=== PATIENT | female | born 1960 | race Caucasian/White ===

== ENCOUNTER 2017-07-04 06:48 | Day surgery (SDC) | payer MEDICARE ==
[2017-07-03 13:02] VITALS: BMI 24.7
[2017-07-04] MEDS ORDERED: Oxymetazoline HCl 0.05% ( 15 ML ) ONE ×2 (08:20→09:04)
[2017-07-04 08:42] LABS: Hematocrit 43.3 % (36.0-47.0)
[2017-07-04] MEDS ORDERED: Fentanyl 250 MCG/5 ML VIAL ONE (09:03)
[2017-07-04] MEDS ORDERED: Midazolam HCl 2 mg/2 ml Vial ONE (09:10)
[2017-07-04] MEDS ORDERED: Ketorolac Tromethamine 30 MG/ML VIAL ONE (09:25)
[2017-07-04] MEDS ORDERED: Lidocaine 2% PF 10 ML AMP (For Epidural Use) ONE (09:25)
[2017-07-04] MEDS ORDERED: Dexamethasone 20 MG/5 ML VIAL ONE (09:25)
[2017-07-04] MEDS ORDERED: Ondansetron HCl/PF 4 MG/2 ML Vial ONE (09:25)
[2017-07-04] MEDS ORDERED: Glycopyrrolate 0.2 MG/ML 5 ML SYRINGE ONE (09:25)
[2017-07-04] MEDS ORDERED: Propofol 200 MG/20 ML VIAL ONE (09:25)
--- NOTE | 2017-07-05 09:31 | OP ---
DATE OF SERVICE: 07/04/2017 PREOPERATIVE DIAGNOSES: 1. Chronic rhinosinusitis of the frontal air cells. 2. Chronic rhinosinusitis of the sphenoidal air cells. 3. Allergic fungal sinusitis. POSTOPERATIVE DIAGNOSES: 1. Chronic rhinosinusitis of the frontal air cells. 2. Chronic rhinosinusitis of the sphenoidal air cells. 3. Allergic fungal sinusitis. PROCEDURES: 1. Bilateral endoscopic sinus surgery, frontal sinusotomy with removal of tissue. 2. Bilateral endoscopic sinus surgery, sphenoidotomy. 3. Intraoperative image guided cranial base landmark surgery. SURGEON: Alexis Meyers M.D. ESTIMATED BLOOD LOSS: 20 mL COMPLICATIONS: None. ANESTHESIA: GETA. DESCRIPTION OF PROCEDURE: The patient was taken to the operating room and placed supine on the tabl e. General endotracheal anesthesia was obtained by the Anesthesia staff. Tube was secured in the l eft lower lip. The patient was placed in the beach chair position and was prepped and draped for st andard nasal surgery. Following this, the image guided landmark system was calibrated and was noted to be within 1 mm of accuracy. Following this, the guided instruments were then used to examine e nasal cavity along the 0 degree scope. The previous maxillary antrostomy and ethmoidectomies appe ared to be tight and healthy. There was redness and swelling in the right frontal recess area using the curved 40 degree microdebrider with the image guided system, the frontal recess and ostia on th is right side was identified and palpated. There was a bone remnant that was obstructing the right frontal sinus. This area was removed using the microdebrider and upbiting Blakesley forceps. Follo wing this, fungal debris and polypoid tissue was then suctioned and removed from right frontal sinus . Similar procedure was performed on the left frontal sinus where a scar band was encountered, but no obvious bone remnants. The scar mucosa was removed using the microdebrider. Following this, the 0 degree scope along with the straight microdebrider was then advanced medial to the middle turbina te where a scarred sphenoid ostia was encountered. The sphenoid ostia was then widened medially and inferiorly on both sides using the microdebrider. Thick mucus was suctioned from the left sphenoid sinus. Following this, the nasal cavity was irrigated. The patient was taken to recovery room in stable condition.
--- NOTE | 2017-07-06 15:57 | EKG ---
Test Reason : PREOP Blood Pressure : / mmHG Vent. Rate : 054 BPM Atrial Rate : 054 BPM P-R Int : 172 ms QRS Dur : 086 ms QT Int : 460 ms P-R-T Axes : 071 016 048 degrees QTc Int : 436 ms Sinus bradycardia Otherwise normal ECG When compared with ECG of 19-NOV-2016 22:11, Nonspecific T wave abnormality no longer evident in Anterior leads Confirmed by DR. Josselyn MITCHELL ([id number]) on 07/06/2017 3:57:08 PM Referred By: AMILCAR Confirmed By:DR. Josselyn MITCHELL
== END 2017-07-04 11:10 | disposition home or self-care (01) ==
LOC: SDC 06:48
PROVIDERS: ATTEND Otolaryngology Plastic Surgery within the Head & Neck
PROC: 09DT4ZZ Extraction of Left Frontal Sinus, Percutaneous Endoscopic Approach (ICD-10-PCS; principal; 2017-07-04)
PROC: 09DW4ZZ Extraction of Right Sphenoid Sinus, Percutaneous Endoscopic Approach (ICD-10-PCS; 2017-07-04)
PROC: 09DX4ZZ Extraction of Left Sphenoid Sinus, Percutaneous Endoscopic Approach (ICD-10-PCS; 2017-07-04)
PROC: 09D Ear, Nose, Sinus, Extraction (ICD-10-PCS; 2017-07-04)
DX: J32.1 Chronic frontal sinusitis (principal); J32.3 Chronic sphenoidal sinusitis; J30.89 Other allergic rhinitis; F41.9 Anxiety disorder, unspecified; I10 Essential (primary) hypertension; F32.9 Major depressive disorder, single episode, unspecified; E78.5 Hyperlipidemia, unspecified; F17.200 Nicotine dependence, unspecified, uncomplicated; Z79.3 Long term (current) use of hormonal contraceptives; Z79.899 Other long term (current) drug therapy; Z88.1 Allergy status to other antibiotic agents; Z88.8 Allergy status to other drugs, medicaments and biological substances; Z90.710 Acquired absence of both cervix and uterus; Z90.49 Acquired absence of other specified parts of digestive tract; Z98.890 Other specified postprocedural states
CPT/HCPCS: 36415; 85014; 93005; 93010; 96374; J0131; J1100; J1885; J2001; J2250; J2270; J2405; J2704; J3010

== ENCOUNTER 2017-09-12 12:30 | Outpatient (CLI) | payer MEDICARE | END 2017-09-12 12:31 | disposition home or self-care (01) | LOC: BICRAD 12:30 | PROVIDERS: ATTEND Internal Medicine | DX: J18.9 Pneumonia, unspecified organism (principal) | CPT/HCPCS: 70220; 71046 ==

== ENCOUNTER 2017-12-01 20:55 | Inpatient (IN) | payer MEDICARE ==
[~2017-12-01 20:55] MED LIST: ISOVUE-370 76%-LOCM 1 ML ONE
[2017-12-01] MEDS ORDERED: Piperacillin/Tazobactam 4.5 GM in Sodium Chloride 0.9% 100 ML IVPB SCH (21:45)
[2017-12-01] MEDS ORDERED: Albuterol Sulfate 2.5 mg/3 ml Neb ONE ×2 (22:27→22:28)
[2017-12-01] MEDS ORDERED: Ketorolac Tromethamine 30 MG/ML VIAL ONE (22:37)
--- NOTE | 2017-12-01 22:55 | RAD ---
AP VIEW OF THE CHEST 12/01/17 INDICATION: Difficulty breathing. COMPARISON: CT of the thorax dated 11/22/04. FINDINGS: The lungs are clear. Heart size is normal. Pulmonary vasculature is normal. There is mild to moderate emphysematous change. There is a stable calcified granuloma within the right mid lung. No acute osse ous abnormality is evident. IMPRESSION: 1. No acute cardiopulmonary abnormality. 2. COPD. 3. Stable calcified granuloma in the right lower lobe. POS: [facility]
[2017-12-01 23:48] LABS: #Basophils 0.1 thou/uL (0.0-0.2); #Eosinphils 0.2 thou/uL (0.0-0.7); #Lymphocytes 3.1 thou/uL (1.20-3.40); #Monocytes 1.3 thou/uL (0.11-0.59); %Basophils 0.6 % (0.0-1.0); %Eosinophils 1.6 % (0.0-10.0); %Lymphocytes 21.2 % (21.0-51.0); %Monocytes 8.6 % (0.0-10.0); %Neutrophils 68.1 % (42.0-75.0); Hemoglobin 11.4 g/dL (12.0-16.0); Mean Corpuscular Hemoglobin 33.6 pg (27.0-31.0); Platelet Count 323 thou/uL (130-400); RBC Distribution Width 12.7 % (11.5-14.5); Red Blood Cell (RBC) Count 3.38 mill/uL (4.20-5.40); White Blood Cell (WBC) Count 14.6 thou/uL (4.8-10.8)
[2017-12-02 00:04] LABS: ALT (SGPT) 17 U/L (8-55); AST (SGOT) 12 U/L (5-34); Albumin 3.6 g/dL (3.5-5.0); Alkaline Phosphatase 63 U/L (40-150); Anion Gap 14 mmol/L (10-20); BUN (Urea Nitrogen) 20 mg/dL (9.8-20.1); Bilirubin, Total 0.3 mg/dL (0.2-1.2); CK (CPK) 25 U/L (29-168); Calc. Creatinine Clearance 0 mL/min (70-130); Calcium 8.5 mg/dL (7.8-10.44); Carbon Dioxide 23 mmol/L (22-29); Chloride 103 mmol/L (98-107); Estimated GFR-MDRD 41; Globulin 3.3 g/dL (2.4-3.5); Glucose 91 mg/dL (70-105); Potassium 3.9 mmol/L (3.5-5.1); Protein, Total 6.9 g/dL (6.0-8.3); Sodium 136 mmol/L (136-145)
[2017-12-02] MEDS ORDERED: Hydrocortisone Sod Succ/PF 100 mg/2 ml Vial ONE (00:04)
[2017-12-02 00:08] LABS: CKMB 0.6 ng/mL (0-6.6); Troponin I Less than 0.010 ng/mL (< 0.028)
[2017-12-02] MEDS ORDERED: Albuterol Sulfate 2.5 mg/0.5 ml Neb ONE ×2 (01:15)
[2017-12-02] MEDS ORDERED: Albuterol Sulfate 2.5 mg/3 ml Neb ONE ×2 (01:15)
[2017-12-02] MEDS ORDERED: Mometasone/Formoterol 120 PUFF INHALER INH SCH (01:45)
[2017-12-02 02:59] LABS: Troponin I Less than 0.010 ng/mL (< 0.028)
[2017-12-02] MEDS ORDERED: Norepinephrine 8 MG/250 ML BAG IVPB PRN (03:15)
[2017-12-02] MEDS ORDERED: Furosemide 20 MG/2 ML VIAL SLOW IVP SCH (03:15)
[2017-12-02] MEDS ORDERED: Nitroglycerin 0.4 MG TAB (25 Tab Bottle) SL PRN (03:40)
[2017-12-02] MEDS ORDERED: Benzonatate 100 MG CAP PO PRN (03:40)
[2017-12-02] MEDS ORDERED: Milk Of Magnesia 30 ML UDCUP PO PRN (03:40)
[2017-12-02] MEDS ORDERED: cloNIDine 0.1 MG TAB PO PRN (03:40)
[2017-12-02] MEDS ORDERED: Ondansetron HCl/PF 4 MG/2 ML Vial IVP PRN (03:40)
[2017-12-02] MEDS ORDERED: hydrALAZINE 20 MG/ML VIAL SLOW IVP PRN (03:40)
[2017-12-02] MEDS ORDERED: Diabetic Tussin 200 MG/10 ML UDCUP PO PRN (03:40)
[2017-12-02] MEDS ORDERED: Acetaminophen 325 MG Suppository PR PRN (03:40)
[2017-12-02] MEDS ORDERED: Norepinephrine 8 MG/0.9% NS 250 ML IVPB PRN (03:40)
[2017-12-02] MEDS ORDERED: Loratadine 10 MG TAB PO PRN (03:40)
[2017-12-02] MEDS ORDERED: Acetaminophen 325 MG/10.15 ML UDCUP PO PRN (03:40)
[2017-12-02] MEDS ORDERED: Bisacodyl 5 MG TAB PO PRN (03:40)
[2017-12-02] MEDS ORDERED: CCU Electrolyte Replacement 1 EACH IVPB SCH (03:40)
[2017-12-02] MEDS ORDERED: Mag-Al 1200 mg/1200 mg/30 ML UDCUP PO PRN (03:40)
[2017-12-02] MEDS ORDERED: Potassium Phosphate 12 MMOL in Sodium Chloride 0.9% 250 ML 250 ML IV PRN (03:45)
[2017-12-02] MEDS ORDERED: Magnesium 2 GM/NS 0.9% 100 ML 2 GM in Premix Bag 1 BAG IVPB PRN (03:45)
[2017-12-02] MEDS ORDERED: Potassium Phosphate 9 MMOL in Sodium Chloride 0.9% 100 ML IVPB PRN (03:45)
[2017-12-02] MEDS ORDERED: Magnesium Oxide 400 MG TAB PO PRN ×2 (03:45)
[2017-12-02] MEDS ORDERED: Potassium Chloride 40 MEQ in Sodium Chloride 0.9% 250 ML 250 ML IVPB PRN (03:45)
[2017-12-02] MEDS ORDERED: CCU ELECTROLYTE REPLACEMENT PROTOCOL FS PRN (03:45)
[2017-12-02] MEDS ORDERED: Potassium Chloride 40 MEQ in Premix Bag 1 BAG IVPB PRN (03:45)
[2017-12-02] MEDS ORDERED: Potassium Phosphate 15 MMOL in Sodium Chloride 0.9% 250 ML 250 ML IV PRN (03:45)
[2017-12-02] MEDS ORDERED: Potassium Chloride 20 MEQ TAB PO PRN (03:45)
[2017-12-02] MEDS ORDERED: VANCOMYCIN IVPB PRN (04:07)
--- NOTE | 2017-12-02 04:07 | HP ---
DATE OF ADMISSION: 12/02/2017 PRIMARY CARE PHYSICIAN: Alexus Guerrero M.D. CHIEF COMPLAINT: Worsening shortness of breath. HISTORY OF PRESENTING ILLNESS: Ms. Malloy is a pleasant 57-year-old female with past medical history of tobacco abuse, hypertension, hypothyroidism, and dyslipidemia, and history of pancreatiti s, who presented to the emergency room with above-mentioned complaint. History is mainly obtained by the patient herself who is having a hard time giving the history because of the nebulizer mask on an d also because of shortness of breath with conversation. History is supplemented by discussing with the emergency room physician and review of the electronic medical records. The patient reports that she has been having worsening shortness of breath for almost 5 days now. Emmanuelle webber does have sick contacts in the house and has been having some subjective fever and cough. She laura es any chest pain or any swelling of the legs. She continues to smoke. She was seen by her primary care physician and was given steroids without any benefit along with antibiotics. Inhalers were also provided, but she did not have any relief and came to the emergency room today with worsening of the symptoms. Upon presentation, she was significantly hypotensive and hypoxic. Her blood pressure upon presentati on was 78/51. Presentation oxygen saturation is not available, but she was immediately put on nasal cannula oxygen and was 100%. Her chest x-ray was unremarkable. Since presentation, she has received total of 3 liters of IV fluids and boluses for the low blood pre ssure and despite all of this, she has remained hypotensive. Her most recent blood pressure is 94/64 after 3 liters of IV fluids. She decompensated in the emergency room with increased wheezing: Like ly secondary to fluid overload now. She has received nebulizers and was reevaluated by emergency aarti m physician, Dr. Carter, per my request. She has been started on continuous nebulizers and is in th e process of getting a central line for the need for pressors for hypotension and due to poor IV acce ss. She will be admitted to the Critical Care Unit with acute hypoxic respiratory failure likely sec ondary to chronic obstructive pulmonary disease as well as hypotension with possible sepsis. She has received IV antibiotics in the form of vancomycin and Zosyn in the emergency room along with IV ster oids in the form of Solu-Cortef. PAST MEDICAL HISTORY: 1. Hypertension. 2. Dyslipidemia. 3. Hypothyroidism. 4. Acute pancreatitis in 2017. 5. Tobacco abuse. 6. Gastroesophageal reflux disease. PAST PSYCHIATRIC HISTORY: Anxiety and depression. PAST SURGICAL HISTORY: Cholecystectomy, hysterectomy, right knee surgery, sinus surgery. ALLERGIES: DEPAKOTE and LEVOFLOXACIN. SOCIAL HISTORY: Quit drinking alcohol in 2010. The patient smokes 1 pack per day per the ER records . FAMILY HISTORY: No significant family history of premature coronary artery disease, CVA, or cancer. Positive for COPD. HOME MEDICATIONS: As per the ER record as follows, estradiol transdermal patch once a week, lisinopr il 20 mg daily, alprazolam 0.5 mg t.i.d., atenolol 100 mg daily, levothyroxine 50 mcg daily, mirtazap ine 60 mg at bedtime, Protonix 40 mg daily, simvastatin 20 mg daily, buspirone 15 mg daily, venlafaxi ne 75 mg 3 capsules once a day, [place] 5/325 one tablet p.o. b.i.d. REVIEW OF SYSTEMS: The patient is having a hard time breathing, otherwise, endorses subjective fever , chills, and cough. Otherwise, negative 10-point review of systems. The following complete review of systems was negative, unless otherwise mentioned in the HPI or below: Constitutional: Weight los s or gain, ability to conduct usual activities. Skin: Rash, itching. Eyes: Double vision, pain. ENT/Mouth: Nose bleeding, neck stiffness, pain, tenderness. Cardiovascular: Palpitations, dyspnea on exertion, orthopnea. Respiratory: Shortness of breath, wheezing, cough, hemoptysis, fever, or ni ght sweats. Gastrointestinal: Poor appetite, abdominal pain, heartburn, nausea, vomiting, constipat ion, or diarrhea. Genitourinary: Urgency, frequency, dysuria, nocturia. Musculoskeletal: Pain, sw elling. Neurologic/Psychiatric: Anxiety, depression. Allergy/Immunologic: Skin rash, bleeding ten dency. LABORATORY DATA: CBC shows WBCs at 14.6 with normal neutrophil percentage. Hemoglobin 11.4, platele t count of 323. Serum chemistries unremarkable except for creatinine at 1.34 with her baseline being normal. Cardiac enzymes are within normal. BNP is 53, lactic acid is 1.8. Chest x-ray done in the emergency room by my review is negative for any effusion, edema. It does show chronic lung diseases and calcified granuloma in the right lower lobe. CT angio has been done in the emergency room. For mal report is pending at this time. A 12-lead EKG by my review shows normal sinus rhythm at 75 beats per minute without any ectopies and normal ST segment and normal T waves. PHYSICAL EXAMINATION: VITAL SIGNS: Upon presentation, blood pressure 78/51, pulse of 74, saturating 100% on 4 liters oxyge n, respirations 24, temperature 98.5, most recent blood pressure 94/64. GENERAL: The patient appears uncomfortable and easily winded with minimal conversation. She is sitt ing upright. There is no tripoding. No peripheral cyanosis. She is awake, alert, oriented x3. HEENT: Mucous membrane is moist and pink. No oropharyngeal exudate or erythema. NECK: Supple without any lymphadenopathy, JVD, or bruit. CHEST: Evaluation showed diffuse rhonchi as well as wheezes throughout bilaterally. Coarse breath s ounds heard throughout as well. HEART: Rate and rhythm is regular without any murmur, rubs, or gallops. ABDOMEN: Soft, nontender, nondistended with positive bowel sounds. EXTREMITIES: Free of any cyanosis, clubbing, or edema. NEUROLOGIC: Nonfocal. SKIN: Warm and free of any rashes. NEUROLOGIC: Nonfocal. PSYCHIATRIC: Anxiety, noticed. IMPRESSION AND PLAN: 1. Acute hypoxic respiratory failure. The patient's most likely diagnosis is acute chronic obstruct rebecca pulmonary disease at this time. She will be treated with scheduled and as needed nebulizers taras g with IV steroids and oxygen. Empiric antibiotics will be added. We will consult Pulmonary Medicin e for further recommendations. At long-acting inhaled steroids as well in the form of Dulera for now . Tobacco abuse counseling when stable. We will follow the results of the CT angio to rule out pulm onary embolism and continue to trend serial cardiac enzymes to rule out cardiac pathology. At this t polly, the initial cardiac enzymes and EKG are unremarkable. 2. Hypotension. Likely sepsis secondary to recent illness. Empiric antibiotics have been started a nd we will continue those for now. The patient will be admitted to Critical Care Unit. She is getti ng a central line by the emergency room physician and we will start her on Levophed p.r.n. to maintai n a map of 65. Avoid further IV fluids, as she is becoming fluid overloaded. We will also give her a dose of Lasix once her blood pressure allows, as she most likely has sustained flash pulmonary royer a from IV fluid hydration. Check a chest x-ray in the morning. 3. Sepsis with septic shock. Unclear source at this time. We will follow the results of her blood cultures and obtain urinalysis and cultures as well. Empiric IV antibiotic and IV fluids as above. 4. Acute renal insufficiency. This is likely secondary to dehydration. Monitor urine output closel y and avoid any nephrotoxic medications. She has received 3 liters of IV fluids in the emergency aarti m and because of the risk of pulmonary edema: We will avoid any further IV fluids. Monitor her lou l function on a daily basis. 5. Chronic obstructive pulmonary disease, most likely this patient has undiagnosed chronic obstructi ve pulmonary disease with years of tobacco abuse. Treatment as outlined in #1. The patient will alyssa efit from starting on chronic inhalers as well as inhaled steroids and outpatient followup with [facility]. Tobacco cessation abuse once stable as above. 6. History of hypertension. We will hold antihypertensives because of the low blood pressure at thi s time. Restart as tolerated. 7. History of hypothyroidism. We will restart her Synthroid for now. 8. Code status: FULL CODE discussed with the patient. 9. Deep venous thrombosis and gastrointestinal prophylaxis. 10. Gastroesophageal reflux disease. Continue proton-pump inhibitor. 11. History of dyslipidemia. Restart Zocor when the patient is more stable. 12. History of anxiety, depression, bipolar disorder. We will hold her buspirone as well as alprazo randle, for now given the low blood pressure. Restart as tolerated based on the blood pressure. DISPOSITION: Ms. Malloy is currently being admitted to Critical Care Unit for acute hypoxic respirator y failure and likely sepsis with septic shock. Estimated length of stay is at least 2-3 midnights. Total time spent in the care of this patient is 40 minutes including [id number] interaction and dis cussion with emergency room physician about the lifesaving measures including central line nebulizers and the code status.
[2017-12-02 04:25] VITALS: BMI 29.0
[2017-12-02] MEDS: Piperacillin/Tazobactam 3.375 GM in Sodium Chloride 0.9% 100 ML IVPB SCH ×4 (05:00→23:39)
[2017-12-02] MEDS ORDERED: Levothyroxine Sodium 50 MCG TAB PO SCH (06:00)
[2017-12-02 06:25] LABS: Troponin I Less than 0.010 ng/mL (< 0.028)
[2017-12-02] MEDS: Mometasone/Formoterol 120 PUFF INHALER INH SCH ×2 (06:55→18:56)
--- NOTE | 2017-12-02 08:53 | RAD ---
CHEST 1 VIEW: HISTORY: Central line placement. COMPARISON: Chest radiograph 12/01/17. FINDINGS: Replacement of a central venous catheter with the tip in the inferior SVC. No complication. The rem ainder of the findings are unchanged. IMPRESSION: Uncomplicated placement of central venous catheter. POS: [facility]
[2017-12-02] MEDS ORDERED: Famotidine 20 MG TAB PO SCH (09:00)
[2017-12-02] MEDS ORDERED: Famotidine/PF 20 mg/2ml Vial SLOW IVP SCH (09:00)
[2017-12-02] MEDS: ALPRAZolam 0.5 MG TAB PO SCH ×2 (09:37→19:39)
[2017-12-02] MEDS: guaiFENesin ER 600 MG TAB PO SCH ×2 (09:37→19:39)
[2017-12-02] MEDS ORDERED: Estradiol 0.05mg/24 Hour Patch (Weekly) TD SCH (10:00)
[2017-12-02 12:42] LABS: Bilirubin Negative (Negative); Blood, Urine Trace (Negative); Clarity CLOUDY (Clear); Glucose, Urine (Dipstick) Negative (Negative); Leukocyte Large (Negative); Nitrite Negative (Negative); Protein, Urine (Dipstick) Negative (Neg-Trace); Specific Gravity, Urine 1.014 (1.002-1.036); Urobilinogen 0.2 mg/dL (0.2-1.0)
[2017-12-02 12:45] LABS: Bacteria/HPF None Seen HPF (None Seen); Hyaline Casts/LPF 0-3 HYALINE CAST LPF (0-3 Hyaline); Pathc Cast-AUWi Flag 0.29 (0-2.49)
[2017-12-02] MEDS: HYDROcodone/Acetaminophen 5/325 mg Tablet PO PRN ×2 (13:43→19:39)
--- NOTE | 2017-12-02 13:49 | CON ---
DATE OF CONSULTATION: 12/02/2017 SERVICE: Pulmonary Medicine. REASON FOR CONSULTATION: ICU patient. HISTORY OF PRESENT ILLNESS: The patient is a 57-year-old white female, who has been battling upper respiratory congestion for a period of time. She was in her usual state of health until July. At that point, she started having recurrent episodes of respiratory infections. She currently denies any fevers, chills, nausea, vomiting or shortness of breath. She has been on multiple inhalers, couple rounds of steroids and antibiotics, and nebulized medication. Roughly a week ago, she started having a recrudescence in her symptoms once again. She went to her primary care physician who gave her some steroids and a new inhaler. No antibiotics were prescribed. She went back again because she had increasing symptoms. Her inhaler was changed to a different medication. She used that medication, but ultimately decompensated and presented to the emergency department where she was discovered to be hypotensive. Other than this, she has had some sinusitis type symptoms. She denies any nausea, vomiting , or constipation. Diarrhea is at baseline, but perhaps this has also been a little worse over the last week. She does not have any other infectious symptoms. Denies dysuria, arthralgia, myalgia or rashes. PAST MEDICAL HISTORY: 1. Hypertension. 2. Dyslipidemia. 3. Hypothyroidism. 4. History of pancreatitis. 5. Tobacco abuse. 6. Gastroesophageal reflux disease. PAST SURGICAL HISTORY: 1. Cholecystectomy. 2. Hysterectomy. 3. Right knee surgery. 4. Sinus surgery. ALLERGIES: DEPAKOTE and LEVOFLOXACIN. MEDICATIONS: List of inpatient medications were reviewed. Multiple updates were made at this time. SOCIAL HISTORY: She smokes a pack per day. She has greater than [id number] history of smoking. She discontinued all alcohol use in 2010. She has a history of heavy drinking prior to that. She denies any illicit drugs. She has no exposure to chemicals, dust asbestos or tuberculosis. FAMILY HISTORY: Noncontributory. REVIEW OF SYSTEMS: General, head, ears, eyes, nose, throat, cardiovascular, respiratory, GI, , musculoskeletal, neurologic and skin is negative except as mentioned in the HPI. PHYSICAL EXAMINATION: VITAL SIGNS: Afebrile, pulse 82, blood pressure 124/65, respirations 23, saturation 92% on 2 liters nasal cannula. GENERAL: The patient is awake and alert, in no apparent distress. LUNGS: A fairly good air entry, but a prolonged expiratory phase and polyphonic wheezing is evident. I do not appreciate any crackles. HEART: Normal rate, regular. ABDOMEN: Soft, nontender, nondistended. Bowel sounds are positive. MUSCULOSKELETAL: No cyanosis or clubbing. There is no pitting in the bilateral lower extremities. NEUROLOGIC: Grossly nonfocal. LABORATORY DATA: WBC 14.6, hemoglobin 11.4, platelets 323,000. Creatinine is 1.34. Basic metabolic profile and liver function studies are otherwise unremarkable. BNP is 53, troponin negative x2. Lactate is unremarkable and lipase is normal. Influenza A and B is negative. Blood cultures x2 are unremarkable. IMAGING: CT of the chest demonstrates an odd lesion. This is heavily calcified and is actually more dense than bone. It is in the right mid lung zone. There is minimal atelectasis in the dependent region of the bilateral lungs. There is evidence of bronchiolitis with thickened airways. ASSESSMENT: 1. Septic shock, resolved. 2. Acute hypoxic respiratory failure. 3. Chronic obstructive pulmonary disease with acute exacerbation, suspected. 4. Pulmonary nodule, heavily ossified. 5. Bronchiolitis, possible. PLAN: We will continue our antibiotics, nebulized medications and steroids. I will give her [place] for chronic back discomfort. Pulmonary Critical Care will continue to follow along. There is pulmonary nodule that is heavily ossified is of absolutely no concern. It has been stable since 2004. It is unlikely to be a malignant lesion. It is most likely to represent a hamartoma, or some other type of growth that has some bone fragments growing there. Pulmonary Critical Care will continue to follow along, but she can be transitioned to the medical unit. 70 minutes have been devoted to this patient in various activities. I personally reviewed all imaging studies and laboratory data noted within this document. For fifty percent of this time, I was interacting with the patient at the bedside or coordinating care with the care team. For the remainder of the time I was immediately available to the patient in the hospital unit. HAIDER
--- NOTE | 2017-12-02 14:52 | CT ---
PRELIMINARY REPORT/[facility]/EMERGENTY AFTER-HOURS PROCEDURE EXAM: CT Angiography Chest With Intravenous Contrast CLINICAL HISTORY: 57 years old, female; Signs and symptoms; Shortness of breath; Patient HX: Er 15; 57 y/o f with prese ntation of SOB. Pt reports that she saw pmd and was given inhaler and other meds, but had no relief. HX of copd, no HX of chf TECHNIQUE: Axial computed tomographic angiography images of the chest with intravenous contrast using pulmonary embolism protocol. MIP reconstructed images were created and reviewed. CONTRAST: 60 mL of ISOVUE 370 administered intravenously. COMPARISON: No relevant prior studies available. FINDINGS: Pulmonary arteries: No pulmonary embolism. Aorta: No acute findings. No thoracic aortic aneurysm. 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 Mild bibasilar subsegmental atelectasis versus scarring is noted. No mass. No consoli dation. Pleural space: Trace right effusion. No pneumothorax. Heart: No cardiomegaly. Coronary calcifications noted No significant pericardial effusion. No evidenc e of RV dysfunction. Bones/joints: No acute fracture. No dislocation. Soft tissues: Unremarkable. Lymph nodes: Right hilar and mediastinal adenopathy noted Prior cholecystectomy IMPRESSION: No definite pulmonary embolism detected 4 mm right upper lobe nodule Hilar and mediastinal adenopathy of unclear etiology. 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 Dictated and Authenticated by: Vaughn Giraldo MD 12/02/2017 1:16 AM Central Time ([place] & [place]) FINAL REPORT CT ANGIO OF CHEST WITH CONTRAST: HISTORY: Dyspnea. Shortness of breath. COMPARISON: Chest radiograph prior day. FINDINGS: CT angiogram chest performed after the intravenous administration of contrast. Three-D rendering was provided. Findings and impression are concordant with the preliminary report. POS: [facility]
[2017-12-02] MEDS: Fish Oil 1,000 MG CAP PO SCH (19:38)
[2017-12-02] MEDS: Atorvastatin Calcium 10 MG TAB PO SCH (19:38)
[2017-12-02] MEDS: Mirtazapine 30 MG TAB PO SCH (19:38)
[2017-12-02] MEDS ORDERED: Vancomycin HCl 1 GM in Premix Bag 1 BAG IVPB SCH (21:00)
[2017-12-02] MEDS ORDERED: Non-Formulary Item 1 EACH (Omega-3 Fatty Acids/Fish Oil [Fish Oil 1,000 Mg Capsule] 2 CAP PO SCH (21:00)
--- NOTE | 2017-12-02 23:59 | PDOC.PN ---
- Subjective Encounter Start Date: 12/02/17 Encounter Start Time: 15:00 Subjective: nsg notes rev, jerod ovn, pt is highly anxious, at bedside -: pt states she takes norco to help her with sleep but is currently also -: c/o lower back pain which she also takes norco for - Objective Vital Signs & Weight: Vital Signs (12 hours) Temp Pulse Resp BP Pulse Ox 12/02/17 23:43 97.6 F 78 18 134/77 93 L 12/02/17 19:40 97.7 F 90 20 127/70 92 L 12/02/17 18:55 86 18 88 L 12/02/17 16:27 98 F 80 20 12/02/17 16:00 98 F 12/02/17 13:09 85 15 96 12/02/17 12:00 97.7 F Weight Weight 148 lb 12.992 oz Most Recent Monitor Data Heart Rate from ECG 87 NIBP 119/61 NIBP BP-Mean 73 Respiration from ECG 23 SpO2 93 I&O: 12/01/17 12/02/17 12/03/17 06:59 06:59 06:59 Intake Total 3400 1100 Output Total 300 2750 Balance 3100 -1650 Result Diagrams: 12/03/17 05:04 12/03/17 05:04 Phys Exam - Physical Examination Constitutional: NAD HEENT: PERRLA, sclera anicteric slightly dry mm diminished throughout with some wheezing of RML RLL Cardiovascular: RRR, no significant murmur, no rub Gastrointestinal: soft, positive bowel sounds Musculoskeletal: no edema, pulses present Neurological: moves all 4 limbs Psychiatric: normal affect, A&O x 3 Dx/Plan - Plan * 57F who p/w SOB * * COPD exac * improving, currently on 2L NC, symptomatic support and down titrate O2 as possible * steroids with SSI for anticipated medication induced hyperglycemia * apprec pulm c/s * nebs, empiric abx * lasix as well over concern for occult concurrent cardiac contribution to presentation hypotension * improved, off levophed pressors * continue ivf, monitor BP * d/w pt and at bedside caution in resuming any home medications which could potentially lower the blood pressure dangerously anxiety * resume home xanax and monitor lower back pain * lidocaine patch * OOB as tolerated * cautious pain regimen diet: as jossie, cardiac activity: as jossie, PT, ambulatory pulse ox dvt ppx Review of Systems - Medications/Allergies Allergies/Adverse Reactions: Allergies Allergy/AdvReac Type Severity Reaction Status Date / Time divalproex sodium Allergy Verified 07/03/17 13:03 [From Depakote] Medications: Current Medications Acetaminophen (Tylenol Elixir) 650 mg PO Q6H PRN PRN Reason: Fever > 101 or Mild Pain Acetaminophen (Tylenol) 650 mg NM Q6H PRN PRN Reason: Fever > 101 or Mild Pain Hydrocodone Bitart/Acetaminophen (Jewett 5/325) 1 tab PO Q6H PRN PRN Reason: Pain Last Admin: 12/03/17 03:38 Dose: 1 tab Al Hydroxide/Mg Hydroxide (Maalox) 30 ml PO Q8H PRN PRN Reason: Indigestion Albuterol/Ipratropium (Duoneb) 3 ml NEB Q6H PRN PRN Reason: SOB &/or Wheezing Last Admin: 12/02/17 02:31 Dose: 3 ml Albuterol/Ipratropium (Duoneb) 3 ml NEB [id number] [facility] Last Admin: 12/03/17 06:00 Dose: 3 ml Alprazolam (Xanax) 0.5 mg PO TID [facility] Last Admin: 12/02/17 19:39 Dose: 0.5 mg Atorvastatin Calcium (Lipitor) 10 mg PO HS [facility] Last Admin: 12/02/17 19:38 Dose: 10 mg Bisacodyl (Dulcolax) 10 mg PO DAILYPRN PRN PRN Reason: Constipation Clonidine (Catapres) 0.1 mg PO Q4H PRN PRN Reason: Systolic BP > 160 Estradiol (Climara (Weekly)) 0.05 mg TD Q7D [facility] Last Admin: 12/02/17 09:37 Dose: Not Given Fish Oil (Fish Oil) 2,000 mg PO BID [facility] Last Admin: 12/02/17 19:38 Dose: 2,000 mg Guaifenesin (Robitussin Sf) 200 mg PO Q4H PRN PRN Reason: Cough Guaifenesin (Mucinex) 1,200 mg PO Q12HR [facility] Last Admin: 12/02/17 19:39 Dose: 1,200 mg Hydralazine HCl (Apresoline) 10 mg SLOW IVP Q4H PRN PRN Reason: Systolic BP > 170 Piperacillin Sod/Tazobactam (Sod 3.375 gm/ Sodium Chloride) 100 mls @ 200 mls/ hr IVPB Q6HR [facility] Last Admin: 12/03/17 05:29 Dose: 100 mls Vancomycin HCl 1 gm/ Device 200 mls @ 200 mls/hr IVPB 2100 [facility] Last Admin: 12/02/17 19:44 Dose: 200 mls Levothyroxine Sodium (Synthroid) 50 mcg PO QAM [facility] Loratadine (Claritin) 10 mg PO DAILYPRN PRN PRN Reason: Sinus Symptoms Mirtazapine (Remeron) 60 mg PO HS [facility] Last Admin: 12/02/17 19:38 Dose: 60 mg Miscellaneous Medication (Pharmacy To Dose) 1 each IVPB PRN PRN PRN Reason: SEPSIS Mometasone Furoate/Formoterol Fumar (Dulera 200 Mcg/5 Mcg Inhaler) 2 puff INH BID-RT [facility] Last Admin: 12/03/17 06:02 Dose: 2 puff Multivitamins (Theragran) 1 tab PO DAILY [facility] Nitroglycerin (Nitrostat) 0.4 mg SL Q5MIN PRN PRN Reason: Chest Pain Ccu Electrolyte (Replacement Protocol) 0 each FS PRN PRN PRN Reason: FOR ELECTROLYTE REPLACEMENT Ondansetron HCl (Zofran) 4 mg IVP Q6H PRN PRN Reason: Nausea/Vomiting Prednisone (Prednisone) 40 mg PO QAM-WM [facility] Stop: 12/07/17 08:01 Sodium Chloride (Flush - Normal Saline) 10 ml IVF Q12HR [facility] Last Admin: 12/02/17 19:39 Dose: 10 ml
[2017-12-03] MEDS: HYDROcodone/Acetaminophen 5/325 mg Tablet PO PRN ×4 (03:38→21:57)
[2017-12-03] MEDS: Piperacillin/Tazobactam 3.375 GM in Sodium Chloride 0.9% 100 ML IVPB SCH ×4 (05:29→23:07)
[2017-12-03 05:37] LABS: Band 5 % (5-11); Hemoglobin 10.2 g/dL (12.0-16.0); Lymphocytes 8 % (21-51); MDiff Complete? YES; Mean Corpuscular HGB CONC 33.4 g/dL (32.0-36.0); Mean Corpuscular Hemoglobin 33.2 pg (27.0-31.0); Mean Corpuscular Volume 99.4 fl (81.0-99.0); Mean Platelet Volume 6.9 fL (7.4-10.4); Monocytes 5 % (0-10); Neutrophil 82 % (42-75); Platelet Count 303 thou/uL (130-400); RBC Distribution Width 12.7 % (11.5-14.5); Red Blood Cell (RBC) Count 3.07 mill/uL (4.20-5.40); White Blood Cell (WBC) Count 15.6 thou/uL (4.8-10.8)
[2017-12-03 05:59] LABS: ALT (SGPT) 21 U/L (8-55); AST (SGOT) 16 U/L (5-34); Albumin 3.5 g/dL (3.5-5.0); Alkaline Phosphatase 49 U/L (40-150); Anion Gap 9 mmol/L (10-20); Bilirubin, Total 0.3 mg/dL (0.2-1.2); Calc. Creatinine Clearance 88 mL/min (70-130); Carbon Dioxide 26 mmol/L (22-29); Chloride 110 mmol/L (98-107); Estimated GFR-MDRD 73; Globulin 3.1 g/dL (2.4-3.5); Glucose 131 mg/dL (70-105); Potassium 4.2 mmol/L (3.5-5.1); Protein, Total 6.6 g/dL (6.0-8.3); Sodium 141 mmol/L (136-145)
[2017-12-03] MEDS: Mometasone/Formoterol 120 PUFF INHALER INH SCH ×2 (06:02→20:10)
[2017-12-03 06:10] LABS: BUN (Urea Nitrogen) 13 mg/dL (9.8-20.1)
[2017-12-03] MEDS: Multivit, Therapeutic 1 TAB PO SCH (08:33)
[2017-12-03] MEDS: Levothyroxine Sodium 50 MCG TAB PO SCH (08:33)
[2017-12-03] MEDS: ALPRAZolam 0.5 MG TAB PO SCH ×3 (08:33→20:39)
[2017-12-03] MEDS: predniSONE 20 MG TAB PO SCH (08:33)
[2017-12-03] MEDS: guaiFENesin ER 600 MG TAB PO SCH ×2 (08:33→20:37)
[2017-12-03] MEDS: Fish Oil 1,000 MG CAP PO SCH ×2 (08:33→20:37)
[2017-12-03] MEDS ORDERED: Non-Formulary Item 1 EACH (Simvastatin [Simvastatin] 20 MG) PO SCH (09:00)
[2017-12-03] MEDS ORDERED: Ascorbic Acid 500 mg Chewable Tablet PO SCH (09:00)
[2017-12-03] MEDS ORDERED: Non-Formulary Item 1 EACH (Multivitamin [Multi-Vitamin Daily] 1 TABLET) PO SCH (09:00)
[2017-12-03] MEDS ORDERED: Non-Formulary Item 1 EACH (Ascorbic Acid [Vitamin C] 1,000 MG) PO SCH (09:00)
--- NOTE | 2017-12-03 11:20 | PRG ---
DATE OF SERVICE: 12/03/2017 SERVICE: Pulmonary Medicine. INTERVAL HISTORY: The patient is doing absolutely fantastic from a respiratory standpoint. She is c oughing up a whole bunch of green phlegm. Each time she gets some stuff up, she feels a little bit b raquel. Otherwise, there has been no interval change to her condition. She has been up and around he r room. She is currently on room air. She took herself off the oxygen, temporarily. She does not f eel short of breath when she does this. OBJECTIVE: VITAL SIGNS: Afebrile, pulse 90, blood pressure 134/83, respirations 18, saturation 94% on 1 liter n cielo cannula previously recorded. HEART: Normal rate, regular. ABDOMEN: Soft, nontender, nondistended. Bowel sounds positive. MUSCULOSKELETAL: No cyanosis or clubbing. There is no pitting in the bilateral lower extremities. NEUROLOGIC: Grossly nonfocal. LABORATORY DATA: WBC 15.6 and stable, hemoglobin 10.2, platelets 303,000. Neutrophil count is 82%. Basic metabolic profile, liver function studies are unremarkable. Lipase was previously negative. Wbc in the urine is greater than 50. Blood cultures growing coag negative Staph in 1 out of 2. Infl uenza A and B is unremarkable. Urine culture is negative to date. IMAGING: Echocardiogram demonstrates normal ejection fraction and a normal left ventricle. There ar e no significant valvular abnormalities present. ASSESSMENT: 1. Septic shock, resolved. 2. Acute hypoxic respiratory failure, resolved. 3. Chronic obstructive pulmonary disease with acute exacerbation. 4. Pulmonary nodule, heavily ossified. 5. Bronchiolitis, possible. DISCUSSION AND PLAN: We will continue nebulized medications and steroids. Pulmonary Critical Care w ill continue to follow along for the time being. Pulmonary will continue to follow. If she remains stable for another 24 hours and feels comfortable, she can be considered for discharge home. I would like to see her in clinic after she leaves the hospital to determine whether or not she has underlyi ng chronic obstructive pulmonary disease.
[2017-12-03] MEDS: busPIRone HCl 5 MG TAB PO SCH ×2 (11:32→20:37)
[2017-12-03] MEDS: Atorvastatin Calcium 10 MG TAB PO SCH (20:37)
[2017-12-03] MEDS: Pantoprazole 40 MG GRANULES PACKET PO SCH (20:37)
[2017-12-03] MEDS: Mirtazapine 30 MG TAB PO SCH (20:37)
--- NOTE | 2017-12-03 23:29 | PDOC.PN ---
- Subjective Encounter Start Date: 12/03/17 Encounter Start Time: 16:00 Subjective: nsg notes rev, jerod ovn, overall feels that her breathing is much improved -: currently able to sit without O2. no nausea vomiting, MCNAMARA - Objective Vital Signs & Weight: Vital Signs (12 hours) Temp Pulse Resp BP BP Pulse Ox 12/03/17 20:00 97.5 F L 80 20 150/80 H 94 L 12/03/17 19:51 16 12/03/17 16:21 98.6 F 74 16 138/74 95 12/03/17 11:32 68 16 93 L 12/03/17 11:30 97.6 F 68 16 145/81 H 93 L Weight Weight 159 lb 8 oz Most Recent Monitor Data Heart Rate from ECG 87 NIBP 119/61 NIBP BP-Mean 73 Respiration from ECG 23 SpO2 93 I&O: 12/02/17 12/03/17 12/04/17 06:59 06:59 06:59 Intake Total 3400 2130 1400 Output Total 300 2750 Balance 3100 -620 1400 Result Diagrams: 12/03/17 05:04 12/03/17 05:04 Phys Exam - Physical Examination Constitutional: NAD lying in hospital bed HEENT: PERRLA, moist MMs, sclera anicteric Neck: no nodes Respiratory: no wheezing, no rales, no rhonchi, clear to auscultation bilateral diminished throughout, reasoanble air mvmt, no dyspnea with conversation Cardiovascular: RRR, no significant murmur, no rub Gastrointestinal: soft, positive bowel sounds Musculoskeletal: no edema, pulses present Neurological: moves all 4 limbs Dx/Plan - Plan * 57F who p/w SOB * * COPD exac * improving, currently on 2L NC, symptomatic support and down titrate O2 as possible * steroids with SSI for anticipated medication induced hyperglycemia * apprec pulm c/s * nebs, empiric abx * lasix as well over concern for occult concurrent cardiac contribution to presentation hypotension * resolved, off levophed pressors * continue ivf, monitor BP * step chawla resumption of home regimen of medications anxiety, improved lower back pain, improved * lidocaine patch * OOB as tolerated * cautious pain regimen diet: as jossie, cardiac activity: as jossie, PT, ambulatory pulse ox dvt ppx potential d/c planning if continued improvement in AM Review of Systems - Medications/Allergies Allergies/Adverse Reactions: Allergies Allergy/AdvReac Type Severity Reaction Status Date / Time divalproex sodium Allergy Verified 07/03/17 13:03 [From Depakote] Medications: Current Medications Acetaminophen (Tylenol Elixir) 650 mg PO Q6H PRN PRN Reason: Fever > 101 or Mild Pain Acetaminophen (Tylenol) 650 mg ND Q6H PRN PRN Reason: Fever > 101 or Mild Pain Hydrocodone Bitart/Acetaminophen (Orinda 5/325) 1 tab PO Q6H PRN PRN Reason: Pain Last Admin: 12/04/17 03:37 Dose: 1 tab Al Hydroxide/Mg Hydroxide (Maalox) 30 ml PO Q8H PRN PRN Reason: Indigestion Albuterol/Ipratropium (Duoneb) 3 ml NEB Q6H PRN PRN Reason: SOB &/or Wheezing Last Admin: 12/04/17 03:49 Dose: 3 ml Albuterol/Ipratropium (Duoneb) 3 ml NEB [id number] [facility] Last Admin: 12/04/17 01:17 Dose: 3 ml Alprazolam (Xanax) 0.5 mg PO TID [facility] Last Admin: 12/03/17 20:39 Dose: 0.5 mg Atorvastatin Calcium (Lipitor) 10 mg PO HS [facility] Last Admin: 12/03/17 20:37 Dose: 10 mg Bisacodyl (Dulcolax) 10 mg PO DAILYPRN PRN PRN Reason: Constipation Buspirone HCl (Buspar) 15 mg PO TID [facility] Last Admin: 12/03/17 20:37 Dose: 15 mg Cholecalciferol (Vitamin D3) 2,000 units PO Q7D@0900 [facility] Clonidine (Catapres) 0.1 mg PO Q4H PRN PRN Reason: Systolic BP > 160 Cyanocobalamin (Vitamin B-12) 1,000 mcg PO DAILY [facility] Estradiol (Climara (Weekly)) 0.05 mg TD Q7D [facility] Last Admin: 12/02/17 09:37 Dose: Not Given Fish Oil (Fish Oil) 2,000 mg PO BID [facility] Last Admin: 12/03/17 20:37 Dose: 2,000 mg Guaifenesin (Robitussin Sf) 200 mg PO Q4H PRN PRN Reason: Cough Guaifenesin (Mucinex) 1,200 mg PO Q12HR [facility] Last Admin: 12/03/17 20:37 Dose: 1,200 mg Guaifenesin/Dextromethorphan (Robitussin Dm) 10 ml PO Q4H PRN PRN Reason: Cough Last Admin: 12/04/17 03:47 Dose: 10 ml Hydralazine HCl (Apresoline) 10 mg SLOW IVP Q4H PRN PRN Reason: Systolic BP > 170 Piperacillin Sod/Tazobactam (Sod 3.375 gm/ Sodium Chloride) 100 mls @ 200 mls/ hr IVPB Q6HR [facility] Last Admin: 12/03/17 23:07 Dose: 100 mls Levothyroxine Sodium (Synthroid) 50 mcg PO QAM [facility] Last Admin: 12/03/17 08:33 Dose: 50 mcg Loratadine (Claritin) 10 mg PO DAILYPRN PRN PRN Reason: Sinus Symptoms Mirtazapine (Remeron) 60 mg PO HS [facility] Last Admin: 12/03/17 20:37 Dose: 60 mg Miscellaneous Medication (Pharmacy To Dose) 1 each IVPB PRN PRN PRN Reason: SEPSIS Mometasone Furoate/Formoterol Fumar (Dulera 200 Mcg/5 Mcg Inhaler) 2 puff INH BID-RT [facility] Last Admin: 12/03/17 20:10 Dose: 2 puff Multivitamins (Theragran) 1 tab PO DAILY [facility] Last Admin: 12/03/17 08:33 Dose: 1 tab Nitroglycerin (Nitrostat) 0.4 mg SL Q5MIN PRN PRN Reason: Chest Pain Ccu Electrolyte (Replacement Protocol) 0 each FS PRN PRN PRN Reason: FOR ELECTROLYTE REPLACEMENT Ondansetron HCl (Zofran) 4 mg IVP Q6H PRN PRN Reason: Nausea/Vomiting Pantoprazole Sodium (Protonix) 40 mg PO BID [facility] Last Admin: 12/03/17 20:37 Dose: 40 mg Prednisone (Prednisone) 40 mg PO QAM-[facility] Stop: 12/07/17 08:01 Last Admin: 12/03/17 08:33 Dose: 40 mg Sodium Chloride (Flush - Normal Saline) 10 ml IVF Q12HR [facility] Last Admin: 12/03/17 20:38 Dose: 10 ml
[2017-12-04] MEDS: HYDROcodone/Acetaminophen 5/325 mg Tablet PO PRN ×3 (03:37→15:44)
[2017-12-04] MEDS: Guaifenesin DM 100-10/5 ML UDCUP PO PRN ×3 (03:47→15:43)
[2017-12-04] MEDS: Piperacillin/Tazobactam 3.375 GM in Sodium Chloride 0.9% 100 ML IVPB SCH ×2 (05:36→12:07)
[2017-12-04 06:09] LABS: Anion Gap 11 mmol/L (10-20); BUN (Urea Nitrogen) 16 mg/dL (9.8-20.1); Calc. Creatinine Clearance 86 mL/min (70-130); Calcium 9.5 mg/dL (7.8-10.44); Carbon Dioxide 27 mmol/L (22-29); Chloride 111 mmol/L (98-107); Estimated GFR-MDRD 69; Glucose 86 mg/dL (70-105); Potassium 3.6 mmol/L (3.5-5.1); Sodium 145 mmol/L (136-145)
[2017-12-04] MEDS: Mometasone/Formoterol 120 PUFF INHALER INH SCH (06:22)
[2017-12-04] MEDS: Pantoprazole 40 MG GRANULES PACKET PO SCH (08:32)
[2017-12-04] MEDS: guaiFENesin ER 600 MG TAB PO SCH (08:32)
[2017-12-04] MEDS: predniSONE 20 MG TAB PO SCH (08:32)
[2017-12-04] MEDS: Fish Oil 1,000 MG CAP PO SCH (08:32)
[2017-12-04] MEDS: Multivit, Therapeutic 1 TAB PO SCH (08:32)
[2017-12-04] MEDS: busPIRone HCl 5 MG TAB PO SCH ×2 (08:32→14:39)
[2017-12-04] MEDS: ALPRAZolam 0.5 MG TAB PO SCH ×2 (08:33→14:39)
[2017-12-04] MEDS: Levothyroxine Sodium 50 MCG TAB PO SCH (08:33)
[2017-12-04] MEDS ORDERED: Cyanocobalamin (Vitamin B-12) 1,000 MCG TAB PO SCH (09:00)
[2017-12-04] MEDS ORDERED: Furosemide 20 MG/2 ML VIAL SLOW IVP SCH (10:00)
[2017-12-04] MEDS ORDERED: Potassium Chloride 20 MEQ TAB PO SCH (10:00)
--- NOTE | 2017-12-04 10:19 | PRG ---
DATE OF SERVICE: 12/04/2017 SERVICE: Pulmonary Medicine. INTERVAL HISTORY: The patient indicates she is feeling much improved. She feels like she could get by home if she had the right tools. She denies any current chest pain, fevers, chills, nausea, vomit ing or diarrhea. Otherwise, she is in her usual state of health and has no specific complaints. PHYSICAL EXAMINATION: VITAL SIGNS: Afebrile, pulse 85, blood pressure 151/80, respirations 20, saturation 93% on room air. GENERAL: The patient is awake, alert, no apparent distress. LUNGS: Decent air entry. Rhonchi and I expect a prolonged expiratory phase with wheezing are presen t, but I also hear some crackles with both inspiration and expiration. HEART: Normal rate, regular. ABDOMEN: Soft, nontender, nondistended. Bowel sounds are positive. MUSCULOSKELETAL: No cyanosis or clubbing. No pitting in the bilateral lower extremities. NEUROLOGIC: Grossly nonfocal. LABORATORY DATA: Basic metabolic profile is completely unremarkable. Magnesium is normal at 2.0. ASSESSMENT: 1. Acute hypoxic respiratory failure, resolved. 2. Chronic obstructive pulmonary disease with acute exacerbation. 3. Septic shock, resolved. 4. Pulmonary nodule, heavily ossified. 5. Bronchiolitis, possible. DISCUSSION AND PLAN: The patient is doing actually wonderful from a respiratory perspective. She ca n be transition out of the hospital. She need 7 days of antibiotics, 5 days of steroids, and will re quire DuoNeb. She already has a nebulizer at home that she is able to use. I will have her return t o clinic to follow up with me in the outpatient setting and we will clarify whether or not she truly has COPD. If she does, we will consider her for long-acting therapy at that time.
--- NOTE | 2017-12-04 13:31 | PQF ---
DATE: 12-04-17 ATTN: DR. MARYLOU LEBLANC Please exercise your independent, professional judgment in responding to the clarification form. Clinical indicators are provided on the bottom of this form for your review Please check appropriate box(s): [ x ] Acute Renal Failure (ARF) / Acute Kidney Injury (SULEIMAN) [ ] Insignificant Lab Values [ ] Other diagnosis [ ] Unable to determine In addition, please specify: Present on Admission (POA): [ x ] Yes [ ] No [ ] Unable to determine National Kidney Foundation Guidelines for CKD Staging Stage I Kidney damage with normal or increased GFR GFR > 90 Stage II Kidney damage with mildly decreased GFR GFR 60 -89 Stage III Kidney damage with moderately decreased GFR GFR 30-59 Stage IV Kidney damage with severely decreased GFR GFR 16-29 Stage V Kidney failure GFR<15 ESRD End Stage Renal Disease On dialysis Acute Renal Failure/Acute Kidney Failure defined as: Increases in SCr by (>) 0.3 mg/dl within 48 hours OR- Increases in SCr by (>) 1.5 times baseline, known or presumed to have occurred within the prior 7 days OR- Urine volume < 0.5 ml/kg/hour for 6 hours (KDIGO supplement 2012 for RIFLE/ELVIN criteria) For continuity of documentation, please document condition throughout progress notes and discharge summary. Thank You. CLINICAL INDICATORS - SIGNS / SYMPTOMS / LABS H&P: ACUTE RENAL INSUFFICIENCY. THIS IS LIKELY SECONDARY TO DEHYDRATION. MONITOR URINE OUTPUT CLOSELY AND AVOID ANY NEPHROTIC MEDICATION. SHE HAS RECEIVED 3 LITERS OF IVF IN THE EMERGENCY ROOM AND BECAUSE OF THE RISK OF PULMONARY EDEMA. WE WILL AVOID ANY FURTHER IV FLUIDS. MONITOR HER RENAL FUNCTION ON A DAILY BASIS. GFR: 12-01-17: 41 12-03-17: 73 12-04-17: 69 CREATININE: 12-01-17: 1.34 12-03-17: 0.81 12-04-17: 0.85 RISK FACTORS: H&P: ACUTE RENAL INSUFFICIENCY. THIS IS LIKELY SECONDARY TO DEHYDRATION. (ER) HOME LISINOPRIL H&P: SEPSIS WITH SEPTIC SHOCK TREATMENTS: H&P: ACUTE RENAL INSUFFICIENCY. THIS IS LIKELY SECONDARY TO DEHYDRATION. MONITOR URINE OUTPUT CLOSELY AND AVOID ANY NEPHROTIC MEDICATION. SHE HAS RECEIVED 3 LITERS OF IVF IN THE EMERGENCY ROOM AND BECAUSE OF THE RISK OF PULMONARY EDEMA. WE WILL AVOID ANY FURTHER IV FLUIDS. MONITOR HER RENAL FUNCTION ON A DAILY BASIS. (This form is maintained as a part of the permanent medical record) 2014 [employer] All Rights Reserved [email or web address] Office: [phone] HAIDER
[2017-12-04 17:07] VITALS: BP 147/82; TEMP 97.7
--- NOTE | 2017-12-05 14:49 | DIS ---
DISCHARGE DIAGNOSES: 1. Chronic obstructive pulmonary disease exacerbation, improving. 2. Acute hypoxic respiratory failure secondary to chronic obstructive pulmonary disease, resolving. 3. Hypotension, resolving. 4. Lower back pain, improved. 5. Septic shock secondary to bronchiolitis, resolved. BRIEF SUMMARY OF HOSPITAL COURSE: This is a 57-year-old female who initially presented with a chief complaint of shortness of breath and was found to be in COPD exacerbation. Please see the original history and physical for full details surrounding admission. The patient was started on empiric regimen for COPD exacerbation including nebulizer treatments, IV steroids, empiric antibiotics, sliding scale insulin, supplemental oxygenation. The patient's shortness of breath did significantly improve with the help of pulmonary consultation during this hospitalization. Patient initially presented with hypotension for which she was initially placed on Levophed and IV fluids. Once levophed was successfully titrated off, she required a few doses of lasix to help with fluid overload clearance. The patient has been slowly reinitiated on her baseline home medications. The patient also had some complaints of lower back pain, which has improved with ambulation, physical therapy, and lidocaine patches. The remainder of the patient's chronic medical issues were stable during this hospitalization. CONSULTATION: Pulmonary Critical Care. HOME MEDICATIONS RECONCILIATION: Please see the EMR for full details. The patient was discharged home with a course of prednisone along with given an inhaler including Dulera and DuoNeb. Guaifenesin was also prescribed for symptomatic management of her cough. PATIENT'S CONDITION AT DISCHARGE: At the time of discharge, patient is hemodynamically stable, tolerating her baseline activity and diet. The patient was seen and examined at the time of discharge. DISCHARGE INSTRUCTIONS: The patient is asked to follow up closely with her outpatient team including her primary care provider and water resource engineering specialist. The patient has been counseled regarding her tobacco use and at the time of discharge, is contemplated about cessation. Medications have been reviewed with the patient as well. Thank you for asking me to care for your patient. Greater than 30 minutes spent coordinating discharge for the patient. HAIDER
--- NOTE | 2017-12-06 15:02 | EKG ---
Test Reason : Blood Pressure : / mmHG Vent. Rate : 075 BPM Atrial Rate : 075 BPM P-R Int : 150 ms QRS Dur : 076 ms QT Int : 412 ms P-R-T Axes : 057 005 034 degrees QTc Int : 460 ms Normal sinus rhythm Normal ECG Confirmed by RAJIV BARNES ([id number]), field map editor BECKY KUMAR ([id number]) on 12/06/2017 3:00:30 PM Referred By: Confirmed By:RAJIV BARNES
== END 2017-12-04 17:09 | disposition home or self-care (01) | DRG 871 ==
LOC: ERS 20:55 → ERHOLD 12-02 00:12 → CCU 12-02 04:08 → T4-A 12-02 16:27
PROVIDERS: ADMIT Internal Medicine; ATTEND Internal Medicine
PROC: 02HV33Z Insertion of Infusion Device into Superior Vena Cava, Percutaneous Approach (ICD-10-PCS; principal; 2017-12-02)
DX: A41.9 Sepsis, unspecified organism; F17.210 Nicotine dependence, cigarettes, uncomplicated; N17.9 Acute kidney failure, unspecified; J96.01 Acute respiratory failure with hypoxia; J21.9 Acute bronchiolitis, unspecified; Z88.1 Allergy status to other antibiotic agents; F41.9 Anxiety disorder, unspecified; E78.5 Hyperlipidemia, unspecified; K21.9 Gastro-esophageal reflux disease without esophagitis; I10 Essential (primary) hypertension; R91.1 Solitary pulmonary nodule; R65.21 Severe sepsis with septic shock; J44.0 Chronic obstructive pulmonary disease with (acute) lower respiratory infection; E03.9 Hypothyroidism, unspecified; J44.1 Chronic obstructive pulmonary disease with (acute) exacerbation; Z88.8 Allergy status to other drugs, medicaments and biological substances; Z79.899 Other long term (current) drug therapy; M54.5 Low back pain; E86.0 Dehydration
CPT/HCPCS: 36415; 36556; 71045; 71275; 80048; 80053; 81003; 81015; 82553; 83605; 83690; 83735; 83880; 84484; 85007; 85025; 85027; 87040; 87086; 87149; 87324; 87449; 87493; 87804; 93005; 93306; 94640; 94664; 94760; 96361; 96365; 96367; 96375; 99406; A4216; J1720; J1885; J1940; J2543; J2920; J3370; J7050; J7506; J7611; J7620

== ENCOUNTER 2018-02-27 07:45 | Outpatient (CLI) | payer MEDICARE ==
[2018-02-27] MEDS ORDERED: Iopamidol 370 76% 100 ML VIAL ONE (09:58)
== END 2018-02-27 07:46 | disposition home or self-care (01) ==
LOC: BICCT 07:45
PROVIDERS: ATTEND Urology
DX: N39.0 Urinary tract infection, site not specified (principal); R31.0 Gross hematuria
CPT/HCPCS: 74178

== ENCOUNTER 2018-03-23 09:10 | Emergency (ER) | payer MEDICARE ==
[2018-03-23] MEDS ORDERED: HYDROcodone/Acetaminophen 10/325 mg Tablet ONE (09:22)
--- NOTE | 2018-03-23 10:38 | RAD ---
FOUR VIEWS OF THE RIGHT KNEE: INDICATION: Fall with right knee pain. COMPARISON: Comparisons from 09/26/15 are available. FINDINGS: There is stable instrumentation involving the patella consistent with open reduction internal fixatio n of prior patella fracture. The fracture appears healed. No acute fracture or subluxation is evide nt. No joint capsular distention is evident. IMPRESSION: 1. Postoperative right knee. 2. No acute osseous abnormality. POS: [facility]
== END 2018-03-23 10:00 | disposition home or self-care (01) ==
LOC: ERS 09:10
DX: S80.01XA Contusion of right knee, initial encounter (principal); K21.9 Gastro-esophageal reflux disease without esophagitis; E78.5 Hyperlipidemia, unspecified; F41.9 Anxiety disorder, unspecified; E03.9 Hypothyroidism, unspecified; F17.210 Nicotine dependence, cigarettes, uncomplicated; Z79.899 Other long term (current) drug therapy; W22.8XXA Striking against or struck by other objects, initial encounter

== ENCOUNTER 2018-12-07 23:03 | Inpatient (IN) | payer MEDICARE ==
[2018-12-07] MEDS ORDERED: Ondansetron PF 4 MG/2 ML Vial ONE (23:24)
--- NOTE | 2018-12-07 23:36 | RAD ---
FExam: Chest one view HISTORY:Dyspnea Comparison: 12/01/2017 FINDINGS: Lungs: Calcified mass of the lateral right midlung zone is stable. There is interstitial prominence o f the mid to lower lung zones bilaterally. Cardiac silhouette:Accentuated by technique. Grossly stable Pulmonary vessels: Normal Pleural Spaces: Clear Pneumothorax: None Osseous abnormalities: None of acuity. IMPRESSION: Stable chest. Persistent calcified mass at the lateral right mid lung zone.
[2018-12-08 00:05] LABS: ALT (SGPT) 23 U/L (8-55); AST (SGOT) 25 U/L (5-34); Albumin 4.4 g/dL (3.5-5.0); Alkaline Phosphatase 72 U/L (40-150); Anion Gap 15 mmol/L (10-20); BUN (Urea Nitrogen) 15 mg/dL (9.8-20.1); Bilirubin, Total 0.2 mg/dL (0.2-1.2); Calc. Creatinine Clearance 0 mL/min (70-130); Calcium 9.6 mg/dL (7.8-10.44); Carbon Dioxide 28 mmol/L (22-29); Chloride 96 mmol/L (98-107); Estimated GFR-MDRD 69; Globulin 3.7 g/dL (2.4-3.5); Glucose 115 mg/dL (70-105); Potassium 4.8 mmol/L (3.5-5.1); Protein, Total 8.1 g/dL (6.0-8.3); Sodium 134 mmol/L (136-145)
[2018-12-08 00:07] LABS: Actual Bicarbonate (HCO3a) 32.2 mEq/L (22-28); Analyzer IN Cardio ER; Base Excess (BEa) 1.6 mEq/L (-2.0 to +3.0); Calcium, Ionized 1.24 mmol/L (1.12-1.30); Carboxyhemoglobin (COHb) 3.9 gm% (0.0-3.0); Hemoglobin (Hb) 15.3 g/dL (12.0-16.0); O2 Tension (PaO2) 89.1 mmHg (80.0-100.0); Potassium - ABG Lab 4.69 mmol/L (3.70-5.30)
[2018-12-08 00:08] LABS: #Basophils 0.1 thou/uL (0.0-0.2); #Lymphocytes 1.6 thou/uL (1.20-3.40); #Monocytes 0.7 thou/uL (0.11-0.59); #Neutrophils 11.6 thou/uL (1.40-6.50); %Basophils 0.4 % (0.0-1.0); %Eosinophils 0.1 % (0.0-10.0); %Lymphocytes 11.2 % (21.0-51.0); %Monocytes 4.9 % (0.0-10.0); %Neutrophils 83.4 % (42.0-75.0); Hemoglobin 14.5 g/dL (12.0-16.0); Mean Corpuscular HGB CONC 32.6 g/dL (32.0-36.0); Mean Corpuscular Hemoglobin 32.7 pg (27.0-31.0); Mean Platelet Volume 7.3 fL (7.4-10.4); Platelet Count 253 thou/uL (130-400); RBC Distribution Width 13.3 % (11.5-14.5); Red Blood Cell (RBC) Count 4.44 mill/uL (4.20-5.40); White Blood Cell (WBC) Count 13.9 thou/uL (4.8-10.8)
[2018-12-08 00:23] LABS: ALV-art Gradient 95.225 (0-20); CO2 Tension 80.7 mmHg (35.0-45.0); Puncture Site RBA; pH, Arterial 7.22 (7.35-7.45)
[2018-12-08] MEDS ORDERED: Acetaminophen 500 MG TAB ONE (01:02)
[2018-12-08 03:00] LABS: Troponin I Less than 0.010 ng/mL (< 0.028)
[2018-12-08 06:29] LABS: Troponin I Less than 0.010 ng/mL (< 0.028)
[2018-12-08] MEDS ORDERED: methylPREDNISolone Sod Succ 40 MG VIAL ONE ×2 (06:42→13:28)
[2018-12-08] MEDS ORDERED: Lisinopril 20 MG TAB PO SCH (10:45)
[2018-12-08] MEDS ORDERED: HYDROcodone/Acetaminophen 5/325 mg Tablet PO PRN (11:09)
[2018-12-08] MEDS ORDERED: Enoxaparin Sodium 40 MG/0.4 ML SYRINGE SC SCH (11:15)
[2018-12-08] MEDS ORDERED: Rocuronium Bromide 10 MG/ML (10ML VIAL) ONE (12:00)
[2018-12-08] MEDS ORDERED: Nicotine 21 MG PATCH TD SCH (12:00)
--- NOTE | 2018-12-08 12:35 | HP ---
CHIEF COMPLAINT: Worsening cough and shortness of breath. HISTORY OF PRESENT ILLNESS: A 58-year-old female with past medical history significant for hypertension and hyperlipidemia, who presents to the ED due to worsening cough and shortness of breath since about 3 weeks. The patient reportedly developed upper respiratory tract infection about 3 weeks ago for which she initially treated with Mucinex DM and other [id number] medications with no significant improvement. Hence, she saw a PCP about a week ago and was prescribed steroid and Z-Sanchez as well as bronchodilators. The patient has been taking these treatments without any sustained improvement such that in the last 3 days, she developed progressive worsening shortness of breath and cough as well as wheezing and difficulty breathing, hence presentation to the emergency room. The patient admitted to sputum production, sputum is said to be greenish yellow. She also admitted to bilateral ankle swelling a few days ago when she saw the primary care physician. She reported generalized weakness, but denied fever, chest pain, dysuria, hematuria, abdominal pain, change in bowel habits, nausea, or vomiting. She also denied dysuria, hematuria, hematemesis, or hematochezia. On presentation to the ED, the patient was noted to be dyspneic and in respiratory distress with SpO2 of 72 on room air. Hence, she was started on bronchodilators after steroid and was subsequently started on BiPAP. Of note, the patient reported having a similar illness about one year ago. She smokes about half a pack daily in the last 3 years, but prior to that, she was smoking 2 packs a day for about 25 years. She had flu shot. PAST MEDICAL HISTORY: 1. Hypertension. 2. Hyperlipidemia. 3. Gastroesophageal reflux disease. 4. Hypothyroidism. 5. Anxiety disorder. PAST SURGICAL HISTORY: 1. Cholecystectomy. 2. Hysterectomy. 3. Right knee surgery. 4. Bilateral carpal tunnel releases. 5. Sinus surgery. FAMILY HISTORY: Significant for hypertension in mother. SOCIAL HISTORY: The patient lives with spouse. Smokes currently about half a pack a day in the last 3 to 5 years, but prior to that, was smoking 2 packs a day for about 25 years. Drinks occasionally, but denied recreational drug use. ALLERGIES: 1. DEPAKOTE. 2. LEVAQUIN. CURRENT HOME MEDICATIONS: 1. Extradural transdermal patch 0.05 mg per 24 hours once a week. 2. Lisinopril 20 mg p.o. daily. 3. Alprazolam 0.5 mg 3 times a day. 4. Atenolol 100 mg p.o. daily. 5. Levothyroxine 50 mcg p.o. daily. 6. Mirtazapine 30 mg once daily at bedtime. 7. Protonix 40 mg b.i.d. 8. Simvastatin 20 mg p.o. daily at bedtime. 9. Buspirone 15 mg 3 times a day. 10. Venlafaxine 75 mg p.o. daily. 11. Trazodone 100 mg once a day at bedtime. 12. Tramadol 50 mg every 6 hours p.r.n. for pain. REVIEW OF SYSTEMS: A 12-point review of systems performed was negative other than the pertinent positives and negatives included in the History of Present Illness. PHYSICAL EXAMINATION: VITAL SIGNS: On presentation to the ED, blood pressure 164/84, pulse 99, respiratory rate 26, and SpO2 of 97% on non-rebreather mask. Current vitals; December 08, 2018 at 11 a.m., BP 123/73, pulse 90, respiratory rate 30, and SpO2 of 92% on 3 L nasal cannula. GENERAL: Female in moderate respiratory distress. Afebrile, anicteric, and acyanotic. HEENT: Normocephalic, atraumatic. Pupils are equal and reacting to light. Oral mucosa is dry. NECK: Supple, nontender with full range of motion. CARDIOVASCULAR: Regular rhythm and rate with normal heart sounds 1 and 2. RESPIRATORY: Fair air entry bilaterally with fine scattered crackles. Prolonged expiration and scattered wheezes noted. Work of breathing is increased, and the patient is in moderate respiratory distress. GI: Abdomen is full, soft, nontender, nondistended with normal bowel sounds. EXTREMITIES: Grossly normal, looking atraumatic with no edema, erythema, or cyanosis. NEUROLOGIC: Conscious and alert and oriented x3 with appropriate mental status. Cranial nerves 2 through 12 are intact. The patient moves all extremities. PSYCHIATRIC: The patient seems appropriate with normal mood and affect. LABORATORY DATA: CBC performed on December 07, 2018, at 2359 hours, showed WBC count of 13.9, hemoglobin of 14.5, MCV of 100, and platelets of 253. CMP performed on December 07, 2018, at 2336 hours, showed sodium 136, potassium 4.8, chloride 96, CO2 of 28, creatinine 0.85, BUN 15, glucose 115, calcium 9.6, total bilirubin 0.2, AST 25, ALT 23, alkaline phosphatase 72, total protein 8.1, albumin 4.4, and globulin 3.7. Serial troponin performed 3 hours apart x3, they are less than 0.010. BNP is 111.5. Arterial blood gas performed on December 08, 2018 at 0004 hours, showed pH of 7.22, pCO2 of 80.7, PO2 of 89.1, base excess of 1.6. Chest x-ray performed on December 07, showed interstitial prominence of the mid to low lung zones bilaterally. Stable calcified mass of the lateral right mid lung zone also was noted. There was no pneumothorax or pleural effusion. EKG showed normal sinus rhythm with rate of 89, no obvious ischemic changes were noted. ASSESSMENT: 1. Acute respiratory failure with hypoxia and hypercarbia: Due to chronic obstructive pulmonary disease exacerbation and possible pneumonia. 2. Chronic obstructive pulmonary disease exacerbation. 3. Presumed pneumonia. 4. Mild dehydration with mild hyponatremia. 5. History of hypertension: BP is currently within acceptable range. 6. Tobacco abuse disorder. 7. Lateral right lung calcified mass: Stable with no acute change. 8. Anxiety and depression. 9. Hypothyroidism, on replacement therapy. PLAN OF TREATMENT: 1. We will admit the patient to IMCU. We will continue BiPAP as needed. 2. We will also start the patient on bronchodilators, steroid, mucolytic, and antibiotic. 3. We will also start the patient on IV fluid. 4. We will hold antihypertensives for now. 5. We will restart levothyroxine as well as proton pump inhibitor. 6. DVT prophylaxis with Lovenox will be provided. 7. Diet as tolerated will be provided as when possible. 8. Code status, full. The patient's spouse is a surrogate decision maker. Job ID: [id number]
[2018-12-08] MEDS: Sodium Chloride 0.9% 1,000 ML IV SCH ×2 (13:41→19:51)
[2018-12-08] MEDS: methylPREDNISolone Sod Succ 40 MG VIAL IVP SCH ×2 (13:42→20:01)
[2018-12-08] MEDS ORDERED: busPIRone HCl 5 MG TAB PO SCH (15:00)
[2018-12-08] MEDS ORDERED: HYDROcodone/Acetaminophen 5/325 mg Tablet ONE (15:23)
[2018-12-08 18:11] LABS: Base Excess (BEa) 5.4 mEq/L (-2.0 to +3.0); Calcium, Ionized 1.23 mmol/L (1.12-1.30); Carboxyhemoglobin (COHb) 1.4 gm% (0.0-3.0); Hemoglobin (Hb) 15.6 g/dL (12.0-16.0); O2 Tension (PaO2) 94.5 mmHg (80.0-100.0); Potassium - ABG Lab 4.92 mmol/L (3.70-5.30)
[2018-12-08] MEDS ORDERED: ALPRAZolam 0.25 MG TAB PO SCH (18:30)
[2018-12-08] MEDS ORDERED: Lorazepam 2 MG/ML VIAL SLOW IVP SCH (18:45)
[2018-12-08] MEDS ORDERED: Propofol 1,000 MG/100 ML VIAL IV ONE (18:51)
[2018-12-08 19:06] LABS: CO2 Tension 90.9 mmHg (35.0-45.0); pH, Arterial 7.23 (7.35-7.45)
[2018-12-08 19:07] LABS: ALV-art Gradient 77.075 (0-20); Puncture Site RBRACH
[2018-12-08] MEDS ORDERED: Ventilator Sedation Protocol 1 EACH FS ONE (19:18)
[2018-12-08] MEDS ORDERED: Fentanyl BOLUS 250 ML IVPB PRN (19:26)
[2018-12-08] MEDS ORDERED: Morphine 2 MG/ML SYRINGE SLOW IVP PRN (19:26)
[2018-12-08] MEDS ORDERED: DISCONTINUE PREVIOUS NARCOTIC PAIN MEDICATIONS AND BENZODIAZEPINES FS SCH (19:26)
[2018-12-08] MEDS ORDERED: Propofol BOLUS 1,000 MG/100 ML VIAL IV PRN (19:26)
[2018-12-08] MEDS: cefTRIAXone\\ROCEPHIN 1 GM in Sodium Chloride 0.9% 100 ML IVPB SCH (20:00)
[2018-12-08] MEDS ORDERED: Magnesium Sulfate 3 GM in Sodium Chloride 0.9% 100 ML IVPB SCH (20:00)
[2018-12-08 20:09] LABS: Actual Bicarbonate (HCO3a) 30.5 mEq/L (22-28); Base Excess (BEa) 3.5 mEq/L (-2.0 to +3.0); Calcium, Ionized 1.13 mmol/L (1.12-1.30); Carboxyhemoglobin (COHb) 1.2 gm% (0.0-3.0); Hemoglobin (Hb) 14.5 g/dL (12.0-16.0); O2 Tension (PaO2) 65.1 mmHg (80.0-100.0); Potassium - ABG Lab 4.08 mmol/L (3.70-5.30); pH, Arterial 7.36 (7.35-7.45)
[2018-12-08 20:12] LABS: CO2 Tension 55.9 mmHg (35.0-45.0); Puncture Site L BRACHIAL
[2018-12-08 20:13] LABS: ALV-art Gradient 78.925 (0-20)
[2018-12-08] MEDS: Atorvastatin Calcium 10 MG TAB PO SCH (20:49)
[2018-12-08] MEDS: guaiFENesin ER 600 MG TAB PO SCH (20:49)
[2018-12-08] MEDS ORDERED: Famotidine 20 MG TAB PO SCH (21:00)
[2018-12-08] MEDS: Lorazepam 2 MG/ML VIAL SLOW IVP PRN ×2 (21:25→22:44)
[2018-12-08] MEDS: Propofol 1,000 MG/100 ML VIAL IV PRN (22:44)
[2018-12-08] MEDS ORDERED: Rocuronium Bromide 10 MG/ML (10ML VIAL) IVP SCH (23:30)
[2018-12-09] MEDS: Sodium Chloride 0.9% 1,000 ML IV SCH ×3 (00:15→15:28)
[2018-12-09] MEDS: methylPREDNISolone Sod Succ 40 MG VIAL IVP SCH ×5 (00:45→23:06)
[2018-12-09] MEDS: fentaNYL Citrate/PF 2,000 MCG in Sodium Chloride 0.9% 60 ML IV SCH ×2 (00:50→15:27)
--- NOTE | 2018-12-09 02:07 | CON ---
DATE OF CONSULTATION: 12/08/2018 HISTORY OF PRESENT ILLNESS: Ms. Malloy is a 58-year-old female with COPD. She has been seen by Dr. Adkins in the past. Apparently, she presented to the emergency department before midnight with shortness of breath. She was placed on BiPAP. Blood gas showed pH of 7.22. She has been on BiPAP until my consultation about 30 minutes ago. I arrived and I have intubated her. This will be dictated in a separate note. Apparently, she was hospitalized with a similar illness a year ago and saw Dr. Adkins, but did not require intubation. I do not believe she has seen him as an outpatient. PAST MEDICAL HISTORY: 1. Remarkable for a long history of tobacco use with COPD. 2. Hypertension. 3. Lipid disorder. 4. History of pancreatitis. 5. History of a calcified lung mass seen on CT last year. 6. History of reflux disease. 7. History of cholecystectomy and hysterectomy. 8. History of knee surgery, sinus surgery. ALLERGIES: SHE REPORTS ALLERGIES TO LEVAQUIN AND DEPAKOTE. SOCIAL HISTORY: From what I can tell, she is still smoking. She is not a daily drinker, was a drinker in the past according to old records. FAMILY HISTORY: Negative for lung disease in early age. Social history she is . Her is here. REVIEW OF SYSTEMS: 10 point review of systems completed, otherwise negative. PHYSICAL EXAMINATION: VITAL SIGNS: Oximetry is 94% on BiPAP, blood pressure is 160/95, heart rate is 122 prior to intubation. She remembered me from seeing at some point in the past. She said when I walked in the room she called me by name. HEENT: Her pupils are equal. Sclerae are anicteric. NECK: Supple. LUNGS: Remarkable for tight wheezes diffusely. HEART: Regular rhythm. ABDOMEN: Soft. EXTREMITIES: Without clubbing, cyanosis. She has 1+ pretibial edema. NEUROLOGIC: Grossly nonfocal. LABORATORY DATA: White count is 13.9, hemoglobin is 14.5, platelets 253,000. Sodium 134, potassium 4.8, chloride 96, bicarb 28, BUN 15, and creatinine 0.85. IMAGING: Chest radiograph shows no infiltrates. She had no functioning IV access on admission to the IMU. Fortunately, the critical care nurse placed a midline quickly. She subsequently had been intubated. IMPRESSION: 1. Chronic obstructive pulmonary disease exacerbation with respiratory failure. 2. Eqfgq-jc-oryhatw respiratory failure with hypoxemia and hypercarbia. 3. Deconditioning. 4. Obesity. 5. Ongoing tobacco use. 6. Densely calcified right mid lung mass that is overwhelmingly likely to be benign. 7. History of hypertension. 8. History of reflux disease. 9. History of anxiety, on alprazolam. Apparently, she has not received any Xanax today. 10. Depakote and Levaquin allergy. 11. History of alcohol use, but none since 2010. Apparently, she was a heavy drinker prior to that per Dr. Adkins's note. 12. I suspect she will turn the corner within a day or two. 13. She will receive steroids, frequent nebulized treatments, IV magnesium, aggressive IV hydration, propofol sedation. She will receive initially a paralytic to facilitate ventilation. TIME SPENT: Critical care time 35 minutes independent of procedures performed. Job ID: [id number] MTDD
[2018-12-09] MEDS: Lorazepam 2 MG/ML VIAL SLOW IVP PRN ×3 (02:14→17:00)
[2018-12-09] MEDS: Propofol 1,000 MG/100 ML VIAL IV PRN ×3 (02:38→20:05)
[2018-12-09 04:24] LABS: #Lymphocytes 1.1 thou/uL (1.20-3.40); #Monocytes 0.4 thou/uL (0.11-0.59); #Neutrophils 11.2 thou/uL (1.40-6.50); %Basophils 0.3 % (0.0-1.0); %Eosinophils 0.1 % (0.0-10.0); %Lymphocytes 8.9 % (21.0-51.0); %Neutrophils 87.7 % (42.0-75.0); Hemoglobin 12.9 g/dL (12.0-16.0); Mean Corpuscular HGB CONC 32.7 g/dL (32.0-36.0); Mean Corpuscular Hemoglobin 32.7 pg (27.0-31.0); Mean Platelet Volume 7.7 fL (7.4-10.4); Platelet Count 230 thou/uL (130-400); RBC Distribution Width 13.1 % (11.5-14.5); Red Blood Cell (RBC) Count 3.93 mill/uL (4.20-5.40); White Blood Cell (WBC) Count 12.7 thou/uL (4.8-10.8)
[2018-12-09 04:44] LABS: Anion Gap 12 mmol/L (10-20); BUN (Urea Nitrogen) 22 mg/dL (9.8-20.1); Calc. Creatinine Clearance 0 mL/min (70-130); Calcium 8.8 mg/dL (7.8-10.44); Carbon Dioxide 30 mmol/L (22-29); Chloride 96 mmol/L (98-107); Estimated GFR-MDRD 70; Glucose 148 mg/dL (70-105); Potassium 4.4 mmol/L (3.5-5.1); Sodium 134 mmol/L (136-145)
[2018-12-09] MEDS: Vecuronium 10 MG VIAL IVP PRN ×4 (05:58→13:10)
[2018-12-09] MEDS ORDERED: Levothyroxine Sodium 50 MCG TAB PO SCH (06:00)
[2018-12-09 07:13] LABS: Actual Bicarbonate (HCO3a) 29.5 mEq/L (22-28); Base Excess (BEa) 1.5 mEq/L (-2.0 to +3.0); Hemoglobin (Hb) 13.5 g/dL (12.0-16.0); O2 Tension (PaO2) 63.1 mmHg (80.0-100.0); Potassium - ABG Lab 4.46 mmol/L (3.70-5.30); pH, Arterial 7.29 (7.35-7.45)
[2018-12-09 07:15] LABS: CO2 Tension 62.4 mmHg (35.0-45.0); Puncture Site LRA
[2018-12-09] MEDS: Bacteriostatic Water 30 ML VIAL FS PRN ×4 (07:30→23:06)
[2018-12-09] MEDS: guaiFENesin ER 600 MG TAB PO SCH ×2 (07:33→19:59)
[2018-12-09] MEDS: Enoxaparin Sodium 40 MG/0.4 ML SYRINGE SC SCH (07:34)
--- NOTE | 2018-12-09 07:48 | RAD ---
FXR Chest 1 View Portable History: [Dyspnea. Ventilated patient] Comparison: Radiograph 2 days prior Findings: Patient intubated with endotracheal tube tip is level of the clavicles. Enteric tube is in place with tip in the gastric fundus. Calcified mass right midlung is similar. No pneumothorax or effusion. No new airspace consolidation. Impression: Interval intubation and placement of enteric tubes in good position.
[2018-12-09] MEDS: Levothyroxine 100 MCG SDV IVP SCH (08:21)
--- NOTE | 2018-12-09 11:21 | PDOC.PN ---
- Subjective Encounter Start Date: 12/09/18 Encounter Start Time: 11:18 Subjective: Admitted with acute respiratory failure with hyupoxia and hypercarbia -: failed BIPAP and was intubated. - Objective Resuscitation Status - Order Detail: 12/08/18 11:09 Resuscitation Status Routine Resuscitation Status: FULL: Full Resuscitation Vital Signs & Weight: Vital Signs (12 hours) Temp Pulse Resp BP Pulse Ox 12/09/18 11:03 94 84/42 L 12/09/18 10:21 81 12/09/18 08:00 98.6 F 24 H 12/09/18 07:01 96 12/09/18 04:00 22 H 12/09/18 03:31 88 94/54 L 12/09/18 03:30 92 L 12/09/18 03:00 98.8 F 12/09/18 02:00 24 H 12/09/18 01:50 90 12/09/18 00:00 18 Weight Admit Weight 167 lb 8.821 oz Weight 167 lb 1.766 oz Most Recent Monitor Data Heart Rate from ECG 93 NIBP 77/41 NIBP BP-Mean 53 Respiration from ECG 16 SpO2 90 I&O: 12/08/18 12/09/18 12/10/18 06:59 06:59 06:59 Intake Total 2576.5 Output Total 2325 315 Balance 251.5 -315 Result Diagrams: 12/09/18 03:55 12/09/18 03:55 Phys Exam - Physical Examination sedated HEENT: moist MMs ET tube in place Neck: supple Ventilartor transmitted sound noted Cardiovascular: RRR Gastrointestinal: soft, no distention, positive bowel sounds Musculoskeletal: no edema, pulses present sedated Dx/Plan (1) Acute respiratory failure with hypoxia and hypercapnia Code(s): J96.01 - ACUTE RESPIRATORY FAILURE WITH HYPOXIA; J96.02 - ACUTE RESPIRATORY FAILURE WITH HYPERCAPNIA Status: Acute (2) COPD exacerbation Code(s): J44.1 - CHRONIC OBSTRUCTIVE PULMONARY DISEASE W (ACUTE) EXACERBATION Status: Acute (3) Pneumonia Code(s): J18.9 - PNEUMONIA, UNSPECIFIED ORGANISM Status: Acute (4) Tobacco abuse disorder Code(s): Z72.0 - TOBACCO USE Status: Acute (5) Anxiety and depression Code(s): F41.9 - ANXIETY DISORDER, UNSPECIFIED; F32.9 - MAJOR DEPRESSIVE DISORDER, SINGLE EPISODE, UNSPECIFIED Status: Chronic (6) GERD (gastroesophageal reflux disease) Code(s): K21.9 - GASTRO-ESOPHAGEAL REFLUX DISEASE WITHOUT ESOPHAGITIS Status: Chronic Qualifiers: (7) HTN (hypertension) Code(s): I10 - ESSENTIAL (PRIMARY) HYPERTENSION Status: Chronic (8) Hypothyroidism Code(s): E03.9 - HYPOTHYROIDISM, UNSPECIFIED Status: Chronic (9) Obesity (BMI 30.0-34.9) Code(s): E66.9 - OBESITY, UNSPECIFIED Status: Chronic (10) Hyponatremia Code(s): E87.1 - HYPO-OSMOLALITY AND HYPONATREMIA Status: Acute - Plan Continue steroid, antibiotics, brobchodilators and mucolytics -: IVF to continue -: Sedation and vent mgt as per critical care -: Get CBC and BMp in the am. * .
--- NOTE | 2018-12-09 11:32 | OP ---
DATE OF PROCEDURE: 12/08/2018 PROCEDURE PERFORMED: Fiberoptic intubation followed by therapeutic fiberoptic bronchoscopy for retained secretions. DESCRIPTION OF THE PROCEDURE: Ms. Malloy is in sitting position. Her throat was sprayed with HurriCaine spray. Bronchoscope was introduced into her mouth quickly past through her cords. Copious tracheal secretions were immediately encountered almost occluding her trachea. These were suctioned clear. Endotracheal tube was advanced and secured above the main stefanie. Bronchoscope was then reintroduced after she was sedated and connected to mechanical ventilation. She had almost complete obstruction of her right mainstem bronchus with clear mucus. This was suctioned until clear. No endobronchial lesions were seen in the right lower lobe, right middle lobe, right upper lobe, left lower lobe, and left upper lobe. Suctioned secretions were sent for Gram-stain and culture. She tolerated the procedure well. Job ID: [id number]
[2018-12-09] MEDS: cefTRIAXone\\ROCEPHIN 1 GM in Sodium Chloride 0.9% 100 ML IVPB SCH (19:59)
[2018-12-09] MEDS: Atorvastatin Calcium 10 MG TAB PO SCH (19:59)
[2018-12-10] MEDS: Lorazepam 2 MG/ML VIAL SLOW IVP PRN ×5 (00:11→21:45)
[2018-12-10] MEDS: Vecuronium 10 MG VIAL IVP PRN (00:36)
[2018-12-10] MEDS: Bacteriostatic Water 30 ML VIAL FS PRN ×2 (00:39→21:11)
[2018-12-10] MEDS: fentaNYL Citrate/PF 2,000 MCG in Sodium Chloride 0.9% 60 ML IV SCH ×3 (01:34→23:28)
[2018-12-10] MEDS: Propofol 1,000 MG/100 ML VIAL IV PRN ×4 (02:51→22:46)
[2018-12-10] MEDS: Levothyroxine 100 MCG SDV IVP SCH (05:05)
[2018-12-10] MEDS: methylPREDNISolone Sod Succ 40 MG VIAL IVP SCH ×3 (05:05→21:11)
[2018-12-10 05:43] LABS: #Lymphocytes 0.9 thou/uL (1.20-3.40); #Monocytes 0.5 thou/uL (0.11-0.59); #Neutrophils 8.9 thou/uL (1.40-6.50); %Eosinophils 0.2 % (0.0-10.0); %Lymphocytes 8.5 % (21.0-51.0); %Monocytes 4.8 % (0.0-10.0); %Neutrophils 86.5 % (42.0-75.0); Hemoglobin 11.5 g/dL (12.0-16.0); Mean Corpuscular Hemoglobin 32.1 pg (27.0-31.0); Mean Platelet Volume 7.4 fL (7.4-10.4); Platelet Count 238 thou/uL (130-400); RBC Distribution Width 13.3 % (11.5-14.5); Red Blood Cell (RBC) Count 3.59 mill/uL (4.20-5.40); White Blood Cell (WBC) Count 10.3 thou/uL (4.8-10.8)
[2018-12-10 05:55] LABS: Anion Gap 10 mmol/L (10-20); BUN (Urea Nitrogen) 22 mg/dL (9.8-20.1); Calc. Creatinine Clearance 97 mL/min (70-130); Calcium 8.7 mg/dL (7.8-10.44); Carbon Dioxide 27 mmol/L (22-29); Chloride 106 mmol/L (98-107); Estimated GFR-MDRD 78; Glucose 148 mg/dL (70-105); Potassium 4.2 mmol/L (3.5-5.1); Sodium 139 mmol/L (136-145)
--- NOTE | 2018-12-10 07:40 | RAD ---
XR Chest 1 View Portable History: [Ventilated patient] Comparison: Radiograph prior today Findings: Endotracheal tube tip and enteric tube are similar. Enteric tube tip is not well seen on th ose below the level of the diaphragm. Calcified mass right midlung is similar. No pneumothorax. No ef fusion. Minimal pulmonary venous congestion. Impression: Minimal pulmonary venous congestion.
--- NOTE | 2018-12-10 09:11 | PRG ---
DATE OF SERVICE: 12/09/2018 SERVICE: Pulmonary Medicine. INTERVAL HISTORY: Overnight, the patient's lungs have not opened up very much. She is requiring intermittent paralytics. That being said, in between these, with sedation holiday, she will awaken up. She will have coughing paroxysms that caused her to desaturate. She is moving all 4 extremities. Otherwise, there has been no interval change to her condition. PHYSICAL EXAMINATION: VITAL SIGNS: Afebrile, pulse 93, blood pressure 109/55, respirations 17 and saturation 96% on 45% FiO2 and a PEEP of 6. GENERAL: The patient is intubated and sedated. HEENT: Normocephalic and atraumatic. Sclerae white. Conjunctivae pink. Oral mucosa is moist without lesions. LUNGS: Very poor air entry with a prolonged expiratory phase and polyphonic wheezing. I do not hear any crackles or rhonchi. HEART: Normal rate and regular. ABDOMEN: Soft, nontender and nondistended. Bowel sounds are positive. MUSCULOSKELETAL: No cyanosis or clubbing. No pitting in the bilateral lower extremities. NEUROLOGIC: Grossly nonfocal. LABORATORY DATA: WBC 12.7, hemoglobin 12.9, and platelets 230,000. PH 7.29, pCO2 62, PO2 63. Basic metabolic profile is essentially unremarkable. Troponins are negative x3, BNP 111. Respiratory culture is negative to date. There are many white blood cells and rare gram-positive cocci were identified. IMAGING DATA: Chest x-ray demonstrates endotracheal tube roughly 4 cm above the level of the stefanie. Enteric catheter courses well below the level of the diaphragm in the midline. Right-sided mid lung zone calcified lesion is present. Some minimal pulmonary vascular congestion is appreciated. ASSESSMENT: 1. Acute on chronic hypoxic and hypercapnic respiratory failure. 2. Chronic obstructive pulmonary disease with acute exacerbation. 3. Tobacco abuse, resolved. 4. Right mid lung zone calcified lesion, very chronic. 5. Gastroesophageal reflux disease. DISCUSSION AND PLAN: I will continue her antibiotics, nebulized medications, and steroids. Hopefully, we can decrease our use on the paralytics throughout the next 24 hours. She will certainly remain on mechanical ventilation. Because of the severity of her airflow limitation, I am going to employ permissive hypercapnia. As such, we will drop the rate back down. This may be uncomfortable, so it is perfectly reasonable to keep her comfortable through this with slightly heavier sedation. CRITICAL CARE TIME: 30 minutes. Job ID: [id number]
[2018-12-10] MEDS: guaiFENesin ER 600 MG TAB PO SCH ×2 (09:22→19:31)
[2018-12-10] MEDS: Enoxaparin Sodium 40 MG/0.4 ML SYRINGE SC SCH (09:22)
[2018-12-10] MEDS: Pantoprazole 40 MG GRANULES PACKET PER TUBE SCH (09:22)
--- NOTE | 2018-12-10 09:56 | PRG ---
DATE OF SERVICE: 12/10/2018 SERVICE: Pulmonary Medicine. INTERVAL HISTORY: The patient is doing fine from respiratory standpoint. Her lung function is improved, although she continues to have a dramatically long expiratory phase. She is much more awake and alert this morning. She is requiring quite a bit less sedation. She ended up getting paralyze one time last night because of a little bit of anxiety. She got a dose of Ativan. Otherwise, there were no events overnight. PHYSICAL EXAMINATION: VITAL SIGNS: Afebrile, pulse 87, respirations 14, saturation 96% on 53% FiO2 and a PEEP of 5. HEENT: Normocephalic and atraumatic. Sclerae are white. Conjunctivae are pink. Oral mucosa is moist without lesions. LUNGS: Much improved air entry. There is still quite a prolonged expiratory phase. The wheezing is still present. I now hear some rhonchi. No crackles are appreciated. HEART: Normal rate, regular. ABDOMEN: Soft, nontender, and nondistended. Bowel sounds are positive. MUSCULOSKELETAL: No cyanosis or clubbing. There is no pitting in bilateral lower extremities. NEUROLOGIC: Grossly nonfocal. LABORATORY DATA: WBC 10.3, hemoglobin 11.5, and platelets 238,000. Basic metabolic profile is otherwise unremarkable with a creatinine of 0.76. IMAGING DATA: Chest x-ray shows a densely calcified right mid lung zone lesion. Otherwise, no acute cardiopulmonary abnormality is appreciated. ASSESSMENT: 1. Acute on chronic hypoxic and hypercapnic respiratory failure. 2. Chronic obstructive pulmonary disease with acute exacerbation. 3. Tobacco abuse. 4. Right mid lung zone calcified lesion, chronic. 5. Gastroesophageal reflux disease. DISCUSSION AND PLAN: We will initiate a Precedex drip and see if we can further wean her fentanyl and propofol, which are still going in at fairly high levels. IV fluids will be interrupted. Paralytic will be discontinued. We put her on pressure control ventilation as she seemed to tolerate these settings the best. She will need an additional 24 hours before she can fully tolerate a spontaneous breathing trial. Her controlled and supportive breaths are still assisted quite heavily. CRITICAL CARE TIME: 30 minutes. Job ID: [id number]
[2018-12-10] MEDS: Sodium Chloride 0.9% 1,000 ML IV SCH ×2 (10:26)
--- NOTE | 2018-12-10 17:56 | PDOC.PN ---
- Subjective Encounter Start Date: 12/10/18 Encounter Start Time: 17:54 Subjective: Still intubated, seadted and mechanically ventilated - Objective Resuscitation Status - Order Detail: 12/08/18 11:09 Resuscitation Status Routine Resuscitation Status: FULL: Full Resuscitation Vital Signs & Weight: Vital Signs (12 hours) Temp Pulse Resp BP Pulse Ox 12/10/18 16:00 9 L 12/10/18 15:45 91 147/78 H 12/10/18 14:06 81 10 L 96 12/10/18 14:00 5 L 12/10/18 13:14 87 12/10/18 13:00 98.5 F 12/10/18 12:00 5 L 12/10/18 10:44 75 107/64 12/10/18 10:00 5 L 12/10/18 08:00 98.6 F 9 L 97 12/10/18 06:54 79 12/10/18 06:00 18 Weight Admit Weight 167 lb 8.821 oz Weight 168 lb 6.931 oz Most Recent Monitor Data Heart Rate from ECG 82 NIBP 170/85 NIBP BP-Mean 113 Respiration from ECG 14 SpO2 97 I&O: 12/09/18 12/10/18 12/11/18 06:59 06:59 06:59 Intake Total 2576.5 3631.8 Output Total 2325 2405 660 Balance 251.5 1226.8 -660 Result Diagrams: 12/10/18 05:19 12/10/18 05:19 Phys Exam - Physical Examination sedated HEENT: PERRLA, moist MMs Neck: supple ventilators transmitted sound noted. Cardiovascular: RRR Gastrointestinal: soft, no distention, positive bowel sounds Musculoskeletal: no edema, pulses present sedated Dx/Plan (1) Acute respiratory failure with hypoxia and hypercapnia Code(s): J96.01 - ACUTE RESPIRATORY FAILURE WITH HYPOXIA; J96.02 - ACUTE RESPIRATORY FAILURE WITH HYPERCAPNIA Status: Acute (2) COPD exacerbation Code(s): J44.1 - CHRONIC OBSTRUCTIVE PULMONARY DISEASE W (ACUTE) EXACERBATION Status: Acute (3) Pneumonia Code(s): J18.9 - PNEUMONIA, UNSPECIFIED ORGANISM Status: Acute (4) Tobacco abuse disorder Code(s): Z72.0 - TOBACCO USE Status: Acute (5) Anxiety and depression Code(s): F41.9 - ANXIETY DISORDER, UNSPECIFIED; F32.9 - MAJOR DEPRESSIVE DISORDER, SINGLE EPISODE, UNSPECIFIED Status: Chronic (6) GERD (gastroesophageal reflux disease) Code(s): K21.9 - GASTRO-ESOPHAGEAL REFLUX DISEASE WITHOUT ESOPHAGITIS Status: Chronic Qualifiers: (7) HTN (hypertension) Code(s): I10 - ESSENTIAL (PRIMARY) HYPERTENSION Status: Chronic (8) Hypothyroidism Code(s): E03.9 - HYPOTHYROIDISM, UNSPECIFIED Status: Chronic (9) Obesity (BMI 30.0-34.9) Code(s): E66.9 - OBESITY, UNSPECIFIED Status: Chronic (10) Hyponatremia Code(s): E87.1 - HYPO-OSMOLALITY AND HYPONATREMIA Status: Acute Comment: Resolved. - Plan Continue steroid, antibiotics and bronchodilators -: sedation and ventilator management as per critical care. -: Possible extubation tomorrow. -: NPO to continue. * .
[2018-12-10] MEDS ORDERED: cloNIDine 0.1 MG TAB PO PRN (19:19)
[2018-12-10] MEDS ORDERED: Lisinopril 20 MG TAB PO SCH (19:30)
[2018-12-10] MEDS: cefTRIAXone\\ROCEPHIN 1 GM in Sodium Chloride 0.9% 100 ML IVPB SCH (19:30)
[2018-12-10] MEDS: Atorvastatin Calcium 10 MG TAB PO SCH (19:31)
[2018-12-10] MEDS: Atenolol 25 MG TAB PO SCH (19:31)
[2018-12-10] MEDS: hydrALAZINE 20 MG/ML VIAL SLOW IVP PRN (21:11)
[2018-12-11] MEDS: Sodium Chloride 0.9% 1,000 ML IV SCH (05:24)
[2018-12-11] MEDS: Levothyroxine Sodium 50 MCG TAB PO SCH (05:24)
[2018-12-11] MEDS: Propofol 1,000 MG/100 ML VIAL IV PRN (05:36)
[2018-12-11] MEDS: guaiFENesin ER 600 MG TAB PO SCH ×2 (08:28→19:50)
[2018-12-11] MEDS: Pantoprazole 40 MG GRANULES PACKET PER TUBE SCH (08:28)
[2018-12-11] MEDS: Enoxaparin Sodium 40 MG/0.4 ML SYRINGE SC SCH (08:29)
[2018-12-11] MEDS: Atenolol 50 MG TAB PO SCH (08:29)
[2018-12-11] MEDS: Lisinopril 20 MG TAB PO SCH (08:29)
[2018-12-11] MEDS: methylPREDNISolone Sod Succ 40 MG VIAL IVP SCH ×2 (11:25→21:02)
[2018-12-11] MEDS: hydrALAZINE 20 MG/ML VIAL SLOW IVP PRN ×2 (12:23→22:17)
[2018-12-11] MEDS: Lorazepam 2 MG/ML VIAL SLOW IVP PRN ×5 (13:26→21:08)
[2018-12-11] MEDS ORDERED: Furosemide 20 MG/2 ML VIAL SLOW IVP SCH (15:45)
--- NOTE | 2018-12-11 16:00 | PRG ---
DATE OF SERVICE: SERVICE: Pulmonary Medicine. INTERVAL HISTORY: The patient is doing okay from Respiratory standpoint. She liked modifications we made to the ventilator yesterday. She did not have any more respiratory events. She did not require any other paralytics. She is on much less sedation today. She still remains maxed out on her Precedex drip. She cannot provide any additional elements of the history presently. Otherwise, there has been no interval change to her condition. PHYSICAL EXAMINATION: VITAL SIGNS: Afebrile, pulse 68, blood pressure 107/71, respirations 17, and saturation is 97% on pressure support ventilation at 5/5. She has a FiO2 of 31% . HEENT: Normocephalic and atraumatic. Sclerae are white. Conjunctivae are pink. Oral mucosa is moist without lesions. LUNGS: Better air entry. There is a prolonged expiratory phase. It is much improved than it was previously. She is also moving better air. There is rhonchi and wheezing present. No crackles. HEART: Normal rate regular. MUSCULOSKELETAL: No cyanosis or clubbing. There is trace 1+ pitting in the bilateral upper extremities and trace pitting in the bilateral lower extremities. NEUROLOGIC: Grossly nonfocal. LABORATORY DATA: WBC 10.3, hemoglobin 11.5, and platelets 238,000. Creatinine 0.76. Basic metabolic profile is otherwise unremarkable. Troponin is negative x1. BNP 111. Respiratory culture is negative to date. ASSESSMENT: 1. Acute on chronic hypoxic and hypercapnic respiratory failure. 2. Chronic obstructive pulmonary disease with acute exacerbation. 3. Tobacco abuse. 4. Right mid lung zone calcified lesion, chronic. 5. Gastroesophageal reflux disease. DISCUSSION AND PLAN: We will complete her spontaneous breathing trial. If she meets criteria, extubation will be considered. It would not surprise me if she needs BiPAP on and off after we perform extubation. All sedating medications except for Precedex will be interrupted. Ativan will be provided on q.2 hourly basis if needed. The steroids, nebulized medications, and antibiotics will be continued. The patient will need to remain in the ICU certainly for the next 24 hours, if not longer. Critical care time: 30 minutes. Job ID: [id number] MTDD
--- NOTE | 2018-12-11 19:28 | PDOC.PN ---
- Subjective Encounter Start Date: 12/11/18 Encounter Start Time: 16:26 Subjective: Extubated earlier today. Feeling better. conversational - Objective Resuscitation Status - Order Detail: 12/08/18 11:09 Resuscitation Status Routine Resuscitation Status: FULL: Full Resuscitation Vital Signs & Weight: Vital Signs (12 hours) Temp Pulse Resp BP Pulse Ox 12/11/18 18:19 62 12/11/18 16:00 97.8 F 12/11/18 14:44 71 12/11/18 14:43 78 35 H 94 L 12/11/18 12:23 66 173/103 H 12/11/18 12:00 98.9 F 12/11/18 10:11 66 14 99 12/11/18 10:10 65 14 99 12/11/18 08:29 73 143/80 H 12/11/18 08:00 98.8 F 34 H 98 Weight Admit Weight 167 lb 8.821 oz Weight 175 lb 7.807 oz Most Recent Monitor Data Heart Rate from ECG 68 NIBP 139/93 NIBP BP-Mean 108 Respiration from ECG 19 SpO2 96 I&O: 12/10/18 12/11/18 12/12/18 06:59 06:59 06:59 Intake Total 3631.8 2885.4 776 Output Total 2405 1665 1175 Balance 1226.8 1220.4 -399 Result Diagrams: 12/10/18 05:19 12/10/18 05:19 Phys Exam - Physical Examination Constitutional: NAD HEENT: PERRLA, moist MMs Neck: supple Respiratory: no rales, clear to auscultation bilateral fair air entry bilaterally with some trransmitted sound Cardiovascular: RRR Gastrointestinal: soft, positive bowel sounds Musculoskeletal: pulses present Neurological: moves all 4 limbs awake. mild confusion and memory lapses noted Dx/Plan (1) Acute respiratory failure with hypoxia and hypercapnia Code(s): J96.01 - ACUTE RESPIRATORY FAILURE WITH HYPOXIA; J96.02 - ACUTE RESPIRATORY FAILURE WITH HYPERCAPNIA Status: Acute Comment: Extubated 2018 (2) COPD exacerbation Code(s): J44.1 - CHRONIC OBSTRUCTIVE PULMONARY DISEASE W (ACUTE) EXACERBATION Status: Acute (3) Pneumonia Code(s): J18.9 - PNEUMONIA, UNSPECIFIED ORGANISM Status: Acute (4) Tobacco abuse disorder Code(s): Z72.0 - TOBACCO USE Status: Acute (5) Anxiety and depression Code(s): F41.9 - ANXIETY DISORDER, UNSPECIFIED; F32.9 - MAJOR DEPRESSIVE DISORDER, SINGLE EPISODE, UNSPECIFIED Status: Chronic (6) GERD (gastroesophageal reflux disease) Code(s): K21.9 - GASTRO-ESOPHAGEAL REFLUX DISEASE WITHOUT ESOPHAGITIS Status: Chronic Qualifiers: (7) HTN (hypertension) Code(s): I10 - ESSENTIAL (PRIMARY) HYPERTENSION Status: Chronic (8) Hypothyroidism Code(s): E03.9 - HYPOTHYROIDISM, UNSPECIFIED Status: Chronic (9) Obesity (BMI 30.0-34.9) Code(s): E66.9 - OBESITY, UNSPECIFIED Status: Chronic (10) Hyponatremia Code(s): E87.1 - HYPO-OSMOLALITY AND HYPONATREMIA Status: Acute Comment: Resolved. - Plan Continue bronchodilators, steroid and antibiotics. -: Restart anxiolytics. -: get BMP and CDC in the am. -: Monitor closely * .
[2018-12-11] MEDS: Atenolol 25 MG TAB PO SCH (19:44)
[2018-12-11] MEDS: busPIRone HCl 5 MG TAB PO SCH (19:50)
[2018-12-11] MEDS: Atorvastatin Calcium 10 MG TAB PO SCH (19:50)
[2018-12-11] MEDS: cefTRIAXone\\ROCEPHIN 1 GM in Sodium Chloride 0.9% 100 ML IVPB SCH (19:51)
[2018-12-11] MEDS: Bacteriostatic Water 30 ML VIAL FS PRN (21:02)
[2018-12-12 03:42] LABS: #Lymphocytes 1.5 thou/uL (1.20-3.40); #Monocytes 0.6 thou/uL (0.11-0.59); #Neutrophils 8.2 thou/uL (1.40-6.50); %Basophils 0.2 % (0.0-1.0); %Eosinophils 0.1 % (0.0-10.0); %Lymphocytes 14.4 % (21.0-51.0); %Monocytes 5.6 % (0.0-10.0); %Neutrophils 79.8 % (42.0-75.0); Hemoglobin 13.8 g/dL (12.0-16.0); Mean Corpuscular HGB CONC 33.8 g/dL (32.0-36.0); Mean Corpuscular Hemoglobin 32.6 pg (27.0-31.0); Mean Corpuscular Volume 96.4 fL (78.0-98.0); Mean Platelet Volume 7.2 fL (7.4-10.4); Platelet Count 225 thou/uL (130-400); RBC Distribution Width 12.9 % (11.5-14.5); Red Blood Cell (RBC) Count 4.25 mill/uL (4.20-5.40); White Blood Cell (WBC) Count 10.3 thou/uL (4.8-10.8)
[2018-12-12 04:01] LABS: Anion Gap 14 mmol/L (10-20); BUN (Urea Nitrogen) 30 mg/dL (9.8-20.1); Calc. Creatinine Clearance 112 mL/min (70-130); Calcium 9.6 mg/dL (7.8-10.44); Carbon Dioxide 28 mmol/L (22-29); Chloride 99 mmol/L (98-107); Estimated GFR-MDRD 87; Glucose 124 mg/dL (70-105); Magnesium 1.6 mg/dL (1.6-2.6); Potassium 3.7 mmol/L (3.5-5.1); Sodium 137 mmol/L (136-145)
[2018-12-12] MEDS: Levothyroxine Sodium 50 MCG TAB PO SCH (05:04)
[2018-12-12] MEDS: busPIRone HCl 5 MG TAB PO SCH ×3 (07:46→20:44)
[2018-12-12] MEDS: Lisinopril 20 MG TAB PO SCH (07:47)
[2018-12-12] MEDS: guaiFENesin ER 600 MG TAB PO SCH ×2 (07:47→20:45)
[2018-12-12] MEDS: Atenolol 50 MG TAB PO SCH (07:47)
[2018-12-12] MEDS: Enoxaparin Sodium 40 MG/0.4 ML SYRINGE SC SCH (07:48)
[2018-12-12] MEDS: Lorazepam 2 MG/ML VIAL SLOW IVP PRN ×4 (08:17→22:38)
[2018-12-12] MEDS: Pantoprazole 40 MG GRANULES PACKET PER TUBE SCH (09:44)
[2018-12-12] MEDS: methylPREDNISolone Sod Succ 40 MG VIAL IVP SCH (09:46)
--- NOTE | 2018-12-12 11:49 | PDOC.PN ---
- Subjective Encounter Start Date: 12/12/18 Encounter Start Time: 11:48 Subjective: Feeling better -: Extubated 12/11/2018 - Objective Resuscitation Status - Order Detail: 12/08/18 11:09 Resuscitation Status Routine Resuscitation Status: FULL: Full Resuscitation Vital Signs & Weight: Vital Signs (12 hours) Temp Pulse Resp BP Pulse Ox 12/12/18 10:11 61 22 H 98 12/12/18 07:47 57 L 173/90 H 12/12/18 07:12 95 12/12/18 07:00 97.6 F 99 12/12/18 06:58 57 L 17 99 12/12/18 03:00 97.9 F 12/12/18 02:16 54 L Weight Admit Weight 167 lb 8.821 oz Weight 174 lb 9.698 oz Most Recent Monitor Data Heart Rate from ECG 66 NIBP 181/96 NIBP BP-Mean 124 Respiration from ECG 22 SpO2 99 I&O: 12/11/18 12/12/18 12/13/18 06:59 06:59 06:59 Intake Total 2885.4 909 Output Total 1665 3020 1175 Balance 1220.4 -2111 -1175 Result Diagrams: 12/12/18 03:28 12/12/18 03:28 Phys Exam - Physical Examination Constitutional: NAD HEENT: PERRLA, moist MMs Neck: no JVD, supple Respiratory: no rales fair air entry with few scattered rhonchi Cardiovascular: RRR, no significant murmur Gastrointestinal: soft, non-tender, no distention, positive bowel sounds Musculoskeletal: no edema Neurological: non-focal, moves all 4 limbs Psychiatric: A&O x 3 Dx/Plan (1) Acute respiratory failure with hypoxia and hypercapnia Code(s): J96.01 - ACUTE RESPIRATORY FAILURE WITH HYPOXIA; J96.02 - ACUTE RESPIRATORY FAILURE WITH HYPERCAPNIA Status: Acute Comment: Extubated 2018 (2) COPD exacerbation Code(s): J44.1 - CHRONIC OBSTRUCTIVE PULMONARY DISEASE W (ACUTE) EXACERBATION Status: Acute (3) Pneumonia Code(s): J18.9 - PNEUMONIA, UNSPECIFIED ORGANISM Status: Acute (4) Tobacco abuse disorder Code(s): Z72.0 - TOBACCO USE Status: Acute (5) Anxiety and depression Code(s): F41.9 - ANXIETY DISORDER, UNSPECIFIED; F32.9 - MAJOR DEPRESSIVE DISORDER, SINGLE EPISODE, UNSPECIFIED Status: Chronic (6) GERD (gastroesophageal reflux disease) Code(s): K21.9 - GASTRO-ESOPHAGEAL REFLUX DISEASE WITHOUT ESOPHAGITIS Status: Chronic Qualifiers: (7) HTN (hypertension) Code(s): I10 - ESSENTIAL (PRIMARY) HYPERTENSION Status: Chronic (8) Hypothyroidism Code(s): E03.9 - HYPOTHYROIDISM, UNSPECIFIED Status: Chronic (9) Obesity (BMI 30.0-34.9) Code(s): E66.9 - OBESITY, UNSPECIFIED Status: Chronic (10) Hyponatremia Code(s): E87.1 - HYPO-OSMOLALITY AND HYPONATREMIA Status: Acute Comment: Resolved. - Plan Restart anti depressant and anxiolytics. -: continue antibiotics, steroid and bronchodilators, -: Diet as tolerated. -: oxygen as tolerated. * .
[2018-12-12] MEDS ORDERED: ALPRAZolam 0.5 MG TAB PO SCH (15:00)
[2018-12-12] MEDS ORDERED: predniSONE 20 MG TAB PO SCH (16:30)
--- NOTE | 2018-12-12 16:37 | PRG ---
DATE OF SERVICE: 12/12/2018 SERVICE: Pulmonary Medicine. INTERVAL HISTORY: The patient is doing fine from respiratory standpoint. Breathing comfortably. She required multiple doses of Ativan. She is requesting her home dose of Xanax be initiated. I think it is perfectly reasonable. We will give the patient a diet and start mobilizing her through time. If she does well today and does not require any BiPAP for respiratory difficulties, we can consider transitioning her to the medical unit. Otherwise, there were no events overnight. PHYSICAL EXAMINATION: VITAL SIGNS: Afebrile, pulse 68, blood pressure 164/93, respirations 27, and saturation 94% on 2 L nasal cannula. GENERAL: The patient is awake and alert, in no apparent distress. LUNGS: Much improved air entry, although is still reduced. There is a prolonged expiratory phase, also improved. No crackles, rhonchi, or wheezing are appreciated today. HEART: Normal rate and regular. ABDOMEN: Soft, nontender, and nondistended. Bowel sounds are positive. MUSCULOSKELETAL: No cyanosis or clubbing. No pitting in bilateral lower extremities. NEUROLOGIC: Grossly nonfocal. LABORATORY DATA: WBC 10.3, hemoglobin 13.8, and platelets are unremarkable. Basic metabolic profile is unremarkable. Magnesium 1.6, potassium 3.7. ASSESSMENT: 1. Acute on chronic hypoxic and hypercapnic respiratory failure. 2. Chronic obstructive pulmonary disease with acute exacerbation. 3. Tobacco abuse. 4. Right midlung calcified lesion, chronic. 5. Gastroesophageal reflux disease. DISCUSSION AND PLAN: I will replace the magnesium and potassium. I will give her a laboratory holiday tomorrow. Xanax will be replaced. We will give the patient a diet and start mobilizing her. If she does well, we can get the Michel catheter out and consider her for transitioning to the floor. She will likely need another 24 to 48 hours to settle down from her COPD exacerbation before being considered for discharge provided that she has enough strength to go home. Job ID: [id number]
[2018-12-12] MEDS ORDERED: Magnesium 2 GM/50 ML 2 GM in Premix Bag 1 BAG IVPB SCH (17:00)
[2018-12-12] MEDS: Acetaminophen 325 MG TAB PO PRN ×2 (17:37→22:38)
[2018-12-12] MEDS: cefTRIAXone\\ROCEPHIN 1 GM in Sodium Chloride 0.9% 100 ML IVPB SCH (20:26)
[2018-12-12] MEDS: ALPRAZolam 0.5 MG TAB PO SCH (20:45)
[2018-12-12] MEDS: Atorvastatin Calcium 10 MG TAB PO SCH (20:45)
[2018-12-13] MEDS: Acetaminophen 325 MG TAB PO PRN (04:40)
[2018-12-13] MEDS: Lorazepam 2 MG/ML VIAL SLOW IVP PRN ×3 (04:40→16:39)
[2018-12-13] MEDS: Levothyroxine Sodium 50 MCG TAB PO SCH (05:33)
[2018-12-13] MEDS: ALPRAZolam 0.5 MG TAB PO SCH ×3 (07:24→20:23)
[2018-12-13] MEDS: Atenolol 50 MG TAB PO SCH (07:25)
[2018-12-13] MEDS: predniSONE 20 MG TAB PO SCH (07:25)
[2018-12-13] MEDS: Venlafaxine HCl XR 150 MG CAP PO SCH (07:25)
[2018-12-13] MEDS: Enoxaparin Sodium 40 MG/0.4 ML SYRINGE SC SCH (07:26)
[2018-12-13] MEDS: guaiFENesin ER 600 MG TAB PO SCH ×2 (07:26→20:22)
[2018-12-13] MEDS: busPIRone HCl 5 MG TAB PO SCH ×3 (09:44→20:22)
[2018-12-13] MEDS: Lisinopril 20 MG TAB PO SCH (09:45)
--- NOTE | 2018-12-13 10:51 | PDOC.PN ---
- Subjective Encounter Start Date: 12/13/18 Encounter Start Time: 10:49 Subjective: Feeling better. No new problem. weaned off BIPAP - Objective Resuscitation Status - Order Detail: 12/08/18 11:09 Resuscitation Status Routine Resuscitation Status: FULL: Full Resuscitation Vital Signs & Weight: Vital Signs (12 hours) Temp Pulse Resp BP Pulse Ox 12/13/18 09:45 173/90 H 12/13/18 07:25 72 12/13/18 07:09 92 L 12/13/18 06:35 72 18 99 12/13/18 04:00 97.8 F 12/13/18 02:02 86 21 H 100 12/13/18 00:00 98.6 F Weight Admit Weight 167 lb 8.821 oz Weight 170 lb 10.205 oz Most Recent Monitor Data Heart Rate from ECG 71 NIBP 144/75 NIBP BP-Mean 98 Respiration from ECG 26 SpO2 96 I&O: 12/12/18 12/13/18 12/14/18 06:59 06:59 06:59 Intake Total 909 1380 340 Output Total 3020 4016 210 Balance -2111 -2636 130 Result Diagrams: 12/12/18 03:28 12/12/18 03:28 Phys Exam - Physical Examination Constitutional: NAD HEENT: PERRLA, moist MMs Neck: no JVD, supple Respiratory: no rales, no rhonchi fair air entry bilaterally with some transmitted sound Cardiovascular: RRR Gastrointestinal: soft, non-tender, no distention, positive bowel sounds Musculoskeletal: no edema, pulses present Neurological: non-focal, moves all 4 limbs Psychiatric: A&O x 3 Dx/Plan (1) Acute respiratory failure with hypoxia and hypercapnia Code(s): J96.01 - ACUTE RESPIRATORY FAILURE WITH HYPOXIA; J96.02 - ACUTE RESPIRATORY FAILURE WITH HYPERCAPNIA Status: Acute Comment: improved. Extubated 12/11/2018 (2) COPD exacerbation Code(s): J44.1 - CHRONIC OBSTRUCTIVE PULMONARY DISEASE W (ACUTE) EXACERBATION Status: Acute (3) Pneumonia Code(s): J18.9 - PNEUMONIA, UNSPECIFIED ORGANISM Status: Acute (4) Tobacco abuse disorder Code(s): Z72.0 - TOBACCO USE Status: Acute Comment: Smoking cessation education and counselling provided. (5) Anxiety and depression Code(s): F41.9 - ANXIETY DISORDER, UNSPECIFIED; F32.9 - MAJOR DEPRESSIVE DISORDER, SINGLE EPISODE, UNSPECIFIED Status: Chronic Comment: Back on buspar and xanax (6) GERD (gastroesophageal reflux disease) Code(s): K21.9 - GASTRO-ESOPHAGEAL REFLUX DISEASE WITHOUT ESOPHAGITIS Status: Chronic Qualifiers: Comment: On PPI (7) HTN (hypertension) Code(s): I10 - ESSENTIAL (PRIMARY) HYPERTENSION Status: Chronic Comment: Control acceptable (8) Hypothyroidism Code(s): E03.9 - HYPOTHYROIDISM, UNSPECIFIED Status: Chronic Comment: On supplementation (9) Obesity (BMI 30.0-34.9) Code(s): E66.9 - OBESITY, UNSPECIFIED Status: Chronic (10) Hyponatremia Code(s): E87.1 - HYPO-OSMOLALITY AND HYPONATREMIA Status: Acute Comment: Resolved. - Plan Continue bronchodilators, steroid, antibiotics. -: Continue anxiolytics. -: for transfer to [facility] * .
[2018-12-13] MEDS ORDERED: Furosemide 20 MG/2 ML VIAL SLOW IVP SCH (11:45)
--- NOTE | 2018-12-13 12:20 | PRG ---
DATE OF SERVICE: 12/13/2018 SERVICE: Pulmonary Medicine. INTERVAL HISTORY: The patient is doing much better from respiratory standpoint. She did not require the BiPAP last night. She had a little episode of confusion. She ripped out her IV. Otherwise, there has been no interval change to her condition. PHYSICAL EXAMINATION: VITAL pulse: Afebrile, pulse 71, blood pressure 144/75, respirations 23, and saturation 95% on 2 L nasal cannula. GENERAL: The patient is awake and alert, in no apparent distress. LUNGS: Much improved air entry. There is a very prolonged expiratory phase. Rhonchi are present. Minimal dependent crackles are noted. HEART: Normal rate. Regular. ABDOMEN: Soft, nontender, and nondistended. Bowel sounds are positive. MUSCULOSKELETAL: No cyanosis or clubbing. There is trace pitting in bilateral lower extremities. NEUROLOGIC: Grossly nonfocal. ASSESSMENT: 1. Acute on chronic hypoxic and hypercapnic respiratory failure. 2. Status post mechanical ventilation. 3. Chronic obstructive pulmonary disease with acute exacerbation. 4. Tobacco abuse. 5. Right middle lobe calcified lesion, chronic. 6. Gastroesophageal reflux disease. DISCUSSION AND PLAN: The patient is stable for transition out of the ICU to the medical unit. I will repeat basic metabolic profile and magnesium tomorrow morning. Once her strength comes around, she will be stable for transition out of the hospital. We will have her work with physical therapy, increase mobility as tolerated. Michel catheter to be removed today. Job ID: [id number]
[2018-12-13] MEDS: Atorvastatin Calcium 10 MG TAB PO SCH (20:22)
[2018-12-13] MEDS: cefTRIAXone\\ROCEPHIN 1 GM in Sodium Chloride 0.9% 100 ML IVPB SCH (20:23)
[2018-12-14] MEDS: Lorazepam 2 MG/ML VIAL SLOW IVP PRN ×2 (02:18→13:26)
[2018-12-14 05:01] LABS: #Basophils 0.1 thou/uL (0.0-0.2); #Eosinphils 0.1 thou/uL (0.0-0.7); #Lymphocytes 4.6 thou/uL (1.20-3.40); #Neutrophils 6.1 thou/uL (1.40-6.50); %Basophils 1.1 % (0.0-1.0); %Eosinophils 0.5 % (0.0-10.0); %Lymphocytes 38.5 % (21.0-51.0); %Monocytes 8.7 % (0.0-10.0); %Neutrophils 51.3 % (42.0-75.0); Hemoglobin 13.9 g/dL (12.0-16.0); Mean Corpuscular HGB CONC 33.3 g/dL (32.0-36.0); Mean Corpuscular Hemoglobin 32.5 pg (27.0-31.0); Mean Corpuscular Volume 97.5 fL (78.0-98.0); Mean Platelet Volume 7.6 fL (7.4-10.4); Platelet Count 256 thou/uL (130-400); RBC Distribution Width 12.7 % (11.5-14.5); Red Blood Cell (RBC) Count 4.28 mill/uL (4.20-5.40); White Blood Cell (WBC) Count 11.9 thou/uL (4.8-10.8)
[2018-12-14] MEDS: Levothyroxine Sodium 50 MCG TAB PO SCH (05:20)
[2018-12-14 05:26] LABS: Anion Gap 12 mmol/L (10-20); BUN (Urea Nitrogen) 24 mg/dL (9.8-20.1); Calc. Creatinine Clearance 95 mL/min (70-130); Calcium 9.3 mg/dL (7.8-10.44); Carbon Dioxide 29 mmol/L (22-29); Chloride 101 mmol/L (98-107); Estimated GFR-MDRD 78; Glucose 83 mg/dL (70-105); Potassium 4.3 mmol/L (3.5-5.1); Sodium 138 mmol/L (136-145)
[2018-12-14] MEDS: Lisinopril 20 MG TAB PO SCH (08:10)
[2018-12-14] MEDS: Venlafaxine HCl XR 150 MG CAP PO SCH (08:11)
[2018-12-14] MEDS: busPIRone HCl 5 MG TAB PO SCH ×3 (08:11→20:04)
[2018-12-14] MEDS: predniSONE 20 MG TAB PO SCH (08:11)
[2018-12-14] MEDS: ALPRAZolam 0.5 MG TAB PO SCH ×3 (08:11→20:04)
[2018-12-14] MEDS: Enoxaparin Sodium 40 MG/0.4 ML SYRINGE SC SCH (08:12)
[2018-12-14] MEDS: guaiFENesin ER 600 MG TAB PO SCH ×2 (08:12→20:04)
--- NOTE | 2018-12-14 09:28 | PRG ---
DATE OF SERVICE: 12/14/2018 SUBJECTIVE: A 58-year-old female. This morning, she said that she is better. Denies any coughing or wheezing. OBJECTIVE: VITAL SIGNS: Saturations are 91% on 1 L, pulse are 84, respiratory rate 14, and blood pressure 140/83. CHEST: Bilateral rhonchi and crackles. CARDIAC: Normal S1 and S2. No gallops. ABDOMEN: No masses. LABORATORY DATA: Labs unremarkable. White count is normal. Lytes are normal. IMPRESSION: 1. Respiratory failure, status post vent. 2. Chronic obstructive pulmonary disease, tobacco abuse. PLAN: Continue neb treatments, steroids, antibiotics, PT. Can probably transferred out of the ICU in the next 24 to 48 hours. Job ID: [id number]
[2018-12-14] MEDS: Atenolol 50 MG TAB PO SCH (10:06)
--- NOTE | 2018-12-14 11:10 | PDOC.PN ---
- Subjective Encounter Start Date: 12/14/18 Encounter Start Time: 11:08 Subjective: No new problem. -: was confused with hallucination last night. -: more appropriate this morning. - Objective Resuscitation Status - Order Detail: 12/08/18 11:09 Resuscitation Status Routine Resuscitation Status: FULL: Full Resuscitation Vital Signs & Weight: Vital Signs (12 hours) Pulse Resp Pulse Ox 12/14/18 10:56 77 16 94 L 12/14/18 08:00 88 L 12/14/18 07:52 99 12/14/18 07:50 75 14 97 12/14/18 02:26 67 21 H 95 Weight Admit Weight 167 lb 8.821 oz Weight 164 lb 6.4 oz Most Recent Monitor Data Heart Rate from ECG 91 NIBP 138/75 NIBP BP-Mean 96 Respiration from ECG 17 SpO2 92 I&O: 12/13/18 12/14/18 12/15/18 06:59 06:59 06:59 Intake Total 1380 1220 Output Total 4016 1490 Balance -6106 -920 Result Diagrams: 12/14/18 04:34 12/14/18 04:34 Phys Exam - Physical Examination Constitutional: NAD HEENT: PERRLA, moist MMs Neck: no JVD, supple Respiratory: no wheezing, no rhonchi fair air entry bilaterally with some trabnsmitted sound Cardiovascular: RRR Gastrointestinal: soft, non-tender, no distention, positive bowel sounds Musculoskeletal: no edema, pulses present Neurological: non-focal, moves all 4 limbs Psychiatric: A&O x 3 Dx/Plan (1) Acute respiratory failure with hypoxia and hypercapnia Code(s): J96.01 - ACUTE RESPIRATORY FAILURE WITH HYPOXIA; J96.02 - ACUTE RESPIRATORY FAILURE WITH HYPERCAPNIA Status: Acute Comment: improved. Extubated 12/11/2018 (2) COPD exacerbation Code(s): J44.1 - CHRONIC OBSTRUCTIVE PULMONARY DISEASE W (ACUTE) EXACERBATION Status: Acute (3) Pneumonia Code(s): J18.9 - PNEUMONIA, UNSPECIFIED ORGANISM Status: Acute (4) Tobacco abuse disorder Code(s): Z72.0 - TOBACCO USE Status: Acute Comment: Smoking cessation education and counselling provided. (5) Anxiety and depression Code(s): F41.9 - ANXIETY DISORDER, UNSPECIFIED; F32.9 - MAJOR DEPRESSIVE DISORDER, SINGLE EPISODE, UNSPECIFIED Status: Chronic Comment: Back on buspar and xanax (6) GERD (gastroesophageal reflux disease) Code(s): K21.9 - GASTRO-ESOPHAGEAL REFLUX DISEASE WITHOUT ESOPHAGITIS Status: Chronic Qualifiers: Comment: On PPI (7) HTN (hypertension) Code(s): I10 - ESSENTIAL (PRIMARY) HYPERTENSION Status: Chronic Comment: Control acceptable (8) Hypothyroidism Code(s): E03.9 - HYPOTHYROIDISM, UNSPECIFIED Status: Chronic Comment: On supplementation (9) Obesity (BMI 30.0-34.9) Code(s): E66.9 - OBESITY, UNSPECIFIED Status: Chronic (10) Hyponatremia Code(s): E87.1 - HYPO-OSMOLALITY AND HYPONATREMIA Status: Acute Comment: Resolved. - Plan Continue steroid, antibiotics and bronchodilators. -: Wean off oxygen as tolerated. * .
[2018-12-14] MEDS: cefTRIAXone\\ROCEPHIN 1 GM in Sodium Chloride 0.9% 100 ML IVPB SCH (20:03)
[2018-12-14] MEDS: Atorvastatin Calcium 10 MG TAB PO SCH (20:04)
[2018-12-15] MEDS: Lorazepam 2 MG/ML VIAL SLOW IVP PRN (01:21)
[2018-12-15] MEDS: Levothyroxine Sodium 50 MCG TAB PO SCH (06:08)
[2018-12-15 08:41] VITALS: BMI 30.6
[2018-12-15] MEDS: predniSONE 20 MG TAB PO SCH (08:41)
[2018-12-15] MEDS: ALPRAZolam 0.5 MG TAB PO SCH ×3 (08:41→21:49)
[2018-12-15] MEDS: Venlafaxine HCl XR 150 MG CAP PO SCH (08:41)
[2018-12-15] MEDS: Atenolol 50 MG TAB PO SCH (08:41)
[2018-12-15] MEDS: Enoxaparin Sodium 40 MG/0.4 ML SYRINGE SC SCH (08:42)
[2018-12-15] MEDS: guaiFENesin ER 600 MG TAB PO SCH ×2 (08:42→21:49)
[2018-12-15] MEDS: busPIRone HCl 5 MG TAB PO SCH ×3 (08:43→21:49)
[2018-12-15] MEDS: Lisinopril 20 MG TAB PO SCH (09:29)
[2018-12-15 09:37] LABS: Anion Gap 13 mmol/L (10-20); BUN (Urea Nitrogen) 18 mg/dL (9.8-20.1); Calc. Creatinine Clearance 96 mL/min (70-130); Carbon Dioxide 27 mmol/L (22-29); Chloride 99 mmol/L (98-107); Estimated GFR-MDRD 83; Glucose 99 mg/dL (70-105); Potassium 3.6 mmol/L (3.5-5.1); Sodium 135 mmol/L (136-145)
--- NOTE | 2018-12-15 12:21 | PRG ---
DATE OF SERVICE: 12/15/2018 SUBJECTIVE: This morning, she is better, less short of breath. OBJECTIVE: VITAL SIGNS: Saturations on room air, blood pressure 156/78, pulse 64, respirations 18. CHEST: Decreased breath sounds. No wheezing. CARDIAC: Normal S1, S2. No gallops. ABDOMEN: No masses. LABORATORY DATA: Lytes are normal. BNP is normal. IMPRESSION: 1. Respiratory failure. 2. Chronic obstructive pulmonary disease. 3. Tobacco abuse. PLAN: Continue PT, supportive care, prednisone, neb treatments. Hopefully, discharge home in the next 24 to 48. Job ID: [id number]
--- NOTE | 2018-12-15 13:37 | PDOC.PN ---
- Subjective Encounter Start Date: 12/15/18 Encounter Start Time: 13:35 Subjective: Had a loose BM earlier today. No fever. -: Feeling better otherwise - Objective Resuscitation Status - Order Detail: 12/08/18 11:09 Resuscitation Status Routine Resuscitation Status: FULL: Full Resuscitation Vital Signs & Weight: Vital Signs (12 hours) Temp Pulse Resp BP BP Pulse Ox 12/15/18 12:24 66 20 156/79 H 94 L 12/15/18 12:00 97.6 F 65 18 178/88 H 99 12/15/18 11:12 64 14 12/15/18 10:30 94 L 12/15/18 09:29 156/78 H 12/15/18 08:41 71 156/78 H 91 L 12/15/18 08:00 98.5 F 71 16 156/78 H 94 L 12/15/18 06:51 84 15 12/15/18 04:00 98 F 76 16 141/73 H 93 L Weight Admit Weight 167 lb 8.821 oz Weight 156 lb 9.6 oz Most Recent Monitor Data Heart Rate from ECG 73 NIBP 160/109 NIBP BP-Mean 126 Respiration from ECG 21 SpO2 97 I&O: 12/14/18 12/15/18 12/16/18 06:59 06:59 06:59 Intake Total 1220 350 Output Total 1490 1210 Balance -270 -860 Result Diagrams: 12/14/18 04:34 12/15/18 09:11 Phys Exam - Physical Examination Constitutional: NAD HEENT: PERRLA, moist MMs Neck: no JVD, supple Respiratory: no wheezing, no rhonchi fair air entry bilaterally with bibasal crackles Cardiovascular: RRR, no significant murmur Gastrointestinal: soft, non-tender, no distention, positive bowel sounds Musculoskeletal: pulses present trace leg edema Neurological: non-focal, moves all 4 limbs Psychiatric: A&O x 3 Dx/Plan (1) Acute respiratory failure with hypoxia and hypercapnia Code(s): J96.01 - ACUTE RESPIRATORY FAILURE WITH HYPOXIA; J96.02 - ACUTE RESPIRATORY FAILURE WITH HYPERCAPNIA Status: Acute Comment: improved. Extubated 12/11/2018 (2) COPD exacerbation Code(s): J44.1 - CHRONIC OBSTRUCTIVE PULMONARY DISEASE W (ACUTE) EXACERBATION Status: Acute (3) Pneumonia Code(s): J18.9 - PNEUMONIA, UNSPECIFIED ORGANISM Status: Acute (4) Tobacco abuse disorder Code(s): Z72.0 - TOBACCO USE Status: Acute Comment: Smoking cessation education and counselling provided. (5) Anxiety and depression Code(s): F41.9 - ANXIETY DISORDER, UNSPECIFIED; F32.9 - MAJOR DEPRESSIVE DISORDER, SINGLE EPISODE, UNSPECIFIED Status: Chronic Comment: Back on buspar and xanax (6) GERD (gastroesophageal reflux disease) Code(s): K21.9 - GASTRO-ESOPHAGEAL REFLUX DISEASE WITHOUT ESOPHAGITIS Status: Chronic Qualifiers: Comment: On PPI (7) HTN (hypertension) Code(s): I10 - ESSENTIAL (PRIMARY) HYPERTENSION Status: Chronic Comment: Control acceptable (8) Hypothyroidism Code(s): E03.9 - HYPOTHYROIDISM, UNSPECIFIED Status: Chronic Comment: On supplementation (9) Obesity (BMI 30.0-34.9) Code(s): E66.9 - OBESITY, UNSPECIFIED Status: Chronic (10) Hyponatremia Code(s): E87.1 - HYPO-OSMOLALITY AND HYPONATREMIA Status: Acute Comment: Resolved. - Plan DC IV antibiotic. Start oral levaquin. -: Give lasix 20 X1 -: Continue steroid, bronchodilators and oxygen. -: Wean off oxygen. Increase activity. -: Get C dif toxin assay if loose stools continue. For discharge in a day or 2 * .
[2018-12-15] MEDS ORDERED: Furosemide 20 MG/2 ML VIAL SLOW IVP SCH (13:45)
[2018-12-15] MEDS: Atorvastatin Calcium 10 MG TAB PO SCH (21:48)
[2018-12-16 05:43] LABS: #Basophils 0.1 thou/uL (0.0-0.2); #Eosinphils 0.1 thou/uL (0.0-0.7); #Lymphocytes 4.1 thou/uL (1.20-3.40); #Monocytes 0.8 thou/uL (0.11-0.59); #Neutrophils 6.4 thou/uL (1.40-6.50); %Basophils 0.9 % (0.0-1.0); %Eosinophils 1.1 % (0.0-10.0); %Lymphocytes 35.4 % (21.0-51.0); %Monocytes 6.5 % (0.0-10.0); %Neutrophils 56.1 % (42.0-75.0); Hemoglobin 14.9 g/dL (12.0-16.0); Mean Corpuscular HGB CONC 33.7 g/dL (32.0-36.0); Mean Corpuscular Hemoglobin 32.8 pg (27.0-31.0); Mean Corpuscular Volume 97.4 fL (78.0-98.0); Platelet Count 250 thou/uL (130-400); RBC Distribution Width 12.5 % (11.5-14.5); Red Blood Cell (RBC) Count 4.52 mill/uL (4.20-5.40); White Blood Cell (WBC) Count 11.5 thou/uL (4.8-10.8)
[2018-12-16 06:00] LABS: Anion Gap 13 mmol/L (10-20); BUN (Urea Nitrogen) 14 mg/dL (9.8-20.1); Calc. Creatinine Clearance 98 mL/min (70-130); Calcium 9.4 mg/dL (7.8-10.44); Carbon Dioxide 28 mmol/L (22-29); Chloride 99 mmol/L (98-107); Estimated GFR-MDRD 86; Glucose 81 mg/dL (70-105); Potassium 3.8 mmol/L (3.5-5.1); Sodium 136 mmol/L (136-145)
[2018-12-16] MEDS: Levothyroxine Sodium 50 MCG TAB PO SCH (07:04)
[2018-12-16 07:47] VITALS: BP 124/72; TEMP 97.5
[2018-12-16] MEDS: Atenolol 50 MG TAB PO SCH (08:48)
[2018-12-16] MEDS: ALPRAZolam 0.5 MG TAB PO SCH (08:48)
[2018-12-16] MEDS: busPIRone HCl 5 MG TAB PO SCH (08:49)
[2018-12-16] MEDS: Venlafaxine HCl XR 150 MG CAP PO SCH (08:49)
[2018-12-16] MEDS: predniSONE 20 MG TAB PO SCH (08:49)
[2018-12-16] MEDS: Lisinopril 20 MG TAB PO SCH (08:49)
[2018-12-16] MEDS: guaiFENesin ER 600 MG TAB PO SCH (08:50)
[2018-12-16] MEDS: Enoxaparin Sodium 40 MG/0.4 ML SYRINGE SC SCH (08:50)
--- NOTE | 2018-12-16 15:57 | DIS ---
DATE OF ADMISSION: 12/08/2018 DATE OF DISCHARGE: 12/16/2018 DISCHARGE DIAGNOSES: 1. Acute respiratory failure with hypoxia and hypercapnia. 2. Chronic obstructive pulmonary disease exacerbation. 3. Pneumonia. 4. Tobacco abuse disorder. 5. Anxiety and depression. 6. Hypertension. 7. Gastroesophageal reflux disease. 8. Hypothyroidism. 9. Obesity with BMI between 30 and 34.9. 10. Hyponatremia. CONSULTS: Pulmonary and Critical Care. HOSPITAL COURSE: A 58-year-old female with past medical history significant for hypertension and chronic tobacco use, who was admitted due to worsening shortness of breath and cough since about 3 weeks despite treatment with antibiotics and steroid taper course. Impression of acute respiratory failure with hypoxia and hypercarbia was made, and the patient was started on BiPAP, antibiotics, bronchodilators, steroid, and oxygen supplementation and admitted to [facility]. Symptoms, however, did not improve, and in fact, respiratory distress got worse. Hence, the patient was transferred to ICU and was intubated. Respiratory support, bronchodilators, and steroids were continued, and the patient improved and was subsequently extubated. Hospital course was complicated by development of acute encephalopathy with symptoms of confusion and hallucination. This was felt to be ICU psychosis, and it improved on transfer to the medical floor. The patient improved, and oxygen was subsequently weaned off. She had some physical deconditioning, which improved with physical therapy. The patient was later discharged home to follow up with primary care physician and physics technical officer. PHYSICAL EXAMINATION: VITAL SIGNS: Temperature 97.5, pulse 73, respiratory rate 20, SpO2 of 93 on room air, blood pressure 124/72. GENERAL: Middle-aged female, in no distress. Afebrile, anicteric, acyanotic. HEENT: Normocephalic and atraumatic. Pupils are equal and reacting to light. RESPIRATORY: Good air entry bilaterally with no obvious crackle or rhonchi or use of accessory muscles CARDIOVASCULAR: Regular rhythm and rate with normal heart sounds 1 and 2. GI: Soft, nontender, and nondistended with normal bowel sounds. EXTREMITIES: Grossly normal looking, atraumatic, with no edema, erythema, or cyanosis NEUROLOGIC: Conscious and alert, oriented x3 with appropriate mental status. The patient is ambulant. Cranial nerves 2 through 12 are intact. CONDITION AT DISCHARGE: Improved. FOLLOWUP: PCP in 1 week and physics technical officer in 2 to 3 weeks. DISCHARGE MEDICATIONS: 1. Xanax 0.5 mg p.o. t.i.d. p.r.n. 2. Atenolol 100 mg p.o. daily. 3. Buspirone 15 mg p.o. t.i.d. 4. Cholecalciferol 2000 units q.7 days. 5. Estradiol transdermal patch 0.05 mg patch once every 7 days. 6. Gabapentin 100 mg p.o. at bedtime. 7. Levothyroxine 50 mcg every morning. 8. Lisinopril 20 mg p.o. daily. 9. Mirtazapine 30 mg p.o. daily at bedtime. 10. Multivitamin 1 tablet p.o. daily. 11. Ericson-3 fatty acids 2 capsules p.o. b.i.d. 12. Protonix 40 mg p.o. b.i.d. 13. Trazodone 100 mg p.o. daily at bedtime. 14. Venlafaxine 150 mg p.o. daily. 15. Vitamin B12 of 1000 mcg p.o. daily. 16. DuoNeb 3 mL q.4 hours p.r.n. for shortness of breath and wheezing. 17. Mucinex 600 mg p.o. b.i.d. for 5 days. 18. Lipitor 10 mg p.o. daily at bedtime. 19. Levofloxacin 750 mg p.o. daily for 5 days. 20. Nebulizer x1. TIME SPENT: Discharge took more than 36 minutes. Job ID: [id number]
== END 2018-12-16 11:13 | disposition home or self-care (01) | DRG 208 ==
LOC: ERS 23:03 → ERHOLD 12-08 02:37 → IMCU/EMU 12-08 16:38 → CCU 12-08 18:47 → 2SE 12-15 01:06
PROVIDERS: ADMIT Family Medicine; ATTEND Family Medicine
PROC: 5A1945Z Respiratory Ventilation, 24-96 Consecutive Hours (ICD-10-PCS; principal; 2018-12-08)
PROC: 0BH18EZ Insertion of Endotracheal Airway into Trachea, Via Natural or Artificial Opening Endoscopic (ICD-10-PCS; 2018-12-08)
PROC: 0B938ZZ Drainage of Right Main Bronchus, Via Natural or Artificial Opening Endoscopic (ICD-10-PCS; 2018-12-08)
PROC: 5A09357 Assistance with Respiratory Ventilation, Less than 24 Consecutive Hours, Continuous Positive Airway Pressure (ICD-10-PCS; 2018-12-08)
DX: J96.02 Acute respiratory failure with hypercapnia (principal); J18.9 Pneumonia, unspecified organism; J44.0 Chronic obstructive pulmonary disease with (acute) lower respiratory infection; J44.1 Chronic obstructive pulmonary disease with (acute) exacerbation; E87.1 Hypo-osmolality and hyponatremia; G93.49 Other encephalopathy; J96.01 Acute respiratory failure with hypoxia; E86.0 Dehydration; I10 Essential (primary) hypertension; E78.5 Hyperlipidemia, unspecified; F17.210 Nicotine dependence, cigarettes, uncomplicated; F41.9 Anxiety disorder, unspecified; F32.9 Major depressive disorder, single episode, unspecified; E03.9 Hypothyroidism, unspecified; Z79.899 Other long term (current) drug therapy; K21.9 Gastro-esophageal reflux disease without esophagitis; J98.09 Other diseases of bronchus, not elsewhere classified; E66.9 Obesity, unspecified; Z68.34 Body mass index [BMI] 34.0-34.9, adult; R53.81 Other malaise; F10.21 Alcohol dependence, in remission; Z98.890 Other specified postprocedural states; Z82.49 Family history of ischemic heart disease and other diseases of the circulatory system; Z88.1 Allergy status to other antibiotic agents; Z88.8 Allergy status to other drugs, medicaments and biological substances
CPT/HCPCS: 36415; 71045; 80048; 80053; 82805; 83735; 83880; 84484; 85025; 87070; 87205; 93005; 94002; 94003; 94640; 94660; 96374; J0360; J0696; J1650; J1940; J1956; J2060; J2405; J2704; J2920; J3010; J3475; J3490; J7050; J7512; J7620

== ENCOUNTER 2020-04-29 14:10 | Inpatient (IN) | payer MEDICARE, OTHER ==
[~2020-04-29 14:10] MED LIST changes: -ISOVUE-370 76%-LOCM 1 ML ONE; +Iopamidol-370 76% 500 ML 1 ML ONE
[2020-04-29] MEDS ORDERED: Dexamethasone 10 MG/ML VIAL ONE (14:43)
[2020-04-29] MEDS ORDERED: Albuterol 200 PUFF (6.7GM INHALER) ONE (14:46)
[2020-04-29] MEDS ORDERED: Morphine 4 MG/ML VIAL ONE (14:49)
[2020-04-29] MEDS ORDERED: Ondansetron PF 4 MG/2 ML Vial ONE (14:49)
--- NOTE | 2020-04-29 14:49 | RAD ---
PORTABLE CHEST: 04/29/20 INDICATIONS: Chest pain. Shortness of breath. COMPARISON: 12/10/18. Cardiomegaly. There is hazy left perihilar infiltrate. I cannot exclude left lower lobe infiltrate an d/or atelectasis. The left base is poorly evaluated on this portable projection. A dense rounded mass overlying the right peripheral lung is stable. IMPRESSION: Evidence of left perihilar and left lower lobe infiltrate and/or atelectasis. Recommend upright PA an d lateral views of the chest if possible. POS: AH
[2020-04-29] MEDS ORDERED: Ipratropium Oral Inhaler INH SCH (15:00)
[2020-04-29 15:16] LABS: #Lymphocytes 1.8 thou/uL (1.20-3.40); #Monocytes 1.1 thou/uL (0.11-0.59); #Neutrophils 10.6 thou/uL (1.40-6.50); %Basophils 0.3 % (0.0-1.0); %Eosinophils 0.1 % (0.0-10.0); %Lymphocytes 13.3 % (21.0-51.0); %Neutrophils 78.3 % (42.0-75.0); Hemoglobin 13.7 g/dL (12.0-16.0); Mean Corpuscular HGB CONC 32.7 g/dL (32.0-36.0); Mean Corpuscular Hemoglobin 31.1 pg (27.0-31.0); Mean Platelet Volume 7.4 fL (7.4-10.4); Platelet Count 347 thou/uL (130-400); RBC Distribution Width 14.4 % (11.5-14.5); Red Blood Cell (RBC) Count 4.42 mill/uL (4.20-5.40); White Blood Cell (WBC) Count 13.5 thou/uL (4.8-10.8)
[2020-04-29 15:35] LABS: ALT (SGPT) 11 U/L (8-55); AST (SGOT) 18 U/L (5-34); Albumin 2.8 g/dL (3.5-5.0); Alkaline Phosphatase 131 U/L (40-110); Anion Gap 14 mmol/L (10-20); BUN (Urea Nitrogen) 7 mg/dL (9.8-20.1); Bilirubin, Total 0.4 mg/dL (0.2-1.2); Calc. Creatinine Clearance 0 mL/min (70-130); Calcium 8.4 mg/dL (7.8-10.44); Carbon Dioxide 25 mmol/L (22-29); Chloride 99 mmol/L (98-107); Estimated GFR-MDRD Greater than 90; Globulin 3.4 g/dL (2.4-3.5); Glucose 96 mg/dL (70-105); Potassium 4.3 mmol/L (3.5-5.1); Protein, Total 6.2 g/dL (6.0-8.3); Sodium 134 mmol/L (136-145)
--- NOTE | 2020-04-29 15:50 | ULT ---
ULTRASOUND DOPPLER DUPLEX VENOUS LEFT LOWER EXTREMITY: DATE: 04/29/2020 HISTORY: 59-year-old female with left calf pain. Dr. Miguel notified Kathy Eric, technologist in the ER, of the venous thrombosis, at 3:46 PM 04/29/2020 . She was instructed to notify [facility] Fuller. TECHNIQUE: Grayscale, color-flow, and spectral analysis, of the left common femoral, profunda femoral, greater s aphenous, femoral, popliteal, and posterior tibial, veins. FINDINGS: There is noncompressibility, and decreased blood flow, in the mid and distal portions of the posterio r tibial vein. The proximal portion of the vein is clear. There is no thrombus in the popliteal, femoral, common femoral, profunda femoral, greater saphenous, veins. IMPRESSION: Positive for thrombosis of the left posterior tibial vein.
[2020-04-29] MEDS ORDERED: Cefepime 2 GM VIAL ONE (15:56)
[2020-04-29] MEDS ORDERED: Enoxaparin Sodium 80 MG/0.8 ML SYRINGE ONE (15:56)
--- NOTE | 2020-04-29 16:12 | RAD ---
EXAM: Chest PA and lateral: HISTORY: Smoker. Lung sounds. Wheezing. COMPARISON: 03/18/2011, 04/29/2020 FINDINGS: Heart: Upper normal cardiac silhouette. Aorta: Unremarkable Pulmonary vessels: Normal Costophrenic angles: Small left-sided effusion. Lungs: Left lower lobe consolidation. Stable calcified mass in the right lung. Pneumothorax: No pneumothorax Osseous structures: No osseous abnormalities IMPRESSION: Pleural and parenchymal changes left lung base, worrisome for pneumonia or aspiration. Better interro gation with chest CT is recommended given history of smoking. Possibility of postobstructive atelectasis cannot be excluded.
--- NOTE | 2020-04-29 16:41 | CT ---
CT ANGIOGRAM THORAX WITH CONTRAST: (CTA pulmonary angiogram) DATE: 04/29/2020 HISTORY: 57-year-old female with dyspnea, cough, and abnormal breath sounds. COMPARISON: 12/02/2017 TECHNIQUE: IV injection of iodinated contrast. Scan acquisition timing attempted to coincide with iodinated contrast bolus reaching maximal density in pulmonary arteries. 3-D MIP reconstructions. FINDINGS: There is a new finding of dense consolidation of almost the entire left lower lobe due to total obstr uction of left lower lobe bronchus. There are poorly aerated portions of anterior old basilar segment of left lower lobe, but these aren't involved by alveolar infiltrates. There is no pleural effusion. No thoracic aortic aneurysm or dissection. There is atherosclerosis of the thoracic aorta. There is a new finding of multiple enlarged noncalcified left hilar lymph nodes, and enlarged subcari nal and prevascular space mediastinal lymph nodes. The peripheral, basilar portions of right lower lobe pulmonary artery branches are difficult to evalu ate because of breathing motion artifact. No pulmonary thromboembolism elsewhere. The large, calcified, approximately 2.5 x 2.5 x 3 cm densely calcified mass in the superior segment o f right lower lobe near junction of major and minor fissures, is benign, and stable. No pulmonary edema. No pneumothorax. No pleural effusion. Diffuse thickening of left adrenal gland, g reater than on previous CT.. IMPRESSION: 1) occlusion of left lower lobe bronchus resulting in opacification of almost the entire left lower l obe. 2) left hilar and mediastinal lymphadenopathy. 3) The findings are highly suspicious for left lower lobe or bronchus lung cancer. 4) no pulmonary thromboembolism identified.
[2020-04-29] MEDS ORDERED: Bisacodyl 5 MG TAB PO PRN (17:20)
[2020-04-29] MEDS ORDERED: Ondansetron PF 4 MG/2 ML Vial IVP PRN (17:20)
--- NOTE | 2020-04-29 17:29 | PDOC.HHP ---
Hospitalist HPI - History of Present Illness Shortness of breath History of Present Illness: Patient is a pleasant 59-year-old lady who was seen in the emergency room on April 29, 2020. She reports feeling short of breath over the last 2 months. She reports shortness of breath with exertion. She reports cough that is on and off productive of sputum. She denies any fevers or chills. She reports that she was tested for COVID virus at a different facility a couple of weeks ago and believes that the test was negative. She reports on and off headaches for the last 3 months. She reports generalized weakness and decreased mobility. She also reports left lower extremity swelling over the last few weeks. She denies any nausea or vomiting. She mainly presented to the emergency room because of shortness of breath and cough. In the emergency room, she was found to have room air oxygen saturation of 82%. Patient has a history of COPD but does not currently use home oxygen. She was also found to have a left lower extremity DVT, possible pneumonia and lung mass. She was referred to hospitalist service for admission to the hospital and for further management. ED Course: BP: 101/60, MAP: 73, Pulse: 74, Resp: 20, Temp: 98.6 (Oral), Pain: 6, O2 sat: 95 on (1L Oxygen), Time: 04/29/2020 16:51. Hospitalist ROS - Review of Systems Constitutional: reports: weakness, malaise. denies: fever, chills, sweats Respiratory: reports: cough, SOB with excertion, sputum Cardiovascular: reports: edema. denies: chest pain, palpitations, orthopnea, paroxysmal noc. dyspnea, light headedness Gastrointestinal: denies: nausea, vomiting, abdominal pain, diarrhea, constipation, melena, hematochezia Genitourinary: denies: dysuria, frequency, incontinence, hematuria, retention Skin: denies: rash, lesions, zeeshan, bruising Neurological: reports: other (headache). denies: weakness, numbness, incoordination, change in speech, confusion, seizures Hospitalist History - Past Medical History Other Medical History: Past medical history: Significant for hypertension, dyslipidemia, gastroesophageal reflux disease, hypothyroidism and anxiety disorder. She was hospitalized at this facility in December 2018 for acute respiratory failure with hypoxia and hypercapnia. She was intubated during that hospitalization. Surgical history: Cholecystectomy, hysterectomy, right knee surgery, bilateral carpal tunnel release surgery, sinus surgery and bronchoscopy. Family history: Significant for hypertension in her mother. Social history: Patient reports occasional alcohol use, no recreational drug use and smoking 1 pack of cigarettes a day. Allergies: Depakote DPA QT, levofloxacin Current medications: Lisinopril 20 mg daily alprazolam 0.5 mg 3 times a day, atenolol 100 mg daily, levothyroxine 50 mcg daily, mirtazapine 60 mg at bedtime , Protonix 40 mg 2 times a day, simvastatin 20 mg at bedtime, buspirone 15 mg 3 times a day, venlafaxine 75 mg daily and trazodone 100 mg at bedtime. - Exam General Appearance: awake alert Eye: anicteric sclera ENT: moist mucosa Neck: supple, no thyromegaly, no lymphadenopathy Heart: RRR, no gallops, no rubs, normal peripheral pulses Respiratory: CTAB, normal chest expansion, normal percussion Respiratory - other findings: Diminished air entry at bases Gastrointestinal: soft, non-tender, non-distended, normal bowel sounds Extremities: no cyanosis Skin: no rashes Musculoskeletal: no muscle wasting Psychiatric: normal affect, normal behavior, A&O x 3 Hospitalist Results - Labs Result Diagrams: 04/29/20 15:07 04/29/20 15:07 Lab results: WBC 13.5 thou/uL (4.8-10.8) H 04/29/20 15:07 Hgb 13.7 g/dL (12.0-16.0) 04/29/20 15:07 Hct 42.0 % (36.0-47.0) 04/29/20 15:07 MCV 95.0 fL (78.0-98.0) 04/29/20 15:07 Plt Count 347 thou/uL (130-400) 04/29/20 15:07 Neutrophils % 78.3 % (42.0-75.0) H 04/29/20 15:07 Sodium 134 mmol/L (136-145) L 04/29/20 15:07 Potassium 4.3 mmol/L (3.5-5.1) 04/29/20 15:07 Chloride 99 mmol/L (98-107) 04/29/20 15:07 Carbon Dioxide 25 mmol/L (22-29) 04/29/20 15:07 BUN 7 mg/dL (9.8-20.1) L 04/29/20 15:07 Creatinine 0.65 mg/dL (0.6-1.1) 04/29/20 15:07 Glucose 96 mg/dL (70-105) 04/29/20 15:07 Lactic Acid 1.1 mmol/L (0.5-2.2) 04/29/20 16:40 Calcium 8.4 mg/dL (7.8-10.44) 04/29/20 15:07 Total Bilirubin 0.4 mg/dL (0.2-1.2) 04/29/20 15:07 AST 18 U/L (5-34) 04/29/20 15:07 ALT 11 U/L (8-55) 04/29/20 15:07 Alkaline Phosphatase 131 U/L (40-110) H 04/29/20 15:07 Troponin I 0.014 ng/mL (< 0.028) 04/29/20 15:07 B-Natriuretic Peptide 56.2 pg/mL (0-100) 04/29/20 15:07 Serum Total Protein 6.2 g/dL (6.0-8.3) 04/29/20 15:07 Albumin 2.8 g/dL (3.5-5.0) L 04/29/20 15:07 - EKG Interpretation EKG: EKG by my review shows normal sinus rhythm, no ST changes to suggest an acute coronary syndrome. - Radiology Interpretation Chest x-ray Status: image reviewed by me Additional Comment: EXAM: Chest PA and lateral: HISTORY: Smoker. Lung sounds. Wheezing. COMPARISON: 03/18/2011, 04/29/2020 FINDINGS: Heart: Upper normal cardiac silhouette. Aorta: Unremarkable Pulmonary vessels: Normal Costophrenic angles: Small left-sided effusion. Lungs: Left lower lobe consolidation. Stable calcified mass in the right lung. Pneumothorax: No pneumothorax Osseous structures: No osseous abnormalities IMPRESSION: Pleural and parenchymal changes left lung base, worrisome for pneumonia or aspiration. Better interro gation with chest CT is recommended given history of smoking. Possibility of postobstructive atelectasis cannot be excluded. CT scan - chest Additional Comment: CT ANGIOGRAM THORAX WITH CONTRAST: (CTA pulmonary angiogram) DATE: 04/29/2020 HISTORY: 57-year-old female with dyspnea, cough, and abnormal breath sounds. COMPARISON: 12/02/2017 IMPRESSION: 1) occlusion of left lower lobe bronchus resulting in opacification of almost the entire left lower l obe. 2) left hilar and mediastinal lymphadenopathy. 3) The findings are highly suspicious for left lower lobe or bronchus lung cancer. 4) no pulmonary thromboembolism identified. US - venous Additional Comment: ULTRASOUND DOPPLER DUPLEX VENOUS LEFT LOWER EXTREMITY: DATE: 04/29/2020 HISTORY: 59-year-old female with left calf pain. FINDINGS: There is noncompressibility, and decreased blood flow, in the mid and distal portions of the posterio r tibial vein. The proximal portion of the vein is clear. There is no thrombus in the popliteal, femoral, common femoral, profunda femoral, greater saphenous, veins. IMPRESSION: Positive for thrombosis of the left posterior tibial vein. Hospitalist H&P A/P - Plan Plan: Patient is a pleasant 59-year-old lady who was seen in the emergency room on April 29, 2020. Her problem list includes: 1. Acute hypoxic respiratory failure: Ms. Epperson is presenting with acute hypoxic respiratory failure, most likely secondary to a combination of COPD exacerbation, lung mass which is relatively stable when compared to prior imaging but now causing left lower lobe bronchus occlusion resulting in opacification of almost the entire left lower lobe. She will be admitted to the hospital for further management, will be treated with oxygen as needed, pulmonology service will be consulted for opinion and help with management. COVID test has been ordered and is pending. Patient has also been started on empiric antibiotics for possible pneumonia, which I will continue for now. She received bronchodilators as needed. 2. Deep vein thrombosis: Patient has been started on Lovenox therapeutic dose, which I will continue for now. Will transition to oral anticoagulants once it is clear that she does not need procedures etc. 3. Hyponatremia: Mild, likely asymptomatic. 4. Dyslipidemia: Continue statin. 5. Hypertension: Resume lisinopril, monitor vital signs and titrate antihypertensives as needed. Add atenolol blood pressure is stable. 6. Hypothyroidism: Continue Synthroid. 7. Anxiety disorder: Continue venlafaxine and buspirone 8. gastroesophageal reflux disease: Continue Protonix Level of risk: High. Level of complexity: High. Estimated length of stay in the hospital: Greater than 2 midnights. Many thanks for allowing me to participate in your patient's care. Please feel free to contact me with any questions or concerns. Primary care provider:Dr. Guerrero
[2020-04-29 17:38] LABS: SARS-CoV-2 NAA Rapid Test Not Detected (NotDetected)
[2020-04-29] MEDS ORDERED: Albuterol Sulfate 1.25 MG/3 ML NEB NEB PRN (17:42)
[2020-04-29] MEDS ORDERED: Ipratropium Oral Inhaler INH PRN (17:42)
[2020-04-29] MEDS ORDERED: Azithromycin 500 MG in Sodium Chloride 0.9% 250 ML 250 ML IVPB SCH (18:00)
[2020-04-29] MEDS ORDERED: Fentanyl 100 MCG/2 ML VIAL ONE (18:23)
[2020-04-29 21:03] VITALS: BMI 30.3
[2020-04-29] MEDS ORDERED: Sodium Chloride 0.9% 500 ML IV SCH (22:45)
[2020-04-29] MEDS: Atorvastatin Calcium 10 MG TAB PO SCH (22:49)
[2020-04-29] MEDS: Acetaminophen 325 MG TAB PO PRN (22:50)
[2020-04-29] MEDS: busPIRone HCl 10 MG TAB PO SCH (22:50)
[2020-04-29] MEDS: Nicotine 21 MG PATCH TD SCH (22:50)
[2020-04-29] MEDS: Azithromycin 500 MG in Sodium Chloride 0.9% 250 ML 250 ML IVPB SCH (23:40)
[2020-04-30] MEDS: Sodium Chloride 0.45% 1,000 ML IV SCH ×2 (02:01→13:41)
[2020-04-30 02:15] LABS: #Lymphocytes 0.7 thou/uL (1.20-3.40); #Monocytes 0.2 thou/uL (0.11-0.59); %Basophils 0.1 % (0.0-1.0); %Eosinophils 0.1 % (0.0-10.0); %Lymphocytes 9.6 % (21.0-51.0); %Monocytes 2.7 % (0.0-10.0); %Neutrophils 87.6 % (42.0-75.0); Hemoglobin 11.9 g/dL (12.0-16.0); Mean Corpuscular HGB CONC 32.5 g/dL (32.0-36.0); Mean Corpuscular Hemoglobin 31.4 pg (27.0-31.0); Mean Corpuscular Volume 96.7 fL (78.0-98.0); Mean Platelet Volume 7.3 fL (7.4-10.4); Platelet Count 285 thou/uL (130-400); RBC Distribution Width 14.2 % (11.5-14.5); White Blood Cell (WBC) Count 6.9 thou/uL (4.8-10.8)
[2020-04-30 02:47] LABS: Anion Gap 14 mmol/L (10-20); BUN (Urea Nitrogen) 9 mg/dL (9.8-20.1); Calc. Creatinine Clearance 101 mL/min (70-130); Calcium 8.3 mg/dL (7.8-10.44); Carbon Dioxide 20 mmol/L (22-29); Chloride 103 mmol/L (98-107); Estimated GFR-MDRD 90; Glucose 137 mg/dL (70-105); Potassium 4.3 mmol/L (3.5-5.1); Sodium 133 mmol/L (136-145)
[2020-04-30] MEDS: Cefepime 2 GM in Sodium Chloride 0.9% 100 ML IVPB SCH ×2 (04:25→15:17)
[2020-04-30] MEDS: Levothyroxine Sodium 50 MCG TAB PO SCH (04:25)
[2020-04-30] MEDS: Enoxaparin Sodium 80 MG/0.8 ML SYRINGE SC SCH ×2 (09:20→18:50)
[2020-04-30] MEDS ORDERED: Lidocaine 4% PF 5 ML AMP NEB SCH (10:45)
--- NOTE | 2020-04-30 10:51 | PDOC.HOSPP ---
- Subjective Encounter Date: 04/30/20 Encounter Time: 09:00 Subjective: Patient seen for follow-up for acute hypoxic respiratory failure. Reports cough and sputum. Denies fever. Reports left-sided pleuritic chest pain and left lower extremity pain. - Objective Vital Signs & Weight: Vital Signs (12 hours) Temp Pulse Resp BP Pulse Ox 04/30/20 07:05 98.1 F 84 20 114/65 95 04/30/20 04:23 97.7 F 71 18 91/54 L 93 L 04/30/20 01:49 98.4 F 74 20 83/52 L 94 L Weight Weight 155 lb 8 oz I&O: 04/29/20 04/30/20 05/01/20 06:59 06:59 06:59 Intake Total 1800 Balance 1800 Result Diagrams: 04/30/20 02:02 04/30/20 02:02 Additional Labs: Accuchecks 04/30/20 02:00 POC Glucose 137 H I reviewed her labs and MAR EKG Reviewed by me: Yes (Telemetry: Normal sinus rhythm) Hospitalist ROS - Review of Systems Constitutional: reports: weakness. denies: fever, chills, sweats, malaise Respiratory: reports: cough, SOB with excertion, pleuritic pain, sputum. denies : dry, shortness of breath, hemoptysis, wheezing Cardiovascular: reports: chest pain. denies: palpitations, orthopnea, paroxysmal noc. dyspnea, edema, light headedness Gastrointestinal: denies: nausea, vomiting, abdominal pain, diarrhea, constipation, melena, hematochezia Genitourinary: denies: dysuria, frequency, incontinence, hematuria, retention Musculoskeletal: reports: leg pain. denies: neck pain, shoulder pain, arm pain , back pain, hand pain, foot pain Skin: denies: rash, lesions, zeeshan, bruising Neurological: denies: weakness, numbness, incoordination, change in speech, confusion, seizures - Medication Medications: Active Medications Generic Name Dose Route Start Last Admin Trade Name Freq PRN Reason Stop Dose Admin Acetaminophen 650 mg 04/29/20 17:20 04/29/20 22:50 Tylenol PO 650 mg Q4H PRN Administration Headache/Fever/Mild Pain (1-3) Atorvastatin Calcium 10 mg 04/29/20 21:00 04/29/20 22:49 Lipitor PO 10 mg HS DAVE Administration Buspirone HCl 10 mg 04/29/20 21:00 04/29/20 22:50 Buspar PO 10 mg BID DAVE Administration Enoxaparin Sodium 70 mg 04/30/20 09:00 04/30/20 09:20 Lovenox SC 70 mg 0900,2100 DAVE Administration Cefepime HCl 2 gm/ Sodium 100 mls @ 200 mls/hr 04/30/20 04:00 04/30/20 04:25 Chloride IVPB 100 mls 0400,1600 DAVE Administration Azithromycin 500 mg/ Sodium 250 mls @ 250 mls/hr 04/29/20 23:00 04/29/20 23: 40 Chloride IVPB 250 mls 2300 DAVE Administration Sodium Chloride 1,000 mls @ 100 mls/hr 04/30/20 02:00 04/30/20 02:01 1/2 Normal Saline IV 1,000 mls .Q10H DAVE Administration Levothyroxine Sodium 50 mcg 04/30/20 06:00 04/30/20 04:25 Synthroid PO 50 mcg 0600 DAVE Administration Nicotine 21 mg 04/29/20 21:00 04/29/20 22:50 Nicoderm Patch TD 21 mg Q24HR DAVE Administration Pantoprazole Sodium 40 mg 04/29/20 21:00 04/29/20 22:49 Protonix PO 40 mg BID DAVE Administration - Exam General - other findings: Obesity Eye: anicteric sclera ENT: moist mucosa Neck: supple, symmetric, no thyromegaly, no lymphadenopathy Heart: RRR, no gallops, no rubs, normal peripheral pulses Respiratory: no wheezes, no rales, no ronchi Respiratory - other findings: Diminished air entry at bases Gastrointestinal: soft, non-tender, non-distended, normal bowel sounds Extremities: 1+ LE edema Neurological: cranial nerve grossly intact Psychiatric: normal affect, normal behavior, oriented to person, oriented to place Hosp A/P - Plan 1. Acute hypoxic respiratory failure: Continue oxygen, bronchodilators and antibiotics. Await pulmonology consult. 2. Deep vein thrombosis: Continue therapeutic Lovenox, transition to oral anticoagulants after procedure. 3. Hyponatremia: Mild, likely asymptomatic. Sodium 133 today. 4. Dyslipidemia: Patient is on statin. 5. Hypertension: Controlled, patient is on lisinopril, beta-hema is on hold. 6. Hypothyroidism: Patient is on Synthroid. 7. Anxiety disorder: Patient is on venlafaxine and buspirone 8. gastroesophageal reflux disease: Patient is a Protonix
[2020-04-30] MEDS ORDERED: Fentanyl 100 MCG/2 ML VIAL ONE ×4 (11:06→13:19)
[2020-04-30] MEDS ORDERED: PROPOFOL 200 MG/20 ML VIAL ONE (11:17)
[2020-04-30] MEDS ORDERED: Succinylcholine Chloride 200 MG/10 ML VIAL ONE (11:17)
[2020-04-30] MEDS ORDERED: Lidocaine 1% PF 5 ML VIAL ONE (11:17)
[2020-04-30] MEDS ORDERED: Ondansetron PF 4 MG/2 ML Vial ONE (11:17)
[2020-04-30] MEDS ORDERED: Dexamethasone 20 MG/5 ML VIAL ONE (11:17)
[2020-04-30] MEDS ORDERED: methylPREDNISolone Sod Succ 40 MG VIAL IVP SCH (12:00)
[2020-04-30] MEDS: busPIRone HCl 10 MG TAB PO SCH ×2 (12:43→20:53)
[2020-04-30] MEDS ORDERED: Ondansetron HCl/PF 4 MG/2 ML Vial IVP PRN (12:46)
[2020-04-30] MEDS ORDERED: Promethazine HCl 25 MG/ML VIAL SLOW IVP PRN (12:46)
[2020-04-30] MEDS ORDERED: Promethazine HCl 25 MG/ML VIAL IM PRN (12:46)
[2020-04-30] MEDS ORDERED: HYDROmorphone 2 MG/ML VIAL SLOW IVP PRN (12:46)
[2020-04-30] MEDS ORDERED: Promethazine HCl 25 MG/ML VIAL ONE (12:49)
[2020-04-30] MEDS: Lisinopril 20 MG TAB PO SCH (13:59)
[2020-04-30] MEDS: methylPREDNISolone Sod Succ 40 MG VIAL IVP SCH ×2 (14:00→20:49)
[2020-04-30] MEDS: Venlafaxine HCl XR 75 MG CAP PO SCH (14:00)
[2020-04-30] MEDS: Sodium Chloride 0.9% 1,000 ML IV SCH (14:03)
[2020-04-30] MEDS: ALPRAZolam 0.5 MG TAB PO PRN (15:49)
--- NOTE | 2020-04-30 17:12 | CON ---
DATE OF CONSULTATION: HISTORY OF PRESENT ILLNESS: Mady Malloy is a 59-year-old female, who was admitted to the hospital. She has seen Dr. Adkins in our office and Dr. Cruz, but she has never seen anybody in the office, just in the hospital, presented with chest pain, hemoptysis of 2 weeks' duration and shortness of breath. She is still smoking up to half pack a day. She has been in the hospital here several times, the last one was in 2019. She says she lost considerable weight. She sees Dr. Emily Guerrero. She had a CT chest, which shows a left lower lung mass atelectasis and surprisingly a DVT in the right leg. She has been n.p.o. since midnight. Therefore, she is going to undergo a bronchoscopy this morning. PAST MEDICAL HISTORY: COPD, hypertension, large calcified lesions in the right lung, and reflux. PREVIOUS SURGERIES: Include cholecystectomy, hysterectomy, and knee surgery. MEDICATIONS: Home medications: 1. Albuterol. 2. Symbicort. 3. Effexor 75. 4. Zocor 20. 5. Atenolol 100. 6. Xanax 0.5. 7. Lisinopril. 8. Vitamins. 9. Venlafaxine 150. 10. Protonix 40. 11. BuSpar 15. 12. Trazodone 100. She is now on, 1. Zithromax. 2. Maxipime. 3. Synthroid. ALLERGIES: APPARENTLY, LEVAQUIN AND DEPAKENE. REVIEW OF SYSTEMS: Otherwise, 10-point negative. PHYSICAL EXAMINATION: VITAL SIGNS: Temperature 98, pulse 80, respiratory rate 20, saturations on 2 L. CHEST: Decreased breath sounds in left lung. CARDIAC: Normal S1 and S2. No gallops. ABDOMEN: No masses. LABORATORY DATA: Sodium 133. White count 6000, H and H of 9 and 36. ASSESSMENT: 1. Left lung atelectasis, right endobronchial disease. 2. Tobacco abuse. 3. Chronic obstructive pulmonary disease. PLAN: Diagnostic bronchoscopy performed today under anesthesia. Further direction above. This is a consultation note, 70 minutes, 50% direct patient care. Job ID: [id number]
[2020-04-30] MEDS: traZODone HCl 50 MG TAB PO SCH (20:47)
[2020-04-30] MEDS: Atorvastatin Calcium 10 MG TAB PO SCH (20:47)
[2020-04-30] MEDS: Acetaminophen 325 MG TAB PO PRN (20:47)
[2020-04-30] MEDS: Nicotine 21 MG PATCH TD SCH (20:48)
[2020-04-30] MEDS: Azithromycin 500 MG in Sodium Chloride 0.9% 250 ML 250 ML IVPB SCH (23:57)
[2020-05-01] MEDS: methylPREDNISolone Sod Succ 40 MG VIAL IVP SCH ×2 (02:30→08:40)
[2020-05-01] MEDS: Cefepime 2 GM in Sodium Chloride 0.9% 100 ML IVPB SCH (03:39)
[2020-05-01] MEDS: Levothyroxine Sodium 50 MCG TAB PO SCH (03:46)
[2020-05-01 05:18] LABS: #Lymphocytes 0.6 thou/uL (1.20-3.40); #Monocytes 0.4 thou/uL (0.11-0.59); #Neutrophils 7.9 thou/uL (1.40-6.50); %Eosinophils 0.3 % (0.0-10.0); %Lymphocytes 6.6 % (21.0-51.0); %Monocytes 4.1 % (0.0-10.0); Hemoglobin 12.8 g/dL (12.0-16.0); Mean Corpuscular HGB CONC 32.6 g/dL (32.0-36.0); Mean Corpuscular Volume 95.1 fL (78.0-98.0); Mean Platelet Volume 7.5 fL (7.4-10.4); Platelet Count 276 thou/uL (130-400); RBC Distribution Width 14.3 % (11.5-14.5); Red Blood Cell (RBC) Count 4.14 mill/uL (4.20-5.40); White Blood Cell (WBC) Count 8.9 thou/uL (4.8-10.8)
[2020-05-01 05:59] LABS: Anion Gap 17 mmol/L (10-20); BUN (Urea Nitrogen) 14 mg/dL (9.8-20.1); Calc. Creatinine Clearance 96 mL/min (70-130); Calcium 8.6 mg/dL (7.8-10.44); Carbon Dioxide 19 mmol/L (22-29); Chloride 104 mmol/L (98-107); Estimated GFR-MDRD 86; Glucose 138 mg/dL (70-105); Sodium 136 mmol/L (136-145)
[2020-05-01] MEDS: Lisinopril 20 MG TAB PO SCH (08:56)
[2020-05-01] MEDS: Venlafaxine HCl XR 75 MG CAP PO SCH (08:56)
[2020-05-01] MEDS: ALPRAZolam 0.5 MG TAB PO PRN ×3 (08:56→18:28)
[2020-05-01] MEDS: Enoxaparin Sodium 80 MG/0.8 ML SYRINGE SC SCH ×2 (08:57→20:53)
[2020-05-01] MEDS: busPIRone HCl 10 MG TAB PO SCH ×3 (09:02→18:28)
[2020-05-01] MEDS: Sodium Chloride 0.9% 1,000 ML IV SCH (09:02)
--- NOTE | 2020-05-01 12:42 | PDOC.HOSPP ---
- Subjective Encounter Date: 05/01/20 Encounter Time: 07:00 Subjective: Patient seen for follow-up for acute respiratory failure, hypoxic. Reports feeling better. Has productive cough. - Objective Vital Signs & Weight: Vital Signs (12 hours) Temp Pulse Resp BP BP Pulse Ox 05/01/20 12:00 97.7 F 77 18 125/66 95 05/01/20 08:56 128/63 05/01/20 07:46 98.3 F 89 18 128/63 93 L 05/01/20 06:10 76 12 05/01/20 03:42 97.7 F 89 18 123/69 92 L Weight Admit Weight 155 lb 8 oz Weight 155 lb 3.2 oz I&O: 04/30/20 05/01/20 05/02/20 06:59 06:59 06:59 Intake Total 1800 1415 Balance 1800 1415 Result Diagrams: 05/01/20 04:32 05/01/20 04:32 Additional Labs: Accuchecks 05/01/20 05/01/20 08:18 03:52 POC Glucose 159 H 135 H Labs and MAR reviewed by nc Hospitalist ROS - Review of Systems Constitutional: denies: fever, chills, sweats, weakness, malaise Respiratory: reports: cough, SOB with excertion, sputum. denies: dry, shortness of breath, hemoptysis, pleuritic pain, wheezing Skin: denies: rash, lesions, zeeshan, bruising - Medication Medications: Active Medications Generic Name Dose Route Start Last Admin Trade Name Freq PRN Reason Stop Dose Admin Acetaminophen 650 mg 04/29/20 17:20 04/30/20 20:47 Tylenol PO 650 mg Q4H PRN Administration Headache/Fever/Mild Pain (1-3) Albuterol/Ipratropium 3 ml 04/30/20 13:00 05/01/20 06:10 Duoneb NEB 3 ml [id number] DAVE Administration Alprazolam 0.5 mg 04/30/20 15:33 05/01/20 08:56 Xanax PO 0.5 mg TIDPRN PRN Administration Anxiety Atorvastatin Calcium 10 mg 04/29/20 21:00 04/30/20 20:47 Lipitor PO 10 mg HS DAVE Administration Buspirone HCl 10 mg 04/29/20 21:00 04/30/20 20:53 Buspar PO 10 mg BID DAVE Administration Enoxaparin Sodium 70 mg 04/30/20 09:00 05/01/20 08:57 Lovenox SC 70 mg 0900,2100 DAVE Administration Levothyroxine Sodium 50 mcg 04/30/20 06:00 05/01/20 03:46 Synthroid PO 50 mcg 0600 DAVE Administration Lisinopril 20 mg 04/30/20 09:00 05/01/20 08:56 Zestril PO 20 mg DAILY DAVE Administration Nicotine 21 mg 04/29/20 21:00 04/30/20 20:48 Nicoderm Patch TD 21 mg Q24HR DAVE Administration Pantoprazole Sodium 40 mg 04/29/20 21:00 05/01/20 08:56 Protonix PO 40 mg BID DAVE Administration Sodium Chloride 10 ml 04/30/20 21:00 04/30/20 20:54 Flush - Normal Saline IVF Not Given Q12HR DAVE Trazodone HCl 100 mg 04/30/20 21:00 04/30/20 20:47 Desyrel PO 100 mg HS DAVE Administration Venlafaxine HCl 75 mg 04/30/20 09:00 05/01/20 08:56 Effexor Xr PO 75 mg DAILY DAVE Administration - Exam General Appearance: awake alert Eye: PERRL ENT: normocephalic atraumatic Neck: supple, no thyromegaly Heart: RRR Respiratory: CTAB Gastrointestinal: soft, non-tender, no hepatomegaly Extremities: no cyanosis Psychiatric: normal affect, normal behavior Hosp A/P - Plan 1. Acute hypoxic respiratory failure: Patient is clinically improving. Continue oxygen, bronchodilators and antibiotics. 2. Deep vein thrombosis: Patient is on therapeutic Lovenox. 3. Hyponatremia: Mild, likely asymptomatic. 4. Dyslipidemia: Continue statin. 5. Hypertension: Controlled 6. Hypothyroidism: Continue Synthroid. 7. Anxiety disorder: Continue venlafaxine and buspirone 8. gastroesophageal reflux disease: Continue Protonix
--- NOTE | 2020-05-01 13:34 | PRG ---
DATE OF SERVICE: 05/01/2020 SUBJECTIVE: This morning, she is better, less short of breath, less cough, still coughing some blood. OBJECTIVE: VITAL SIGNS: Temperature 98, blood pressure 120/63, sats 92% on 2 L, respiratory rate 18. CHEST: Decreased breath sounds, left base. CARDIAC: Normal S1 LABORATORY DATA: Unremarkable. IMPRESSION: bronchitis, left lower lung atelectatic changes, abnormal bronchoscopy. PLAN: PO medication. Hopefully, she is stable, she can be discharged home. Follow up outpatient regarding bronch biopsy. Job ID: [id number]
--- NOTE | 2020-05-01 14:37 | EKG ---
Test Reason : Blood Pressure : / mmHG Vent. Rate : 083 BPM Atrial Rate : 083 BPM P-R Int : 142 ms QRS Dur : 076 ms QT Int : 366 ms P-R-T Axes : 061 023 059 degrees QTc Int : 430 ms Normal sinus rhythm Normal ECG Confirmed by SHEN PEACE, DEMETRIO Villaseñor ([id number]), book editor PHOENIX CHRISTIAN ([id number]) on 05/01/2020 2:37:28 PM Referred By: Confirmed By:DEMETRIO GOTTI MD
[2020-05-01] MEDS: Cefdinir 300 MG CAP PO SCH (20:52)
[2020-05-01] MEDS: Nicotine 21 MG PATCH TD SCH (20:52)
[2020-05-01] MEDS: traZODone HCl 50 MG TAB PO SCH (20:53)
[2020-05-01] MEDS: Atorvastatin Calcium 10 MG TAB PO SCH (20:53)
[2020-05-02 04:13] LABS: #Lymphocytes 1.6 thou/uL (1.20-3.40); #Monocytes 0.8 thou/uL (0.11-0.59); #Neutrophils 9.5 thou/uL (1.40-6.50); %Basophils 0.2 % (0.0-1.0); %Eosinophils 0.2 % (0.0-10.0); %Lymphocytes 13.1 % (21.0-51.0); %Monocytes 6.8 % (0.0-10.0); %Neutrophils 79.8 % (42.0-75.0); Hemoglobin 12.2 g/dL (12.0-16.0); Mean Corpuscular Hemoglobin 31.7 pg (27.0-31.0); Mean Corpuscular Volume 95.9 fL (78.0-98.0); Mean Platelet Volume 7.3 fL (7.4-10.4); Platelet Count 296 thou/uL (130-400); RBC Distribution Width 14.2 % (11.5-14.5); Red Blood Cell (RBC) Count 3.86 mill/uL (4.20-5.40); White Blood Cell (WBC) Count 11.9 thou/uL (4.8-10.8)
[2020-05-02 04:47] LABS: Anion Gap 14 mmol/L (10-20); BUN (Urea Nitrogen) 16 mg/dL (9.8-20.1); Calc. Creatinine Clearance 98 mL/min (70-130); Calcium 8.7 mg/dL (7.8-10.44); Carbon Dioxide 23 mmol/L (22-29); Chloride 103 mmol/L (98-107); Estimated GFR-MDRD 88; Glucose 105 mg/dL (70-105); Potassium 3.6 mmol/L (3.5-5.1); Sodium 136 mmol/L (136-145)
[2020-05-02] MEDS: busPIRone HCl 10 MG TAB PO SCH ×2 (06:13→12:45)
[2020-05-02] MEDS: Levothyroxine Sodium 50 MCG TAB PO SCH (06:14)
[2020-05-02] MEDS: ALPRAZolam 0.5 MG TAB PO PRN ×2 (06:14→13:45)
[2020-05-02] MEDS ORDERED: predniSONE 20 MG TAB PO SCH (08:00)
[2020-05-02 08:01] VITALS: TEMP 97.8
[2020-05-02] MEDS: Venlafaxine HCl XR 75 MG CAP PO SCH (08:43)
[2020-05-02] MEDS: Enoxaparin Sodium 80 MG/0.8 ML SYRINGE SC SCH (08:43)
[2020-05-02] MEDS: Lisinopril 20 MG TAB PO SCH (08:43)
[2020-05-02] MEDS: Cefdinir 300 MG CAP PO SCH (08:43)
[2020-05-02 08:52] VITALS: BP 128/63
--- NOTE | 2020-05-02 11:25 | DIS ---
DATE OF ADMISSION: 04/29/2020 DATE OF DISCHARGE: 05/02/2020 PRIMARY CARE PROVIDER: Dr. Alexus Guerrero. DISCHARGE DIAGNOSES: 1. Acute hypoxic respiratory failure. 2. Lung mass. 3. Deep vein thrombosis. 4. Hyponatremia. 5. Left lung atelectasis. 6. Left endobronchial disease. CONDITION OF THE PATIENT ON THE DAY OF DISCHARGE: Stable. I assessed Ms. Malloy on the day of discharge. She denies any chest pain or shortness of breath. Vital signs are stable. S1 and S2 are heard, regular. Lungs are clear to auscultation bilaterally. CONSULTATION DURING THIS HOSPITALIZATION: Pulmonary and Critical Care Medicine, Dr. Pacheco. DISCHARGE MEDICATIONS: She has been started on; 1. Apixaban 10 mg two times a day for 1 week. 2. Omnicef 300 mg two times a day for 5 days. 3. Oral prednisone taper. She is also recommended nicotine patch. Otherwise, no change was made to her pre-admission home medications. POST ACUTE CARE FOLLOWUP: With primary care provider in 3 days, and with Pulmonary and Critical Care Medicine, Dr. Pacheco in 7 days. HOSPITAL COURSE: Ms. Malloy is a pleasant 60-year-old lady, who was admitted to [facility] on April 29, 2020, for deep vein thrombosis and lung mass causing left lower lobe atelectasis. She was seen by Pulmonary and Critical Care Medicine Service. She underwent bronchoscopy. She improved with antibiotics and steroids. She has been cleared for discharge by clinical practice consultant services. They will follow up with her as outpatient for the pathology report. She was also hypoxic during this hospitalization. Her room air resting oxygen saturation was 91%, it dropped to 82% with exertion and improved to 88% on 2.5 L/minute and 92% on 3 L/minute of oxygen. Arrangements are being made for home oxygen prior to discharge. She is advised to follow up with primary care provider for final blood culture reports. Preliminary blood culture reports are negative. The other pending tests are bronchial washing for acid-fast bacilli, respiratory culture. She is advised to follow up with Pulmonary and Critical Care Medicine Service or primary care provider for these results. ACTIVITY: As tolerated. DIET: Heart healthy. DISCHARGE DESTINATION: Home. TIME SPENT: Total amount of time spent coordinating this discharge: 32 minutes. On the day of discharge, she has normal Chem-7, white count 11,900, hemoglobin 12.2, and platelet count 296,000. Job ID: [id number]
--- NOTE | 2020-05-02 12:07 | PRG ---
DATE OF SERVICE: 05/02/2020 SUBJECTIVE: A 60-year-old female, underwent a bronchoscopy for left lower lung atelectatic changes. She has DVT in the left posterior popliteal vein. She is eager to go home. She has seen Dr. Cruz in the hospital for respiratory failure. She would like to see him back in the office. OBJECTIVE: VITAL SIGNS: Temperature 98, blood pressure 120/63, respiratory rate 18, saturations 96% on 2 L. CHEST: Rhonchi and crackles, left greater than right. CARDIAC: Normal S1, S2. No gallops. ABDOMEN: No masses. ASSESSMENT AND PLAN: Left lower lung atelectasis, chronic obstructive pulmonary disease, deep venous thrombosis, hypothyroidism, and tobacco abuse. Disposition home. Once she has the path, she will follow up with Dr. Cruz. Discharge medications as outlined by the hospitalist. Job ID: [id number]
[2020-05-02] MEDS ORDERED: Apixaban 5 MG TAB PO SCH (21:00)
--- NOTE | 2020-05-03 08:30 | OP ---
DATE OF PROCEDURE: 04/30/2020 PROCEDURE PERFORMED: Bronchoscopy with biopsy. INDICATION: Left lower lung atelectasis, rule out bronchogenic carcinoma. POSTBRONCHOSCOPY DIAGNOSIS: No obvious endobronchial disease seen, but marked narrowing, rugosity, and thickening of the left lower lung basilar segments, rule out malignancy. DESCRIPTION OF PROCEDURE: After informed consent, the patient was put under anesthesia with a #[address] The flexible video Olympus bronchoscope was then passed under anesthesia. Distal trachea was normal. Iram was sharp. Left lung was inspected initially. Left upper lung was unremarkable. Left mainstem bronchus mucosa was normal entering the left lower lung. The mucosa was somewhat thickened. The basilar segments of all the spurs were thickened. Anterior medial and posterior segments of the mucosa to the segments were thickened. I was not able to visualize the subsegment. This area was lavaged with normal saline. No obvious bleeding was seen. The right lung was inspected initially thereafter. Right upper, right middle and right lower lobe were visualized. No endobronchial obstruction or blood was seen. Thereafter, the left lower lung abnormal mucosa corresponding to the basilar segments were biopsied multiple times. Brushings were obtained also from the abnormal mucosa as well as from the anterior and posterolateral basilar segments. Epinephrine, a total of 1:[id number] instilled about 6 mL to slow the bleeding down, though there was not much significant bleeding. The patient otherwise tolerated the procedure well. The washings will be sent for AFB smear, culture fungal smear, culture routine Gram stain and C and S. Biopsies were sent to pathology. Brushings were sent for cytology. The patient tolerated the procedure. She will be extubated by Anesthesia. She will be transferred back to the medical floor. We will await results of the biopsy and pathology early next week. We can resume diet when she is awake in about an hour or so. Job ID: [id number]
[2020-05-03 12:37] LABS: Fungus Stain Final report (.)
--- NOTE | 2020-05-05 08:42 | PQF ---
CLINICAL DOCUMENTATION CLARIFICATION FORM: Dear : Isaiah Martines Date / Time: 05/05/2020 Please exercise your independent, professional judgment in responding to the clarification form. Clinical indicators are provided on the bottom of this form for your review ___ Final Diagnosis on the Pathology report: Left lower lobe lung adenocarcinoma ___ Progress Notes indicate: Lung mass Please check appropriate box(es): [ x ] Agree w the pathology finding of: Left lower lobe lung adenocarcinoma, consistent with lung primary [ ] Other explanation of pathology findings (please specify) [ ] Other diagnosis [ ] Unable to determine To be completed by CDI/Coding staff for physician review: Present Clinical Indicators - Signs / Symptoms / Labs Results and Location in Medical Record [ x ] Lung, Left lower lobe, bronchial biopsy Adenocarcinoma, consistent with lung primary Pathology 04/30 [ x ] Bronchial brushings, left lower lobe of lung, cytology: Adenocarcinoma Cytology specimen 04/30 [ x ] Presenting with acute hypoxic respiratory failure, most likely secondary to combination of COPD exacerbation and lung mass H&P [ x ] Discharge diagnoses: Lung mass Discharge summary Present Risk Factors Results and Location in Medical Record [ x ] Left lower lobe bronchus occlusion due to lung mass, atelectasis H&P Present Treatments Results and Location in Medical Record [ x ] Bronchoscopy with brush biopsy of left lower lobe of the lung OP 04/30 by Lonny Pacheco MD CDS/Inner Layer Scrubber Tender Signature: [id number] Phone #: Date/ Time: 05/05/2020 This is a permanent part of the Medical Record [facility]
[2020-05-09] MEDS ORDERED: Apixaban 5 MG TAB PO SCH (21:00)
== END 2020-05-02 15:55 | disposition home or self-care (01) | DRG 180 ==
LOC: ERS 14:10 → 2NO 16:46 → ONC 04-30 17:48
PROVIDERS: ADMIT Internal Medicine; ATTEND Internal Medicine
PROC: 0BDJ8ZX Extraction of Left Lower Lung Lobe, Via Natural or Artificial Opening Endoscopic, Diagnostic (ICD-10-PCS; principal; 2020-04-30)
DX: C34.32 Malignant neoplasm of lower lobe, left bronchus or lung (principal); J96.01 Acute respiratory failure with hypoxia; E87.1 Hypo-osmolality and hyponatremia; J44.1 Chronic obstructive pulmonary disease with (acute) exacerbation; I82.442 Acute embolism and thrombosis of left tibial vein; J98.11 Atelectasis; Z20.828 Contact with and (suspected) exposure to other viral communicable diseases; J98.09 Other diseases of bronchus, not elsewhere classified; I10 Essential (primary) hypertension; E78.5 Hyperlipidemia, unspecified; K21.9 Gastro-esophageal reflux disease without esophagitis; F17.210 Nicotine dependence, cigarettes, uncomplicated; E03.9 Hypothyroidism, unspecified; F41.9 Anxiety disorder, unspecified; Z90.49 Acquired absence of other specified parts of digestive tract; Z90.710 Acquired absence of both cervix and uterus; Z98.890 Other specified postprocedural states; Z88.1 Allergy status to other antibiotic agents; Z88.8 Allergy status to other drugs, medicaments and biological substances; Z79.899 Other long term (current) drug therapy
CPT/HCPCS: 36415; 36416; 71045; 71046; 71275; 80048; 80053; 83605; 83880; 84484; 85025; 85379; 87040; 87070; 87102; 87116; 87205; 87206; 88104; 88112; 88305; 88313; 88341; 88342; 93005; 94640; 94664; 94760; 96365; 96372; 96375; J0330; J0456; J0692; J1100; J1650; J2270; J2405; J2550; J2704; J2920; J3010; J3490; J7050; J7512; J7620; Q9967; U0002

== ENCOUNTER 2020-05-07 08:50 | Outpatient (CLI) | payer MEDICARE ==
--- NOTE | 2020-05-07 12:03 | PET ---
PET CT: HISTORY: 60-year-old female with adenocarcinoma of the lung involving the left lower lobe. Exam requested for initial staging. COMPARISON: None. CORRELATION: CT pulmonary angiogram of 04/29/2020. TECHNIQUE: PET scanning with CT attenuation correction was performed from the base of the brain through the prox imal thighs following the intravenous administration of 11 mCi F18-FDG in the left hand. FINDINGS: There is a large area of increased FDG localization with a SUV of 16.5 in the region of the atelectat ic left lower lobe on the CT scan. Multiple hypermetabolic lymph nodes are seen with SUVs of 8.7 in the prevascular, 4.3 in the pretrach eal, 8.9 in the AP window, 14 in the subcarinal, and 14 in the left hilar regions. No maritza hypermetabolism is seen in the neck, axilla, abdomen, or pelvis. No hypermetabolic liver or skeletal lesions are seen. There are foci of increased FDG localization in the adrenal glands bilaterally with a SUV of 10 on th e left and 4.3 on the right. There is physiologic activity in the GI and tracts, and the visualized portions of the brain. The CT scan used for attenuation correction demonstrates no evidence of pleural effusions or ascites. IMPRESSION: Left lower lobe malignancy with mediastinal, left hilar lymph maritza and bilateral adrenal metastases. POS: DIANAA
== END 2020-05-07 08:51 | disposition home or self-care (01) ==
LOC: PET 08:50
PROVIDERS: ATTEND Internal Medicine Pulmonary Disease
DX: C34.32 Malignant neoplasm of lower lobe, left bronchus or lung (principal); C78.1 Secondary malignant neoplasm of mediastinum; C79.72 Secondary malignant neoplasm of left adrenal gland; C79.71 Secondary malignant neoplasm of right adrenal gland; C77.1 Secondary and unspecified malignant neoplasm of intrathoracic lymph nodes
CPT/HCPCS: 78815; A9552

== ENCOUNTER 2020-05-19 09:20 | Inpatient (IN) | payer MEDICARE, OTHER ==
[2020-05-19 10:46] LABS: #Lymphocytes 0.7 thou/uL (1.20-3.40); %Basophils 0.1 % (0.0-1.0); %Eosinophils 0.2 % (0.0-10.0); %Lymphocytes 5.2 % (21.0-51.0); %Neutrophils 87.5 % (42.0-75.0); Hemoglobin 12.9 g/dL (12.0-16.0); Mean Corpuscular HGB CONC 31.7 g/dL (32.0-36.0); Mean Corpuscular Hemoglobin 30.8 pg (27.0-31.0); Mean Corpuscular Volume 97.1 fL (78.0-98.0); Mean Platelet Volume 8.6 fL (7.4-10.4); Platelet Count 216 thou/uL (130-400); RBC Distribution Width 15.1 % (11.5-14.5); White Blood Cell (WBC) Count 13.8 thou/uL (4.8-10.8)
[2020-05-19 11:00] LABS: ALT (SGPT) 15 U/L (8-55); AST (SGOT) 39 U/L (5-34); Albumin 2.8 g/dL (3.5-5.0); Alkaline Phosphatase 130 U/L (40-110); Anion Gap 23 mmol/L (10-20); BUN (Urea Nitrogen) 15 mg/dL (9.8-20.1); Bilirubin, Total 0.3 mg/dL (0.2-1.2); Calc. Creatinine Clearance 0 mL/min (70-130); Calcium 9.1 mg/dL (7.8-10.44); Carbon Dioxide 30 mmol/L (22-29); Chloride 90 mmol/L (98-107); Estimated GFR-MDRD 74; Globulin 4.7 g/dL (2.4-3.5); Glucose 74 mg/dL (70-105); Potassium 4.9 mmol/L (3.5-5.1); Protein, Total 7.5 g/dL (6.0-8.3); Sodium 138 mmol/L (136-145)
[2020-05-19 11:04] LABS: Troponin I 0.305 ng/mL (< 0.028)
--- NOTE | 2020-05-19 11:19 | RAD ---
SINGLE VIEW CHEST: Date: 05/19/2020 COMPARISON: 12/02/2017. PET/CT 05/07/2020. HISTORY: Shortness of breath. Patient was diagnosed with lung cancer a few weeks ago. FINDINGS: Single view of the chest shows an enlarged cardiomediastinal silhouette. There is a moderate left ple ural effusion. A left perihilar infiltrate is seen. There is also prominence of the right hilar regio n. A calcified granuloma projects over the right chest. IMPRESSION: 1. Moderate left pleural effusion with adjacent infiltrate. 2. Bilateral perihilar fullness. POS: EAA
[2020-05-19] MEDS ORDERED: Aspirin Chewable 81 MG TAB ONE (11:39)
[2020-05-19] MEDS ORDERED: cefTRIAXone\\ROCEPHIN 2 GM VIAL ONE (11:39)
[2020-05-19] MEDS ORDERED: ALPRAZolam 0.25 MG TAB ONE ×2 (11:43→11:54)
[2020-05-19 11:58] LABS: INR-International Normal Ratio 1.7; Prothrombin Time 19.5 sec (12.0-14.7)
--- NOTE | 2020-05-19 12:12 | CT ---
CT BRAIN WITHOUT CONTRAST: HISTORY: Stroke protocol, recently diagnosed lung cancer. COMPARISON: 05/14/2020 FINDINGS: No evidence of acute infarct, hemorrhage, midline shift or abnormal extra-axial fluid collections is seen. The ventricular size is appropriate and the basilar cisterns are patent. The bony calvarium is intact. The mastoid air cells are well aerated. There is mucosal disease in the right maxillary si nus. IMPRESSION: No CT evidence of acute intracranial process.
[2020-05-19 13:20] LABS: Bacteria/HPF 4+ HPF (None Seen); Bilirubin 1+ (Negative); Blood, Urine Negative (Negative); Clarity Turbid (Clear); Glucose, Urine (Dipstick) Normal (Negative); Ketone, Urine 10 mg/dL (Negative); Leukocyte 75 Leu/uL (Negative); Nitrite Negative (Negative); Protein, Urine (Dipstick) 50 mg/dL (Neg-Trace); RBC/HPF 0-3 HPF (0-3); Specific Gravity, Urine 1.017 (1.002-1.036); Squamous Epithelial 0-3 HPF (0-3)
[2020-05-19] MEDS ORDERED: Azithromycin 500 MG VIAL ONE (13:24)
[2020-05-19 13:34] LABS: SARS-CoV-2 NAA Rapid Test Not Detected (NotDetected)
[2020-05-19 13:37] LABS: Troponin I 0.206 ng/mL (< 0.028)
--- NOTE | 2020-05-19 14:35 | PDOC.HHP ---
Hospitalist HPI - History of Present Illness SOB History of Present Illness: Dr. Guerrero Brought in by EMS with an increase in shortness of breath. She said that she was recently diagnosed with lung cancer a few weeks ago. She has not started on chemo yet. She was also told that she had a left sided leg blood clot at the time. She started on Eliquis. She said she is been compliant with it. She is not missing doses. Her last 3 days she has had an increase in her shortness of breath. Increase in her left-sided chest pain. Increase in sputum. No hemoptysis. No fever. She has been on oxygen at 3 L since she was diagnosed with cancer. She has continued on this. She also says she has been feeling increasingly confused over the last several days. Estimated time of arrival: 5, Additional notes: 60F diff breathing onset a few days ago today is worse recently dx with lung CA normal o2 sats, but struggling to breathe 1 neb IV currently on 3L 93-90% 140/117 86 HR. ED Course: VITAL SIGNS SunMay 19, 2020 09:24 SADE Perkins Daylee BP: 110/53, MAP: 72, Pulse: 86, Resp: 22, Temp: 97.7 (Oral), Pain: 7, O2 sat: 95 on (3L Oxygen), Time: 05/19/2020 09:24. VITAL SIGNS SunMay 19, 2020 10:00 SADE Perkins Daylee BP: 71/42, MAP: 51, Time: 05/19/2020 10:00. VITAL SIGNS SunMay 19, 2020 10:06 SADE Perkins Daylee BP: 67/40, MAP: 49, Time: 05/19/2020 10:06. VITAL SIGNS SunMay 19, 2020 10:10 SADE Perkins Daylee BP: 74/44, MAP: 54, Time: 05/19/2020 10:10. VITAL SIGNS SunMay 19, 2020 10:15 SADE Perkins Daylee BP: 81/46, MAP: 57, Time: 05/19/2020 10:15. VITAL SIGNS SunMay 19, 2020 10:20 SADE Cedeno Rachel BP: 83/43, MAP: 56, Time: 05/19/2020 10:20. VITAL SIGNS SunMay 19, 2020 10:30 SADE Cedeno Rachel BP: 70/43, MAP: 52, Time: 05/19/2020 10:30. VITAL SIGNS SunMay 19, 2020 10:35 SADE Cedeno Rachel BP: 77/40, MAP: 52, Time: 05/19/2020 10:35. VITAL SIGNS SunMay 19, 2020 10:55 SADE Cedeno Rachel BP: 87/52, Pulse: 63, Time: 05/19/2020 10:55. VITAL SIGNS SunMay 19, 2020 11:50 SADE Cedeno Rachel BP: 98/60, MAP: 72, Pulse: 82, Resp: 22, Pain: 6, O2 sat: 98 on (4L Oxygen), Time: 05/19/2020 11:50. VITAL SIGNS SunMay 19, 2020 10:45 SADE Cedeno Rachel BP: 76/42, Pulse: 74, Resp: 22, Temp: 98.2 (Oral), Pain: 6, O2 sat: 100 on (4L Oxygen), Time: 05/19/2020 10:45. VITAL SIGNS SunMay 19, 2020 12:11 SADE Cedeno Rachel BP: 108/59, MAP: 75, Pulse: 83, Resp: 22, Temp: 97.5 (Oral), Pain: 6, O2 sat: 98 on (4L Oxygen), Time: 05/19/2020 12:11. VITAL SIGNS SunMay 19, 2020 12:57 SADE Perkins Dayleakbar BP: 91/61, MAP: 71, Pulse: 79, Resp: 20, Pain: 6, O2 sat: 99 on (4L Oxygen), Time: 05/19/2020 12:57. VITAL SIGNS SunMay 19, 2020 13:38 SADE Perkins Daylee BP: 80/51, MAP: 60, Pulse: 77, Resp: 24, Pain: 6, O2 sat: 95 on (4L Oxygen), Time: 05/19/2020 13:38. VITAL SIGNS SunMay 19, 2020 14:03 SADE Perkins Daylee BP: 87/54, MAP: 65, Pulse: 79, Resp: 20, Temp: 98.4 (Oral), Pain: 6, O2 sat: 93 on (4L Oxygen), Time: 05/19/2020 14:03. [facility] ROS - Review of Systems All other systems reviewed; all pertinent +/- noted in HPI/Subj - Medication Medications: lisinopril SunMay 19, 2020 09:37 SADE Perkins Daylee TABLET : Strength - 20 mg : ORAL Patient Dose: 1 tab(s) Oral once a day. ALPRAZolam SunMay 19, 2020 09:37 SADE Perkins Daylee TABLET : Strength - 0.5 mg : ORAL Patient Dose: 0.05 mg Oral 3 times a day.1 TAB AM-1/2 TAB NOON/ 1 TAB PM - 1/2 TAB PRN. atenolol SunMay 19, 2020 09:37 SADE Perkins Daylee TABLET : Strength - 100 mg : ORAL Patient Dose: 1 tab(s) Oral once a day. levothyroxine oral SunMay 19, 2020 09:37 SADE Perkins Daylee TABLET : Strength - 50 mcg : ORAL Patient Dose: 1 tab(s) Oral once a day. mirtazapine SunMay 19, 2020 09:37 SADE Perkins Daylee TABLET : Strength - 30 mg : ORAL Patient Dose: 2 tab(s) Oral once a day (at bedtime). pantoprazole oral SunMay 19, 2020 09:37 SADE Perkins Daylee TABLET, DELAYED RELEASE (ENTERIC COATED) : Strength - 40 mg : ORAL Patient Dose: 1 tab(s) Oral 2 times a day. simvastatin SunMay 19, 2020 09:37 SADE Perkins Daylee TABLET : Strength - 20 mg : ORAL Patient Dose: 1 tab(s) Oral once a day (at bedtime). busPIRone SunMay 19, 2020 09:37 SADE Perkins Daylee TABLET : Strength - 15 mg : ORAL Patient Dose: 1 tab(s) Oral 3 times a day. venlafaxine SunMay 19, 2020 09:37 SADE Perkins Daylee TABLET : Strength - 75 mg : ORAL Patient Dose: 1 cap(s) Oral once a day. traZODone SunMay 19, 2020 09:37 SADE Perkins Daylee TABLET : Strength - 100 mg : ORAL Patient Dose: 100 mg Oral once a day (at bedtime). Eliquis SunMay 19, 2020 09:40 SADE Perkins Daylee tablet : Strength - 2.5 mg : ORAL Patient Dose: UNK.PT THINKS THIS IS HER MED Allergies: Depakote and Levaquin Hospitalist History - Past Medical History Source: patient, RN notes reviewed Other Medical History: MEDICAL HISTORY SunMay 19, 2020 09:29 SADE Perkins Daylee Past medical history includes gastrointestinal disease, gastroesophageal reflux disease, Past medical history includes history of hyperlipidemia, high cholesterol, Past medical history includes history of hypertension, which has been treated. hypothyroidism. HTN, L LUNG CANCER ("COUPLE WEEKS AGO"). DVT IN L LEG. FEMALE SURGICAL HISTORY SunMay 19, 2020 09:29 SADE Perkins Daylee Surgical history of cholecystectomy, Surgical history of hysterectomy, Surgical history of orthopedic surgery, RIGHT KNEE SURGERY., bilateral carpel tunnel surgery. sinus surgery. PSYCHIATRIC HISTORY SunMay 19, 2020 09:29 SADE Perkins Daylee Psychiatric history includes, anxiety. SOCIAL HISTORY SunMay 19, 2020 09:29 SADE Perkins Daylee Patient denies alcohol use, Patient denies drug use, QUIT SMOKING 3 MONTHS AGO. FAMILY HISTORY SunMay 19, 2020 09:29 SADE Perkins Daylee Notes: heart disease. COPD. Family history is not contributory to this case. Hospitalist Results - Labs Result Diagrams: 05/19/20 09:35 05/19/20 09:35 Lab results: WBC 13.8 thou/uL (4.8-10.8) H 05/19/20 09:35 Hgb 12.9 g/dL (12.0-16.0) 05/19/20 09:35 Hct 40.7 % (36.0-47.0) 05/19/20 09:35 MCV 97.1 fL (78.0-98.0) 05/19/20 09:35 Plt Count 216 thou/uL (130-400) 05/19/20 09:35 Neutrophils % 87.5 % (42.0-75.0) H 05/19/20 09:35 Sodium 138 mmol/L (136-145) 05/19/20 09:35 Potassium 4.9 mmol/L (3.5-5.1) 05/19/20 09:35 Chloride 90 mmol/L (98-107) L 05/19/20 09:35 Carbon Dioxide 30 mmol/L (22-29) H 05/19/20 09:35 BUN 15 mg/dL (9.8-20.1) 05/19/20 09:35 Creatinine 0.79 mg/dL (0.6-1.1) 05/19/20 09:35 Glucose 74 mg/dL (70-105) 05/19/20 09:35 Lactic Acid 1.6 mmol/L (0.5-2.2) 05/19/20 11:43 Calcium 9.1 mg/dL (7.8-10.44) 05/19/20 09:35 Total Bilirubin 0.3 mg/dL (0.2-1.2) 05/19/20 09:35 AST 39 U/L (5-34) H 05/19/20 09:35 ALT 15 U/L (8-55) 05/19/20 09:35 Alkaline Phosphatase 130 U/L (40-110) H 05/19/20 09:35 Troponin I 0.206 ng/mL (< 0.028) H 05/19/20 12:42 Serum Total Protein 7.5 g/dL (6.0-8.3) 05/19/20 09:35 Albumin 2.8 g/dL (3.5-5.0) L 05/19/20 09:35 Urine Ketones 10 mg/dL (Negative) A 05/19/20 12:57 Urine Blood Negative (Negative) 05/19/20 12:57 Urine Nitrite Negative (Negative) 05/19/20 12:57 Ur Leukocyte Esterase 75 Dai/uL (Negative) A 05/19/20 12:57 Urine RBC 0-3 HPF (0-3) 05/19/20 12:57 Urine WBC 7-10 HPF (0-3) A 05/19/20 12:57 Ur Squamous Epith Cells 0-3 HPF (0-3) 05/19/20 12:57 Urine Bacteria 4+ HPF (None Seen) A 05/19/20 12:57 - EKG Interpretation EK lead EKG interpreted by Emergency Department Physician at time of study, 12 lead EKG shows normal sinus rhythm, Rate (beats per minute): 83, with no ectopics, Conduction normal, ST segments normal, T waves normal, Motion artifact V3. - Radiology Interpretation CT scan - head Status: report reviewed by me Additional Comment: IMPRESSION: No CT evidence of acute intracranial process. Chest x-ray Status: report reviewed by me Additional Comment: Moderate Left pleural effusion.
[2020-05-19] MEDS ORDERED: Piperacillin/Tazobactam 3.375 GM in Sodium Chloride 0.9% 100 ML IVPB SCH (15:00)
[2020-05-19] MEDS ORDERED: Norepinephrine 8 MG/0.9% NS 250 ML IVPB PRN (15:06)
[2020-05-19] MEDS ORDERED: Hydrocortisone Sod Succ/PF 100 mg/2 ml Vial IVP SCH (15:15)
[2020-05-19 15:24] LABS: #Lymphocytes 1.3 thou/uL (1.20-3.40); #Monocytes 0.8 thou/uL (0.11-0.59); #Neutrophils 9.7 thou/uL (1.40-6.50); %Basophils 0.4 % (0.0-1.0); %Eosinophils 0.2 % (0.0-10.0); %Lymphocytes 10.6 % (21.0-51.0); %Monocytes 7.1 % (0.0-10.0); %Neutrophils 81.8 % (42.0-75.0); Hemoglobin 11.6 g/dL (12.0-16.0); Mean Corpuscular HGB CONC 29.6 g/dL (32.0-36.0); Mean Corpuscular Volume 97.9 fL (78.0-98.0); Mean Platelet Volume 7.9 fL (7.4-10.4); Platelet Count 200 thou/uL (130-400); RBC Distribution Width 15.1 % (11.5-14.5); White Blood Cell (WBC) Count 11.8 thou/uL (4.8-10.8)
[2020-05-19 15:38] LABS: Anisocytosis SLIGHT = 6-15 cells (100X) (0-5/hpf); Hypochromia SLIGHT = 6-15 cells (100X) (0-5/hpf); MDiff Complete? YES; Platelet Morphology Comment Appears Adequate; Polychromasia SLIGHT = 2-3 cells (100X) (0-2/hpf)
[2020-05-19] MEDS ORDERED: Vancomycin 1 GM in Premix Bag 1 BAG IVPB SCH (16:00)
[2020-05-19 16:06] LABS: CKMB 1.4 ng/mL (0-6.6)
[2020-05-19 16:12] LABS: ALT (SGPT) 14 U/L (8-55); AST (SGOT) 25 U/L (5-34); Albumin 2.6 g/dL (3.5-5.0); Alkaline Phosphatase 114 U/L (40-110); Anion Gap 18 mmol/L (10-20); BUN (Urea Nitrogen) 13 mg/dL (9.8-20.1); Bilirubin, Total 0.2 mg/dL (0.2-1.2); Calc. Creatinine Clearance 0 mL/min (70-130); Calcium 8.2 mg/dL (7.8-10.44); Carbon Dioxide 26 mmol/L (22-29); Chloride 100 mmol/L (98-107); Estimated GFR-MDRD 81; Globulin 3.4 g/dL (2.4-3.5); Glucose 75 mg/dL (70-105); Potassium 4.1 mmol/L (3.5-5.1); Sodium 140 mmol/L (136-145)
--- NOTE | 2020-05-19 16:47 | RAD ---
XR Chest 1 View Portable HISTORY: Shortness of breath, recently diagnosed lung cancer COMPARISON: 05/19/2020 FINDINGS: There has been interval placement of a right subclavian central venous catheter with tip in the proj ection of the SVC. No pneumothoraces are seen. Interval worsening of infiltrates in the left lung are noted. Atelectatic change in the left lung base is again noted. The 2.5 cm calcified granuloma in the right lung is unchanged.
[2020-05-19] MEDS ORDERED: Acetaminophen 325 MG TAB PO PRN (17:09)
[2020-05-19] MEDS ORDERED: Furosemide 20 MG/2 ML VIAL SLOW IVP SCH (18:15)
[2020-05-19] MEDS ORDERED: Albuterol Sulfate 1.25 MG/3 ML NEB NEB SCH (18:30)
[2020-05-19] MEDS: Nicotine 21 MG PATCH TD SCH (18:30)
[2020-05-19] MEDS: Sodium Chloride 0.9% 1,000 ML IV SCH (18:31)
--- NOTE | 2020-05-19 18:50 | PDOC.HHP ---
Hospitalist HPI - History of Present Illness abdominal pain, chest pain History of Present Illness: THis is a 60 year old female with past medical history of lung cancer who presented to the ER with abdominal pain. The patient states she has been having abdominal pain for the past few days. She states it comes and goes, not related to food intake, and is diffuse. She had some nausea associated with it. She has been started on eliquis during her last admission due to history of DVT. She has had no blood in her stools, dizziness or lightheadedness. She also reported one episode of chest pain that occurred last night that she was sleeping that self-resolved after ten minutes. The patient states she took atenolol and lisinopril this am for hypertension. The patient states she has chronic shortness of breath from walking from her house to her porch which has not worsened. She denies orthopnea or leg swelling. She has a chronic cough with only mild sputum production. She came to the ER for these reasons. The patient was recently diagnosed with left lung adenocarcinoma last month when she was found to have a left lung mass. She has not started treatment yet ED Course: The patient presented with a BP of 60 systolic. She received 2L of IV fluids with improvement in her blood pressure to 100 systolic. Shortly after her blood pressure dropped to 70 systolic which persisted after her third liter of fluid. Lactate was normal. EKG showed no ischemic changes. CBC showed WBC of 13.1. Troponin was 0.305. UA showed turbid urine. Chest X ray shows left sided pleural effusion with infiltrate. Patient was given IV ceftriaxone and azithromycin, given aspirin and eliquis in the ER. Vancomycin and zosyn was ordered but was not given in the ED prior to arrival. Patient's oxygen saturation dropped to 70% on 2L so she was bumped up to 4L. She had central l ine placed in the ED. Her blood pressure improved and was 100 systolic, so levofed was held. Her urine output was diminished, and she required a straight cath in the ER. Hospitalist ROS - Review of Systems Constitutional: denies: fever, chills ENT: denies: ear pain, ear discharge Respiratory: reports: cough (chronic), shortness of breath (chronic) Cardiovascular: denies: chest pain, palpitations, orthopnea Gastrointestinal: reports: abdominal pain. denies: nausea, vomiting Genitourinary: denies: dysuria, frequency Musculoskeletal: reports: back pain Neurological: denies: weakness, numbness - Medication Medications: Active Medications Generic Name Dose Route Start Last Admin Trade Name Chasidy PRN Reason Stop Dose Admin Piperacillin Sod/Tazobactam 100 mls @ 200 mls/hr 05/19/20 15:00 05/19/20 18:2 4 Sod 3.375 gm/ Sodium Chloride IVPB 100 mls 0300,0900,1500,2100 DAVE Administration Vancomycin HCl 1 gm/ Device 200 mls @ 200 mls/hr 05/19/20 16:00 05/19/20 18:29 IVPB 200 mls 0400,1600 DAVE Administration Sodium Chloride 1,000 mls @ 75 mls/hr 05/19/20 18:30 05/19/20 18:31 Normal Saline 0.9% IV 1,000 mls .[id number] DAVE Administration Nicotine 21 mg 05/19/20 18:00 05/19/20 18:30 Nicotine 21 Mg Patch TD 21 mg 1800 DAVE Administration Hospitalist History - Past Medical History Other Medical History: Hypertension Depression - Past Surgical History Other Surgical History: Bronchoscopy Cholecystectomy Orthopedic knee surgery - Family History Other Family History: There is history of cancer in her family - Social History Smoking Status: Former smoker (she smoked for > 30 years) Alcohol: reports: None Drugs: reports: none Living Situation: Alone - Exam General Appearance: NAD, awake alert Eye: PERRL, anicteric sclera ENT: normocephalic atraumatic, no oropharyngeal lesions Neck: no JVD Heart: RRR, no murmur, no gallops, no rubs Respiratory - other findings: decreased breath sounds at the bases Gastrointestinal: soft, non-tender, non-distended, normal bowel sounds Extremities: no cyanosis, no clubbing, no edema Hospitalist Results - Labs Result Diagrams: 05/20/20 03:15 05/20/20 03:15 Lab results: WBC 11.8 thou/uL (4.8-10.8) H 05/19/20 15:14 Hgb 11.6 g/dL (12.0-16.0) L 05/19/20 15:14 Hct 39.1 % (36.0-47.0) 05/19/20 15:14 MCV 97.9 fL (78.0-98.0) 05/19/20 15:14 Plt Count 200 thou/uL (130-400) 05/19/20 15:14 Neutrophils % 81.8 % (42.0-75.0) H 05/19/20 15:14 Sodium 140 mmol/L (136-145) 05/19/20 15:14 Potassium 4.1 mmol/L (3.5-5.1) 05/19/20 15:14 Chloride 100 mmol/L (98-107) 05/19/20 15:14 Carbon Dioxide 26 mmol/L (22-29) 05/19/20 15:14 BUN 13 mg/dL (9.8-20.1) 05/19/20 15:14 Creatinine 0.73 mg/dL (0.6-1.1) 05/19/20 15:14 Glucose 75 mg/dL (70-105) 05/19/20 15:14 Lactic Acid 1.6 mmol/L (0.5-2.2) 05/19/20 11:43 Calcium 8.2 mg/dL (7.8-10.44) 05/19/20 15:14 Total Bilirubin 0.2 mg/dL (0.2-1.2) 05/19/20 15:14 AST 25 U/L (5-34) 05/19/20 15:14 ALT 14 U/L (8-55) 05/19/20 15:14 Alkaline Phosphatase 114 U/L (40-110) H 05/19/20 15:14 CK-MB (CK-2) 1.4 ng/mL (0-6.6) 05/19/20 15:14 Troponin I 0.198 ng/mL (< 0.028) H 05/19/20 15:14 B-Natriuretic Peptide 212.7 pg/mL (0-100) H 05/19/20 15:14 Serum Total Protein 6.0 g/dL (6.0-8.3) 05/19/20 15:14 Albumin 2.6 g/dL (3.5-5.0) L 05/19/20 15:14 Urine Ketones 10 mg/dL (Negative) A 05/19/20 12:57 Urine Blood Negative (Negative) 05/19/20 12:57 Urine Nitrite Negative (Negative) 05/19/20 12:57 Ur Leukocyte Esterase 75 Dai/uL (Negative) A 05/19/20 12:57 Urine RBC 0-3 HPF (0-3) 05/19/20 12:57 Urine WBC 7-10 HPF (0-3) A 05/19/20 12:57 Ur Squamous Epith Cells 0-3 HPF (0-3) 05/19/20 12:57 Urine Bacteria 4+ HPF (None Seen) A 05/19/20 12:57 - EKG Interpretation EKG: right ventricular conduction delay Hospitalist H&P A/P - Plan Plan: This is a 60 year old female who presented to the ER with hypotension, abdominal pain, chest pain, found to have left pleural effusion and left sided infiltrate #Acute on chronic hypoxic respiratory failure - secondary to lung adenocarcinoma with pneumonia versus pleural effusion #History of COPD #History of lung adenocarcinoma -was given IV ceftriaxone and azithromycin, switched to IV vancomycin and zosyn. Chest X ray shows left pleural effusion with left sided pneumonia - check sputum culture if productive - pulmonary consulted, may need thoracentesis - on 4L of oxygen, wean oxygen to sat 92%, can trial lasix one dose if saturati ons worsen with fluids - continue home inhalers - check ABG - she follows with Dr. Tejada for lung cancer #Severe sepsis possibly from pneumonia #Hypotension - had WBC of 13,a nd persistent hypotension after 3L of IV fluids. Lactate normal, blood cultures pending, UA turbid, urine culture pending -start on levofed if urine output low and hypotensive or MAP < 65 - ordered 50 of hydrocortisone as well Chest pain - troponin elevated, but downtrended. She received aspirin in the ER. EKG showed right ventricular conduction delay Elevated troponin - dowtrending. Check ECHO. Patient given aspirin in ER #Anemia #Abdominal pain - patient is on eliquis. CT abdomen ordered to rule out a bleed #Back pain - check MRI thoracic and cervical spine if patient is stable #Hypertension - hold home medicines #History of DVT - will continue anticoagulation presuming no bleed Dispo: admit to CCU due to persistent hypotension and hypoxia
[2020-05-19] MEDS: methylPREDNISolone Sod Succ 40 MG VIAL IVP SCH ×2 (19:04→23:49)
[2020-05-19] MEDS: Mometasone 200 MCG/Formoterol 5 MCG 120 PUFF INHALER INH SCH (19:10)
[2020-05-19] MEDS: Fish Oil 1,000 MG CAP PO SCH (20:25)
[2020-05-19] MEDS: Mirtazapine 30 MG TAB PO SCH (20:26)
[2020-05-19] MEDS: Atorvastatin Calcium 10 MG TAB PO SCH (20:26)
[2020-05-19] MEDS: traZODone HCl 50 MG TAB PO SCH (20:26)
[2020-05-19] MEDS: busPIRone HCl 10 MG TAB PO SCH (20:26)
[2020-05-19 20:32] LABS: Actual Bicarbonate (HCO3a) 28.3 mEq/L (22-28); Base Excess (BEa) -0.5 mEq/L (-2.0 to +3.0); Calcium, Ionized (arterial) 1.17 mmol/L (1.12-1.30); Carboxyhemoglobin (COHb) 1.5 gm% (0.0-3.0); Hemoglobin (Hb) 12.5 g/dL (12.0-16.0); O2 Tension (PaO2), arterial 74.4 mmHg (> 80.0); Potassium - ABG Lab 3.88 mmol/L (3.70-5.30)
[2020-05-19 20:33] LABS: pH, Arterial 7.24 (7.35-7.45)
[2020-05-19 20:34] LABS: CO2 Tension 67.6 mmHg (35.0-45.0); Puncture Site RRA
[2020-05-19] MEDS ORDERED: ALPRAZolam 0.5 MG TAB PO SCH (21:00)
[2020-05-19] MEDS: Piperacillin/Tazobactam 3.375 GM in Sodium Chloride 0.9% 100 ML IVPB SCH (23:48)
[2020-05-20 04:23] LABS: #Lymphocytes 0.3 thou/uL (1.20-3.40); #Monocytes 0.1 thou/uL (0.11-0.59); %Lymphocytes 3.4 % (21.0-51.0); %Neutrophils 95.6 % (42.0-75.0); Hemoglobin 11.5 g/dL (12.0-16.0); Mean Corpuscular HGB CONC 30.2 g/dL (32.0-36.0); Mean Corpuscular Hemoglobin 29.5 pg (27.0-31.0); Mean Corpuscular Volume 97.7 fL (78.0-98.0); Mean Platelet Volume 8.8 fL (7.4-10.4); Platelet Count 214 thou/uL (130-400); RBC Distribution Width 15.4 % (11.5-14.5); Red Blood Cell (RBC) Count 3.89 mill/uL (4.20-5.40); White Blood Cell (WBC) Count 9.4 thou/uL (4.8-10.8)
[2020-05-20 04:53] LABS: ALT (SGPT) 14 U/L (8-55); AST (SGOT) 20 U/L (5-34); Albumin 2.7 g/dL (3.5-5.0); Alkaline Phosphatase 113 U/L (40-110); Anion Gap 19 mmol/L (10-20); BUN (Urea Nitrogen) 13 mg/dL (9.8-20.1); Bilirubin, Total 0.2 mg/dL (0.2-1.2); Calc. Creatinine Clearance 86 mL/min (70-130); Calcium 9.1 mg/dL (7.8-10.44); Carbon Dioxide 26 mmol/L (22-29); Chloride 98 mmol/L (98-107); Estimated GFR-MDRD 78; Globulin 3.7 g/dL (2.4-3.5); Glucose 106 mg/dL (70-105); Potassium 4.3 mmol/L (3.5-5.1); Protein, Total 6.4 g/dL (6.0-8.3); Sodium 139 mmol/L (136-145)
[2020-05-20 05:18] VITALS: BMI 27.6
[2020-05-20] MEDS: methylPREDNISolone Sod Succ 40 MG VIAL IVP SCH ×4 (05:21→23:49)
[2020-05-20] MEDS: Piperacillin/Tazobactam 3.375 GM in Sodium Chloride 0.9% 100 ML IVPB SCH ×4 (05:22→23:49)
[2020-05-20] MEDS: Vancomycin 1 GM in Premix Bag 1 BAG IVPB SCH ×2 (05:22→17:47)
[2020-05-20] MEDS: Levothyroxine Sodium 50 MCG TAB PO SCH (05:23)
[2020-05-20] MEDS: Mometasone 200 MCG/Formoterol 5 MCG 120 PUFF INHALER INH SCH ×2 (07:10→18:43)
--- NOTE | 2020-05-20 07:29 | PDOC.HOSPP ---
- Subjective Encounter Date: 05/20/20 Encounter Time: 07:27 Subjective: Overnight events: The patient was sitting up in tripod position on 4L nasal cannula last night. She was placed on BIPAP last night, after one hour of BIPAP was found to have pH 7.24 and pCO2 of 67 and BIPAP settings were increased. She also had 400 cc urine retention and since she required straight cath in ER, thorpe catheter was placed Patient states she has been wearing her BIPAP all night. She states her SOB has improved some. She has mild cough. No chest pain or abdominal pain. She has mild back pain CT chest/abdomen not able to be done since patient wasn't stable - Objective Vital Signs & Weight: Vital Signs (12 hours) Temp Pulse Resp Pulse Ox 05/20/20 07:15 85 18 100 05/20/20 07:14 86 18 100 05/20/20 07:10 82 18 100 05/20/20 04:00 98.2 F 05/20/20 02:28 84 16 100 05/20/20 00:31 81 17 100 05/20/20 00:00 98.7 F 05/19/20 21:46 70 14 100 05/19/20 20:00 100 Weight Weight 151 lb 1.6 oz Most Recent Monitor Data Heart Rate from ECG 83 NIBP 106/66 NIBP BP-Mean 79 Respiration from ECG 19 SpO2 100 I&O: 05/19/20 05/20/20 05/21/20 06:59 06:59 06:59 Intake Total 1305.4 Output Total 680 Balance 625.4 Result Diagrams: 05/20/20 03:15 05/20/20 03:15 Hospitalist ROS - Review of Systems Constitutional: denies: fever, chills - Medication Medications: Active Medications Generic Name Dose Route Start Last Admin Trade Name Freq PRN Reason Stop Dose Admin Albuterol/Ipratropium 3 ml 05/19/20 18:30 05/20/20 07:14 Ipratropium/Albuterol Sulfate 3 Ml Neb NEB 3 ml [id number] DAVE Administration Atorvastatin Calcium 10 mg 05/19/20 21:00 05/19/20 20:26 Atorvastatin Calcium 10 Mg Tab PO 10 mg HS DAVE Administration Buspirone HCl 15 mg 05/19/20 21:00 05/19/20 20:26 Buspirone Hcl 10 Mg Tab PO 15 mg TID DAVE Administration Fish Oil 5,000 mg 05/19/20 21:00 05/19/20 20:25 Fish Oil 1,000 Mg Cap PO 5,000 mg BID DAVE Administration Norepinephrine Bitartrate 250 mls @ 0 mls/hr 05/19/20 15:06 05/19/20 19:42 Levophed IVPB 250 mls PRN PRN Administration To maintain MAP > 65 Protocol Titrate Sodium Chloride 1,000 mls @ 75 mls/hr 05/19/20 18:30 05/19/20 18:31 Normal Saline 0.9% IV 1,000 mls .[id number] DAVE Administration Piperacillin Sod/Tazobactam 100 mls @ 200 mls/hr 05/19/20 23:59 05/20/20 05:22 Sod 3.375 gm/ Sodium Chloride IVPB 100 mls Q6HR DAVE Administration Vancomycin HCl 1 gm/ Device 200 mls @ 200 mls/hr 05/20/20 06:00 05/20/20 05:22 IVPB 200 mls 0600,1800 DAVE Administration Levothyroxine Sodium 50 mcg 05/20/20 06:00 05/20/20 05:23 Levothyroxine Sodium 50 Mcg Tab PO 50 mcg 0600 DAVE Administration Methylprednisolone Sodium Succinate 40 mg 05/19/20 18:00 05/20/20 05:21 Methylprednisolone Sod Succ 40 Mg Vial IVP 40 mg Q6HR DAVE Administration Mirtazapine 30 mg 05/19/20 21:00 05/19/20 20:26 Mirtazapine 30 Mg Tab PO 30 mg HS DAVE Administration Mometasone Furoate/Formoterol Fumar 1 puff 05/19/20 21:00 05/20/20 07:10 Mometasone 200 Mcg/Formoterol 5 Mcg 120 Puff Inhaler INH 1 puff BID DAVE Administration Nicotine 21 mg 05/19/20 18:00 05/19/20 18:30 Nicotine 21 Mg Patch TD 21 mg 1800 DAVE Administration Sodium Chloride 10 ml 05/19/20 21:00 05/19/20 20:26 Flush - Normal Saline 10 Ml Syringe IVF 10 ml Q12HR DAVE Administration Trazodone HCl 100 mg 05/19/20 21:00 05/19/20 20:26 Trazodone Hcl 50 Mg Tab PO 100 mg HS DAVE Administration - Exam General Appearance: NAD, awake alert General - other findings: wearing BIPAP Eye: PERRL, anicteric sclera ENT: normocephalic atraumatic, no oropharyngeal lesions Neck: no JVD Heart: RRR, no murmur, no gallops, no rubs Respiratory - other findings: diminished breath sounds diffusely Gastrointestinal: soft, non-tender, non-distended Extremities: no cyanosis, no clubbing, no edema Hosp A/P - Plan This is a 60 year old female who presented to the ER with hypotension, abdominal pain, chest pain, found to have left pleural effusion and left sided infiltrate #Acute chronic hypoxic/hypercapneic respiratory failure - secondary to lung adenocarcinoma with pneumonia versus pleural effusion vs COPD - chest X ray yesterday showed left sided pleural effusion with left sided infiltrate - continue IV vancomycin and zosyn - repeat ABG and repeat chest Xray to evaluate for improvement - continue IV steroids #Severe sepsis possibly from pneumonia #Hypotension - BP has improved. Blood cultures negative, urine culture pending. She is currently on levofed - continue vancomycin and zosyn Chest pain- resolved - troponin elevated, but downtrended. She received aspirin in the ER. EKG showed Elevated troponin - dowtrending. Check ECHO. Patient given aspirin in ER #Anemia #Abdominal pain - patient is on eliquis. CT abdomen ordered to rule out a bleed #Back pain - will cancel MRI for now since patient had PET scan 05/07 that showed no bone lesions #Hypertension - hold home medicines #History of DVT - will continue anticoagulation presuming no bleed Code status: full code
--- NOTE | 2020-05-20 08:07 | RAD ---
EXAM: CHEST ONE VIEW HISTORY: Shortness of breath. Lung cancer. COMPARISON: 05/19/2020 FINDINGS: There is now complete opacification of the left hemithorax which obscures the cardiac silhouette. At least a portion of the opacity on the left is related to volume loss given slight deviation of the mediastinum to the left. Large calcification right lower lobe is again seen. Right lung is otherwise clear. Right sided vascular catheter remains in place. No other interval change. IMPRESSION: Interval development of complete opacification of the left hemithorax. There appears to be slight dev iation the mediastinal structures to the left as well, and findings are in part related to volume loss and collapse of a portion of the left lung. Above findings discussed with nurse Jhoan in the CCU on 05/20/2020 at 0803 hours.
[2020-05-20 08:19] LABS: Actual Bicarbonate (HCO3a) 24.9 mEq/L (22-28); Base Excess (BEa) -2.6 mEq/L (-2.0 to +3.0); CO2 Tension 54.9 mmHg (35.0-45.0); Calcium, Ionized (arterial) 1.23 mmol/L (1.12-1.30); Carboxyhemoglobin (COHb) 0.9 gm% (0.0-3.0); Hemoglobin (Hb) 12.4 g/dL (12.0-16.0); Potassium - ABG Lab 4.12 mmol/L (3.70-5.30); pH, Arterial 7.27 (7.35-7.45)
[2020-05-20 08:22] LABS: ALV-art Gradient 204.875 mmHg (0-20); Puncture Site RRA
[2020-05-20] MEDS: Sodium Chloride 0.9% 1,000 ML IV SCH ×2 (09:53→21:31)
[2020-05-20] MEDS: Ascorbic Acid 500 mg Chewable Tablet PO SCH (09:54)
[2020-05-20] MEDS: busPIRone HCl 10 MG TAB PO SCH ×3 (09:55→20:10)
[2020-05-20] MEDS: Cyanocobalamin (Vitamin B-12) 1,000 MCG TAB PO SCH (09:55)
[2020-05-20] MEDS: Multivit, Therapeutic 1 TAB PO SCH (09:56)
[2020-05-20] MEDS: Venlafaxine HCl XR 150 MG CAP PO SCH (09:57)
[2020-05-20] MEDS: Apixaban 5 MG TAB PO SCH ×2 (09:58→20:09)
[2020-05-20] MEDS: Pantoprazole 40 MG GRANULES PACKET PO SCH (09:59)
[2020-05-20] MEDS: Cholecalciferol 1,000 UNITS (25 MCG) TAB PO SCH (09:59)
[2020-05-20] MEDS: Fish Oil 1,000 MG CAP PO SCH ×2 (10:00→20:08)
[2020-05-20] MEDS: Venlafaxine HCl XR 75 MG CAP PO SCH (10:04)
[2020-05-20] MEDS: guaiFENesin ER 600 MG TAB PO SCH ×2 (10:07→20:09)
--- NOTE | 2020-05-20 10:44 | CON ---
DATE OF CONSULTATION: REASON FOR CONSULTATION: Lung cancer. HISTORY OF PRESENT ILLNESS: Ms. 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 She initially had flu-like symptoms over 3 months ago. They did not resolve, so she eventually went to the ER with shortness of breath. CT angio showed left lower lung collapse with lung mass and hilar lymphadenopathy. She was referred to Pulmonology and had a bronchoscopy, which confirmed adenocarcinoma. She has lost over 20 pounds over the last 3 months. She has had back pain and chest wall pain. She has had 1 episode of hemoptysis, but otherwise just coughing up thick phlegm. She does have a history of long-term smoking over 32 years. She was to follow up with Dr. Tejada yesterday, but began having shortness of breath and pain and presented to the emergency room for evaluation. In the emergency room, she had a brain CT, which was negative for metastatic disease, and a chest x-ray, which showed a moderate left pleural effusion with adjacent infiltrates and again hilar lymphadenopathy. She was hypovolemic and given multiple liters of fluid. She was eventually admitted to the ICU and is currently on Levophed. She is tolerating 3 L of nasal cannula. PAST MEDICAL HISTORY: 1. Newly diagnosed metastatic adenocarcinoma of the lung. 2. COPD. 3. Hypertension. 4. History of DVT. 5. Anxiety and depression. 6. Acid reflux. 7. Hyperlipidemia. PAST SURGICAL HISTORY: 1. Cholecystectomy. 2. Hysterectomy. 3. Sinus surgery. 4. Knee surgery. ALLERGIES: DEPAKOTE AND LEVAQUIN. HOME MEDICATIONS: 1. Atenolol 100 mg daily. 2. Buspirone 15 mg t.i.d. 3. Effexor ER 150 mg daily. 4. Eliquis 5 mg b.i.d. 5. Levothyroxine 50 mcg daily. 6. Lisinopril 20 daily. 7. Mirtazapine 30 mg daily. 8. MVI. 9. Protonix daily. 10. Prednisone 20 daily. 11. Simvastatin 20 daily. 12. Trazodone 100 mg daily. 13. Xanax 0.5 mg t.i.d. FAMILY HISTORY: Noncontributory. SOCIAL HISTORY: , has 1 child, lives with her , and pack-year history of smoking. No alcohol or illicit drug use. REVIEW OF SYSTEMS: A 10-point review of systems is negative except for noted in HPI. PHYSICAL EXAMINATION: VITAL SIGNS: Temperature 98.2, heart rate 89, respiratory rate 22, blood pressure is 116/67. She is 95% on 3 L. GENERAL: This is a well-developed, well-nourished female, in no acute distress. HEENT: Normocephalic, atraumatic. Pupils are equal and reactive to light. NECK: Supple. CV: Regular rate and rhythm. She does have mild tachycardia. LUNGS: Diminished. ABDOMEN: Soft and nontender. Bowel sounds are positive. EXTREMITIES: No clubbing or cyanosis. SKIN: No rash. HEMATOLOGICAL: No petechiae or purpura. NEUROLOGICAL: Nonfocal. PERTINENT LABORATORY DATA AND X-RAYS: Current WBCs are 9.4, hemoglobin 11.5, hematocrit 38.0, platelet count is 214,000. She has 95% neutrophils, 3% lymphocytes. PT is 19.5, INR is 1.7, and PTT is 33. Sodium 139, potassium 4.3, chloride 98, CO2 is 26, BUN is 13, creatinine 0.76, lactic acid 1.6, calcium 9.1, bilirubin 0.2, AST is 20, ALT is 14, alkaline phosphatase is 113, CK-MB is 1.4, troponin is 0.198. BNP is 212.7. Serum total protein 6.2, albumin 2.7, globulin 3.7. Urine showed 4+ bacteria with positive leukocyte esterase. She has a COVID-19 PCR negative. Radiology per history of present illness. ASSESSMENT: 1. Newly diagnosed metastatic adenocarcinoma of the left lower lung with lung collapse secondary to mass. 2. Esakj-op-yemrgkt respiratory failure. 3. Chronic obstructive pulmonary disease. 4. Anxiety. DISCUSSION: The patient was seen once by Dr. Tejada on May 12. She was discussed in Tumor Board yesterday. It is felt that palliative radiation to the left lower lobe would hopefully shrink the tumor and open up the lobe allowing her to breath better, at which point she would tolerate palliative chemotherapy. I have discussed the case with Dr. Tejada. We will consult Radiation Oncology to come and see her in the hospital. If she does not improve in the next few days, she may be a candidate for hospice. Palliative care has been consulted. Continue her anxiety and pain medication. We will follow along with her hospital course. Thank you for the consult. Job ID: [id number] HAIDER
--- NOTE | 2020-05-20 11:06 | OP ---
DATE OF PROCEDURE: 05/19/2020 PREOPERATIVE DIAGNOSES: 1. Acute hypotension. 2. History of left lung carcinoma. POSTOPERATIVE DIAGNOSES: 1. Acute hypotension. 2. History of left lung carcinoma. PROCEDURES PERFORMED: 1. Attempted left subclavian central venous catheter placement. 2. Placement of triple-lumen right subclavian central venous catheter. INDICATIONS FOR PROCEDURE: 60-year-old woman with history of left lung carcinoma, presented to emergency department with severe hypotension. The patient is suspected with severe sepsis. I was asked to place a central venous access for therapeutic interventions. DESCRIPTION OF PROCEDURE: Informed consent was obtained from the patient, who was placed in supine position. The left chest wall was sterilely prepped and draped in usual fashion. The skin below the left clavicle was anesthetized with 1% lidocaine. The left subclavian vein was cannulated with an 18-gauge introducer needle returning dark venous blood. I attempted to advance a guidewire through the needle into the left subclavian vein; however, was not able to pass beyond 25 cm. I repositioned and tried again with resistance again at approximately 25 cm. Therefore, I elected to abort using the left side. I then proceeded to sterilely prep and drape the right chest wall in the usual fashion with a different setup. The skin below the right clavicle was anesthetized with 1% lidocaine. The right subclavian vein was again cannulated with an 18-gauge introducer needle returning dark venous blood. Guidewire was passed through the needle and advanced into the right subclavian vein without resistance. The needle was withdrawn over the guidewire. A stab incision was made adjacent to the guidewire using 11 scalpel. Dilator was passed over the guidewire dilating the subcutaneous tissues. Dilator was removed, and a triple-lumen central venous catheter was advanced over the guidewire and placed in the right subclavian vein without resistance, stopping at the 18 cm christin. Guidewire was removed. Dark venous blood was aspirated from all 3 ports, which were individually flushed with saline. Catheter was secured to anterior chest wall using 3-0 silk suture at two points. Sterile dressings were applied. The patient tolerated this procedure without any apparent complication. Chest x-ray was obtained, confirming proper placement and no pneumothorax present. Job ID: [id number]
[2020-05-20] MEDS: Morphine 2 MG/ML VIAL SLOW IVP PRN (11:22)
[2020-05-20] MEDS: ALPRAZolam 0.5 MG TAB PO PRN ×2 (13:18→20:10)
--- NOTE | 2020-05-20 15:02 | PDOC.CONS ---
- Consultation Encounter Date: 05/20/20 INITIAL CONSULTATION - RADIATION ONCOLOGY IDENTIFICATION: 60-year-old female with newly diagnosed metasatatic adenocarcinoma of lung, [id number], with bilateral adrenal mets and no targetable mutations, admitted for acute respiratory failure. Radiation oncology is consulted for palliative radiotherapy to address bronchial obstruction. HISTORY OF PRESENT ILLNESS: Ms. Sandoval is a 60-year-old female diagnosed with left lower lobe lung adenocarcinoma metastatic to her adrenal glands for which she first started to have symptoms 3 months ago. She initially presented to the ER with SOB at end of April, and CT angio Chest demonstrated left lower lung collapse with mediastinal and hilar adenopathy. She then underwent a bronchoscopy with biopsy that confirmed adenocarcinoma. PET scan also demonstrated bilateral adrenal metastases. She has seen Dr. Tejada in medical oncology who discussed chemotherapy and palliative radiotherapy for bronchial obstruction. She was planned to see Dr. Donahue in radiation oncology earlier thi s week, but she instead presented to the emergency room again for SOB. Upon this admission, she had brain CT that was negative for metastatic disease, and chest x-ray showed a left pleural effusion on 05/19, now with CXR showing complete opacification of her left lung on 05/20. She was admitted to ICU and given fluids, started on BiPAP and Levophed for hypotension and respiratory failure. Regarding symptoms, she is currently weaned to 4 L nasal cannula and is still very short of breath. She did have one episode of hemoptysis but otherwise just has a reductive cough. She has lost 20 pounds over the last few months, and recently quit smoking. She was started on oxygen 3 weeks ago with her initial hospitalization, which she has used on a prn basis at home (per , she uses Oxygen at home nearly continuously). She additionally has pleuritic left chest pain. PAST MEDICAL HISTORY: Lung cancer; COPD; hypertension; anxiety; depression; GERD; HLD PAST SURGICAL HISTORY: Cholecystectomy; hysterectomy; knee surgery ALLERGIES: Depakote; Levaquin FAMILY HISTORY: No family history of cancer SOCIAL HISTORY: Quit smoking yesterday. Previously at least 1 pack/day x40 years PREVIOUS RADIATION: None prior REVIEW OF SYSTEMS: 10-point ROS negative except as per HPI and nursing notes. PHYSICAL EXAM: VITALS: O297% on 4 L nasal cannula; heart rate 92; blood pressure 125/74 now on Levophed; respiratory rate 25; pulse 91 GENERAL: KPS 30. Ill appearing female with conversational dyspnea. HEENT: Normocephalic, atraumatic. No scleral icterus. LYMPHATICS: No cervical or supraclavicular adenopathy palpable bilaterally. CARDIOVASCULAR: Regular rate and rhythm. No murmurs, rubs, or gallops. PULMONARY: Wheezes with decreased breath sounds in LANA and absent breath sounds in LLL. RUL wheezing with some air movement. Left anterior chest pain beneath left breast BACK: No tenderness to percussion of spinous processes. ABDOMEN: Soft, nondistended. MUSCULOSKELETAL: No gross joint deformities. NEUROLOGIC: Cranial nerves II-XII intact. Strength 5/5 in upper and lower extremities bilaterally. Sensation to soft touch intact and symmetric in upper and lower extremities. Gait normal without assistive devices. LABS: ABG, CBC, CMP reviewed from 05/20/2020 IMAGING: CT Brain, 05/19/2020: No evidence of acute intracranial process PET/CT, 05/07/2020: Left lower lobe malignancy with mediastinal, left hilar lymph node, and bi lateral adrenal metastases CT angiogram, 04/29/2020: Occlusion of left lower lobe bronchus with opacification of the entire left lower lobe left hilar and mediastinal adenopathy. No PE. PATHOLOGY: Left lower lobe lung biopsy, 04/30/2020: Adenocarcinoma, consistent with lung primary; no mutations ASSESSMENT/PLAN: 60-year-old female with newly diagnosed metasatatic adenocarcinoma of lung, [id number], with bilateral adrenal mets and no targetable mutations, admitted for acute respiratory failure. Radiation oncology is consulted for palliative radiotherapy to address bronchial obstruction. Although the PET showed LLL collapse and atelectasis from tumor obstruction two weeks ago, her CXR now has complete opacification of left lung, consistent with her deteriorating condition. While radiation would be likely to shrink the tumor compressing the bronchus, possibly relieving [at least some of] the ob struction, if her respiratory status is due to pleural effusion or postobstructive PNA, radiation will not improve this and could potentially worsen her condition. Furthermore, the logistical considerations in terms of transportation to the radiation clinic and lying flat for daily treatment will be challenging given her tenuous respiratory condition. At this point, the risks associated with radiation treatment outweigh the potential benefits. Recommend detailed goals of care discussion. If she improves, I am happy to reconsider palliative radiotherapy for bronchial obstruction, but at this point, her decline is hastening such that hospice may be a more appropriate discussion. Will make Dr. Tejada aware of this conversation. 60 minutes were spent with this patient with greater than 50% of that time spent on counseling and coordination of care. Recap: - Do not recommend radiation at this time
--- NOTE | 2020-05-20 16:14 | PDOC.PALCO ---
Palliative Care Consult - Consult Details Requesting Physician: Dr Sharp Reason for Consult: goals of care, advance directives assistance, complex decision-making Family Members Present: - Allergies Allergies/Adverse Reactions: Allergies Allergy/AdvReac Type Severity Reaction Status Date / Time divalproex sodium Allergy Verified 11/22/19 03:47 [From Depakote] levofloxacin [From Levaquin] Allergy Verified 04/29/20 21:38 - Objective Vital Signs: Vital Signs - Most Recent Temp Pulse Resp BP Pulse Ox 98.6 F 85 18 97 05/20/20 12:00 05/20/20 07:15 05/20/20 07:15 05/20/20 08:00 - Plan/Recommendations Plan: Introduced Palliative Care. In short life review patient relays that she was born and raised in [place], has lived in this area for over 30 years. Favorite activity is fishing (freshwater). Initiated conversation in relation to resuscitation status. Wishes to revisit 05/21/2020. Currently pain is a 5 with Morphine IVP at 2mg, consideration for addition of fentanyl patch Hopeful to attempt palliative radiation, however discussed currently at this time it is not recommended Emotional support and Therapeutic listening. Encouraged to visualize her favorite fishing spot, "Cast out fears, worries, sorrow, reel in hope for a good day" Tearful and emotional over poor prognosis and lack of options for treatment/palliation. Palliative Care will follow up 05/21/2020 for detailed conversation in relation to Goal of care, will present option of transition to home setting with hospice overlay to manage symptoms of metastatic adenocarcinoma of the lung. Communicated with Dr Wang while in room with kapil and Dr Donahue as well as Dr Sharp [] minutes spent on this encounter with >50% of the time in counseling and coordination of care. Thank you for this very appropriate consult.
[2020-05-20] MEDS ORDERED: Morphine ER 15 MG TAB PO SCH (16:45)
--- NOTE | 2020-05-20 16:48 | PDOC.FMACP ---
Advance Care Planning - Problem (1) Metastatic lung cancer (metastasis from lung to other site) Status: Acute Code(s): C34.90 - MALIGNANT NEOPLASM OF UNSP PART OF UNSP BRONCHUS OR LUNG (2) Palliative care encounter Status: Acute Code(s): Z51.5 - ENCOUNTER FOR PALLIATIVE CARE (3) Acute respiratory failure with hypoxia and hypercapnia Status: Acute Code(s): J96.01 - ACUTE RESPIRATORY FAILURE WITH HYPOXIA; J96.02 - ACUTE RESPIRATORY FAILURE WITH HYPERCAPNIA (4) COPD exacerbation Status: Acute Code(s): J44.1 - CHRONIC OBSTRUCTIVE PULMONARY DISEASE W (ACUTE) EXACERBATION - Note Participants: patient, family, palliative care Summary: Introduced Advanced Care Planning, opportunity to decline The diagnosis, prognosis and goals of care were discussed. Appropriate forms and documentation to accomplish the goals of care were discussed. All questions were answered. at bedside, Mrs Malloy is wanting to discuss resuscitation and Directives with her sisters as well. The Palliative Care Team will follow up 05/21/2020 for revisit and assist with completion of any forms as identified. Time Spent (mins): 20
--- NOTE | 2020-05-20 17:08 | CON ---
DATE OF CONSULTATION: 05/20/2020 HISTORY OF PRESENT ILLNESS: Mady Malloy is a 60-year-old female with extensive adenocarcinoma involving the left lung with mets to the adrenals and mediastinum. She was due to see Oncology and start some formal chemotherapy when she presented yesterday with worsening shortness of breath and cough. She is still smoking. She denies any hemoptysis. She has back pain. She was in severe distress. She has been in the ER since 0924 hours in the morning. She came to the ICU about 5:00. I was notified at that time and she was placed on BiPAP. PAST MEDICAL HISTORY: 1. Most recent extensive medical history outlined, it include recent bronchoscopy, which showed left lower lung mucosal changes consistent with adenocarcinoma. 2. History of hypothyroidism. 3. History of major anxiety. 4. Hypertension. 5. Hyperlipidemia. 6. High cholesterol. 7. Reflux. 8. Previous DVT in the leg. 9. End-stage COPD. On a good day, she can barely walk 30 feet without getting markedly short of breath. PAST SURGICAL HISTORY: Past surgeries, multiple; 1. Cholecystectomy. 2. Hysterectomy. 3. Right knee. 4. Carpal tunnel. 5. Sinus surgery. SOCIAL HISTORY: 1. Still smoking. 2. Alcohol, minimal. HOME MEDICATIONS: Include; 1. Trazodone 100. 2. Buspirone 15 three times a day. 3. Venlafaxine 150 a day. 4. Nicotine. 5. Protonix. 6. Zocor. 7. Synthroid 50. 8. Mirtazapine 30. 9. Lisinopril tablet. 10. Eliquis 5 twice a day. 11. . 12. Symbicort inhaler. ALLERGIES: LEVAQUIN AND DEPAKENE. PHYSICAL EXAMINATION: VITAL SIGNS: On the BiPAP, she is better. We took it off. Her sats are 95% on 3 L, pulse 93, blood pressure 103/60, respirations 18. CHEST: Decreased breath sounds in left lung. Bilateral rhonchi, crackles. CARDIAC: Normal S1, S2. No gallops. ABDOMEN: No masses. LABORATORY DATA: White count 9000, H and H of 11.5 and 38, platelet count is 214. PO2 is 83, pCO2 is 54, pH 7.27, on the BiPAP. Electrolytes are normal. DIAGNOSTICS: X-ray shows left lung atelectasis. Prior to that, the left lower lung had atelectatic changes on the CT. IMPRESSION AND PLAN: 1. Respiratory failure secondary to end-stage COPD and left lung carcinoma complicated by mucus plugging and atelectasis of the left upper lung. 2. Metastatic carcinoma involving the left hilar and bilateral adrenal glands. 3. Ongoing tobacco abuse. 4. Cachexia. 5. Chronic pain. 6. Deep venous thrombosis. Her prognosis is grave. I discussed this with the at length. We will get input from Oncology. Get to see the patient. Aggressive neb treatments, steroids. CRITICAL CARE TIME: 45-minutes. Job ID: [id number]
[2020-05-20] MEDS: Nicotine 21 MG PATCH TD SCH (17:48)
[2020-05-20] MEDS: Morphine ER 15 MG TAB PO SCH (20:08)
[2020-05-20] MEDS: Atorvastatin Calcium 10 MG TAB PO SCH (20:10)
[2020-05-20] MEDS: Mirtazapine 30 MG TAB PO SCH (20:10)
[2020-05-20] MEDS: traZODone HCl 50 MG TAB PO SCH (20:10)
[2020-05-21] MEDS: Morphine IR 10 MG/5 ML UDCUP PO PRN ×3 (00:27→16:02)
[2020-05-21] MEDS: methylPREDNISolone Sod Succ 40 MG VIAL IVP SCH ×3 (05:15→17:17)
[2020-05-21] MEDS: Piperacillin/Tazobactam 3.375 GM in Sodium Chloride 0.9% 100 ML IVPB SCH ×3 (05:15→17:16)
[2020-05-21] MEDS: Vancomycin 1 GM in Premix Bag 1 BAG IVPB SCH (05:15)
[2020-05-21] MEDS: Levothyroxine Sodium 50 MCG TAB PO SCH (05:15)
[2020-05-21] MEDS: ALPRAZolam 0.5 MG TAB PO PRN ×2 (05:16→14:10)
[2020-05-21] MEDS: Mometasone 200 MCG/Formoterol 5 MCG 120 PUFF INHALER INH SCH ×2 (07:56→19:03)
[2020-05-21] MEDS: Ascorbic Acid 500 mg Chewable Tablet PO SCH (08:49)
[2020-05-21] MEDS: busPIRone HCl 10 MG TAB PO SCH ×3 (08:50→22:05)
[2020-05-21] MEDS: Apixaban 5 MG TAB PO SCH ×2 (08:50→21:55)
[2020-05-21] MEDS: Multivit, Therapeutic 1 TAB PO SCH (08:51)
[2020-05-21] MEDS: Pantoprazole 40 MG GRANULES PACKET PO SCH (08:51)
[2020-05-21] MEDS: Venlafaxine HCl XR 150 MG CAP PO SCH (08:51)
[2020-05-21] MEDS: guaiFENesin ER 600 MG TAB PO SCH ×2 (08:51→20:56)
[2020-05-21] MEDS: Cyanocobalamin (Vitamin B-12) 1,000 MCG TAB PO SCH (08:51)
[2020-05-21] MEDS: Cholecalciferol 1,000 UNITS (25 MCG) TAB PO SCH (08:51)
[2020-05-21] MEDS: Morphine ER 15 MG TAB PO SCH ×2 (08:52→20:57)
[2020-05-21] MEDS: Venlafaxine HCl XR 75 MG CAP PO SCH (08:53)
[2020-05-21] MEDS: Fish Oil 1,000 MG CAP PO SCH ×2 (08:54→20:55)
[2020-05-21] MEDS ORDERED: Lidocaine 5% Patch TD SCH (09:00)
--- NOTE | 2020-05-21 09:19 | PRG ---
DATE OF SERVICE: 05/21/2020 SUBJECTIVE: Mady Malloy is a 60-year-old female, who is still short of breath. She is somewhat better. OBJECTIVE: VITAL SIGNS: Saturations are 95% on 3 L, blood pressure 120/75, pulse 90, afebrile, respirations 30 per minute. CHEST: Diffuse wheezing, left greater than right. CARDIAC: Normal S1 and S2. No gallops. ABDOMEN: Soft. LABORATORY DATA: No x-ray or lab was ordered today. 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 Oncology was consulted. She is not a candidate for any meaningful treatment at this time because of her severe respiratory distress. I do not think she is going to tolerate either radiation or chemo. Palliative Care was consulted in the process of discussing a code status. I am going to continue aggressive neb treatments, steroids, broad-spectrum antibiotics, discontinue vancomycin. I doubt there is Staph in the lung. Comfort care. She can probably be transferred later to a monitored bed depending upon what the family to decide about a code status. Job ID: [id number]
--- NOTE | 2020-05-21 10:14 | RAD ---
CHEST 1 VIEW: HISTORY: Shortness of breath. COMPARISON: 05/20/2020. FINDINGS: The essentially complete left-sided lung atelectasis has improved with expansion of the left upper lo be. Again noted is some pleural effusion and large left lower lobe mass with evidence for left hilar and right paratracheal adenopathy. The right lung is stable. IMPRESSION: Partial reexpansion of the left lung with a large mass in the left lower lobe and left pleural effusi on with left hilar and right paratracheal adenopathy. POS: RRE
[2020-05-21] MEDS: Lidocaine 5% Patch TD SCH (10:25)
[2020-05-21] MEDS: Morphine 2 MG/ML VIAL SLOW IVP PRN ×2 (12:22→19:00)
--- NOTE | 2020-05-21 12:37 | PDOC.HOSPP ---
- Subjective Encounter Date: 05/21/20 Encounter Time: 09:00 Subjective: The patient reports being in 10/10 pain in her back, and states morphine isn't helping. Per nursing staff she slept well snoring the whole night and this morning when she had pain, she had not received her pain medicine yet She reports chest pain while taking a deep breath Patient denies significant cough. No fevers or chills. Patient states there is plan to try radiation again tomorrow and see if she can lay flat She is off BIPAP and has been on nasal cannula saturating well SHe complains of burning pain when she swallows food - Objective Vital Signs & Weight: Vital Signs (12 hours) Temp Pulse Resp BP Pulse Ox 05/21/20 11:55 97.8 F 100 18 156/75 H 94 L 05/21/20 07:57 97 05/21/20 07:56 94 24 H 97 05/21/20 07:45 98 05/21/20 07:00 98.4 F 05/21/20 04:00 98.0 F 100 05/21/20 00:45 84 16 98 Weight Weight 151 lb 3.2 oz Most Recent Monitor Data Heart Rate from ECG 89 NIBP 145/85 NIBP BP-Mean 105 Respiration from ECG 43 SpO2 95 I&O: 05/20/20 05/21/20 05/22/20 06:59 06:59 06:59 Intake Total 1305.4 3645 490 Output Total 680 1715 242 Balance 625.4 1930 248 Result Diagrams: 05/20/20 03:15 05/20/20 03:15 Hospitalist ROS - Review of Systems Constitutional: denies: fever, chills - Medication Medications: Active Medications Generic Name Dose Route Start Last Admin Trade Name Freq PRN Reason Stop Dose Admin Alprazolam 0.5 mg 05/19/20 19:41 05/21/20 05:16 Alprazolam 0.5 Mg Tab PO 0.5 mg TID PRN Administration Anxiety Apixaban 10 mg 05/20/20 09:00 05/21/20 08:50 Apixaban 5 Mg Tab PO 10 mg BID DAVE Administration Ascorbic Acid 1,000 mg 05/20/20 09:00 05/21/20 08:49 Ascorbic Acid 500 Mg Chewable Tablet PO 1,000 mg DAILY DAVE Administration Atorvastatin Calcium 10 mg 05/19/20 21:00 05/20/20 20:10 Atorvastatin Calcium 10 Mg Tab PO 10 mg HS DAVE Administration Buspirone HCl 15 mg 05/19/20 21:00 05/21/20 08:50 Buspirone Hcl 10 Mg Tab PO 15 mg TID DAVE Administration Cholecalciferol 1,000 units 05/20/20 09:00 05/21/20 08:51 Cholecalciferol 1,000 Units (25 Mcg) Tab PO 1,000 units DAILY DAVE Administration Cyanocobalamin 1,000 mcg 05/20/20 09:00 05/21/20 08:51 Cyanocobalamin (Vitamin B-12) 1,000 Mcg Tab PO 1,000 mcg DAILY DAVE Administration Guaifenesin 600 mg 05/20/20 09:00 05/21/20 08:51 Guaifenesin Er 600 Mg Tab PO 600 mg Q12HR DAVE Administration Norepinephrine Bitartrate 250 mls @ 0 mls/hr 05/19/20 15:06 05/19/20 19:42 Levophed IVPB 250 mls PRN PRN Administration To maintain MAP > 65 Protocol Titrate Piperacillin Sod/Tazobactam 100 mls @ 200 mls/hr 05/19/20 23:59 05/21/20 12:18 Sod 3.375 gm/ Sodium Chloride IVPB 100 mls Q6HR DAVE Administration Levothyroxine Sodium 50 mcg 05/20/20 06:00 05/21/20 05:15 Levothyroxine Sodium 50 Mcg Tab PO 50 mcg 0600 DAVE Administration Lidocaine 1 patch 05/21/20 09:30 05/21/20 10:25 Lidocaine 5% Patch TD 1 patch 0930 DAVE Administration Methylprednisolone Sodium Succinate 40 mg 05/19/20 18:00 05/21/20 12:17 Methylprednisolone Sod Succ 40 Mg Vial IVP 40 mg Q6HR DAVE Administration Mirtazapine 30 mg 05/19/20 21:00 05/20/20 20:10 Mirtazapine 30 Mg Tab PO 30 mg HS DAVE Administration Mometasone Furoate/Formoterol Fumar 2 puff 05/20/20 18:30 05/21/20 07:56 Mometasone 200 Mcg/Formoterol 5 Mcg 120 Puff Inhaler INH 2 puff BID-RT DAVE Administration Morphine Sulfate 2 mg 05/19/20 19:45 05/21/20 12:22 Morphine 2 Mg/Ml Vial SLOW IVP 2 mg Q4H PRN Administration Severe Pain (7-10) Morphine Sulfate 15 mg 05/20/20 21:00 05/21/20 08:52 Morphine Er 15 Mg Tab PO 15 mg Q12HR DAVE Administration Morphine Sulfate 10 mg 05/20/20 16:35 05/21/20 05:57 Morphine Ir 10 Mg/5 Ml Udcup PO 10 mg Q4H PRN Administration Severe Pain (7-10) Multivitamins 1 tab 05/20/20 09:00 05/21/20 08:51 Multivit, Therapeutic 1 Tab PO 1 tab DAILY DAVE Administration Nicotine 21 mg 05/19/20 18:00 05/20/20 17:48 Nicotine 21 Mg Patch TD 21 mg 1800 DAVE Administration Pantoprazole Sodium 40 mg 05/20/20 09:00 05/21/20 08:51 Pantoprazole 40 Mg Granules Packet PO 40 mg DAILY DAVE Administration Sodium Chloride 10 ml 05/19/20 21:00 05/21/20 08:55 Flush - Normal Saline 10 Ml Syringe IVF 10 ml Q12HR DAVE Administration Trazodone HCl 100 mg 05/19/20 21:00 05/20/20 20:10 Trazodone Hcl 50 Mg Tab PO 100 mg HS DAVE Administration Venlafaxine HCl 75 mg 05/20/20 09:00 05/21/20 08:53 Venlafaxine Hcl Xr 75 Mg Cap PO 75 mg DAILY DAVE Administration Venlafaxine HCl 150 mg 05/20/20 09:00 05/21/20 08:51 Venlafaxine Hcl Xr 150 Mg Cap PO 150 mg DAILY DAVE Administration - Exam General Appearance: NAD, awake alert Eye: PERRL, anicteric sclera ENT: normocephalic atraumatic, no oropharyngeal lesions Neck: no JVD Heart: RRR, no murmur, no gallops, no rubs Respiratory: CTAB, no wheezes, no rales, no ronchi Gastrointestinal: soft, non-tender, non-distended, normal bowel sounds Extremities: no cyanosis, no clubbing, no edema Skin: normal turgor, no lesions, no rashes Neurological: cranial nerve grossly intact, normal sensation to touch, no focal deficits, no new deficit Musculoskeletal: normal tone, normal strength, no muscle wasting Hosp A/P - Plan Chest X ray 05/21: partial reexpansion of left lung with large mass in left lower lobe and left pleural effusion with left hilar and right paratracheal adenopathy ECHO: EF 60-65%, diastolic dysfunction, mild pericardial effusion This is a 60 year old female who presented to the ER with hypotension, abdominal pain, chest pain, found to have left pleural effusion and left sided infiltrate #Acute chronic hypoxic/hypercapneic respiratory failure - secondary to lung adenocarcinoma left lung collapse, pneumonia, pleural effusion vs COPD - chest X ray shows reexpansion of lung today. CT chest unable to be done since patient can't lay flat - continue IV zosyn, vancomycin discontinued 05/21 - continue IV steroids - wean oxygen to 92% - transfer to oncology, patient no longer requiring BIPAP #Severe sepsis possibly from pneumonia #Hypotension- resolved - BP has improved. Blood cultures negative - continue zosyn - discontinue IV fluids #Lung adenocarcinoma with adrenal metastases - oncology was consulted, recommended radiation therapy. Unable to do radiation since patient couldn't lay flat - trial again tomorrow - palliative care is on board Pericardial effusion - noted on ECHO. Will discontinue IV fluids for now Elevated troponin - from demand ischemia - troponin elevated, but downtrended. She received aspirin in the ER. EKG showed no ischemic changes #Pleuritic chest and back pain - cancelled MRI for now since patient had PET scan 05/07 that showed no bone lesions - she is on MS contin 15 mg bid and morphine IR 15 mg q4 hours prn - added lidocaine patch - will add toradol for pain as well #Anemia #Abdominal pain - Hb stable at 11 - patient is on eliquis. CT abdomen ordered but not able to be done. Doubt there is bleed anyways since hemoglobin stable #Hypertension - hold home medicines #History of DVT - continue eliquis Dispo: control of pain, possible trial of radiation again, versus hospice? Code status: full code
[2020-05-21] MEDS ORDERED: Calcium Carbonate 500 MG ChewTAB PO PRN (12:43)
[2020-05-21] MEDS: Ketorolac Tromethamine 30 MG/ML VIAL IVP PRN (14:09)
--- NOTE | 2020-05-21 14:50 | PDOC.MOPN ---
Interval History: breathing improved. Less anxious - Vital Signs Vital Signs: Vital Signs (12 hours) Temp Pulse Resp BP Pulse Ox 05/21/20 11:55 97.8 F 100 18 156/75 H 94 L 05/21/20 07:57 97 05/21/20 07:56 94 24 H 97 05/21/20 07:45 98 05/21/20 07:00 98.4 F 05/21/20 04:00 98.0 F 100 Weight Weight 151 lb 3.2 oz Most Recent Monitor Data Heart Rate from ECG 89 NIBP 145/85 NIBP BP-Mean 105 Respiration from ECG 43 SpO2 95 - Physical Exam General: Alert HEENT: Atraumatic Lungs: Other Cardiovascular: Regular rate Abdomen: Normal bowel sounds Neurological: Normal speech - Labs Result Diagrams: 05/20/20 03:15 05/20/20 03:15 Status: lab reviewed by me A/P - Problem (1) Metastatic lung cancer (metastasis from lung to other site) Current Visit: Yes Code(s): C34.90 - MALIGNANT NEOPLASM OF UNSP PART OF UNSP BRONCHUS OR LUNG Status: Acute - Plan Plan: Unable to lie flat for XRT PCT discussing code status and goals of care continue nebs, abx, steroids
--- NOTE | 2020-05-21 15:22 | PQF ---
CLINICAL DOCUMENTATION CLARIFICATION FORM: Dear DR. GOODMAN Date / Time: 05/21/2020 Please exercise your independent, professional judgment in responding to the clarification form. Clinical indicators are provided on the bottom of this form for your review. Please check appropriate box(es): [ X ] Sepsis due to : PNEUMONIA [ ] Sepsis Not due : PNEUMONIA [ ] Localized infection without sepsis [ ] SIRS due to non-infectious process (please specify etiology) [ ] with organ dysfunction [ ] without organ dysfunction [ ] Other diagnosis [ ] Unable to determine In addition, please specify: Present on Admission (POA): [ ] Yes [ ] No [ ] Unable to determine For continuity of documentation, please document condition throughout progress notes and discharge summary. Thank You. To be completed by CDI/Coding staff for physician review: CLINICAL INDICATORS - SIGNS / SYMPTOMS / LABS / RESULTS AND LOCATION IN MR 05/19 H&P (MAXINE) ACUTE ON CHRONIC HYPOXIC RESPIRATORY FAILURE SECONDARY TO LUNG ADENOCARCINOMA WITH PNEUMONIA VERSUS PLEURAL EFFUSION 05/20, 05/21 PN (MAXINE) SEVERE SEPSIS POSSIBLE PNEUMONIA , ACUTE HYPOXIC/ HYPERCAPNIC RESPIRATORY FAILURE SECONDARY TO LUNG ADENOCARCINOMA WITH PNEUMONIA VERSUS PLEURAL EFFUSION VS COPD. 05/20 CONSULT (TONY) ASSESSMENT: RESPIRATORY FAILURE SECONDARY TO END STAGE COPD AND LEFT LUNG CARCINOMA COMPLICATED BY MUCUS PLUGGING AND ATELECTASIS OF THE LEFT UPPER LUNG. RISK FACTORS / RESULTS AND LOCATION IN MR DX COPD, LUNG CARCINOMA ( CONSULT/TONY) 05/20 TREATMENTS / RESULTS AND LOCATION IN MR PULMONOLOGY CONSULT ( 05/20) SUPPLEMENTAL OXYGEN ( 05/19 - PRESENT) ZOSYN IV ( 05/19 - PRESENT) VANCOMYCIN IV ( 05/20 PRESENT) THANK YOU! CDS Signature: CHERRI ALDANA RN Phone #: [phone] Date: 05/21/2020 This is a permanent part of the Medical Record [facility]
[2020-05-21] MEDS: Nicotine 21 MG PATCH TD SCH (17:17)
--- NOTE | 2020-05-21 20:43 | RAD ---
XR Elbow Lt 4 View STANDARD History: Fall Comparison: None. Findings: No acute displaced fracture or malalignment. No significant joint effusion. Chronic medial epicondylitis. Impression: No acute osseous abnormality.
--- NOTE | 2020-05-21 20:43 | CT ---
CT Brain WO Con History: Trauma. Fall. Hit head Comparison: CT brain May 19, 2020 Findings: There is subtle focal increased density along what is expected to be location of the right M2 vessel. No acute hemorrhage or infarct. No midline shift or mass effect. Calvarium is intact. Similar appearance of the air-fluid level within the right maxillary sinus. Impression: 1. Focal round hyperdensity along the expected location of the right M2 vessel and much less likely s ubarachnoid hemorrhage. This vessel appeared to be open on the CT on May 14, 2020. If patient is having strokelike symptoms, MRI would be beneficial. 2. Similar appearance right maxillary sinus air-fluid level. 3. No acute territorial infarction.
--- NOTE | 2020-05-21 20:46 | RAD ---
XR Wrist 3 Lt View STANDARD History: Fall Comparison: None. Findings: No acute displaced fracture or malalignment. Mild soft tissue swelling. Impression: No acute osseous abnormality.
--- NOTE | 2020-05-21 20:52 | RAD ---
ONE VIEW CHEST: 05/21/20 HISTORY: Fall. COMPARISON: 05/19/20. FINDINGS: Left sided vascular catheter remains in place. Cardiac silhouette is magnified by projection. Again n oted are bilateral perihilar interstitial opacities and patchy areas of air space opacity much greate r on the left which were similar to the prior study given differences in technique. Small left pleura l effusion is again seen. The large calcification overlying the right mid lung zone is again present. No other interval change. IMPRESSION: 1. Stable chest with bilateral perihilar interstitial and parenchymal air space opacities much g reater on the left which may represent infectious process. Follow-up to resolution is recommended. 2. Small left pleural effusion. POS: ANNABEL
[2020-05-21] MEDS: traZODone HCl 50 MG TAB PO SCH (20:55)
[2020-05-21] MEDS: Lidocaine Patch Removal 1 EACH TOP SCH (20:56)
[2020-05-21] MEDS: Atorvastatin Calcium 10 MG TAB PO SCH (20:56)
[2020-05-21] MEDS: Mirtazapine 30 MG TAB PO SCH (21:09)
--- NOTE | 2020-05-21 23:58 | PDOC.BPN ---
- Brief Progress Note Encounter Date: 05/21/20 Encounter Time: 19:28 Ms. Romero is a 60-year-old female who had an unwitnessed fall at 1928 on 05/21/2020. Patient was found by nursing to be sitting up on the floor next to the bed. Patient denies head strike, but does report that she hit her left elbow. Since patient is on apixaban, head CT was obtained. Head CT showed hypodensity near the location of M2 and question small subarachnoid hemorrhage. Patient neurologically intact. Will hold morning dose of Eliquis, every [address] versus MRI. Plain films of elbow were negative for fracture.
[2020-05-21] MEDS ORDERED: Furosemide 40 MG TAB PO SCH (23:59)
[2020-05-22] MEDS: methylPREDNISolone Sod Succ 40 MG VIAL IVP SCH ×5 (00:01→23:59)
[2020-05-22] MEDS: Piperacillin/Tazobactam 3.375 GM in Sodium Chloride 0.9% 100 ML IVPB SCH ×5 (00:01→23:57)
[2020-05-22] MEDS: Morphine IR 10 MG/5 ML UDCUP PO PRN ×4 (01:18→23:59)
[2020-05-22] MEDS: Ketorolac Tromethamine 30 MG/ML VIAL IVP PRN ×2 (03:47→20:45)
[2020-05-22 04:08] LABS: #Lymphocytes 0.4 thou/uL (1.20-3.40); #Monocytes 0.3 thou/uL (0.11-0.59); #Neutrophils 9.8 thou/uL (1.40-6.50); %Basophils 0.1 % (0.0-1.0); %Eosinophils 0.1 % (0.0-10.0); %Lymphocytes 3.8 % (21.0-51.0); %Monocytes 2.6 % (0.0-10.0); %Neutrophils 93.4 % (42.0-75.0); Hemoglobin 9.7 g/dL (12.0-16.0); Mean Corpuscular HGB CONC 31.3 g/dL (32.0-36.0); Mean Corpuscular Hemoglobin 29.7 pg (27.0-31.0); Mean Corpuscular Volume 95.1 fL (78.0-98.0); Mean Platelet Volume 8.1 fL (7.4-10.4); Platelet Count 236 thou/uL (130-400); RBC Distribution Width 15.1 % (11.5-14.5); Red Blood Cell (RBC) Count 3.26 mill/uL (4.20-5.40); White Blood Cell (WBC) Count 10.5 thou/uL (4.8-10.8)
[2020-05-22 04:19] LABS: Anion Gap 14 mmol/L (10-20); BUN (Urea Nitrogen) 22 mg/dL (9.8-20.1); Calc. Creatinine Clearance 88 mL/min (70-130); Carbon Dioxide 30 mmol/L (22-29); Chloride 99 mmol/L (98-107); Estimated GFR-MDRD 80; Glucose 165 mg/dL (70-105); Potassium 3.4 mmol/L (3.5-5.1); Sodium 140 mmol/L (136-145)
[2020-05-22] MEDS: Levothyroxine Sodium 50 MCG TAB PO SCH (05:47)
[2020-05-22] MEDS: Mometasone 200 MCG/Formoterol 5 MCG 120 PUFF INHALER INH SCH ×2 (07:10→18:53)
[2020-05-22] MEDS: Morphine ER 15 MG TAB PO SCH ×2 (08:10→20:39)
[2020-05-22] MEDS: Lidocaine 5% Patch TD SCH (08:10)
[2020-05-22] MEDS: Cholecalciferol 1,000 UNITS (25 MCG) TAB PO SCH (08:11)
[2020-05-22] MEDS: Ascorbic Acid 500 mg Chewable Tablet PO SCH (08:11)
[2020-05-22] MEDS: Multivit, Therapeutic 1 TAB PO SCH (08:11)
[2020-05-22] MEDS: guaiFENesin ER 600 MG TAB PO SCH ×2 (08:11→20:40)
[2020-05-22] MEDS: Venlafaxine HCl XR 75 MG CAP PO SCH (08:11)
[2020-05-22] MEDS: Venlafaxine HCl XR 150 MG CAP PO SCH (08:11)
[2020-05-22] MEDS: Fish Oil 1,000 MG CAP PO SCH ×2 (08:11→20:38)
[2020-05-22] MEDS: Cyanocobalamin (Vitamin B-12) 1,000 MCG TAB PO SCH (08:11)
[2020-05-22] MEDS: Pantoprazole 40 MG GRANULES PACKET PO SCH (08:12)
[2020-05-22] MEDS ORDERED: Bumetanide 1 MG/4 ML VIAL IVP SCH (08:30)
[2020-05-22] MEDS ORDERED: Potassium Chloride 20 MEQ TAB PO SCH (08:30)
[2020-05-22] MEDS: busPIRone HCl 10 MG TAB PO SCH ×3 (09:12→20:37)
[2020-05-22] MEDS: Morphine 2 MG/ML VIAL SLOW IVP PRN ×2 (11:48→19:43)
--- NOTE | 2020-05-22 12:31 | CT ---
CT HEAD WITHOUT IV CONTRAST COMPARISON: 05/21/2020 HISTORY: Unwitnessed fall last night. Subarachnoid hemorrhage. Patient unable to stop shaking. TECHNIQUE: Axial CT imaging at 5 mm intervals from vertex through skull base without contrast FINDINGS: Again noted is the linear oriented area of increased density in the right sylvian fissure which is in the expected location of the M2 segment right middle cerebral artery.. There has been no interval development of intraparenchymal or extra-axial hemorrhage. There is no evidence of an acute infarctio n, mass effect, or midline shift. The ventricular system is normal in size, shape, and position. Small air-fluid level right maxillary antrum is again present. Osseous structures appear intact. IMPRESSION: 1. No acute intracranial abnormality demonstrated. 2. Stable focus of increased density right sylvian fissure. This has more of a linear appearance on t he current study. This is likely related to increased density within a vessel as opposed to subarachnoid hemorrhage. As recommended on the prior study, if the patient is having strokelike sympt oms, MRI would be beneficial for further evaluation. There has been no interval change from prior study.
[2020-05-22] MEDS: ALPRAZolam 0.5 MG TAB PO PRN (13:26)
--- NOTE | 2020-05-22 13:56 | EKG ---
Test Reason : SOB Blood Pressure : / mmHG Vent. Rate : 083 BPM Atrial Rate : 083 BPM P-R Int : 122 ms QRS Dur : 076 ms QT Int : 368 ms P-R-T Axes : 054 -10 029 degrees QTc Int : 432 ms Normal sinus rhythm Possible Left atrial enlargement RSR' or QR pattern in V1 suggests right ventricular conduction delay Borderline ECG Confirmed by LALA KENDRICK DO ([id number]), junior legal secretary PHOENIX CHRISTIAN ([id number]) on 05/22/2020 1:55:58 PM Referred By: MIREILLE Confirmed By:LALA KENDRICK DO
--- NOTE | 2020-05-22 14:48 | PDOC.HOSPP ---
- Subjective Encounter Date: 05/22/20 Subjective: The patient sustained a fall yesterday and a subsequent CT scan showed possible subarachnoid hemorrhage. A follow-up CT scan did not show any abnormality. The patient is still complaining of shortness of breath and unable to lay flat. - Objective Vital Signs & Weight: Vital Signs (12 hours) Temp Pulse Resp BP Pulse Ox 05/22/20 14:14 100 18 05/22/20 12:31 98.1 F 108 H 18 106/73 94 L 05/22/20 10:30 100 16 05/22/20 07:34 97.6 F 89 18 131/74 94 L 05/22/20 07:10 80 12 05/22/20 07:05 80 20 05/22/20 03:48 98.2 F 86 20 152/82 H 94 L Weight Weight 159 lb 6 oz Most Recent Monitor Data Heart Rate from ECG 89 NIBP 145/85 NIBP BP-Mean 105 Respiration from ECG 43 SpO2 95 I&O: 05/21/20 05/22/20 05/23/20 06:59 06:59 06:59 Intake Total 3645 2460 Output Total 1715 1692 810 Balance 1930 768 -810 Result Diagrams: 05/22/20 03:55 05/22/20 03:55 Hospitalist ROS - Medication Medications: Active Medications Generic Name Dose Route Start Last Admin Trade Name Freq PRN Reason Stop Dose Admin Albuterol/Ipratropium 3 ml 05/21/20 15:00 05/22/20 14:14 Ipratropium/Albuterol Sulfate 3 Ml Neb NEB 3 ml [id number] DAVE Administration Albuterol/Ipratropium 3 ml 05/21/20 14:31 05/22/20 07:05 Ipratropium/Albuterol Sulfate 3 Ml Neb NEB 3 ml Q4H PRN Administration SOB &/or Wheezing Alprazolam 0.5 mg 05/19/20 19:41 05/22/20 13:26 Alprazolam 0.5 Mg Tab PO 0.5 mg TID PRN Administration Anxiety Ascorbic Acid 1,000 mg 05/20/20 09:00 05/22/20 08:11 Ascorbic Acid 500 Mg Chewable Tablet PO 1,000 mg DAILY DAVE Administration Atorvastatin Calcium 10 mg 05/19/20 21:00 05/21/20 20:56 Atorvastatin Calcium 10 Mg Tab PO 10 mg HS DAVE Administration Buspirone HCl 15 mg 05/19/20 21:00 05/22/20 09:12 Buspirone Hcl 10 Mg Tab PO 15 mg TID DAVE Administration Cholecalciferol 1,000 units 05/20/20 09:00 05/22/20 08:11 Cholecalciferol 1,000 Units (25 Mcg) Tab PO 1,000 units DAILY DAVE Administration Cyanocobalamin 1,000 mcg 05/20/20 09:00 05/22/20 08:11 Cyanocobalamin (Vitamin B-12) 1,000 Mcg Tab PO 1,000 mcg DAILY DAVE Administration Fish Oil 2,000 mg 05/21/20 21:00 05/22/20 08:11 Fish Oil 1,000 Mg Cap PO 2,000 mg BID DAVE Administration Guaifenesin 600 mg 05/20/20 09:00 05/22/20 08:11 Guaifenesin Er 600 Mg Tab PO 600 mg Q12HR DAVE Administration Norepinephrine Bitartrate 250 mls @ 0 mls/hr 05/19/20 15:06 05/19/20 19:42 Levophed IVPB 250 mls PRN PRN Administration To maintain MAP > 65 Protocol Titrate Piperacillin Sod/Tazobactam 100 mls @ 200 mls/hr 05/19/20 23:59 05/22/20 11:49 Sod 3.375 gm/ Sodium Chloride IVPB 100 mls Q6HR DAVE Administration Ketorolac Tromethamine 15 mg 05/21/20 13:00 05/22/20 03:47 Ketorolac Tromethamine 30 Mg/Ml Vial IVP 05/26/20 13:01 15 mg Q6H PRN Administration Pain Levothyroxine Sodium 50 mcg 05/20/20 06:00 05/22/20 05:47 Levothyroxine Sodium 50 Mcg Tab PO 50 mcg 0600 DAVE Administration Lidocaine 1 patch 05/21/20 09:30 05/22/20 08:10 Lidocaine 5% Patch TD 1 patch 0930 DAVE Administration Methylprednisolone Sodium Succinate 40 mg 05/19/20 18:00 05/22/20 11:49 Methylprednisolone Sod Succ 40 Mg Vial IVP 40 mg Q6HR DAVE Administration Mirtazapine 30 mg 05/19/20 21:00 05/21/20 21:09 Mirtazapine 30 Mg Tab PO 30 mg HS DAVE Administration Miscellaneous Medication 1 each 05/21/20 21:30 05/21/20 20:56 Lidocaine Patch Removal 1 Each TOP Not Given 2129 DAVE Mometasone Furoate/Formoterol Fumar 2 puff 05/20/20 18:30 05/22/20 07:10 Mometasone 200 Mcg/Formoterol 5 Mcg 120 Puff Inhaler INH 2 puff BID-RT DAVE Administration Morphine Sulfate 2 mg 05/19/20 19:45 05/22/20 11:48 Morphine 2 Mg/Ml Vial SLOW IVP 2 mg Q4H PRN Administration Severe Pain (7-10) Morphine Sulfate 15 mg 05/20/20 21:00 05/22/20 08:10 Morphine Er 15 Mg Tab PO 15 mg Q12HR DAVE Administration Morphine Sulfate 10 mg 05/20/20 16:35 05/22/20 06:17 Morphine Ir 10 Mg/5 Ml Udcup PO 10 mg Q4H PRN Administration Severe Pain (7-10) Multivitamins 1 tab 05/20/20 09:00 05/22/20 08:11 Multivit, Therapeutic 1 Tab PO 1 tab DAILY DAVE Administration Nicotine 21 mg 05/19/20 18:00 05/21/20 17:17 Nicotine 21 Mg Patch TD 21 mg 1800 DAVE Administration Pantoprazole Sodium 40 mg 05/20/20 09:00 05/22/20 08:12 Pantoprazole 40 Mg Granules Packet PO 40 mg DAILY DAVE Administration Sodium Chloride 10 ml 05/19/20 21:00 05/22/20 08:12 Flush - Normal Saline 10 Ml Syringe IVF 10 ml Q12HR DAVE Administration Sodium Chloride 10 ml 05/19/20 20:00 05/22/20 05:49 Flush - Normal Saline 10 Ml Syringe IVF 10 ml PRN PRN Administration Saline Flush Trazodone HCl 100 mg 05/19/20 21:00 05/21/20 20:55 Trazodone Hcl 50 Mg Tab PO 100 mg HS DAVE Administration Venlafaxine HCl 75 mg 05/20/20 09:00 05/22/20 08:11 Venlafaxine Hcl Xr 75 Mg Cap PO 75 mg DAILY DAVE Administration Venlafaxine HCl 150 mg 05/20/20 09:00 05/22/20 08:11 Venlafaxine Hcl Xr 150 Mg Cap PO 150 mg DAILY DAVE Administration - Exam General Appearance: awake alert ENT: normocephalic atraumatic Neck: supple, no JVD Respiratory: normal chest expansion, no tachypnea Gastrointestinal: soft, non-tender Neurological: cranial nerve grossly intact, no focal deficits Hosp A/P (1) Metastatic lung cancer (metastasis from lung to other site) Code(s): C34.90 - MALIGNANT NEOPLASM OF UNSP PART OF UNSP BRONCHUS OR LUNG Status: Acute (2) Acute respiratory failure with hypoxia and hypercapnia Code(s): J96.01 - ACUTE RESPIRATORY FAILURE WITH HYPOXIA; J96.02 - ACUTE RESP IRATORY FAILURE WITH HYPERCAPNIA Status: Acute (3) Pneumonia Code(s): J18.9 - PNEUMONIA, UNSPECIFIED ORGANISM Status: Acute (4) Volume overload Code(s): E87.70 - FLUID OVERLOAD, UNSPECIFIED Status: Acute (5) HTN (hypertension) Code(s): I10 - ESSENTIAL (PRIMARY) HYPERTENSION Status: Chronic (6) Hypothyroidism Code(s): E03.9 - HYPOTHYROIDISM, UNSPECIFIED Status: Chronic (7) History of DVT (deep vein thrombosis) Code(s): Z86.718 - PERSONAL HISTORY OF OTHER VENOUS THROMBOSIS AND EMBOLISM Status: Acute - Plan The patient is hypoxic due to combination of lung cancer, COPD, and volume overload. I will attempt to diurese her today and see if that helps in her ability to lay flat. Palliative care were consulted due to her advanced malignancy. Oncology on board. Eliquis was placed on hold due to suspected subarachnoid hemorrhage but since the repeat study was within normal limits I will restart it.
[2020-05-22] MEDS: Nicotine 21 MG PATCH TD SCH (17:43)
--- NOTE | 2020-05-22 18:41 | PRG ---
DATE OF SERVICE: 05/22/2020 SUBJECTIVE: Ms. Malloy still has significant dyspnea, especially when she attempts to lie flat. She states that she tested herself today and was able to lie supine for 17 minutes. She relates to me that she is going to need at least 1 hour supine to be a candidate for radiation therapy. She denies cough or sputum. She does admit that she has smoked up until the time of this admission. OBJECTIVE: VITAL SIGNS: Blood pressure 124/68, heart rate 105, pulse ox 94% on 2 L oxygen. GENERAL: She is a 60-year-old female. She is moderately dyspneic with increased work of breathing and short sentences. She is alert and oriented. NECK: Shows no palpable adenopathy. LUNGS: Show rhonchi, but no wheezing or rales. There is no dullness. HEART: Regular rate and rhythm with resting tachycardia. ABDOMEN: Soft. There is no organomegaly. EXTREMITIES: She has 1+ edema. LABORATORY DATA: White count 10,500, hemoglobin is 9.7 with hematocrit of 31, and platelets of 236. Chemistry today includes sodium 140, potassium 3.4, chloride 99, CO2 is 30, BUN is 22, creatinine 0.7. IMPRESSION: 1. Metastatic non-small cell (adeno) carcinoma of the lung. She has an advanced stage IV disease. She is not capable of tolerating radiation at this time due to severe dyspnea and inability to lie supine. Chemotherapy has not been recommended at this juncture. 2. Severe chronic obstructive pulmonary disease with active smoking until the time of admission. 3. Anxiety. RECOMMENDATIONS: We will continue current therapy with the goal that she might be able to tolerate supine positioning long enough to receive radiation therapy. I am not particularly optimistic about this. I have again discussed with her end of life measures. She is aware that she has terminal cancer regardless of her ability to tolerate chemotherapy or other treatment. I have told her that if she ends up on a ventilator, it is extremely unlikely that she will be able to wean from it. This is in part due to the advancing nature of her COPD as well as the advancing nature of her malignancy and inability to receive any treatment while she is on life support. I have asked that she revisits this issue with her family. Job ID: [id number]
[2020-05-22] MEDS: traZODone HCl 50 MG TAB PO SCH (20:36)
[2020-05-22] MEDS: Atorvastatin Calcium 10 MG TAB PO SCH (20:37)
[2020-05-22] MEDS: Apixaban 5 MG TAB PO SCH (20:37)
[2020-05-22] MEDS: Mirtazapine 30 MG TAB PO SCH (20:39)
[2020-05-22] MEDS: Loperamide HCl 2 MG CAP PO PRN ×2 (20:40→22:20)
[2020-05-22] MEDS: Lidocaine Patch Removal 1 EACH TOP SCH (20:51)
[2020-05-22] MEDS ORDERED: Apixaban 5 MG TAB PO SCH (21:00)
[2020-05-22] MEDS ORDERED: Fluconazole In NaCl,Iso-Osm 800 MG in Premix Bag 1 BAG IVPB SCH (22:45)
[2020-05-23] MEDS: ALPRAZolam 0.5 MG TAB PO PRN ×2 (00:06→16:32)
[2020-05-23] MEDS: Loperamide HCl 2 MG CAP PO PRN ×2 (00:06→04:35)
[2020-05-23] MEDS: Ketorolac Tromethamine 30 MG/ML VIAL IVP PRN ×2 (04:35→15:39)
[2020-05-23] MEDS: Piperacillin/Tazobactam 3.375 GM in Sodium Chloride 0.9% 100 ML IVPB SCH ×3 (05:54→17:58)
[2020-05-23] MEDS: Morphine 2 MG/ML VIAL SLOW IVP PRN ×2 (05:54→10:44)
[2020-05-23] MEDS: methylPREDNISolone Sod Succ 40 MG VIAL IVP SCH ×3 (05:54→17:58)
[2020-05-23] MEDS: Levothyroxine Sodium 50 MCG TAB PO SCH (06:03)
[2020-05-23 06:15] LABS: #Lymphocytes 0.4 thou/uL (1.20-3.40); #Monocytes 0.4 thou/uL (0.11-0.59); #Neutrophils 8.3 thou/uL (1.40-6.50); %Eosinophils 0.1 % (0.0-10.0); %Lymphocytes 3.9 % (21.0-51.0); %Monocytes 4.1 % (0.0-10.0); %Neutrophils 91.9 % (42.0-75.0); Hemoglobin 8.1 g/dL (12.0-16.0); Mean Corpuscular HGB CONC 31.7 g/dL (32.0-36.0); Mean Corpuscular Hemoglobin 29.5 pg (27.0-31.0); Mean Corpuscular Volume 93.3 fL (78.0-98.0); Mean Platelet Volume 8.8 fL (7.4-10.4); Platelet Count 207 thou/uL (130-400); RBC Distribution Width 15.7 % (11.5-14.5); Red Blood Cell (RBC) Count 2.76 mill/uL (4.20-5.40)
[2020-05-23] MEDS: Mometasone 200 MCG/Formoterol 5 MCG 120 PUFF INHALER INH SCH ×2 (06:15→18:59)
[2020-05-23 06:34] LABS: Anion Gap 14 mmol/L (10-20); BUN (Urea Nitrogen) 31 mg/dL (9.8-20.1); Calc. Creatinine Clearance 92 mL/min (70-130); Calcium 8.4 mg/dL (7.8-10.44); Carbon Dioxide 33 mmol/L (22-29); Chloride 95 mmol/L (98-107); Estimated GFR-MDRD 80; Glucose 149 mg/dL (70-105); Sodium 139 mmol/L (136-145)
[2020-05-23 06:46] LABS: Potassium 2.9 mmol/L (3.5-5.1)
[2020-05-23] MEDS: Potassium Chloride 20 MEQ TAB PO SCH ×2 (07:34→11:52)
[2020-05-23] MEDS: Lidocaine 5% Patch TD SCH (08:37)
[2020-05-23] MEDS: busPIRone HCl 10 MG TAB PO SCH ×3 (08:38→20:39)
[2020-05-23] MEDS: Venlafaxine HCl XR 150 MG CAP PO SCH (08:40)
[2020-05-23] MEDS: Fish Oil 1,000 MG CAP PO SCH ×2 (08:40→20:05)
[2020-05-23] MEDS: Apixaban 5 MG TAB PO SCH ×2 (08:40→20:04)
[2020-05-23] MEDS: Multivit, Therapeutic 1 TAB PO SCH (08:40)
[2020-05-23] MEDS: Cyanocobalamin (Vitamin B-12) 1,000 MCG TAB PO SCH (08:40)
[2020-05-23] MEDS: guaiFENesin ER 600 MG TAB PO SCH ×2 (08:41→20:05)
[2020-05-23] MEDS: Ascorbic Acid 500 mg Chewable Tablet PO SCH (08:41)
[2020-05-23] MEDS: Pantoprazole 40 MG GRANULES PACKET PO SCH (08:41)
[2020-05-23] MEDS: Cholecalciferol 1,000 UNITS (25 MCG) TAB PO SCH (08:41)
[2020-05-23] MEDS: Venlafaxine HCl XR 75 MG CAP PO SCH (08:41)
[2020-05-23] MEDS: Morphine ER 15 MG TAB PO SCH ×2 (08:41→20:05)
--- NOTE | 2020-05-23 14:52 | PDOC.HOSPP ---
- Subjective Encounter Date: 05/23/20 - Objective Vital Signs & Weight: Vital Signs (12 hours) Temp Pulse Resp BP Pulse Ox 05/23/20 10:16 88 16 05/23/20 08:00 97.4 F L 100 20 138/67 90 L 05/23/20 06:05 78 16 05/23/20 04:02 95 Weight Weight 160 lb 6 oz Most Recent Monitor Data Heart Rate from ECG 89 NIBP 145/85 NIBP BP-Mean 105 Respiration from ECG 43 SpO2 95 I&O: 05/22/20 05/23/20 05/24/20 06:59 06:59 06:59 Intake Total 2460 900 1000 Output Total 1692 814 Balance 047 37 3727 Result Diagrams: 05/23/20 06:00 05/23/20 06:00 Hospitalist ROS - Medication Medications: Active Medications Generic Name Dose Route Start Last Admin Trade Name Freq PRN Reason Stop Dose Admin Albuterol/Ipratropium 3 ml 05/21/20 15:00 05/23/20 10:16 Ipratropium/Albuterol Sulfate 3 Ml Neb NEB 3 ml [id number] DAVE Administration Albuterol/Ipratropium 3 ml 05/21/20 14:31 05/23/20 02:23 Ipratropium/Albuterol Sulfate 3 Ml Neb NEB 3 ml Q4H PRN Administration SOB &/or Wheezing Alprazolam 0.5 mg 05/19/20 19:41 05/23/20 00:06 Alprazolam 0.5 Mg Tab PO 0.5 mg TID PRN Administration Anxiety Apixaban 5 mg 05/22/20 21:00 05/23/20 08:40 Apixaban 5 Mg Tab PO 5 mg BID DAVE Administration Ascorbic Acid 1,000 mg 05/20/20 09:00 05/23/20 08:41 Ascorbic Acid 500 Mg Chewable Tablet PO Not Given DAILY DAVE Atorvastatin Calcium 10 mg 05/19/20 21:00 05/22/20 20:37 Atorvastatin Calcium 10 Mg Tab PO 10 mg HS DAVE Administration Buspirone HCl 15 mg 05/19/20 21:00 05/23/20 08:38 Buspirone Hcl 10 Mg Tab PO 15 mg TID DAVE Administration Cholecalciferol 1,000 units 05/20/20 09:00 05/23/20 08:41 Cholecalciferol 1,000 Units (25 Mcg) Tab PO Not Given DAILY DAVE Cyanocobalamin 1,000 mcg 05/20/20 09:00 05/23/20 08:40 Cyanocobalamin (Vitamin B-12) 1,000 Mcg Tab PO 1,000 mcg DAILY DAVE Administration Fish Oil 2,000 mg 05/21/20 21:00 05/23/20 08:40 Fish Oil 1,000 Mg Cap PO 2,000 mg BID DAVE Administration Guaifenesin 600 mg 05/20/20 09:00 05/23/20 08:41 Guaifenesin Er 600 Mg Tab PO 600 mg Q12HR DAVE Administration Norepinephrine Bitartrate 250 mls @ 0 mls/hr 05/19/20 15:06 05/19/20 19:42 Levophed IVPB 250 mls PRN PRN Administration To maintain MAP > 65 Protocol Titrate Piperacillin Sod/Tazobactam 100 mls @ 200 mls/hr 05/19/20 23:59 05/23/20 11:52 Sod 3.375 gm/ Sodium Chloride IVPB 100 mls Q6HR DAVE Administration Ketorolac Tromethamine 15 mg 05/21/20 13:00 05/23/20 04:35 Ketorolac Tromethamine 30 Mg/Ml Vial IVP 05/26/20 13:01 15 mg Q6H PRN Administration Pain Levothyroxine Sodium 50 mcg 05/20/20 06:00 05/23/20 06:03 Levothyroxine Sodium 50 Mcg Tab PO 50 mcg 0600 DAVE Administration Lidocaine 1 patch 05/21/20 09:30 05/23/20 08:37 Lidocaine 5% Patch TD 1 patch 0930 DAVE Administration Loperamide HCl 2 mg 05/22/20 20:29 05/23/20 04:35 Loperamide Hcl 2 Mg Cap PO 2 mg PRN PRN Administration Diarrhea/Loose Stools Methylprednisolone Sodium Succinate 40 mg 05/19/20 18:00 05/23/20 11:52 Methylprednisolone Sod Succ 40 Mg Vial IVP 40 mg Q6HR DAVE Administration Mirtazapine 30 mg 05/19/20 21:00 05/22/20 20:39 Mirtazapine 30 Mg Tab PO 30 mg HS DAVE Administration Miscellaneous Medication 1 each 05/21/20 21:30 05/22/20 20:51 Lidocaine Patch Removal 1 Each TOP Not Given 2129 DAVE Mometasone Furoate/Formoterol Fumar 2 puff 05/20/20 18:30 05/23/20 06:15 Mometasone 200 Mcg/Formoterol 5 Mcg 120 Puff Inhaler INH 2 puff BID-RT DAVE Administration Morphine Sulfate 2 mg 05/19/20 19:45 05/23/20 10:44 Morphine 2 Mg/Ml Vial SLOW IVP 2 mg Q4H PRN Administration Severe Pain (7-10) Morphine Sulfate 15 mg 05/20/20 21:00 05/23/20 08:41 Morphine Er 15 Mg Tab PO 15 mg Q12HR DAVE Administration Morphine Sulfate 10 mg 05/20/20 16:35 05/22/20 23:59 Morphine Ir 10 Mg/5 Ml Udcup PO 10 mg Q4H PRN Administration Severe Pain (7-10) Multivitamins 1 tab 05/20/20 09:00 05/23/20 08:40 Multivit, Therapeutic 1 Tab PO 1 tab DAILY DAVE Administration Nicotine 21 mg 05/19/20 18:00 05/22/20 17:43 Nicotine 21 Mg Patch TD 21 mg 1800 DAVE Administration Pantoprazole Sodium 40 mg 05/20/20 09:00 05/23/20 08:41 Pantoprazole 40 Mg Granules Packet PO 40 mg DAILY DAVE Administration Sodium Chloride 10 ml 05/19/20 21:00 05/23/20 08:42 Flush - Normal Saline 10 Ml Syringe IVF Not Given Q12HR DAVE Sodium Chloride 10 ml 05/19/20 20:00 05/23/20 05:53 Flush - Normal Saline 10 Ml Syringe IVF 10 ml PRN PRN Administration Saline Flush Trazodone HCl 100 mg 05/19/20 21:00 05/22/20 20:36 Trazodone Hcl 50 Mg Tab PO 100 mg HS DAVE Administration Venlafaxine HCl 75 mg 05/20/20 09:00 05/23/20 08:41 Venlafaxine Hcl Xr 75 Mg Cap PO 75 mg DAILY DAVE Administration Venlafaxine HCl 150 mg 05/20/20 09:00 05/23/20 08:40 Venlafaxine Hcl Xr 150 Mg Cap PO 150 mg DAILY DAVE Administration - Exam General Appearance: awake alert Neck: supple, no JVD Heart: RRR Respiratory: normal chest expansion, rhonchi Neurological: cranial nerve grossly intact, no focal deficits Hosp A/P (1) Metastatic lung cancer (metastasis from lung to other site) Code(s): C34.90 - MALIGNANT NEOPLASM OF UNSP PART OF UNSP BRONCHUS OR LUNG Status: Acute (2) Acute respiratory failure with hypoxia and hypercapnia Code(s): J96.01 - ACUTE RESPIRATORY FAILURE WITH HYPOXIA; J96.02 - ACUTE RESPIRATORY FAILURE WITH HYPERCAPNIA Status: Acute (3) Pneumonia Code(s): J18.9 - PNEUMONIA, UNSPECIFIED ORGANISM Status: Acute (4) Volume overload Code(s): E87.70 - FLUID OVERLOAD, UNSPECIFIED Status: Acute (5) HTN (hypertension) Code(s): I10 - ESSENTIAL (PRIMARY) HYPERTENSION Status: Chronic (6) Hypothyroidism Code(s): E03.9 - HYPOTHYROIDISM, UNSPECIFIED Status: Chronic (7) History of DVT (deep vein thrombosis) Code(s): Z86.718 - PERSONAL HISTORY OF OTHER VENOUS THROMBOSIS AND EMBOLISM Status: Acute - Plan The patient is hypoxic due to combination of lung cancer, COPD, and volume overload. She is tolerating diuresis without worsening kidney function. We will admission and lower dose of Bumex today. Replace potassium. Palliative care were consulted due to her advanced malignancy. Oncology on board. Eliquis was placed on hold due to suspected subarachnoid hemorrhage but since the repeat study was within normal limits it was restarted.
[2020-05-23] MEDS ORDERED: Bumetanide 1 MG/4 ML VIAL IVP SCH (15:00)
[2020-05-23 16:09] LABS: Potassium 3.4 mmol/L (3.5-5.1)
[2020-05-23] MEDS: Morphine IR 10 MG/5 ML UDCUP PO PRN ×2 (16:32→20:40)
[2020-05-23] MEDS: Nicotine 21 MG PATCH TD SCH (17:58)
--- NOTE | 2020-05-23 20:00 | PRG ---
DATE OF SERVICE: 05/23/2020 SUBJECTIVE: Ms. Malloy is about the same as she was yesterday. She still has paroxysms of shortness of breath and associated panic. She is practicing pursed lip breathing and relaxation techniques. She has repeated attempts at being supine to stimulate what she would need for radiation therapy, but can stay supine no longer than 20 minutes. She has intermittent cough with a tickle sensation in her chest. This is associated with chest soreness and worsened shortness of breath. Unfortunately, this is probably a response to her chest tumor. Her is in the room, and I have had a long conversation with 2 of them about her tumor. We have talked about radiation and chemotherapy in associated risks and benefits hopefully to include significant reduction in tumor burden, although probably not to be curative. I have again asked about the DNR status. I have not gotten a formal answer. I have told them that it certainly does not need to be done today, but does need to be discussed and probably, it was best done at home in a noncrisis setting. PHYSICAL EXAMINATION: VITAL SIGNS: Blood pressure today 172/77, saturation 91% on oxygen 2.5 L, and she is afebrile. GENERAL: Not having acute distress during the period of my encounter. She has no palpable adenopathy. LUNGS: Show rhonchi, but no wheezing or rales. There is no dullness. HEART: Regular rate and rhythm. ABDOMEN: Soft. There is no organomegaly. LABORATORY DATA: White count today 9, hemoglobin 8 with hematocrit of 25.7, and platelet count 207,000. Chemistry today notable for potassium of 2.9. Remaining panel is negative. IMPRESSION: 1. Non-small cell carcinoma of the lung, stage IV. 2. Severe chronic obstructive pulmonary disease. RECOMMENDATIONS: I would not anticipate significant radiographic clearing except over a longer period of time and only to the extent that the findings are related to bacterial pneumonia rather than to tumor or post obstruction. She is currently afebrile, and I would favor discharge on oral antibiotics. She should be on appropriate bronchodilators. If her condition improves to the point that she would tolerate chemo or radiation, that certainly could be pursued. In the absence of clinical improvement, it would maximize the time at home and otherwise unfortunately shortened predicted life span. Job ID: [id number]
[2020-05-23] MEDS: Atorvastatin Calcium 10 MG TAB PO SCH (20:05)
[2020-05-23] MEDS: Mirtazapine 30 MG TAB PO SCH (20:05)
[2020-05-23] MEDS: traZODone HCl 50 MG TAB PO SCH (20:05)
[2020-05-23] MEDS: Lidocaine Patch Removal 1 EACH TOP SCH (20:42)
[2020-05-24] MEDS: methylPREDNISolone Sod Succ 40 MG VIAL IVP SCH ×4 (00:39→17:35)
[2020-05-24] MEDS: Piperacillin/Tazobactam 3.375 GM in Sodium Chloride 0.9% 100 ML IVPB SCH ×4 (00:39→17:35)
[2020-05-24] MEDS: Morphine IR 10 MG/5 ML UDCUP PO PRN ×5 (01:50→21:41)
[2020-05-24] MEDS: ALPRAZolam 0.5 MG TAB PO PRN ×3 (01:51→21:40)
[2020-05-24] MEDS: Levothyroxine Sodium 50 MCG TAB PO SCH (05:17)
[2020-05-24] MEDS: Loperamide HCl 2 MG CAP PO PRN (05:17)
[2020-05-24 05:34] LABS: #Basophils 0.1 thou/uL (0.0-0.2); #Lymphocytes 0.7 thou/uL (1.20-3.40); #Monocytes 1.3 thou/uL (0.11-0.59); #Neutrophils 16.2 thou/uL (1.40-6.50); %Basophils 0.4 % (0.0-1.0); %Eosinophils 0.1 % (0.0-10.0); %Lymphocytes 3.9 % (21.0-51.0); %Neutrophils 88.6 % (42.0-75.0); Hemoglobin 7.7 g/dL (12.0-16.0); Mean Corpuscular HGB CONC 32.4 g/dL (32.0-36.0); Mean Corpuscular Volume 92.4 fL (78.0-98.0); Mean Platelet Volume 8.6 fL (7.4-10.4); Platelet Count 259 thou/uL (130-400); RBC Distribution Width 15.7 % (11.5-14.5); Red Blood Cell (RBC) Count 2.55 mill/uL (4.20-5.40); White Blood Cell (WBC) Count 18.3 thou/uL (4.8-10.8)
[2020-05-24 05:53] LABS: Anion Gap 13 mmol/L (10-20); BUN (Urea Nitrogen) 28 mg/dL (9.8-20.1); Calc. Creatinine Clearance 97 mL/min (70-130); Calcium 8.3 mg/dL (7.8-10.44); Carbon Dioxide 34 mmol/L (22-29); Chloride 95 mmol/L (98-107); Estimated GFR-MDRD 84; Glucose 141 mg/dL (70-105); Potassium 3.4 mmol/L (3.5-5.1); Sodium 139 mmol/L (136-145)
[2020-05-24] MEDS: Mometasone 200 MCG/Formoterol 5 MCG 120 PUFF INHALER INH SCH ×2 (07:41→19:09)
[2020-05-24] MEDS: busPIRone HCl 10 MG TAB PO SCH ×3 (08:22→20:12)
[2020-05-24] MEDS: Pantoprazole 40 MG GRANULES PACKET PO SCH (08:23)
[2020-05-24] MEDS: Venlafaxine HCl XR 150 MG CAP PO SCH (08:23)
[2020-05-24] MEDS: Multivit, Therapeutic 1 TAB PO SCH (08:23)
[2020-05-24] MEDS: Fish Oil 1,000 MG CAP PO SCH ×2 (08:23→20:10)
[2020-05-24] MEDS: Venlafaxine HCl XR 75 MG CAP PO SCH (08:23)
[2020-05-24] MEDS: guaiFENesin ER 600 MG TAB PO SCH ×2 (08:23→20:11)
[2020-05-24] MEDS: Apixaban 5 MG TAB PO SCH ×2 (08:23→20:12)
[2020-05-24] MEDS: Cyanocobalamin (Vitamin B-12) 1,000 MCG TAB PO SCH (08:23)
[2020-05-24] MEDS: Cholecalciferol 1,000 UNITS (25 MCG) TAB PO SCH (08:24)
[2020-05-24] MEDS: Morphine ER 15 MG TAB PO SCH ×2 (08:24→20:12)
[2020-05-24] MEDS: Ascorbic Acid 500 mg Chewable Tablet PO SCH (08:24)
[2020-05-24] MEDS: Lidocaine 5% Patch TD SCH (08:25)
[2020-05-24] MEDS: Morphine 2 MG/ML VIAL SLOW IVP PRN ×3 (10:27→20:08)
--- NOTE | 2020-05-24 14:32 | PDOC.MOPN ---
Interval History: ambulatory in room with O2. C/o back pain - Vital Signs Vital Signs: Vital Signs (12 hours) Temp Pulse Resp BP Pulse Ox 05/24/20 11:12 98 20 93 L 05/24/20 07:43 89 L 05/24/20 07:41 88 16 89 L 05/24/20 07:39 106 H 20 88 L 05/24/20 07:35 99.0 F 20 143/70 H 94 L Weight Weight 160 lb 3.2 oz Most Recent Monitor Data Heart Rate from ECG 89 NIBP 145/85 NIBP BP-Mean 105 Respiration from ECG 43 SpO2 95 - Physical Exam General: Alert HEENT: Atraumatic, PERRLA, EOMI, Mucous membr. moist/pink Lungs: Other (diminished) Cardiovascular: Regular rate Abdomen: Normal bowel sounds Extremities: No clubbing, No cyanosis, No edema, Normal pulses, No tenderness/swelling Neurological: Normal gait, Normal speech, Strength at 5/5 X4 ext, Normal tone, Sensation intact, Cranial nerves 3-12 NL, Reflexes 2+ - Labs Result Diagrams: 05/24/20 05:25 05/24/20 05:25 Lab results: Laboratory Results - last 24 hr 05/24/20 05:25: WBC 18.3 H, RBC 2.55 L, Hgb 7.7 L, Hct 23.6 L, MCV 92.4, MCH 30.0, MCHC 32.4, RDW 15.7 H, Plt Count 259, MPV 8.6, Neutrophils % 88.6 H, Neutrophils % (Manual) Not Reportable, Lymphocytes % 3.9 L, Monocytes % 7.0, Eosinophils % 0.1, Basophils % 0.4, Neutrophils # 16.2 H, Lymphocytes # 0.7 L, Monocytes # 1.3 H, Eosinophils # 0.0, Basophils # 0.1 05/24/20 05:25: Sodium 139, Potassium 3.4 L, Chloride 95 L, Carbon Dioxide 34 H, Anion Gap 13, BUN 28 H, Creatinine 0.71, Estimated GFR (MDRD) 84, Glucose 141 H, Calcium 8.3 05/23/20 15:45: Potassium 3.4 L Status: lab reviewed by me A/P - Problem (1) Metastatic lung cancer (metastasis from lung to other site) Current Visit: Yes Code(s): C34.90 - MALIGNANT NEOPLASM OF UNSP PART OF UNSP BRONCHUS OR LUNG Status: Acute - Plan Plan: 1. Unable to do xrt due to inability to lie flat 2. plan outpatient chemotherapy 3. continue pain management 4. ok to dc home from our perspective.
[2020-05-24] MEDS: Nicotine 21 MG PATCH TD SCH (17:38)
[2020-05-24] MEDS: traZODone HCl 50 MG TAB PO SCH (20:11)
[2020-05-24] MEDS: Atorvastatin Calcium 10 MG TAB PO SCH (20:12)
[2020-05-24] MEDS: Mirtazapine 30 MG TAB PO SCH (20:12)
[2020-05-24] MEDS: Lidocaine Patch Removal 1 EACH TOP SCH (21:42)
[2020-05-25] MEDS: methylPREDNISolone Sod Succ 40 MG VIAL IVP SCH ×2 (00:41→05:12)
[2020-05-25] MEDS: Piperacillin/Tazobactam 3.375 GM in Sodium Chloride 0.9% 100 ML IVPB SCH ×4 (00:44→17:26)
[2020-05-25] MEDS: Morphine 2 MG/ML VIAL SLOW IVP PRN ×3 (00:44→11:53)
[2020-05-25] MEDS: Morphine IR 10 MG/5 ML UDCUP PO PRN ×4 (01:19→14:04)
[2020-05-25] MEDS: Levothyroxine Sodium 50 MCG TAB PO SCH (05:12)
[2020-05-25 05:51] LABS: Anion Gap 14 mmol/L (10-20); BUN (Urea Nitrogen) 22 mg/dL (9.8-20.1); Calc. Creatinine Clearance 99 mL/min (70-130); Calcium 8.1 mg/dL (7.8-10.44); Carbon Dioxide 36 mmol/L (22-29); Chloride 91 mmol/L (98-107); Estimated GFR-MDRD 87; Glucose 135 mg/dL (70-105); Potassium 3.1 mmol/L (3.5-5.1); Sodium 138 mmol/L (136-145)
[2020-05-25 06:04] LABS: Band 10 % (5-11); Hemoglobin 6.6 g/dL (12.0-16.0); Lymphocytes 6 % (21-51); MDiff Complete? YES; Mean Corpuscular HGB CONC 32.5 g/dL (32.0-36.0); Mean Corpuscular Hemoglobin 30.7 pg (27.0-31.0); Mean Corpuscular Volume 94.5 fL (78.0-98.0); Mean Platelet Volume 8.9 fL (7.4-10.4); Monocytes 4 % (0-10); Neutrophil 80 % (42-75); Nucleated RBC 1 % (0); Platelet Count 234 thou/uL (130-400); Platelet Morphology Comment Appears Adequate; RBC Distribution Width 16.5 % (11.5-14.5); Red Blood Cell (RBC) Count 2.16 mill/uL (4.20-5.40); White Blood Cell (WBC) Count 15.1 thou/uL (4.8-10.8)
[2020-05-25] MEDS: guaiFENesin ER 600 MG TAB PO SCH (07:52)
[2020-05-25] MEDS: Venlafaxine HCl XR 150 MG CAP PO SCH (07:52)
[2020-05-25] MEDS: Cyanocobalamin (Vitamin B-12) 1,000 MCG TAB PO SCH (07:53)
[2020-05-25] MEDS: Apixaban 5 MG TAB PO SCH (07:53)
[2020-05-25] MEDS: Morphine ER 15 MG TAB PO SCH (07:53)
[2020-05-25] MEDS: Multivit, Therapeutic 1 TAB PO SCH (07:53)
[2020-05-25] MEDS: Fish Oil 1,000 MG CAP PO SCH (07:53)
[2020-05-25] MEDS: Pantoprazole 40 MG GRANULES PACKET PO SCH (07:53)
[2020-05-25] MEDS: Venlafaxine HCl XR 75 MG CAP PO SCH (07:53)
[2020-05-25] MEDS: Cholecalciferol 1,000 UNITS (25 MCG) TAB PO SCH (07:54)
[2020-05-25] MEDS: Ascorbic Acid 500 mg Chewable Tablet PO SCH (07:54)
[2020-05-25] MEDS: busPIRone HCl 10 MG TAB PO SCH ×2 (07:54→14:03)
[2020-05-25] MEDS: Mometasone 200 MCG/Formoterol 5 MCG 120 PUFF INHALER INH SCH ×2 (07:54→18:17)
[2020-05-25] MEDS: Lidocaine 5% Patch TD SCH (07:55)
[2020-05-25] MEDS ORDERED: Pantoprazole 40 MG GRANULES PACKET PO SCH (09:00)
[2020-05-25] MEDS ORDERED: Bumetanide 1 MG/4 ML VIAL IVP SCH (09:00)
[2020-05-25] MEDS: ALPRAZolam 0.5 MG TAB PO PRN (11:04)
[2020-05-25] MEDS: Nicotine 21 MG PATCH TD SCH (17:26)
[2020-05-25 18:19] VITALS: BP 150/83; TEMP 98.9
--- NOTE | 2020-05-26 01:55 | DIS ---
DATE OF ADMISSION: 05/19/2020 DATE OF DISCHARGE: 05/25/2020 DISCHARGE DIAGNOSES: 1. Metastatic lung cancer. 2. Acute respiratory failure with hypoxia and hypercarbia. 3. Pneumonia. 4. Volume overload. 5. Anemia due to blood loss. 6. Hypothyroidism. 7. History of deep venous thrombosis. 8. Gastrointestinal bleeding. DISCHARGE MEDICATIONS: 1. Augmentin 875/125 mg. The patient will take one tablet orally twice daily. 2. Eliquis has been placed on hold due to GI bleeding. The rest of the patient's discharge medications have not been changed. 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 The patient presented to the hospital with worsening shortness of breath, likely due to underlying malignancy with possibility of postobstructive pneumonia. The patient was managed with IV antibiotics and corticosteroids. There was also some component of volume overload and the patient was diuresed. This has led to stabilization of her condition. However, the patient was not able to lay flat consistently to be able to receive radiation therapy. Given the advanced stage of her malignancy, palliative approach was discussed and the patient agreed to continue with palliative chemotherapy and palliative care at home. Prior to discharge, the patient experienced worsening anemia and an episode of lower GI bleeding. Her anticoagulation was discontinued and the patient received blood transfusion to achieve hemoglobin level greater than 7. Job ID: [id number]
== END 2020-05-25 18:32 | disposition home or self-care (01) | DRG 871 ==
LOC: ERS 09:20 → CCU 17:28 → ONC 05-21 12:05
PROVIDERS: ADMIT Internal Medicine; ATTEND Internal Medicine
PROC: 02HV33Z Insertion of Infusion Device into Superior Vena Cava, Percutaneous Approach (ICD-10-PCS; principal; 2020-05-19)
PROC: 3E043XZ Introduction of Vasopressor into Central Vein, Percutaneous Approach (ICD-10-PCS; 2020-05-19)
PROC: 30233N1 Transfusion of Nonautologous Red Blood Cells into Peripheral Vein, Percutaneous Approach (ICD-10-PCS; 2020-05-25)
DX: A41.9 Sepsis, unspecified organism (principal); J96.21 Acute and chronic respiratory failure with hypoxia; J18.9 Pneumonia, unspecified organism; J96.22 Acute and chronic respiratory failure with hypercapnia; J44.0 Chronic obstructive pulmonary disease with (acute) lower respiratory infection; C34.92 Malignant neoplasm of unspecified part of left bronchus or lung; C79.72 Secondary malignant neoplasm of left adrenal gland; C79.71 Secondary malignant neoplasm of right adrenal gland; J44.1 Chronic obstructive pulmonary disease with (acute) exacerbation; R64 Cachexia; J98.11 Atelectasis; C78.1 Secondary malignant neoplasm of mediastinum; Z51.5 Encounter for palliative care; Z20.828 Contact with and (suspected) exposure to other viral communicable diseases; R65.20 Severe sepsis without septic shock; F41.9 Anxiety disorder, unspecified; F32.9 Major depressive disorder, single episode, unspecified; K21.9 Gastro-esophageal reflux disease without esophagitis; E78.5 Hyperlipidemia, unspecified; E87.70 Fluid overload, unspecified; E78.00 Pure hypercholesterolemia, unspecified; I10 Essential (primary) hypertension; Z90.710 Acquired absence of both cervix and uterus; Z90.49 Acquired absence of other specified parts of digestive tract; Z87.891 Personal history of nicotine dependence; Z88.8 Allergy status to other drugs, medicaments and biological substances; Z79.01 Long term (current) use of anticoagulants; Z79.899 Other long term (current) drug therapy; Z86.718 Personal history of other venous thrombosis and embolism; Z68.29 Body mass index [BMI] 29.0-29.9, adult
CPT/HCPCS: 36415; 36430; 36600; 70450; 71045; 80048; 80053; 81001; 82274; 82553; 82805; 83605; 83880; 84484; 85025; 85610; 85730; 86850; 86900; 86901; 87040; 87070; 87205; 93005; 93306; 94640; 94660; J0456; J0696; J1885; J2270; J2543; J2920; J3370; J3490; J7620; P9016; P9045; U0002

== ENCOUNTER 2020-05-29 09:23 | Inpatient (IN) | payer MEDICARE, OTHER ==
--- NOTE | 2020-05-29 10:06 | RAD ---
EXAM: Single view of the chest HISTORY: Lung cancer with hypoxia COMPARISON: 05/21/2020 FINDINGS: Single view of the chest shows an enlarged but stable cardiomediastinal silhouette. A larg e calcified mass projects over the right chest. Left perihilar opacities again seen which may represent a mass or infiltrate. There appear to be bilateral pleural effusions, left greater than rig ht. There is stable widening of the superior mediastinum. No acute osseous abnormality. IMPRESSION: 1. Left-sided infiltrate versus mass . 2. Bilateral pleural effusions
[2020-05-29 10:14] LABS: Hemoglobin 8.7 g/dL (12.0-16.0); Mean Corpuscular HGB CONC 33.2 g/dL (32.0-36.0); Mean Corpuscular Hemoglobin 31.3 pg (27.0-31.0); Mean Corpuscular Volume 94.1 fL (78.0-98.0); Mean Platelet Volume 9.6 fL (7.4-10.4); Platelet Count 225 thou/uL (130-400); RBC Distribution Width 16.9 % (11.5-14.5); White Blood Cell (WBC) Count 19.5 thou/uL (4.8-10.8)
[2020-05-29 10:20] LABS: INR-International Normal Ratio 1.1; PTT 27.9 sec (22.9-36.1); Prothrombin Time 14.5 sec (12.0-14.7)
[2020-05-29 10:33] LABS: Anisocytosis MODERATE=16-30 cells (100X) (0-5/hpf); Band 7 % (5-11); Lymphocytes 10 % (21-51); MDiff Complete? YES; Monocytes 7 % (0-10); Neutrophil 76 % (42-75); Poikilocytosis SLIGHT = 6-15 cells (100X) (0-5/hpf); Polychromasia MODERATE = 3-4 cells (100X) (0-2/hpf)
[2020-05-29 10:35] LABS: ALT (SGPT) 19 U/L (8-55); AST (SGOT) 24 U/L (5-34); Albumin 2.7 g/dL (3.5-5.0); Alkaline Phosphatase 66 U/L (40-110); BUN (Urea Nitrogen) 14 mg/dL (9.8-20.1); Bilirubin, Total 0.5 mg/dL (0.2-1.2); Calc. Creatinine Clearance 0 mL/min (70-130); Calcium 8.7 mg/dL (7.8-10.44); Estimated GFR-MDRD 47; Globulin 2.8 g/dL (2.4-3.5); Glucose 93 mg/dL (70-105); Protein, Total 5.5 g/dL (6.0-8.3)
[2020-05-29 10:44] LABS: Anion Gap 25 mmol/L (10-20); Carbon Dioxide 35 mmol/L (22-29); Potassium 2.5 mmol/L (3.5-5.1); Sodium 131 mmol/L (136-145)
[2020-05-29 10:45] LABS: Chloride 74 mmol/L (98-107)
--- NOTE | 2020-05-29 10:56 | CT ---
EXAM: CT brain without contrast HISTORY: COPD. Altered mental status. History of lung cancer COMPARISON: 05/22/2020 TECHNIQUE: Multiple contiguous axial images were obtained and a CT of the brain without contrast. FINDINGS: There are subtle scattered hypodensities in the subcortical and periventricular white matte r consistent with small vessel ischemic disease. There is no evidence of hydrocephalus, intracranial hemorrhage, or extra-axial fluid collection. There is a stable area of increased density along the right sylvian fissure insular cortex. The calvarium and overlying soft tissues are unremarkable. A trace amount of fluid is seen in the pos terior aspect of the right maxillary sinus. The other visualized paranasal sinuses and mastoid air cells are well aerated. IMPRESSION: No evidence of acute intracranial abnormality
[2020-05-29 11:00] LABS: CKMB 6.1 ng/mL (0-6.6)
[2020-05-29] MEDS ORDERED: Aspirin 325 MG TAB ONE (11:03)
[2020-05-29] MEDS ORDERED: Naloxone HCl 2 mg/2 ml Syringe ONE (11:03)
[2020-05-29] MEDS ORDERED: D5 1/2 NS w/40 mEq KCL 1,000 ML IV SCH (11:30)
[2020-05-29 14:45] LABS: Actual Bicarbonate (HCO3a) 39.7 mEq/L (22-28); Analyzer IN Cardio ER; Base Excess (BEa) 13.5 mEq/L (-2.0 to +3.0); Calcium, Ionized (arterial) 1.07 mmol/L (1.12-1.30); Carboxyhemoglobin (COHb) 0.3 gm% (0.0-3.0); Hemoglobin (Hb) 9.5 g/dL (12.0-16.0); O2 Tension (PaO2), arterial 76.5 mmHg (> 80.0); Potassium - ABG Lab 2.47 mmol/L (3.70-5.30); pH, Arterial 7.43 (7.35-7.45)
[2020-05-29 14:46] LABS: CO2 Tension 61.2 mmHg (35.0-45.0); Puncture Site RRAD
[2020-05-29] MEDS ORDERED: Senokot S 8.6-50 MG TAB PO PRN (15:03)
[2020-05-29] MEDS ORDERED: Ondansetron PF 4 MG/2 ML Vial IVP PRN (15:03)
[2020-05-29 15:14] LABS: Critical Call Chem Troponin I RESULT DECREASING; Troponin I 0.406 ng/mL (< 0.028)
[2020-05-29] MEDS ORDERED: methylPREDNISolone Sod Succ 40 MG VIAL IVP SCH (15:30)
[2020-05-29] MEDS ORDERED: Aspirin 325 mg Enteric Coated Tablet PO SCH (15:45)
[2020-05-29] MEDS ORDERED: Sodium Chloride 0.9% 500 ML IV SCH (16:45)
[2020-05-29] MEDS ORDERED: Electrolyte Replacement Protocol FS SCH (16:45)
[2020-05-29 16:48] LABS: Anion Gap 23 mmol/L (10-20); BUN (Urea Nitrogen) 14 mg/dL (9.8-20.1); Calc. Creatinine Clearance 0 mL/min (70-130); Calcium 8.3 mg/dL (7.8-10.44); Carbon Dioxide 33 mmol/L (22-29); Chloride 80 mmol/L (98-107); Estimated GFR-MDRD 59; Glucose 121 mg/dL (70-105); Potassium 3.6 mmol/L (3.5-5.1); Sodium 132 mmol/L (136-145)
[2020-05-29 17:01] LABS: Critical Call Chem Troponin I RESULT DECREASING; Troponin I 0.334 ng/mL (< 0.028)
[2020-05-29] MEDS ORDERED: Amiodarone 150 MG in Dextrose 5% in Water 100 ML IVPB SCH (17:15)
[2020-05-29] MEDS ORDERED: Amiodarone 450 MG in Dextrose 5% in Water 250 ML IVPB SCH (17:15)
[2020-05-29] MEDS ORDERED: Albumin 25% 25 GM/100 ML BOT IVPB SCH (17:17)
[2020-05-29] MEDS ORDERED: Vancomycin 1.5 GRAM/300 ML BAG 1.5 GM in Premix Bag 1 BAG IVPB SCH (17:45)
[2020-05-29] MEDS: Piperacillin/Tazobactam 4.5 GM in Sodium Chloride 0.9% 100 ML IVPB SCH ×2 (18:06→23:56)
[2020-05-29] MEDS: Mometasone 200 MCG/Formoterol 5 MCG 120 PUFF INHALER INH SCH (19:08)
[2020-05-29 19:09] VITALS: BMI 31.1
--- NOTE | 2020-05-29 20:19 | HP ---
CHIEF COMPLAINT: Shortness of breath. HISTORY OF PRESENT ILLNESS: The patient is a 60-year-old female who just was discharged from the hospital on 05/25, who comes back in for shortness of breath. The patient was diagnosed with a [id number] adenocarcinoma of the lung, metastatic. She is stage IV per notes. While she was in her previous hospital stay, radiation was recommended; however, the patient was unable to lie flat. At this time, the patient was discharged home on oxygen, she was at around 3 L per the family. The patient also has severe COPD. She comes in today to the hospital for worsening shortness of breath. The states that for the past couple of days, she has really not eaten very much. Last night, the patient was unable to sleep. She was very short of breath. Her oxygen was increased to 5 L. She seemed to be a little bit more comfortable at that time, and when her woke her up this morning, she was coherent; however, when she went to the bathroom, she appeared to be more confused and not feeling well, and at this time, EMS was called to bring her into the hospital. The patient was supposed to be seen by hospice nurse today, who did not. The patient had to come into the hospital prior to that visit. The patient denies any chest tightness or any nausea or vomiting. The patient has been on morphine long-acting twice a day and short-acting as needed. She did receive 2 p.r.n. doses, and in the ER, she was given some Narcan because she was found to be a little bit more drowsy than her baseline. PAST MEDICAL HISTORY: 1. She has a history of metastatic stage IV non-cell adenocarcinoma of the lung. 2. She has COPD, on oxygen. 3. Lower back pain. 4. Hypertension. PAST SURGICAL HISTORY: 1. She has a port that was placed. 2. Bronchoscopy. 3. Cholecystectomy. 4. Orthopedic knee surgery. ALLERGIES: SHE IS ALLERGIC TO LEVOFLOXACIN AND DIVALPROEX. HOME MEDICATIONS: As of the followin. Albuterol as needed. 2. Augmentin one b.i.d. 3. Ascorbic acid one p.o. daily. 4. Lisinopril 20 mg daily. 5. Multivitamin one p.o. daily. 6. Nicotine patch q.24. 7. Prednisone 20 mg daily. 8. Venlafaxine 150 mg daily. 9. Xanax 0.5 t.i.d. as needed. 10. Buspirone 50 mg t.i.d. 11. Floranex one tablet daily. 12. Levothyroxine 50 mcg p.o. daily. 13. Protonix 40 mg daily. 14. Simvastatin 20 mg daily. 15. Trazodone 100 mg p.o. nightly. FAMILY HISTORY: History of cancer in her family. SOCIAL HISTORY: She is a former smoker, smoked about more than 30 years. Denies any alcohol use or drug use. She lives with her . REVIEW OF SYSTEMS: All negative except for the ones mentioned above in the HPI. PHYSICAL EXAMINATION: VITAL SIGNS: As of the following; temperature of 98.8, blood pressure is 98/60, respirations 16, and she is 98% on 3 L. GENERAL: She is awake, alert, and oriented x3; however, she appears to be a little drowsy. CV: S1 and S2 present. No murmurs, rubs, or gallops. LUNGS: She has mild expiratory wheezing and rhonchi all over. ABDOMEN: Soft. Bowel sounds are present x2. Mild tenderness to the right upper and right lower quadrant. EXTREMITIES: She has no pitting edema. HEENT: The patient appears malnourished and sick. NEUROVASCULAR: There were no focal deficits noted. SKIN: No cuts, lesions, or bruises noted. LABORATORY RESULTS: As of the following: Her white count is 19.5, hemoglobin of 8.7, hematocrit of 26.3, and her platelets are 225. Chemistry: Sodium of 131, potassium of 2.5, BUN of 14, creatinine 1.17. Her troponins are mildly elevated at 0.501 and 0.406. Her BNP is 768. EKG, no significant acute ST elevation or depression noted. She had a chest x-ray done today and a brain CT. Her chest x-ray indicated left side infiltrate versus mass, bilateral pleural effusion, and her CT head was essentially normal from the read. ASSESSMENT AND PLAN: The patient is a 60-year-old female who presents to the hospital with complaints of shortness of breath. 1. Acute hypercapnic hypoxic respiratory failure. We will put the patient on BiPAP. Her ABG did indicate some elevated CO2. She is a little drowsy; however, she is easily arousable. We will get Pulmonology on board. She has a huge mass on her left lung. She has not been able to tolerate any radiation. She has not started chemotherapy. I did talk with the family extensively about code status on this patient regarding her current condition; however, the family was very indecisive in regard to a DNR versus a full code. As of now, I will keep her as a full code; however, I did express to them that her outcome would be very poor if she had to be intubated given her extensive disease. We will also start her on some steroids. We will give her some DuoNeb and I will start her on some broad-spectrum antibiotics. 2. Anemia. The patient during her previous hospitalization dropped significant hemoglobin and hematocrit. She was on Eliquis. However, given her drop in hemoglobin and hematocrit that was discontinued. I will currently hold off on that. We will check a stool for cold, however, even if it is positive, she is a high risk for any sort of procedure that will require sedation. Her anemia most likely will be managed very symptomatically and clinically. 3. Elevated troponins. She has had an echocardiogram during her previous hospitalization, which was a few weeks ago. Her ejection fraction at that time appeared to have good 60% to 65%. She did have a small pericardial effusion, but that was without tamponade. We will continue to monitor that. May have to recheck her echocardiogram or may require a CT for further evaluation. 4. Chronic obstructive pulmonary disease exacerbation. We will start her on some steroids and also DuoNeb. 5. Deep venous thrombosis prophylaxis. We will put the patient on sequential compression devices and also subcutaneously Lovenox. If her bleeding continues, may have to discontinue the Lovenox. She is at high risk of having clots given her underlying cancer also. Her overall prognosis is very fairly poor. She was supposed to be seen by hospice today; however, I do not think the family completely understands her whole situation. The family including the patient wants therapy; however, I do not think she will be able to tolerate this therapy. I will hold off on any of her pain medications since she was appeared to be drowsy. The drowsiness could be secondary to the hypercapnia also in combination with sedation and we will continue to monitor the patient. The patient also has significant anxiety. We will do p.r.n. Aureliax, which is her home medication as needed. Job ID: [id number]
[2020-05-29] MEDS: Atorvastatin Calcium 10 MG TAB PO SCH (20:36)
[2020-05-29] MEDS: methylPREDNISolone Sod Succ 40 MG VIAL IVP SCH (20:36)
[2020-05-29] MEDS: busPIRone HCl 10 MG TAB PO SCH (20:36)
[2020-05-29] MEDS: traZODone HCl 50 MG TAB PO SCH (20:37)
[2020-05-29] MEDS: Mirtazapine 30 MG TAB PO SCH (20:37)
[2020-05-29] MEDS ORDERED: Simvastatin 20 MG TAB PO SCH (21:00)
[2020-05-29] MEDS ORDERED: Famotidine/PF 20 mg/2ml Vial SLOW IVP SCH (21:00)
[2020-05-30 03:53] LABS: #Lymphocytes 0.4 thou/uL (1.20-3.40); #Monocytes 0.2 thou/uL (0.11-0.59); #Neutrophils 10.4 thou/uL (1.40-6.50); %Eosinophils 0.4 % (0.0-10.0); %Lymphocytes 3.3 % (21.0-51.0); %Monocytes 1.5 % (0.0-10.0); %Neutrophils 94.8 % (42.0-75.0); Mean Corpuscular HGB CONC 34.1 g/dL (32.0-36.0); Mean Corpuscular Hemoglobin 31.9 pg (27.0-31.0); Mean Corpuscular Volume 93.8 fL (78.0-98.0); Mean Platelet Volume 9.2 fL (7.4-10.4); Platelet Count 163 thou/uL (130-400); RBC Distribution Width 17.1 % (11.5-14.5); Red Blood Cell (RBC) Count 2.19 mill/uL (4.20-5.40)
[2020-05-30 04:14] LABS: Anion Gap 20 mmol/L (10-20); BUN (Urea Nitrogen) 12 mg/dL (9.8-20.1); Calc. Creatinine Clearance 71 mL/min (70-130); Calcium 8.1 mg/dL (7.8-10.44); Carbon Dioxide 36 mmol/L (22-29); Chloride 80 mmol/L (98-107); Estimated GFR-MDRD 61; Glucose 149 mg/dL (70-105); Sodium 133 mmol/L (136-145)
[2020-05-30 04:18] LABS: Potassium 2.6 mmol/L (3.5-5.1)
[2020-05-30] MEDS: Piperacillin/Tazobactam 4.5 GM in Sodium Chloride 0.9% 100 ML IVPB SCH ×4 (05:03→23:26)
[2020-05-30] MEDS: Potassium Chloride 40 MEQ in Sodium Chloride 0.9% 250 ML 250 ML IVPB SCH ×2 (05:35→06:51)
[2020-05-30] MEDS: Levothyroxine Sodium 50 MCG TAB PO SCH (06:29)
[2020-05-30] MEDS: ALPRAZolam 0.5 MG TAB PO PRN ×2 (06:32→20:01)
[2020-05-30] MEDS: Mometasone 200 MCG/Formoterol 5 MCG 120 PUFF INHALER INH SCH ×2 (07:26→18:37)
[2020-05-30] MEDS ORDERED: Pantoprazole 40 MG GRANULES PACKET PO SCH (09:00)
[2020-05-30] MEDS ORDERED: Aspirin 81 mg Enteric Coated Tablet PO SCH (09:00)
[2020-05-30] MEDS ORDERED: Enoxaparin Sodium 40 MG/0.4 ML SYRINGE SC SCH (09:00)
--- NOTE | 2020-05-30 09:32 | PDOC.HOSPP ---
- Subjective Encounter Date: 05/30/20 Encounter Time: 09:00 Subjective: Patient seen and examined. No new complaints. No overnight events - Objective Vital Signs & Weight: Vital Signs (12 hours) Temp Pulse Resp Pulse Ox 05/30/20 07:26 83 16 92 L 05/30/20 07:17 98.0 F 05/30/20 03:52 97.9 F 05/30/20 00:33 76 18 100 05/29/20 23:32 97.2 F L Weight Weight 154 lb 5.177 oz Most Recent Monitor Data Heart Rate from ECG 81 NIBP 99/47 NIBP BP-Mean 64 Respiration from ECG 15 SpO2 99 I&O: 05/29/20 05/30/20 05/31/20 06:59 06:59 06:59 Intake Total 820 Output Total 1025 Balance -205 Result Diagrams: 05/30/20 03:30 05/30/20 03:30 Additional Labs: Accuchecks 05/29/20 09:36 POC Glucose 99 Radiology Reviewed by me: Yes EKG Reviewed by me: Yes Hospitalist ROS - Review of Systems Constitutional: reports: weakness. denies: fever, chills, sweats, malaise, other ENT: denies: ear pain, ear discharge, nose pain, nose discharge, nose congestion, mouth pain, mouth swelling, throat pain, throat swelling, other Respiratory: reports: shortness of breath, SOB with excertion. denies: cough, dry, hemoptysis, pleuritic pain, sputum, wheezing, other Cardiovascular: denies: chest pain, palpitations, orthopnea, paroxysmal noc. dyspnea, edema, light headedness, other Gastrointestinal: denies: nausea, vomiting, abdominal pain, diarrhea, constipation, melena, hematochezia, other Genitourinary: denies: dysuria, frequency, incontinence, hematuria, retention, other Musculoskeletal: denies: neck pain, shoulder pain, arm pain, back pain, hand pain, leg pain, foot pain, other - Medication Medications: Active Medications Generic Name Dose Route Start Last Admin Trade Name Freq PRN Reason Stop Dose Admin Albuterol/Ipratropium 3 ml 05/29/20 19:00 05/30/20 07:26 Ipratropium/Albuterol Sulfate 3 Ml Neb NEB 3 ml [id number] DAVE Administration Alprazolam 0.5 mg 05/29/20 21:00 05/30/20 06:32 Alprazolam 0.5 Mg Tab PO 0.5 mg TID PRN Administration Anxiety Atorvastatin Calcium 10 mg 05/29/20 21:00 05/29/20 20:36 Atorvastatin Calcium 10 Mg Tab PO 10 mg HS DAVE Administration Buspirone HCl 15 mg 05/29/20 21:00 05/29/20 20:36 Buspirone Hcl 10 Mg Tab PO 15 mg TID DAVE Administration Amiodarone HCl 450 mg/ 259 mls @ 0 mls/hr 05/29/20 17:15 05/29/20 18:00 Dextrose/Water IVPB 259 mls INF DAVE Administration Protocol Per Protocol Piperacillin Sod/Tazobactam 100 mls @ 200 mls/hr 05/29/20 18:00 05/30/20 05:03 Sod 4.5 gm/ Sodium Chloride IVPB 100 mls Q6HR DAVE Administration Levothyroxine Sodium 50 mcg 05/30/20 06:00 05/30/20 06:29 Levothyroxine Sodium 50 Mcg Tab PO 50 mcg 0600 DAVE Administration Methylprednisolone Sodium Succinate 40 mg 05/29/20 21:00 05/29/20 20:36 Methylprednisolone Sod Succ 40 Mg Vial IVP 40 mg BID DAVE Administration Mirtazapine 30 mg 05/29/20 21:00 05/29/20 20:37 Mirtazapine 30 Mg Tab PO 30 mg HS DAVE Administration Mometasone Furoate/Formoterol Fumar 1 puff 05/29/20 18:30 05/30/20 07:26 Mometasone 200 Mcg/Formoterol 5 Mcg 120 Puff Inhaler INH 1 puff BID-RT DAVE Administration Trazodone HCl 100 mg 05/29/20 21:00 05/29/20 20:37 Trazodone Hcl 50 Mg Tab PO 100 mg HS DAVE Administration - Exam General Appearance: NAD, awake alert Eye: PERRL, anicteric sclera ENT: normocephalic atraumatic, no oropharyngeal lesions Neck: supple, symmetric, no JVD, no thyromegaly Heart: no murmur, no gallops, irregular Respiratory: wheezes Respiratory - other findings: Air entry reduced Gastrointestinal: soft, non-tender, non-distended, normal bowel sounds Extremities: no cyanosis, no clubbing Skin: normal turgor, no lesions Neurological: no new deficit Musculoskeletal: normal tone, normal strength Psychiatric: normal affect, normal behavior Hosp A/P - Plan old records reviewed/req, continue antibiotics, respiratory therapy, DVT proph w/lovenox Assessment Acute respiratory failure with hypoxia and hypercapnia Non-ST relation ND type II Atrial flutter/fibrillation with rapid ventricular response Hypokalemia Hyponatremia Acute on chronic anemia COPD exacerbation History of metastatic stage IV non-small cell carcinoma of lung Chronic low back pain Hypertension Anxiety and depression Gastroesophageal reflux disease Dyslipidemia Plan Continue amiodarone drip for now Cardiology has been consulted Continue Zosyn Continue optimal respiratory therapy, Continue Solu-Medrol Pulmonology has been consulted We will closely monitor in IMCU Long-term anticoagulation will defer to cardiology Continue BiPAP as tolerated
[2020-05-30] MEDS: Acetaminophen 325 MG TAB PO PRN (10:36)
[2020-05-30] MEDS: Cyanocobalamin (Vitamin B-12) 1,000 MCG TAB PO SCH (10:40)
[2020-05-30] MEDS: Potassium Chloride 20 MEQ TAB PO SCH ×2 (10:40→16:23)
[2020-05-30] MEDS: Lactinex Tablet PO SCH (10:41)
[2020-05-30] MEDS: busPIRone HCl 10 MG TAB PO SCH ×3 (10:41→20:00)
[2020-05-30] MEDS: methylPREDNISolone Sod Succ 40 MG VIAL IVP SCH ×2 (10:41→20:02)
[2020-05-30] MEDS: Venlafaxine HCl XR 75 MG CAP PO SCH (10:42)
[2020-05-30] MEDS: traMADol HCl 50 MG TAB PO PRN (11:04)
[2020-05-30 12:22] LABS: SARS-CoV-2 MS2 Positive; SARS-CoV-2 N Gene Negative; SARS-CoV-2 S Gene Negative; SARS-CoV-2 by NAA Not Detected (NotDetected); SARS-CoV-2 orf1ab Negative
[2020-05-30] MEDS: Vancomycin 1 GM in Premix Bag 1 BAG IVPB SCH ×2 (13:11→23:26)
[2020-05-30 13:46] LABS: Hemoglobin 5.7 g/dL (12.0-16.0); Mean Corpuscular HGB CONC 32.3 g/dL (32.0-36.0); Mean Corpuscular Hemoglobin 30.6 pg (27.0-31.0); Mean Corpuscular Volume 94.9 fL (78.0-98.0); RBC Distribution Width 17.2 % (11.5-14.5); Red Blood Cell (RBC) Count 1.87 mill/uL (4.20-5.40); White Blood Cell (WBC) Count 14.4 thou/uL (4.8-10.8)
[2020-05-30 13:47] LABS: #Lymphocytes 0.2 thou/uL (1.20-3.40); #Monocytes 0.4 thou/uL (0.11-0.59); #Neutrophils 13.7 thou/uL (1.40-6.50); %Basophils 0.3 % (0.0-1.0); %Eosinophils 0.1 % (0.0-10.0); %Lymphocytes 1.5 % (21.0-51.0); %Monocytes 2.9 % (0.0-10.0); %Neutrophils 95.2 % (42.0-75.0)
[2020-05-30 14:06] LABS: Anisocytosis SLIGHT = 6-15 cells (100X) (0-5/hpf); Hypochromia SLIGHT = 6-15 cells (100X) (0-5/hpf); MDiff Complete? YES; Mean Platelet Volume 8.7 fL (7.4-10.4); Platelet Count 116 thou/uL (130-400); Platelet Morphology Comment Appears Decreased; Polychromasia SLIGHT = 2-3 cells (100X) (0-2/hpf)
[2020-05-30] MEDS: Morphine 2 MG/ML VIAL SLOW IVP PRN ×3 (15:59→21:58)
[2020-05-30] MEDS: D5 1/2 NS w/40 mEq KCL 1,000 ML IV SCH (16:04)
[2020-05-30] MEDS: Pantoprazole 80 MG, Admixture Fee 1 EACH in Sodium Chloride 0.9% 100 ML IVPB SCH ×2 (16:10→23:26)
[2020-05-30 17:50] LABS: Hemoglobin 8.4 g/dL (12.0-16.0)
--- NOTE | 2020-05-30 18:16 | CON ---
DATE OF CONSULTATION: 05/30/2020 REQUESTING PHYSICIAN: Dr. Cruz. REASON FOR CONSULTATION: GI bleeding. HISTORY OF PRESENT ILLNESS: Mady Malloy is an unfortunate 60-year-old woman with a history of COPD as well as atrial fibrillation. She has left-sided non-small cell lung cancer which is metastatic, stage IV. She was recently hospitalized here with sepsis and NSTEMI and was discharged on home oxygen and was trying to decide between home hospice versus aggressive treatment with chemotherapy. Unfortunately, she had to be readmitted to the hospital last night due to worsening shortness of breath and then altered mental status. Notably during her recent hospitalization, she had a significant hemoglobin decline over the course of a week with hemoglobin going from 12.9 down to 6.6. I do not see any note of overt GI bleeding mentioned at that time, but her Eliquis was discontinued as a result. Upon presentation here last night, she was in atrial fibrillation with rapid ventricular rate and was started on amiodarone as well as Zosyn and Solu-Medrol and BiPAP. Hemoglobin was 8.7, which was actually up from discharge hemoglobin of 6.6 several days prior, but now this morning, hemoglobin is back to 7.0, and in addition, nursing reports that earlier today, she did pass several dark red blood clots. She is not really having any abdominal pain. No nausea or vomiting. There having some difficulty with IV access. Notably also troponin is elevated as well as BNP. REVIEW OF SYSTEMS: Full review of systems including constitutional, head, eyes, ears, nose, throat, GI, , cardiovascular, respiratory, musculoskeletal, neurologic systems is negative except as noted in the HPI. PAST MEDICAL HISTORY: COPD on home oxygen, lower back pain, hypertension, metastatic stage IV non-small cell lung cancer, depression and anxiety, GERD, knee surgery, cholecystectomy, atrial fibrillation with rapid ventricular rate, bronchoscopy. ALLERGIES: LEVOFLOXACIN AND DIVALPROEX. HOME MEDICATIONS: 1. Albuterol. 2. Augmentin. 3. Vitamin C. 4. Lisinopril. 5. Multivitamin. 6. Nicotine patch. 7. Prednisone 20 mg daily. 8. Venlafaxine. 9. Xanax t.i.d. as needed. 10. Buspirone. 11. Floranex. 12. Levothyroxine. 13. Protonix 40 mg daily. 14. Simvastatin. 15. Trazodone. FAMILY HISTORY: Positive for malignancy. SOCIAL HISTORY: She is a former smoker. No alcohol or drug use. PHYSICAL EXAMINATION: VITAL SIGNS: Temperature 98.5, pulse 86, blood pressure 107/59, 94% oxygen saturation on 5 L nasal cannula. GENERAL: Chronically ill 60-year-old woman, lying in bed, in no acute distress. MENTAL: She is somnolent, but arousable. She is oriented to person and place. She is not really forthcoming with any answers to questions. SKIN: She is pale. No jaundice. She has multiple purpura to the trunk and to all extremities. EYES: No scleral icterus. Extraocular movements intact. ENT: Mucous membranes moist. No oral lesions. LYMPH: No submandibular or supraclavicular lymphadenopathy. THYROID: Nontender to palpation. HEART: Regular rate and rhythm. LUNGS: Bibasilar crackles. ABDOMEN: Nondistended. Bowel sounds present. Soft and nontender to palpation. EXTREMITIES: No peripheral edema. VESSELS: Radial pulses 2+ bilaterally. LABORATORY STUDIES: WBC initially 19.5, now down to 11; hemoglobin initially 8.7, now down to 7.0, she is getting 2 units of RBCs now; platelets 163. Sodium 133, potassium 2.6, BUN 12, creatinine 0.93. INR 1.1. BNP elevated at 768.8. Troponin was 0.5, then 0.4, now 0.33. LFTs all normal with total bilirubin 0.5, alkaline phosphatase 66, AST 24, ALT 19, albumin 2.7. TSH 0.92, ammonia 71. Lactic acid 1.9. COVID PCR negative. IMAGING STUDIES: Brain CT showed no acute processes. Chest x-ray showed left perihilar mass and bilateral pleural effusions. ASSESSMENT/PLAN: 1. Hematochezia, acute, appears this is first noted today. 2. Acute blood loss anemia. Her real hemoglobin decline occurred over the course of a week during her recent hospitalization. Eliquis was discontinued, but no endoscopic workup was entertained at that time. 3. Stage IV metastatic non-small cell lung cancer. 4. Chronic obstructive pulmonary disease with exacerbation. 5. Wvv-OX-wqibdnmox myocardial infarction. This is difficult situation. She is now having overt gastrointestinal bleeding in the context of recent significant hemoglobin decline. This suggests previously occult and now overt GI blood loss. In the context of her overall very poor prognosis and current clinical status, she is not a great candidate for endoscopic investigation. She is just now getting blood transfusion. I do not think she would be able to tolerate any bowel preparation and I would favor lower gastrointestinal source based on the appearance of the blood, low BUN, etc. For now, transfuse, continue the IV PPI. Follow along closely. If the patient is continuing to have significant overt bleeding and hemoglobin continues to decline, then we could discuss possible esophagogastroduodenoscopy and colonoscopy once she is more optimized from a cardiopulmonary perspective, but we will not plan on any endoscopy today or tomorrow. I discussed this with the patient and her caregiver, who are in agreement. Thank you for the consultation. Please call anytime with questions or concerns. Job ID: [id number]
[2020-05-30] MEDS: traZODone HCl 50 MG TAB PO SCH (20:00)
[2020-05-30] MEDS: Atorvastatin Calcium 10 MG TAB PO SCH (20:00)
[2020-05-30] MEDS: Mirtazapine 30 MG TAB PO SCH (20:02)
--- NOTE | 2020-05-30 21:10 | CON ---
DATE OF CONSULTATION: 05/30/2020 Carlton Malloy is a 60-year-old female non-small cell lung cancer. She has not started chemo yet. I believe she has been seen by Dr. Pacheco in the past. She was recently in the hospital from 05/19 to 05/26. Looking back through lab work, it looks like she went home with a hemoglobin of 6.6 on the . She was transfused 2 units of packed cells during that admission, but there is no GI consultation. She presented yesterday with complaints of shortness of breath, which she says was improved. Her hemoglobin is 8.7 yesterday, 7.0 this morning at 3 o'clock and then 5.7 at 1330 hours. She was transferred to critical care unit. She is not symptomatic at this point in time other than having abdominal cramping. PAST MEDICAL HISTORY: Remarkable for, 1. Non-small cell lung cancer. 2. COPD, on oxygen at home. 3. History of hypertension. 4. History of chronic back pain. 5. History of cholecystectomy. 6. History of orthopedic surgery in the past. 7. She has not had a port placed yet, although she was told she would be scheduled for port. ALLERGIES: SHE REPORTS LEVAQUIN AND DIVALPROEX ALLERGIES. MEDICATIONS: She has 15 home medications. These have been reviewed. FAMILY HISTORY: Positive for cancer. Negative for lung disease in early age. She is a nonsmoker, but was a heavy smoker. She is nondrinker. Does not use drugs. REVIEW OF SYSTEMS: Ten points otherwise negative. Specifically, she denies fever, chills, or sweats. She has not had purulent sputum. She denies hemoptysis or melena at home. She has had no bright red blood per rectum. PHYSICAL EXAMINATION: VITAL SIGNS: Blood pressure 123/60, heart rate 84, and respiratory rate 17. HEENT: Pupils are equal. Sclerae are anicteric. NECK: Supple. LUNGS: Clear. HEART: Regular rhythm. S1 and S2 are normal. ABDOMEN: Soft and nontender. EXTREMITIES: Without clubbing, cyanosis, or edema. IMPRESSION AND PLAN: 1. Chronic obstructive pulmonary disease with mild exasperation, it is improving. 2. Recurrent gastrointestinal blood loss. Dr. Dill has been consulted. I recommend placement of central line. She will receive 2 units of blood over the next hour. Hopefully, then, we will check an H and H and continue with IV fluids. We need to avoid anticoagulants for her. I instructed the nurse this morning to hold her Lovenox. CRITICAL CARE TIME: 30 minutes including initial evaluation and evaluation after transferred to critical care unit. Job ID: [id number] MTDD
--- NOTE | 2020-05-30 22:00 | CON ---
DATE OF CONSULTATION: CRITICAL CARE TIME: 30 minutes. HISTORY OF PRESENT ILLNESS: The patient is a 60-year-old woman who presented for evaluation of dyspnea, was noted to have a rapid heart rate. The patient has a history of metastatic non-small cell lung carcinoma. The patient also has a history of DVT. The patient has no known history of cardiac disease. She denies having any history of palpitations. The patient was admitted and became very short of breath. She was admitted with markedly dyspneic and was found to be hypotensive. The patient denied having any palpitations. She denies having any chest discomfort. PAST MEDICAL HISTORY: 1. Lung carcinoma. 2. Hypertension. 3. COPD. PAST SURGICAL HISTORY: Cholecystectomy and Knee surgery. ALLERGIES: DEPAKOTE AND LEVOFLOXACIN. MEDICATIONS: See nursing list. SOCIAL HISTORY: Long history of tobacco abuse. PHYSICAL EXAMINATION: GENERAL: Ill-appearing woman. VITAL SIGNS: Blood pressure 126/62. NECK: No jugular venous distention. LUNGS: Coarse breath sounds bilateral. HEART: Regular rate and rhythm. Normal S1, S2. No murmurs. ABDOMEN: Nondistended. EXTREMITIES: Showed multiple ecchymotic lesions. LABORATORY DATA: White blood cell count 14.4, hemoglobin 5.7, hematocrit 17.8, and her platelets were 116. INR was 1.1. Sodium 133, potassium 2.6, chloride 80, bicarb 36, BUN 12, creatinine 0.93. Troponin 0.334. Telemetry monitoring atrial fibrillation with a rapid ventricular response. IMPRESSION: 1. Atrial fibrillation. 2. Metastatic lung carcinoma. 3. Chronic obstructive pulmonary disease. 4. Hypertension. 5. Elevated troponin level. This patient presents with atrial fibrillation. She has CHADS-VASc score of 2. I would try to avoid beta-hema at this time. I would recommend low-dose Cardizem. If the patient's blood pressure can tolerate this medication. We will follow this patient with you through her hospitalization. Job ID: [id number] [facility]ALKirk
[2020-05-31] MEDS: D5 1/2 NS w/40 mEq KCL 1,000 ML IV SCH ×3 (00:08→19:48)
[2020-05-31] MEDS: Morphine 2 MG/ML VIAL SLOW IVP PRN ×5 (00:08→13:16)
[2020-05-31] MEDS: ALPRAZolam 0.5 MG TAB PO PRN ×3 (04:00→20:13)
[2020-05-31] MEDS: Piperacillin/Tazobactam 4.5 GM in Sodium Chloride 0.9% 100 ML IVPB SCH ×4 (05:05→23:44)
[2020-05-31] MEDS: Levothyroxine Sodium 50 MCG TAB PO SCH (05:06)
[2020-05-31 05:45] LABS: #Lymphocytes 0.5 thou/uL (1.20-3.40); #Monocytes 0.7 thou/uL (0.11-0.59); #Neutrophils 17.2 thou/uL (1.40-6.50); %Eosinophils 0.2 % (0.0-10.0); %Lymphocytes 2.8 % (21.0-51.0); %Neutrophils 93.1 % (42.0-75.0); Hemoglobin 7.8 g/dL (12.0-16.0); Mean Corpuscular HGB CONC 33.9 g/dL (32.0-36.0); Mean Corpuscular Hemoglobin 30.8 pg (27.0-31.0); Mean Corpuscular Volume 90.9 fL (78.0-98.0); Mean Platelet Volume 8.8 fL (7.4-10.4); Platelet Count 132 thou/uL (130-400); RBC Distribution Width 16.4 % (11.5-14.5); Red Blood Cell (RBC) Count 2.52 mill/uL (4.20-5.40); White Blood Cell (WBC) Count 18.5 thou/uL (4.8-10.8)
[2020-05-31 05:49] LABS: ALT (SGPT) 14 U/L (8-55); AST (SGOT) 17 U/L (5-34); Albumin 2.5 g/dL (3.5-5.0); Alkaline Phosphatase 48 U/L (40-110); BUN (Urea Nitrogen) 11 mg/dL (9.8-20.1); Bilirubin, Total 0.8 mg/dL (0.2-1.2); Calc. Creatinine Clearance 77 mL/min (70-130); Calcium 7.8 mg/dL (7.8-10.44); Estimated GFR-MDRD 67; Globulin 2.1 g/dL (2.4-3.5); Glucose 256 mg/dL (70-105); Protein, Total 4.6 g/dL (6.0-8.3)
[2020-05-31 06:00] LABS: Anion Gap 15 mmol/L (10-20); Carbon Dioxide 35 mmol/L (22-29); Chloride 89 mmol/L (98-107); Potassium 3.4 mmol/L (3.5-5.1); Sodium 136 mmol/L (136-145)
[2020-05-31] MEDS ORDERED: Potassium Chloride 20 MEQ TAB PO SCH (06:15)
[2020-05-31] MEDS: Mometasone 200 MCG/Formoterol 5 MCG 120 PUFF INHALER INH SCH ×2 (07:01→18:49)
--- NOTE | 2020-05-31 07:58 | OP ---
DATE OF PROCEDURE: 05/30/2020 PROCEDURE PERFORMED: Femoral line placement. INDICATION: Anemia secondary to blood loss. DESCRIPTION OF PROCEDURE: Right groin was prepped with chlorhexidine and Betadine. Sterile drapes applied. 5 mL of 1% lidocaine was used to anesthetize the skin. An introducer needle was used to insert a wire into the femoral vein easily first pass. Vein dilator was inserted after a small incision was made with a #11 blade. Triple-lumen catheter was inserted and sewn in place. Good blood return was obtained from all 3 ports. Sterile dressing was applied. Job ID: [id number]
[2020-05-31] MEDS: Lactinex Tablet PO SCH (08:02)
[2020-05-31] MEDS: Cyanocobalamin (Vitamin B-12) 1,000 MCG TAB PO SCH (08:02)
[2020-05-31] MEDS: methylPREDNISolone Sod Succ 40 MG VIAL IVP SCH ×2 (08:02→20:14)
[2020-05-31] MEDS: busPIRone HCl 10 MG TAB PO SCH ×3 (08:02→20:14)
--- NOTE | 2020-05-31 09:14 | PRG ---
DATE OF SERVICE: 05/31/2020 SUBJECTIVE: Ms. Malloy is breathing a lot more comfortably today. She is calm and alert. She does have some crampy abdominal discomfort as well as ongoing back pain. She passed 2 bloody bowel movements last night, which were described as much darker than before. She remained hemodynamically stable. Hemoglobin had gone up to 8.4 after initial transfusion, marginally down to 7.8 today. She is getting one more unit of blood in the unit of FFP this morning. OBJECTIVE: VITAL SIGNS: Temperature 98.5, blood pressure 138/69, heart rate 94, 97% oxygen saturation on 5 L nasal cannula. GENERAL: Chronically ill, nontoxic, in no distress. HEART: Regular rate and rhythm. LUNGS: Bibasilar crackles. No respiratory distress. ABDOMEN: Bowel sounds are present. Soft. Some tenderness to palpation in the upper abdomen. No guarding or rebound tenderness. EXTREMITIES: No peripheral edema. LABORATORY STUDIES: Hemoglobin up from 5.7 to 8.4 yesterday after 2 units RBC transfusion, this morning is 7.8; WBC is 18.5; platelets 132. INR 1.1. Sodium 136, potassium 3.4, BUN 11, creatinine 0.86, total bilirubin 0.8, alkaline phosphatase 48, AST 17, ALT 14, albumin 2.5. COVID PCR is negative. ASSESSMENT AND PLAN: 1. Hematochezia, acute, first noted yesterday. 2. Acute blood loss anemia. Again, she has significant hemoglobin decline occurring over the course of a week during her recent hospitalization, during which time Eliquis was discontinued. She responded well to 2 units RBC transfusion yesterday and will get one more unit this morning. She is hemodynamically stable. I am still of the opinion that the situation favors. Continue to observe, transfuse as needed, supportive care today. I think this is likely to be a lower gastrointestinal source such as diverticular hemorrhage, and if so would expect it to resolve soon. Her frailty and overall cardiopulmonary status would make putting her through bowel preparation and colonoscopy higher risk. So for now, would keep on a liquid diet and continue to watch closely. We would continue the IV PPI as well, though with such a low BUN and presentation is overt red bleeding, I doubt this represents upper gastrointestinal source. We will continue to follow along. Please call anytime with questions or concerns or changes in her clinical status. Job ID: [id number]
[2020-05-31] MEDS: Venlafaxine HCl XR 75 MG CAP PO SCH (09:21)
--- NOTE | 2020-05-31 09:51 | PRG ---
DATE OF SERVICE: 05/31/2020 SUBJECTIVE: Ms. Malloy says she is feeling about the same. Her main complaint is abdominal cramping. OBJECTIVE: VITAL SIGNS: Heart rate is in the 90s, blood pressure 123/73, respiratory rate is in the 20s, oximetry is in the mid 90s. LUNGS: Free of wheezes. She still has a prolonged expiratory phase. HEART: Regular rhythm. ABDOMEN: Soft. LABORATORY DATA: White count 18.5, hemoglobin 7.8, platelets 132,000. She will get an another unit of blood today. She was passing blood clots all night. She will also get some fresh frozen plasma. Sodium 136, potassium 3.4, chloride 89, bicarb 35, BUN 11, creatinine 0.86. IMPRESSION: 1. Gastrointestinal bleed ? lower. 2. Abdominal cramping, most likely related to blood in her gut. 3. Hdg-lgtos-dshl lung cancer. While she is here, she will need a port. 4. Diabetes. 5. Chronic obstructive pulmonary disease. 6. Hypoalbuminemia. Continue with supportive care in the ICU. Job ID: [id number]
[2020-05-31] MEDS ORDERED: Furosemide 20 MG/2 ML VIAL SLOW IVP SCH (10:00)
[2020-05-31] MEDS: Pantoprazole 80 MG, Admixture Fee 1 EACH in Sodium Chloride 0.9% 100 ML IVPB SCH ×2 (10:15→19:48)
[2020-05-31] MEDS: Morphine 4 MG/ML VIAL SLOW IVP PRN ×4 (10:16→22:35)
[2020-05-31] MEDS: Vancomycin 1 GM in Premix Bag 1 BAG IVPB SCH ×2 (11:08→23:44)
--- NOTE | 2020-05-31 13:31 | PDOC.HOSPP ---
- Subjective Encounter Date: 05/31/20 Encounter Time: 08:30 Subjective: awake, has sob no abd pain or nausea now still passing bloody stool per staff - Objective Vital Signs & Weight: Vital Signs (12 hours) Temp Pulse Resp Pulse Ox 05/31/20 12:15 98.4 F 98 05/31/20 12:00 98.4 F 99 05/31/20 11:23 98.0 F 05/31/20 11:00 98.2 F 05/31/20 10:18 100 26 H 96 05/31/20 10:00 97.8 F 05/31/20 09:30 97.8 F 90 L 05/31/20 09:15 98.6 F 90 L 05/31/20 09:00 98.6 F 05/31/20 08:00 90 L 05/31/20 07:02 97 05/31/20 07:00 97.9 F 05/31/20 06:59 95 21 H 97 05/31/20 04:00 98.5 F 98 Weight Weight 154 lb 5.177 oz Most Recent Monitor Data Heart Rate from ECG 100 NIBP 145/77 NIBP BP-Mean 100 Respiration from ECG 27 SpO2 99 I&O: 05/30/20 05/31/20 06/01/20 06:59 06:59 06:59 Intake Total 820 2480 650 Output Total 1025 1215 235 Balance -205 1265 415 Result Diagrams: 05/31/20 05:05 05/31/20 05:05 Hospitalist ROS - Medication Medications: Active Medications Generic Name Dose Route Start Last Admin Trade Name Freq PRN Reason Stop Dose Admin Acetaminophen 650 mg 05/29/20 15:03 05/30/20 10:36 Acetaminophen 325 Mg Tab PO 650 mg Q4H PRN Administration Headache/Fever/Mild Pain (1-3) Acidophilus 1 tab 05/30/20 09:00 05/31/20 08:02 Lactinex Tablet PO 1 tab DAILY DAVE Administration Albuterol/Ipratropium 3 ml 05/29/20 19:00 05/31/20 10:18 Ipratropium/Albuterol Sulfate 3 Ml Neb NEB 3 ml [id number] DAVE Administration Alprazolam 0.5 mg 05/29/20 21:00 05/31/20 12:21 Alprazolam 0.5 Mg Tab PO 0.5 mg TID PRN Administration Anxiety Atorvastatin Calcium 10 mg 05/29/20 21:00 05/30/20 20:00 Atorvastatin Calcium 10 Mg Tab PO 10 mg HS DAVE Administration Buspirone HCl 15 mg 05/29/20 21:00 05/31/20 08:02 Buspirone Hcl 10 Mg Tab PO 15 mg TID DAVE Administration Cyanocobalamin 1,000 mcg 05/30/20 09:00 05/31/20 08:02 Cyanocobalamin (Vitamin B-12) 1,000 Mcg Tab PO 1,000 mcg DAILY DAVE Administration Diltiazem HCl 30 mg 05/30/20 17:00 05/31/20 11:08 Diltiazem Hcl 30 Mg Tablet PO 30 mg ACHS DAVE Administration Furosemide 20 mg 05/31/20 10:00 05/31/20 11:07 Furosemide 20 Mg/2 Ml Vial SLOW IVP 05/31/20 15:00 20 mg 1000 DAVE Administration Amiodarone HCl 450 mg/ 259 mls @ 0 mls/hr 05/29/20 17:15 05/29/20 18:00 Dextrose/Water IVPB 259 mls INF DAVE Administration Protocol Per Protocol Piperacillin Sod/Tazobactam 100 mls @ 200 mls/hr 05/29/20 18:00 05/31/20 11:09 Sod 4.5 gm/ Sodium Chloride IVPB 100 mls Q6HR DAVE Administration Vancomycin HCl 1 gm/ Device 200 mls @ 200 mls/hr 05/30/20 12:00 05/31/20 11:08 IVPB 200 mls 1200,2359 DAVE Administration Pantoprazole Sodium 80 mg/ 100 mls @ 10 mls/hr 05/30/20 12:30 05/31/20 10:15 Miscellaneous Medication 1 IVPB 100 mls each/ Sodium Chloride INF DAVE Administration Potassium Chloride/Dextrose/Sod Cl 1,000 mls @ 100 mls/hr 05/30/20 12:45 05/31/20 08:02 D5 1/2 Ns W/40 Meq Kcl IV 1,000 mls .Q10H DAVE Administration Levothyroxine Sodium 50 mcg 05/30/20 06:00 05/31/20 05:06 Levothyroxine Sodium 50 Mcg Tab PO 50 mcg 0600 DAVE Administration Methylprednisolone Sodium Succinate 40 mg 05/29/20 21:00 05/31/20 08:02 Methylprednisolone Sod Succ 40 Mg Vial IVP 40 mg BID DAVE Administration Mirtazapine 30 mg 05/29/20 21:00 05/30/20 20:02 Mirtazapine 30 Mg Tab PO 30 mg HS DAVE Administration Mometasone Furoate/Formoterol Fumar 1 puff 05/29/20 18:30 05/31/20 07:01 Mometasone 200 Mcg/Formoterol 5 Mcg 120 Puff Inhaler INH 1 puff BID-RT DAVE Administration Morphine Sulfate 2 mg 05/30/20 12:14 05/31/20 13:16 Morphine 2 Mg/Ml Vial SLOW IVP 2 mg Q2H PRN Administration Pain Morphine Sulfate 4 mg 05/31/20 09:15 05/31/20 10:16 Morphine 4 Mg/Ml Vial SLOW IVP 4 mg Q1H PRN Administration Pain Tramadol HCl 50 mg 05/30/20 10:57 05/30/20 11:04 Tramadol Hcl 50 Mg Tab PO 50 mg Q6H PRN Administration Mild-Moderate Pain (1-5) Trazodone HCl 100 mg 05/29/20 21:00 05/30/20 20:00 Trazodone Hcl 50 Mg Tab PO 100 mg HS DAVE Administration Venlafaxine HCl 75 mg 05/30/20 09:00 05/31/20 09:21 Venlafaxine Hcl Xr 75 Mg Cap PO 75 mg DAILY DAVE Administration - Exam General Appearance: awake alert Eye: PERRL, anicteric sclera ENT: no oropharyngeal lesions, moist mucosa Neck: supple, no JVD Heart: RRR, no murmur Respiratory: no wheezes, no rales, rhonchi Gastrointestinal: soft, non-tender, non-distended, normal bowel sounds Extremities: no cyanosis, no edema Neurological: cranial nerve grossly intact, no focal deficits Hosp A/P (1) GI bleed Code(s): K92.2 - GASTROINTESTINAL HEMORRHAGE, UNSPECIFIED Status: Acute Qualifiers: GI bleed type/associated pathology: unspecified gastrointestinal hemorrhage type Qualified Code(s): K92.2 - Gastrointestinal hemorrhage, unspecified (2) Acute blood loss anemia Code(s): D62 - ACUTE POSTHEMORRHAGIC ANEMIA Status: Acute (3) Afib Code(s): I48.91 - UNSPECIFIED ATRIAL FIBRILLATION Status: Chronic Qualifiers: Atrial fibrillation type: paroxysmal Qualified Code(s): I48.0 - Paroxysmal atrial fibrillation (4) Acute respiratory failure with hypoxia and hypercapnia Code(s): J96.01 - ACUTE RESPIRATORY FAILURE WITH HYPOXIA; J96.02 - ACUTE RESPIRATORY FAILURE WITH HYPERCAPNIA Status: Acute (5) COPD exacerbation Code(s): J44.1 - CHRONIC OBSTRUCTIVE PULMONARY DISEASE W (ACUTE) EXACERBATION Status: Acute (6) Metastatic lung cancer (metastasis from lung to other site) Code(s): C34.90 - MALIGNANT NEOPLASM OF UNSP PART OF UNSP BRONCHUS OR LUNG Status: Chronic Qualifiers: Laterality: left Qualified Code(s): C34.92 - Malignant neoplasm of unspecified part of left bronchus or lung (7) Anxiety and depression Code(s): F41.9 - ANXIETY DISORDER, UNSPECIFIED; F32.9 - MAJOR DEPRESSIVE DISORDER, SINGLE EPISODE, UNSPECIFIED Status: Chronic (8) GERD (gastroesophageal reflux disease) Code(s): K21.9 - GASTRO-ESOPHAGEAL REFLUX DISEASE WITHOUT ESOPHAGITIS Status: Chronic Qualifiers: (9) HTN (hypertension) Code(s): I10 - ESSENTIAL (PRIMARY) HYPERTENSION Status: Chronic Qualifiers: Hypertension type: essential hypertension Qualified Code(s): I10 - Essential (primary) hypertension (10) Hypothyroidism Code(s): E03.9 - HYPOTHYROIDISM, UNSPECIFIED Status: Chronic Qualifiers: Hypothyroidism type: unspecified Qualified Code(s): E03.9 - Hypothyroidism, unspecified (11) Obesity (BMI 30.0-34.9) Code(s): E66.9 - OBESITY, UNSPECIFIED Status: Chronic - Plan will be recieving 1 u prbc and 4 u of ffp today, has recieved 2 prbc before continue iv protonix, steroids, cardizem ac & hs, buspar, xanax, venlafaxine and empiric zosyn hemostable prognosis guarded has non small cell lung ca stage 4 yet to start chemo/immunotherapy
[2020-05-31] MEDS ORDERED: Furosemide 40 MG/4 ML VIAL ONE (15:21)
[2020-05-31] MEDS ORDERED: Furosemide 40 MG/4 ML VIAL SLOW IVP SCH (15:30)
[2020-05-31] MEDS ORDERED: Electrolyte Replacement Protocol FS PRN (15:45)
[2020-05-31 16:12] LABS: Hemoglobin 8.6 g/dL (12.0-16.0); Platelet Count 94 thou/uL (130-400)
[2020-05-31 16:45] LABS: Potassium 3.2 mmol/L (3.5-5.1)
[2020-05-31] MEDS ORDERED: Potassium Chloride 40 MEQ in Premix Bag 1 BAG IVPB SCH (17:00)
[2020-05-31] MEDS: Mirtazapine 30 MG TAB PO SCH (20:13)
[2020-05-31] MEDS: traZODone HCl 50 MG TAB PO SCH (20:14)
[2020-05-31] MEDS: Atorvastatin Calcium 10 MG TAB PO SCH (20:14)
[2020-05-31 21:00] LABS: Potassium 3.4 mmol/L (3.5-5.1)
[2020-05-31] MEDS ORDERED: Potassium Chloride 40 MEQ in Sodium Chloride 0.9% 250 ML 250 ML IVPB SCH (21:30)
[2020-06-01] MEDS: ALPRAZolam 0.5 MG TAB PO PRN ×4 (01:58→23:02)
[2020-06-01] MEDS: Morphine 4 MG/ML VIAL SLOW IVP PRN ×10 (01:58→22:58)
[2020-06-01 05:34] LABS: ALT (SGPT) 15 U/L (8-55); AST (SGOT) 19 U/L (5-34); Albumin 2.9 g/dL (3.5-5.0); Alkaline Phosphatase 55 U/L (40-110); BUN (Urea Nitrogen) 13 mg/dL (9.8-20.1); Calc. Creatinine Clearance 83 mL/min (70-130); Calcium 7.9 mg/dL (7.8-10.44); Estimated GFR-MDRD 73; Globulin 2.3 g/dL (2.4-3.5); Glucose 188 mg/dL (70-105); Protein, Total 5.2 g/dL (6.0-8.3)
[2020-06-01] MEDS: Piperacillin/Tazobactam 4.5 GM in Sodium Chloride 0.9% 100 ML IVPB SCH ×4 (05:41→22:58)
[2020-06-01] MEDS: Levothyroxine Sodium 50 MCG TAB PO SCH (05:41)
[2020-06-01] MEDS: Pantoprazole 80 MG, Admixture Fee 1 EACH in Sodium Chloride 0.9% 100 ML IVPB SCH ×2 (05:41→17:04)
[2020-06-01 05:44] LABS: Anion Gap 13 mmol/L (10-20); Chloride 91 mmol/L (98-107); Potassium 4.1 mmol/L (3.5-5.1); Sodium 144 mmol/L (136-145)
[2020-06-01 05:58] LABS: Carbon Dioxide 44 mmol/L (22-29)
[2020-06-01] MEDS ORDERED: Diltiazem 125 MG in Sodium Chloride 0.9% 100 ML IVPB SCH (07:00)
[2020-06-01 07:23] LABS: Hemoglobin 7.4 g/dL (12.0-16.0)
[2020-06-01] MEDS: Mometasone 200 MCG/Formoterol 5 MCG 120 PUFF INHALER INH SCH ×2 (08:00→18:52)
[2020-06-01] MEDS ORDERED: Amiodarone 150 MG, Admixture Fee 1 EACH in Dextrose 5% in Water 100 ML IVPB SCH (08:30)
[2020-06-01] MEDS: Amiodarone 450 MG, Admixture Fee 1 EACH in Dextrose 5% in Water 250 ML IVPB SCH ×2 (08:40→17:06)
[2020-06-01] MEDS: Venlafaxine HCl XR 75 MG CAP PO SCH (09:05)
[2020-06-01] MEDS: methylPREDNISolone Sod Succ 40 MG VIAL IVP SCH ×2 (09:06→20:06)
[2020-06-01] MEDS: Lactinex Tablet PO SCH (09:06)
[2020-06-01] MEDS: busPIRone HCl 10 MG TAB PO SCH ×3 (09:15→20:08)
[2020-06-01] MEDS: Cyanocobalamin (Vitamin B-12) 1,000 MCG TAB PO SCH (09:16)
[2020-06-01] MEDS ORDERED: D5 1/2 NS w/40 mEq KCL 1,000 ML IV SCH (09:30)
[2020-06-01] MEDS: Vancomycin 1 GM in Premix Bag 1 BAG IVPB SCH ×2 (11:11→22:59)
--- NOTE | 2020-06-01 14:01 | PDOC.FMACP ---
Advance Care Planning - Problem (1) COPD exacerbation Status: Acute Code(s): J44.1 - CHRONIC OBSTRUCTIVE PULMONARY DISEASE W (ACUTE) EXACERBATION (2) Palliative care encounter Status: Acute Code(s): Z51.5 - ENCOUNTER FOR PALLIATIVE CARE (3) Metastatic lung cancer (metastasis from lung to other site) Status: Chronic Code(s): C34.90 - MALIGNANT NEOPLASM OF UNSP PART OF UNSP BRONCHUS OR LUNG Qualifiers: Laterality: left Qualified Code(s): C34.92 - Malignant neoplasm of unspecified part of left bronchus or lung - Note Participants: patient, family, palliative care Summary: Palliative Care revisited Advanced Care Planning, opportunity to decline. Reviewed the diagnosis, prognosis and goals of care were discussed. Appropriate forms and documentation to accomplish the goals of care were discussed. All questions were answered. At this time Mrs Malloy is requesting to transition to a DNAR, requesting to revisit hospice conversation as she is understanding that her radiation is palliative and not curative, and previously not able to tolerate the radiation secondary to pain and shortness of breath. The Palliative Care Team will be continue to assist with completion of any outstanding forms as identified. Communicated with Dr. Lomax.
--- NOTE | 2020-06-01 15:46 | PDOC.HOSPP ---
- Subjective Encounter Date: 06/01/20 Encounter Time: 14:00 Subjective: no sob, at bedside she is not fully oriented but is awake and follows verbal stimuli - Objective Vital Signs & Weight: Vital Signs (12 hours) Temp Pulse Resp Pulse Ox 06/01/20 15:00 98.7 F 06/01/20 14:58 103 H 22 H 99 06/01/20 14:00 98.5 F 06/01/20 13:00 98.6 F 06/01/20 10:25 99 06/01/20 10:22 112 H 20 99 06/01/20 09:00 98.4 F 06/01/20 08:00 100 06/01/20 06:56 105 H 06/01/20 04:00 97.7 F Weight Weight 154 lb 5.177 oz Most Recent Monitor Data Heart Rate from ECG 99 NIBP 141/79 NIBP BP-Mean 99 Respiration from ECG 21 SpO2 94 I&O: 05/31/20 06/01/20 06/02/20 06:59 06:59 06:59 Intake Total 2480 4756 599 Output Total 1212 6265 400 Balance 1265 -1509 199 Result Diagrams: 06/01/20 04:30 06/01/20 04:30 Hospitalist ROS - Medication Medications: Active Medications Generic Name Dose Route Start Last Admin Trade Name Freq PRN Reason Stop Dose Admin Acetaminophen 650 mg 05/29/20 15:03 05/30/20 10:36 Acetaminophen 325 Mg Tab PO 650 mg Q4H PRN Administration Headache/Fever/Mild Pain (1-3) Acidophilus 1 tab 05/30/20 09:00 06/01/20 09:06 Lactinex Tablet PO 1 tab DAILY DAVE Administration Albuterol/Ipratropium 3 ml 05/29/20 19:00 06/01/20 14:58 Ipratropium/Albuterol Sulfate 3 Ml Neb NEB 3 ml [id number] DAVE Administration Alprazolam 0.5 mg 05/29/20 21:00 06/01/20 09:58 Alprazolam 0.5 Mg Tab PO 0.5 mg TID PRN Administration Anxiety Atorvastatin Calcium 10 mg 05/29/20 21:00 05/31/20 20:14 Atorvastatin Calcium 10 Mg Tab PO 10 mg HS DAVE Administration Buspirone HCl 15 mg 05/29/20 21:00 06/01/20 15:00 Buspirone Hcl 10 Mg Tab PO 15 mg TID DAVE Administration Cyanocobalamin 1,000 mcg 05/30/20 09:00 06/01/20 09:16 Cyanocobalamin (Vitamin B-12) 1,000 Mcg Tab PO 1,000 mcg DAILY DAVE Administration Piperacillin Sod/Tazobactam 100 mls @ 200 mls/hr 05/29/20 18:00 06/01/20 12:14 Sod 4.5 gm/ Sodium Chloride IVPB 100 mls Q6HR DAVE Administration Vancomycin HCl 1 gm/ Device 200 mls @ 200 mls/hr 05/30/20 12:00 06/01/20 11:11 IVPB 200 mls 1200,2359 DAVE Administration Pantoprazole Sodium 80 mg/ 100 mls @ 10 mls/hr 05/30/20 12:30 06/01/20 05:41 Miscellaneous Medication 1 IVPB 100 mls each/ Sodium Chloride INF DAVE Administration Amiodarone HCl 450 mg/ 259 mls @ 0 mls/hr 06/01/20 08:30 06/01/20 08:40 Miscellaneous Medication 1 IVPB 259 mls each/ Dextrose/Water INF DAVE Administration Protocol As Directed Potassium Chloride 40 meq/ 1,020 mls @ 100 mls/hr 06/01/20 10:45 06/01/20 11:07 Dextrose/Sodium Chloride IV 1,020 mls .[id number] DAVE Administration Levothyroxine Sodium 50 mcg 05/30/20 06:00 06/01/20 05:41 Levothyroxine Sodium 50 Mcg Tab PO 50 mcg 0600 DAVE Administration Methylprednisolone Sodium Succinate 40 mg 05/29/20 21:00 06/01/20 09:06 Methylprednisolone Sod Succ 40 Mg Vial IVP 40 mg BID DAVE Administration Mirtazapine 30 mg 05/29/20 21:00 05/31/20 20:13 Mirtazapine 30 Mg Tab PO 30 mg HS DAVE Administration Mometasone Furoate/Formoterol Fumar 1 puff 05/29/20 18:30 06/01/20 08:00 Mometasone 200 Mcg/Formoterol 5 Mcg 120 Puff Inhaler INH Not Given BID-RT DAVE Morphine Sulfate 4 mg 05/31/20 09:15 06/01/20 13:51 Morphine 4 Mg/Ml Vial SLOW IVP 4 mg Q1H PRN Administration Pain Ondansetron HCl 4 mg 05/29/20 15:03 05/31/20 14:51 Ondansetron Pf 4 Mg/2 Ml Vial IVP 4 mg Q6H PRN Administration Nausea/Vomiting Sodium Chloride 10 ml 06/01/20 09:00 06/01/20 09:06 Flush - Normal Saline 10 Ml Syringe IVF 10 ml Q12HR DAVE Administration Tramadol HCl 50 mg 05/30/20 10:57 05/30/20 11:04 Tramadol Hcl 50 Mg Tab PO 50 mg Q6H PRN Administration Mild-Moderate Pain (1-5) Trazodone HCl 100 mg 05/29/20 21:00 05/31/20 20:14 Trazodone Hcl 50 Mg Tab PO 100 mg HS DAVE Administration Venlafaxine HCl 75 mg 05/30/20 09:00 06/01/20 09:05 Venlafaxine Hcl Xr 75 Mg Cap PO 75 mg DAILY DAVE Administration - Exam General Appearance: awake alert Eye: anicteric sclera ENT: no oropharyngeal lesions, dry oral mucosa Neck: supple, no JVD Heart: RRR, no murmur Respiratory: no wheezes, no rales, rhonchi Gastrointestinal: soft, non-tender, non-distended, normal bowel sounds Extremities: no cyanosis, 1+ LE edema Neurological: cranial nerve grossly intact, no focal deficits Hosp A/P (1) GI bleed Code(s): K92.2 - GASTROINTESTINAL HEMORRHAGE, UNSPECIFIED Status: Acute Qualifiers: GI bleed type/associated pathology: unspecified gastrointestinal hemorrhage type Qualified Code(s): K92.2 - Gastrointestinal hemorrhage, unspecified (2) Acute blood loss anemia Code(s): D62 - ACUTE POSTHEMORRHAGIC ANEMIA Status: Acute (3) Afib Code(s): I48.91 - UNSPECIFIED ATRIAL FIBRILLATION Status: Chronic Qualifiers: Atrial fibrillation type: paroxysmal Qualified Code(s): I48.0 - Paroxysmal atrial fibrillation (4) Acute respiratory failure with hypoxia and hypercapnia Code(s): J96.01 - ACUTE RESPIRATORY FAILURE WITH HYPOXIA; J96.02 - ACUTE RE SPIRATORY FAILURE WITH HYPERCAPNIA Status: Acute (5) COPD exacerbation Code(s): J44.1 - CHRONIC OBSTRUCTIVE PULMONARY DISEASE W (ACUTE) EXACERBATION Status: Acute (6) Metastatic lung cancer (metastasis from lung to other site) Code(s): C34.90 - MALIGNANT NEOPLASM OF UNSP PART OF UNSP BRONCHUS OR LUNG Status: Chronic Qualifiers: Laterality: left Qualified Code(s): C34.92 - Malignant neoplasm of unspecified part of left bronchus or lung (7) Anxiety and depression Code(s): F41.9 - ANXIETY DISORDER, UNSPECIFIED; F32.9 - MAJOR DEPRESSIVE DISORDER, SINGLE EPISODE, UNSPECIFIED Status: Chronic (8) GERD (gastroesophageal reflux disease) Code(s): K21.9 - GASTRO-ESOPHAGEAL REFLUX DISEASE WITHOUT ESOPHAGITIS Status: Chronic Qualifiers: (9) HTN (hypertension) Code(s): I10 - ESSENTIAL (PRIMARY) HYPERTENSION Status: Chronic Qualifiers: Hypertension type: essential hypertension Qualified Code(s): I10 - Essential (primary) hypertension (10) Hypothyroidism Code(s): E03.9 - HYPOTHYROIDISM, UNSPECIFIED Status: Chronic Qualifiers: Hypothyroidism type: unspecified Qualified Code(s): E03.9 - Hypothyroidism, unspecified (11) Obesity (BMI 30.0-34.9) Code(s): E66.9 - OBESITY, UNSPECIFIED Status: Chronic - Plan Hb around 4 pm is 7g, serial h/h, transfuse if Hb drops <7g has recieved 3 prbc and 4 u FFP's this admission continue iv protonix, steroids, cardizem ac & hs, buspar, xanax, venlafaxine and empiric zosyn hemostable prognosis guarded has non small cell lung ca stage 4 yet to start chemo/immunotherapy or radiation
[2020-06-01 16:17] LABS: Hemoglobin 7.9 g/dL (12.0-16.0)
--- NOTE | 2020-06-01 18:48 | PRG ---
DATE OF SERVICE: 06/01/2020 SUBJECTIVE: Gama has done reasonably well. OBJECTIVE: VITAL SIGNS: Heart rate is 97 to 103, blood pressure is in the 130s to 150s, respiratory rates in the 20s. LUNGS: Essentially unchanged. HEART: Essentially unchanged. ABDOMEN: Essentially unchanged. She is still on chronic transfusions. Her hemoglobin is 7.4 this morning. She received 1 unit of blood and her hemoglobin is 7.9 at 4 o'clock. She will receive more blood this evening. IMPRESSION: 1. Ongoing blood loss, gastrointestinal. This was felt by the GI to be more likely lower than upper. 2. Chronic obstructive pulmonary disease. 3. Non-small cell lung cancer. Ms. Malloy apparently requested do not resuscitate status, which I do not feel is an appropriate. We will continue supportive care, hoping that the bleeding will stop. Job ID: [id number]
[2020-06-01] MEDS: Atorvastatin Calcium 10 MG TAB PO SCH (20:08)
[2020-06-01] MEDS: Mirtazapine 30 MG TAB PO SCH (20:08)
[2020-06-01] MEDS: traZODone HCl 50 MG TAB PO SCH (20:08)
--- NOTE | 2020-06-01 20:39 | PRG ---
DATE OF SERVICE: 06/01/2020 SUBJECTIVE: Ms. Malloy had two smaller volume bloody stools today. She had some vague diffuse abdominal discomfort. No nausea or vomiting. She has been n.p.o. OBJECTIVE: VITAL SIGNS: Temperature is 98.5, pulse 99, and blood pressure 139/74. GENERAL: She is pale, in no acute distress. LUNGS: Clear to auscultation bilaterally. HEART: Regular rate and rhythm without murmur. ABDOMEN: Soft, nontender, and nondistended. Bowel sounds are present. EXTREMITIES: No lower extremity edema. LABORATORY DATA: White blood cell count 18.5, hemoglobin 7.9 after 1 unit transfusion. Her hemoglobin this morning was 7.4, INR 1.1, creatinine 0.8, and albumin 2.9. IMPRESSION: 1. Gastrointestinal bleed with red stools most consistent with a lower gastrointestinal bleed. 2. Anemia of acute blood loss. Her hemoglobin improved only from 7.4 to 7.9 after 1 unit transfusion. She does not appear to have ongoing large volume bleeding at this time. We will continue to follow this clinically. 3. Metastatic lung cancer. RECOMMENDATIONS: 1. We will continue to follow the trend of her hemoglobin. 2. She is on proton pump inhibitor. 3. Given her severe comorbidities and underlying respiratory status, we will hold off endoscopy for now. 4. Try to advance to a clear liquid diet. Job ID: [id number]
[2020-06-01] MEDS: D5 1/2 NS w/40 mEq KCL 1,000 ML IV SCH (23:11)
[2020-06-02] MEDS: Morphine 4 MG/ML VIAL SLOW IVP PRN ×10 (00:42→23:54)
[2020-06-02] MEDS: Pantoprazole 80 MG, Admixture Fee 1 EACH in Sodium Chloride 0.9% 100 ML IVPB SCH ×2 (02:19→16:37)
[2020-06-02 04:21] LABS: Hemoglobin 7.1 g/dL (12.0-16.0)
[2020-06-02 04:42] LABS: ALT (SGPT) 13 U/L (8-55); AST (SGOT) 20 U/L (5-34); Albumin 2.6 g/dL (3.5-5.0); Alkaline Phosphatase 48 U/L (40-110); BUN (Urea Nitrogen) 21 mg/dL (9.8-20.1); Bilirubin, Total 0.6 mg/dL (0.2-1.2); Calc. Creatinine Clearance 62 mL/min (70-130); Calcium 7.7 mg/dL (7.8-10.44); Estimated GFR-MDRD 52; Glucose 155 mg/dL (70-105); Protein, Total 4.6 g/dL (6.0-8.3)
[2020-06-02 04:51] LABS: Anion Gap 16 mmol/L (10-20); Carbon Dioxide 35 mmol/L (22-29); Chloride 90 mmol/L (98-107); Potassium 4.4 mmol/L (3.5-5.1); Sodium 137 mmol/L (136-145)
[2020-06-02] MEDS: Piperacillin/Tazobactam 4.5 GM in Sodium Chloride 0.9% 100 ML IVPB SCH ×4 (05:31→23:44)
[2020-06-02] MEDS: Levothyroxine Sodium 50 MCG TAB PO SCH (05:31)
[2020-06-02] MEDS: ALPRAZolam 0.5 MG TAB PO PRN ×3 (06:00→21:11)
[2020-06-02] MEDS: Mometasone 200 MCG/Formoterol 5 MCG 120 PUFF INHALER INH SCH ×2 (07:53→18:54)
[2020-06-02] MEDS: busPIRone HCl 10 MG TAB PO SCH ×3 (09:03→21:11)
[2020-06-02] MEDS: Lactinex Tablet PO SCH (09:04)
[2020-06-02] MEDS: Venlafaxine HCl XR 75 MG CAP PO SCH (09:05)
[2020-06-02] MEDS: methylPREDNISolone Sod Succ 40 MG VIAL IVP SCH ×2 (09:05→21:12)
[2020-06-02] MEDS: Cyanocobalamin (Vitamin B-12) 1,000 MCG TAB PO SCH (09:05)
[2020-06-02] MEDS: Amiodarone 450 MG, Admixture Fee 1 EACH in Dextrose 5% in Water 250 ML IVPB SCH (09:20)
[2020-06-02] MEDS ORDERED: fentaNYL 75 mcg/hour Patch TD SCH (11:00)
[2020-06-02] MEDS: D5 1/2 NS w/40 mEq KCL 1,000 ML IV SCH ×2 (11:18→17:27)
[2020-06-02 11:31] VITALS: BP 139/74
[2020-06-02 11:45] LABS: Vancomycin, Trough 33.8 ug/mL
[2020-06-02] MEDS: Vancomycin 1 GM in Premix Bag 1 BAG IVPB SCH (11:53)
--- NOTE | 2020-06-02 13:10 | PDOC.HOSPP ---
- Subjective Encounter Date: 06/02/20 Encounter Time: 12:00 Subjective: awake, no sob no new complaints follows verbal stimuli, wants to go home with hospice, got a bit emotional this am is not hungry, encouraged to eat - Objective Vital Signs & Weight: Vital Signs (12 hours) Temp Pulse Pulse Pulse Resp BP BP 06/02/20 12:00 98.7 F 06/02/20 10:54 99 20 06/02/20 10:10 103 H 111 H 139/74 161/88 H 06/02/20 08:00 98.6 F 06/02/20 07:51 98 14 06/02/20 04:00 98.6 F 06/02/20 02:42 Pulse Ox Pulse Ox Pulse Ox 06/02/20 12:00 06/02/20 10:54 98 06/02/20 10:10 94 L 92 L 06/02/20 08:00 98 06/02/20 07:51 99 06/02/20 04:00 06/02/20 02:42 99 Weight Weight 154 lb 5.177 oz Most Recent Monitor Data Heart Rate from ECG 105 NIBP 127/70 NIBP BP-Mean 89 Respiration from ECG 18 SpO2 99 I&O: 06/01/20 06/02/20 06/03/20 06:59 06:59 06:59 Intake Total 4756 4295 130 Output Total 4947 1650 785 Balance -1509 2646 -958 Result Diagrams: 06/02/20 04:00 06/02/20 04:00 Hospitalist ROS - Medication Medications: Active Medications Generic Name Dose Route Start Last Admin Trade Name Freq PRN Reason Stop Dose Admin Acetaminophen 650 mg 05/29/20 15:03 05/30/20 10:36 Acetaminophen 325 Mg Tab PO 650 mg Q4H PRN Administration Headache/Fever/Mild Pain (1-3) Acidophilus 1 tab 05/30/20 09:00 06/02/20 09:04 Lactinex Tablet PO 1 tab DAILY DAVE Administration Albuterol/Ipratropium 3 ml 05/29/20 19:00 06/02/20 10:54 Ipratropium/Albuterol Sulfate 3 Ml Neb NEB 3 ml [id number] DAVE Administration Alprazolam 0.5 mg 05/29/20 21:00 06/02/20 11:51 Alprazolam 0.5 Mg Tab PO 0.5 mg TID PRN Administration Anxiety Atorvastatin Calcium 10 mg 05/29/20 21:00 06/01/20 20:08 Atorvastatin Calcium 10 Mg Tab PO 10 mg HS DAVE Administration Buspirone HCl 15 mg 05/29/20 21:00 06/02/20 09:03 Buspirone Hcl 10 Mg Tab PO 15 mg TID DAVE Administration Cyanocobalamin 1,000 mcg 05/30/20 09:00 06/02/20 09:05 Cyanocobalamin (Vitamin B-12) 1,000 Mcg Tab PO 1,000 mcg DAILY DAVE Administration Fentanyl 75 mcg 06/02/20 11:00 06/02/20 11:56 Fentanyl 75 Mcg/Hour Patch TD 75 mcg Q3D DAVE Administration Piperacillin Sod/Tazobactam 100 mls @ 200 mls/hr 05/29/20 18:00 06/02/20 11:17 Sod 4.5 gm/ Sodium Chloride IVPB 100 mls Q6HR DAVE Administration Pantoprazole Sodium 80 mg/ 100 mls @ 10 mls/hr 05/30/20 12:30 06/02/20 02:19 Miscellaneous Medication 1 IVPB 100 mls each/ Sodium Chloride INF DAVE Administration Amiodarone HCl 450 mg/ 259 mls @ 0 mls/hr 06/01/20 08:30 06/02/20 09:20 Miscellaneous Medication 1 IVPB 259 mls each/ Dextrose/Water INF DAVE Administration Protocol As Directed Potassium Chloride/Dextrose/Sod Cl 1,000 mls @ 100 mls/hr 06/01/20 22:00 06/02/20 11:18 D5 1/2 Ns W/40 Meq Kcl IV 1,000 mls .Q10H DAVE Administration Levothyroxine Sodium 50 mcg 05/30/20 06:00 06/02/20 05:31 Levothyroxine Sodium 50 Mcg Tab PO 50 mcg 0600 DAVE Administration Methylprednisolone Sodium Succinate 40 mg 05/29/20 21:00 06/02/20 09:05 Methylprednisolone Sod Succ 40 Mg Vial IVP 40 mg BID DAVE Administration Mirtazapine 30 mg 05/29/20 21:00 06/01/20 20:08 Mirtazapine 30 Mg Tab PO 30 mg HS DAVE Administration Mometasone Furoate/Formoterol Fumar 1 puff 05/29/20 18:30 06/02/20 07:53 Mometasone 200 Mcg/Formoterol 5 Mcg 120 Puff Inhaler INH 1 puff BID-RT DAVE Administration Morphine Sulfate 4 mg 05/31/20 09:15 06/02/20 11:19 Morphine 4 Mg/Ml Vial SLOW IVP 4 mg Q1H PRN Administration Pain Ondansetron HCl 4 mg 05/29/20 15:03 05/31/20 14:51 Ondansetron Pf 4 Mg/2 Ml Vial IVP 4 mg Q6H PRN Administration Nausea/Vomiting Sodium Chloride 10 ml 06/01/20 09:00 06/02/20 09:05 Flush - Normal Saline 10 Ml Syringe IVF 10 ml Q12HR DAVE Administration Tramadol HCl 50 mg 05/30/20 10:57 05/30/20 11:04 Tramadol Hcl 50 Mg Tab PO 50 mg Q6H PRN Administration Mild-Moderate Pain (1-5) Trazodone HCl 100 mg 05/29/20 21:00 06/01/20 20:08 Trazodone Hcl 50 Mg Tab PO 100 mg HS DAVE Administration Venlafaxine HCl 75 mg 05/30/20 09:00 06/02/20 09:05 Venlafaxine Hcl Xr 75 Mg Cap PO 75 mg DAILY DAVE Administration - Exam General Appearance: awake alert Eye: PERRL, anicteric sclera ENT: no oropharyngeal lesions, dry oral mucosa Neck: supple, no JVD Heart: RRR, no murmur Respiratory: no wheezes, no rales, rhonchi Gastrointestinal: soft, non-tender, non-distended, normal bowel sounds Extremities: no cyanosis, no edema Neurological: cranial nerve grossly intact, no focal deficits Hosp A/P (1) GI bleed Code(s): K92.2 - GASTROINTESTINAL HEMORRHAGE, UNSPECIFIED Status: Acute Qualifiers: GI bleed type/associated pathology: unspecified gastrointestinal hemorrhage type Qualified Code(s): K92.2 - Gastrointestinal hemorrhage, unspecified (2) Acute blood loss anemia Code(s): D62 - ACUTE POSTHEMORRHAGIC ANEMIA Status: Acute (3) Afib Code(s): I48.91 - UNSPECIFIED ATRIAL FIBRILLATION Status: Chronic Qualifiers: Atrial fibrillation type: paroxysmal Qualified Code(s): I48.0 - Paroxysmal atrial fibrillation (4) Acute respiratory failure with hypoxia and hypercapnia Code(s): J96.01 - ACUTE RESPIRATORY FAILURE WITH HYPOXIA; J96.02 - ACUTE RESPIRATORY FAILURE WITH HYPERCAPNIA Status: Acute (5) COPD exacerbation Code(s): J44.1 - CHRONIC OBSTRUCTIVE PULMONARY DISEASE W (ACUTE) EXACERBATION Status: Acute (6) Metastatic lung cancer (metastasis from lung to other site) Code(s): C34.90 - MALIGNANT NEOPLASM OF UNSP PART OF UNSP BRONCHUS OR LUNG Status: Chronic Qualifiers: Laterality: left Qualified Code(s): C34.92 - Malignant neoplasm of unspecified part of left bronchus or lung (7) Anxiety and depression Code(s): F41.9 - ANXIETY DISORDER, UNSPECIFIED; F32.9 - MAJOR DEPRESSIVE DISORDER, SINGLE EPISODE, UNSPECIFIED Status: Chronic (8) GERD (gastroesophageal reflux disease) Code(s): K21.9 - GASTRO-ESOPHAGEAL REFLUX DISEASE WITHOUT ESOPHAGITIS Status: Chronic Qualifiers: (9) HTN (hypertension) Code(s): I10 - ESSENTIAL (PRIMARY) HYPERTENSION Status: Chronic Qualifiers: Hypertension type: essential hypertension Qualified Code(s): I10 - Essential (primary) hypertension (10) Hypothyroidism Code(s): E03.9 - HYPOTHYROIDISM, UNSPECIFIED Status: Chronic Qualifiers: Hypothyroidism type: unspecified Qualified Code(s): E03.9 - Hypothyroidism, unspecified (11) Obesity (BMI 30.0-34.9) Code(s): E66.9 - OBESITY, UNSPECIFIED Status: Chronic - Plan Hb around 7g, serial h/h, transfuse if Hb drops <7g has recieved 4 prbc and 4 u FFP's this admission continue iv protonix, steroids, amiodarone drip, buspar, xanax, venlafaxine and empiric zosyn hemostable prognosis guarded has non small cell lung ca stage 4 yet to start chemo/immunotherapy or radiation may dc home with hospice if she and family prefers it
--- NOTE | 2020-06-02 13:28 | PDOC.PALCO ---
Palliative Care Consult - Allergies Allergies/Adverse Reactions: Allergies Allergy/AdvReac Type Severity Reaction Status Date / Time divalproex sodium Allergy Verified 11/22/19 03:47 [From Depakote] levofloxacin [From Levaquin] Allergy Verified 04/29/20 21:38 - Objective Vital Signs: Vital Signs - Most Recent Temp Pulse Resp BP Pulse Ox 98.7 F 99 20 139/74 98 06/02/20 12:00 06/02/20 10:54 06/02/20 10:54 06/02/20 10:10 06/02/20 10:54 - Problem List (1) COPD exacerbation Code(s): J44.1 - CHRONIC OBSTRUCTIVE PULMONARY DISEASE W (ACUTE) EXACERBATION Current Visit: No Status: Acute (2) Palliative care encounter Code(s): Z51.5 - ENCOUNTER FOR PALLIATIVE CARE Current Visit: No Status: Acute (3) Metastatic lung cancer (metastasis from lung to other site) Code(s): C34.90 - MALIGNANT NEOPLASM OF UNSP PART OF UNSP BRONCHUS OR LUNG Current Visit: No Status: Chronic Qualifiers: Laterality: left Qualified Code(s): C34.92 - Malignant neoplasm of unspecified part of left bronchus or lung - Plan/Recommendations Plan: Communicated with Dr Godinez and discussed risk verses benefit for colonoscopy to assess for GI bleeding. Patient has elected to not pursue secondary to fragile state, shortness of breath and desire to return to home setting for hospice care. Discussed with patient, her sister Mary, and spouse transition to home setting with hospice care. Discussed what is provided, symptom management and supplies. Encouraged family to discuss who will assist Mr Malloy in the care of Mrs Malloy when hospice aid is not available. Communicated with Dr Lomax [] minutes spent on this encounter with >50% of the time in counseling and coordination of care. Thank you for this very appropriate consult.
--- NOTE | 2020-06-02 15:44 | PRG ---
DATE OF SERVICE: 06/02/2020 SUBJECTIVE: Per Ms. Malloy and per nursing staff, she had had approximately 2 additional bloody bowel movements overnight as well as 1 in this morning. They were characterized as maroon in coloration and small to moderate in volume. She continues to have vague abdominal discomfort, but otherwise states that she is doing well. Upon further conversation of the workup related to her continued hematochezia and the likelihood of upper endoscopy or colonoscopy, the patient does not wish to pursue these modalities at this time due to her other medical comorbidities and likelihood that this would not change the outcome of her metastatic cancer. Otherwise, she denies any nausea, vomiting, fevers, chills, hematemesis, or melena. OBJECTIVE: VITAL SIGNS: Temperature 98.7, pulse 104, blood pressure 122/66, respiratory rate 18, saturating 99% on 2 L nasal cannula. GENERAL: The patient was lying in bed, in no acute distress. Alert and oriented x4. Mild conversational dyspnea. RESPIRATORY: Clear to auscultation bilaterally. CARDIOVASCULAR: Regular rate and rhythm. ABDOMEN: Normoactive bowel sounds. Soft, nontender, nondistended. EXTREMITIES: No cyanosis, clubbing, or edema. LABORATORY DATA: CBC with a hemoglobin of 7.1, hematocrit 20.6. Chemistry with a sodium of 137, potassium 4.4, chloride 90, CO2 of 35, BUN 21, creatinine 1.07, glucose 155. IMAGING DATA: No current GI imaging is available for review. IMPRESSION: 1. Hematochezia. The patient presenting with bright red blood per rectum or more maroon-colored stools, more consistent with a lower gastrointestinal bleed, but cannot fully localize to this region at this time. 2. Anemia of acute blood loss. The patient continues to have a slightly downtrending H and H during the course of this admission, most likely due to her continued hematochezia with the origin at this time unknown. 3. Metastatic lung cancer. RECOMMENDATIONS: 1. Upon speaking with the palliative care team earlier today, the patient does wish to pursue DNR/DNI status with hospice care, being discharged to home as soon as possible. I think this is a reasonable decision. 2. In light of her significant medical comorbidities and likelihood that an EGD and colonoscopy (while it may stop the bleeding), would not ultimately change her long-term status given her metastatic cancer that is not amenable to further treatment. I discussed these things with the patient and her increased risk of complication given her current clinical status, she wishes to pursue hospice care at this time and would not like to proceed with either upper endoscopy or colonoscopy at this time. 3. Advance diet as tolerated per palliative care team's recommendations. 4. Continue PPI. We will sign off at this time given the patient's decision to pursue hospice care and to refrain from any further invasive therapies. Please call with any questions. Job ID: [id number]
--- NOTE | 2020-06-02 17:05 | PRG ---
DATE OF SERVICE: 06/02/2020 SUBJECTIVE: Mady Malloy saying that she wants to go home. OBJECTIVE: VITAL SIGNS: Heart rate is 107, respiratory rate is 23, oximetry is 96%, blood pressure is 111/67. LUNGS: Remarkable for slightly prolonged expiratory phase. HEART: Regular rhythm. ABDOMEN: Soft. LABORATORY DATA: Hemoglobin is down to 7.1 this morning. PLAN: We will stop transfusing her for now. Hospice is being arranged. Her supported her decision. I met with her sister. She is also supportive of the decision. She will need a nebulizer and oxygen at home for comfort care. Job ID: [id number]
[2020-06-02] MEDS: traZODone HCl 50 MG TAB PO SCH (21:11)
[2020-06-02] MEDS: Atorvastatin Calcium 10 MG TAB PO SCH (21:11)
[2020-06-02] MEDS: Mirtazapine 30 MG TAB PO SCH (21:11)
[2020-06-03] MEDS: D5 1/2 NS w/40 mEq KCL 1,000 ML IV SCH ×2 (00:02→10:48)
[2020-06-03] MEDS: Amiodarone 450 MG, Admixture Fee 1 EACH in Dextrose 5% in Water 250 ML IVPB SCH (01:09)
[2020-06-03] MEDS: Morphine 4 MG/ML VIAL SLOW IVP PRN ×6 (03:38→11:53)
[2020-06-03] MEDS: Pantoprazole 80 MG, Admixture Fee 1 EACH in Sodium Chloride 0.9% 100 ML IVPB SCH ×2 (03:39→14:27)
[2020-06-03] MEDS: Levothyroxine Sodium 50 MCG TAB PO SCH (05:45)
[2020-06-03] MEDS: Piperacillin/Tazobactam 4.5 GM in Sodium Chloride 0.9% 100 ML IVPB SCH ×2 (05:45→11:54)
[2020-06-03] MEDS: Mometasone 200 MCG/Formoterol 5 MCG 120 PUFF INHALER INH SCH ×2 (07:32→18:29)
[2020-06-03] MEDS: busPIRone HCl 10 MG TAB PO SCH (08:54)
[2020-06-03] MEDS: Cyanocobalamin (Vitamin B-12) 1,000 MCG TAB PO SCH (08:55)
[2020-06-03] MEDS: ALPRAZolam 0.5 MG TAB PO PRN ×2 (08:55→16:38)
[2020-06-03] MEDS: traMADol HCl 50 MG TAB PO PRN (08:55)
[2020-06-03] MEDS: Lactinex Tablet PO SCH (08:56)
[2020-06-03] MEDS: methylPREDNISolone Sod Succ 40 MG VIAL IVP SCH (08:56)
[2020-06-03] MEDS: Venlafaxine HCl XR 75 MG CAP PO SCH (08:57)
[2020-06-03] MEDS ORDERED: Amiodarone 200 MG TAB PO SCH ×2 (09:15→15:00)
[2020-06-03] MEDS: Acetaminophen 325 MG TAB PO PRN (10:01)
[2020-06-03] MEDS ORDERED: Vancomycin 1 GM in Premix Bag 1 BAG IVPB SCH (12:00)
[2020-06-03] MEDS: Morphine 10 MG/ML VIAL SLOW IVP PRN ×2 (16:38→19:09)
[2020-06-03 20:01] VITALS: TEMP 98.6
--- NOTE | 2020-06-04 02:20 | DIS ---
DATE OF ADMISSION: 05/29/2020 DATE OF DISCHARGE: 06/03/2020 PRIMARY CARE PROVIDER: Dr. Alexus Guerrero. DISCHARGE DIAGNOSES: 1. Acute respiratory failure with hypoxia and hypercapnia. 2. Upn-IA-pykddpyzd myocardial infarction, type 2. 3. Anemia of acute blood loss. 4. Gastrointestinal bleed. CONDITION OF THE PATIENT ON THE DAY OF DISCHARGE: I assessed Ms. Malloy on the day of discharge. She denies any chest pain or shortness of breath. Vital signs are stable. S1 and S2 are heard, regular. Lungs are clear to auscultation bilaterally. CONSULTATIONS DURING THIS HOSPITALIZATION: Cardiology, Dr. Pratt; Gastroenterology, Dr. Dill; and Pulmonary and Critical Care Medicine, Dr. Cruz. HOSPITAL COURSE: Ms. Malloy is a pleasant 60-year-old lady who was admitted to [facility] on May 29, 2020 for acute respiratory failure and iwy-TR-omrkpfnsm myocardial infarction type 2. Please refer to [address] Ibrahim's history and physical note dated May 29, 2020, for further details. She was also found to be in atrial fibrillation. She was seen by Pulmonary and Critical Care Medicine as well as Cardiology Services. She was also seen by GI Service for recurrent GI blood loss. She had central line placed and was transfused packed RBCs with improvement in her hemoglobin. Palliative Care Team also saw the patient to discuss goals of care. After discussions with Palliative Care Team, the patient wished to go home on hospice care. While she was in the critical care unit, she was treated with amiodarone drip and is being transitioned to oral amiodarone at the time of discharge. DISCHARGE MEDICATIONS: New medications are Protonix 40 mg daily and amiodarone 400 mg three times a day for 2 weeks, then 400 mg two times a day for 2 weeks, then 400 mg daily for 2 weeks followed by 200 mg daily. Because of interaction with venlafaxine and amiodarone, venlafaxine was discontinued. She is also getting a prescription for nebulizer and is being started on DuoNebs 3 mL q.6 hours p.r.n. She was already on home oxygen. Arrangements are being made for hospice at home at the time of this dictation. Many thanks for allowing me to participate in your patient's care. Please feel free to contact me with any questions or concerns. ACTIVITY: As tolerated. POST ACUTE CARE FOLLOWUP: With primary care provider in 3 days. DIET: Heart healthy. DISCHARGE DESTINATION: Home. TIME SPENT: Total amount of time spent coordinating this discharge: 32 minutes. Job ID: [id number]
[2020-06-04] MEDS ORDERED: methylPREDNISolone Sod Succ 40 MG VIAL IVP SCH (09:00)
--- NOTE | 2020-06-04 12:55 | PQF ---
CLINICAL DOCUMENTATION CLARIFICATION FORM: Dear Dr. Martines Date: 06/04/2020 Please exercise your independent, professional judgment in responding to the clarification form. Clinical indicators are provided on the bottom of this form for your review. Please check appropriate box(es): [ x ] SIRS due to Non-infectious process: [ x ] GI Bleed [ ] Metastatic Lung Cancer [ ] Other: [ x ] With organ dysfunction [ ] Without organ dysfunction [ ] No SIRS present [ ] Other diagnosis [ ] Unable to determine In addition, please specify: Present on Admission (POA): [ x ] Yes [ ] No [ ] Unable to determine For continuity of documentation, please document condition throughout progress notes and discharge summary. Thank You. CLINICAL INDICATORS - SIGNS / SYMPTOMS / LABS / RESULTS AND LOCATION IN EMR *LAB (EMR): WBC Neutrophils Lactic Acid 05/29 19.5 76 1.9 05/30 11.0 - 14.4 05/31 18.5 *ED 05/29: * Triage notes: Hx of lung cancer. AMS today 80% on 4L. Non-rebreather now. * Vital Signs: RR 14-26 Pulse 75-92 *H&P 05/29 ([facility]): * Acute hypercapnic hypoxic respiratory failure. 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 This suggests previously occult and now overt GI blood loss. *Consultation 05/30 (Nancy): * She presented yesterday with complaints of shortness of breath, which she says was improved. Her hemoglobin is 8.7 yesterday, 7.0 this morning at 3 oclock and then 5.7 at 1330 hours. * COPD with mild exacerbation, it is improving. 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 *Consultation 05/30 (Case): For now, transfuse, continue the IV PPI. Possible EGD and colonoscopy one she is more optimized *Consultation Pulmonology 05/30 (Cruz): She was transferred to critical care unit central line ... H and H and continue with IV fluids. We need to avoid anticoagulants for her. *PN 06/02 (Herbert): Palliative care team. Thank you, Vikki CDS/Core Sucker Signature: Vikki Bartholomew RN, CDS Phone #: [phone] [email or web address] This is a permanent part of the Medical Record [facility]
== END 2020-06-03 19:45 | disposition hospice, home (50) | DRG 377 ==
LOC: ERS 09:23 → CCU 14:05 → IMCU/EMU 16:00 → CCU 05-30 15:16
PROVIDERS: ADMIT Internal Medicine; ATTEND Internal Medicine
PROC: 5A09457 Assistance with Respiratory Ventilation, 24-96 Consecutive Hours, Continuous Positive Airway Pressure (ICD-10-PCS; principal; 2020-05-29)
PROC: 06HY33Z Insertion of Infusion Device into Lower Vein, Percutaneous Approach (ICD-10-PCS; 2020-05-30)
PROC: 30233L1 Transfusion of Nonautologous Fresh Plasma into Peripheral Vein, Percutaneous Approach (ICD-10-PCS; 2020-05-30)
PROC: 30233N1 Transfusion of Nonautologous Red Blood Cells into Peripheral Vein, Percutaneous Approach (ICD-10-PCS; 2020-05-30)
PROC: 30233K1 Transfusion of Nonautologous Frozen Plasma into Peripheral Vein, Percutaneous Approach (ICD-10-PCS; 2020-05-30)
DX: K92.1 Melena (principal); J96.01 Acute respiratory failure with hypoxia; I21.A1 Myocardial infarction type 2; J96.02 Acute respiratory failure with hypercapnia; G93.41 Metabolic encephalopathy; R65.11 Systemic inflammatory response syndrome (SIRS) of non-infectious origin with acute organ dysfunction; D62 Acute posthemorrhagic anemia; J90 Pleural effusion, not elsewhere classified; J44.1 Chronic obstructive pulmonary disease with (acute) exacerbation; I48.92 Unspecified atrial flutter; E87.1 Hypo-osmolality and hyponatremia; C34.92 Malignant neoplasm of unspecified part of left bronchus or lung; Z66 Do not resuscitate; Z20.828 Contact with and (suspected) exposure to other viral communicable diseases; Z51.5 Encounter for palliative care; E66.9 Obesity, unspecified; K21.9 Gastro-esophageal reflux disease without esophagitis; E78.5 Hyperlipidemia, unspecified; E78.00 Pure hypercholesterolemia, unspecified; E03.9 Hypothyroidism, unspecified; I10 Essential (primary) hypertension; F41.9 Anxiety disorder, unspecified; I48.91 Unspecified atrial fibrillation; E87.6 Hypokalemia; M54.5 Low back pain; F32.9 Major depressive disorder, single episode, unspecified; Z90.49 Acquired absence of other specified parts of digestive tract; Z87.891 Personal history of nicotine dependence; Z88.1 Allergy status to other antibiotic agents; Z88.8 Allergy status to other drugs, medicaments and biological substances; Z79.890 Hormone replacement therapy; Z79.01 Long term (current) use of anticoagulants; Z79.899 Other long term (current) drug therapy; Z68.31 Body mass index [BMI] 31.0-31.9, adult
CPT/HCPCS: 36415; 36416; 36430; 70450; 71045; 80048; 80053; 80202; 82140; 82274; 82553; 82805; 83605; 83880; 84443; 84484; 85014; 85018; 85025; 85610; 85730; 86850; 86900; 86901; 87040; 87149; 87635; 93005; 94660; 94664; 96365; 96366; 96375; C1751; C9113; J0282; J1940; J2270; J2310; J2405; J2543; J2920; J3370; J3480; J3490; J7042; J7050; J7070; J7620; P9016; P9047; P9059; U0003